=== PATIENT | male | born 1955 | race Caucasian/White ===

== ENCOUNTER 2018-07-22 12:45 | Emergency (ER) | payer OTHER, SELFPAY ==
[2018-07-22 12:50] VITALS: BP 166/55; PULSE 67; RESP 20; TEMP 36.8; O2SAT 99
[2018-07-22 13:05] VITALS: BP 122/53; PULSE 65; RESP 15; O2SAT 99
--- NOTE | 2018-07-22 13:07 | DI.RAD.S_ITS ---
PROCEDURE: XR CHEST 2V INDICATIONS: Cough for last few days TECHNIQUE: 2 views of the chest were acquired. COMPARISON: None. FINDINGS: Surgical changes and devices: Median sternotomy wires are seen.. Lungs and pleura: No pleural effusions or pneumothorax. Mild pulmonary vascular congestion is noted. No definite focal infiltrate. Mediastinum: Mediastinal contours are normal. Heart size is enlarged. Bones and chest wall: No suspicious bony abnormalities. Soft tissues appear unremarkable. IMPRESSION: Mild pulmonary vascular congestion. No definite focal infiltrate. Dictated by: Brian Christy M.D. on 07/22/2018 at 14:07 Approved by: Brian Christy M.D. on 07/22/2018 at 14:08
[2018-07-22 13:37] LABS: Add Manual Diff / Slide Review NO; Basophils Percent Auto 0.7 % (0-2); Eosinophils Percent Auto 1.6 % (2-4); Hematocrit 44.2 % (41-53); Hemoglobin 15.4 g/dL (13.5-17.5); Lymphocytes Percent Auto 29.9 % (25-40); Mean Corpuscular HGB Conc 34.8 % (30-36); Mean Corpuscular Hemoglobin 29.9 PG (26-34); Mean Corpuscular Volume 86.1 fL (80-100); Monocytes Percent Auto 16.7 % (3-14); Neutrophils Absolute Auto 2400 /uL (3000-5900); Neutrophils Percent Auto 51.1 % (50-75); Platelet Count 162 X10^3/uL (150-400); Red Blood Cell Count 5.14 X10^6/uL (4.5-5.9); Red Cell Distribution Width 14.8 % (11.6-14.8); White Blood Cell Count 4.7 X10^3/uL (4.5-11.0)
[2018-07-22 13:42] LABS: Prothrombin Time 11.4 SECONDS (10.1-12.7)
[2018-07-22 13:45] LABS: D Dimer 213 ng/mL (<230)
[2018-07-22 13:49] LABS: Alanine Aminotransferase 34 IU/L (21-72); Albumin Globulin Ratio 1.6 (1.0-2.8); Alkaline Phosphatase 62 U/L (38-126); Aspartate Aminotransferase 25 IU/L (17-59); BUN Creatinine Ratio 16.7 (6-22); Bilirubin Total 0.8 mg/dL (0.2-1.3); Blood Urea Nitrogen 15 mg/dL (9-20); Carbon Dioxide 29 mmol/L (22-32); Chloride 104 mmol/L (98-107); Creatine Kinase 203 U/L (55-170); Estimated Glomerular Filt Rate > 60.0 mL/min (>60); Globulin 2.5 g/dL (1.7-4.1); Glucose 225 mg/dL (80-110); HEMOLYSIS 20 (0-50); Lipase 37 U/L (23-300); Potassium 3.5 mmol/L (3.4-5.1); Sodium 142 mmol/L (137-145); Total Protein 6.5 g/dL (6.3-8.2)
[2018-07-22 14:00] VITALS: BP 129/47; PULSE 59; RESP 12; O2SAT 99
[2018-07-22 14:04] LABS: CKMB % Relative Index 1.1 % (1.5-5.0); Creatine Kinase MB 2.28 ng/mL (<2.37)
[2018-07-22 14:10] LABS: Troponin I < 0.012 ng/mL (0.01-0.034)
--- NOTE | 2018-07-22 14:28 | ED_ITS ---
HPI - General Adult <JJ Almazan - Last Filed: 07/22/18 21:37> General Chief complaint: Upper Respiratory Symptoms Stated complaint: hard time breathing, cough Time Seen by Provider: 07/22/18 12:46 Source: patient Mode of arrival: ambulatory Limitations: no limitations History of Present Illness HPI narrative: 63-year-old male history of coronary artery disease and a nonsmoker here for complaint of having cough over the last 3-4 days. He denies any fevers or chills. He states that the cough is not productive. 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 He states that he had an episode of chest pain day before yesterday to the left side of his chest although he thinks that this is due to muscle pain as it was worse while he was carrying work gear and moving his left arm. He denies any chest pain at this time. He is ambulatory into the emergency room. He denies any shortness of breath. Related Data Previous Rx's Medication Instructions Recorded ofloxacin 1 drp OPHTH TID #5 ml 05/14/17 Allergies Allergy/AdvReac Type Severity Reaction Status Date / Time [id number]-[id number] Reductase Allergy Unknown Unverified 02/22/18 12:28 Inhibitor [[id number] REDUCTASE INHIBITOR] morphine [MORPHINE] AdvReac Mild SENSITIVE Unverified 02/22/18 12:28 Review of Systems <JJ Almazan - Last Filed: 07/22/18 21:37> Constitutional Denies chills, Denies fever(s), Denies lethargy and Denies weakness Eyes Denies change in vision, Denies eye discharge, Denies irritation and Denies loss of vision ENT Ears, Nose, Mouth, and Throat: Denies change in voice, Denies neck pain, Denies sore throat and Denies throat swelling Cardiovascular Denies chest pain, Denies irregular heart rhythm, Denies lightheadedness, Denies palpitations and Denies orthopnea Respiratory Reports cough and Denies wheezing Gastrointestinal Gastrointestinal: Denies abdominal pain, Denies change in bowel habits, Denies diarrhea, Denies nausea and Denies vomiting Genitourinary Denies hematuria, Denies flank pain, Denies urinary incontinence and Denies urinary urgency Musculoskeletal Denies neck pain Integumentary/Breasts Denies pruritus, Denies erythema, Denies rash and Denies wounds Neurologic Denies confusion, Denies loss of vision and Denies weakness Psychiatric Denies anxiety, Denies confusion, Denies depression, Denies homicidal ideation and Denies suicidal ideation Endocrine Denies palpitations Hematologic/Lymphatic Denies easy bruising Allergic/Immunologic Denies urticaria, Denies throat swelling and Denies wheezing Exam <JJ Almazan - Last Filed: 07/22/18 21:37> Initial Vital Signs Initial Vital Signs: Vital Signs Temperature 98.3 F 07/22/18 12:50 Pulse Rate 67 07/22/18 12:50 Respiratory Rate 20 07/22/18 12:50 Blood Pressure 166/55 H 07/22/18 12:50 Pulse Oximetry 99 07/22/18 12:50 Const General: cooperative and well developed Nutritional Appearance: well nourished Orientation: alert, awake, oriented x3 and not confused HENMT Ears: hearing grossly normal bilaterally, external ears normal and TM's normal bilaterally Mouth: oral mucosae normal, oropharynx normal and moist mucous membranes Eyes Conjunctivae: conjunctivae normal Sclera: sclerae normal Pupils: PERRL EOM: EOM intact bilaterally Chest Chest: normal inspection of the chest Resp Effort & Inspection: normal respiratory effort, able to speak in complete sentences, no respiratory distress and no use of accessory muscles Auscultation: clear to auscultation bilaterally, no rales, no rhonchi and no wheezes Cardio Rate: regular rate Rhythm: regular rhythm Heart Sounds: no click, no gallops, no murmurs and no rubs Pulses: normal peripheral pulses GI Inspection: non-distended Palpation: soft, no hepatosplenomegaly, No guarding, No pulsatile mass and No tender Auscultation: normal bowel sounds Skin General: no rashes or lesions noted, No jaundice and No petechiae Neuro General: alert, oriented x3, gait normal and no focal motor deficits Speech: speech normal <Oscar Kelley DO - Last Filed: 07/23/18 06:46> Initial Vital Signs Initial Vital Signs: Vital Signs Temperature 98.3 F 07/22/18 12:50 Pulse Rate 67 07/22/18 12:50 Respiratory Rate 20 07/22/18 12:50 Blood Pressure 166/55 H 07/22/18 12:50 Pulse Oximetry 99 07/22/18 12:50 Course <JJ Almazan - Last Filed: 07/22/18 21:37> Orders Ordered: ED Orders 07/22/18 13:07 XR chest 2V Stat EKG-12 Lead Stat 07/22/18 13:20 B Type Natriuretic Peptide Stat Complete Blood Count AUTO DIFF Stat Comprehensive Metabolic Panel Stat D Dimer Stat Lipase Stat Prothrombin Time INR Stat Troponin & CK Cardiac Panel Stat Vital Signs - 8 hr 07/22/18 14:00 07/22/18 15:00 07/22/18 15:16 Temperature 98.5 F Pulse Rate 59 L 64 55 L Respiratory Rate 12 13 15 Blood Pressure 122/44 L Blood Pressure [Left Arm] 129/47 L 124/44 L Pulse Oximetry 99 99 100 <Oscar Kelley DO - Last Filed: 07/23/18 06:46> Orders Ordered: ED Orders 07/22/18 13:07 XR chest 2V Stat EKG-12 Lead Stat 07/22/18 13:20 B Type Natriuretic Peptide Stat Complete Blood Count AUTO DIFF Stat Comprehensive Metabolic Panel Stat D Dimer Stat Lipase Stat Prothrombin Time INR Stat Troponin & CK Cardiac Panel Stat Vital Signs - 8 hr 07/22/18 14:00 07/22/18 15:00 07/22/18 15:16 Temperature 98.5 F Pulse Rate 59 L 64 55 L Respiratory Rate 12 13 15 Blood Pressure 122/44 L Blood Pressure [Left Arm] 129/47 L 124/44 L Pulse Oximetry 99 99 100 Medical Decision Making <JJ Almazan - Last Filed: 07/22/18 21:37> Lab Data Result diagrams: 07/22/18 13:20 07/22/18 13:20 Lab Results 07/22/18 07/22/18 07/22/18 Range/Units 13:20 13:20 13:20 WBC 4.7 (4.5-11.0) X10^3/uL RBC 5.14 (4.5-5.9) X10^6/uL Hgb 15.4 (13.5-17.5) g/dL Hct 44.2 (41-53) % MCV 86.1 (80-100) fL MCH 29.9 (26-34) PG MCHC 34.8 (30-36) % RDW 14.8 (11.6-14.8) % Plt Count 162 (150-400) X10^3/uL Neut % (Auto) 51.1 (50-75) % Lymph % (Auto) 29.9 (25-40) % [place] % (Auto) 16.7 H (3-14) % Eos % (Auto) 1.6 L (2-4) % Baso % (Auto) 0.7 (0-2) % Neut # (Auto) 2400 L (2857-2077) /uL PT 11.4 (10.1-12.7) SECONDS INR 1.0 (0.9-1.3) D-Dimer 213 (<230) ng/mL Sodium 142 (137-145) mmol/L Potassium 3.5 (3.4-5.1) mmol/L Chloride 104 (98-107) mmol/L Carbon Dioxide 29 (22-32) mmol/L BUN 15 (9-20) mg/dL Creatinine 0.90 (0.66-1.25) mg/dL Estimated GFR > 60.0 (>60) mL/min BUN/Creatinine Ratio 16.7 (6-22) Glucose 225 H (80-110) mg/dL Calcium 9.0 (8.4-10.2) mg/dL Total Bilirubin 0.8 (0.2-1.3) mg/dL AST 25 (17-59) IU/L ALT 34 (21-72) IU/L Alkaline Phosphatase 62 (38-126) U/L Total Creatine Kinase 203 H (55-170) U/L CK-MB (CK-2) 2.28 (<2.37) ng/mL CK-MB (CK-2) Rel Index 1.1 L (1.5-5.0) % Troponin I < 0.012 (0.01-0.034) ng/mL B-Natriuretic Peptide < 100.0 (<100) Total Protein 6.5 (6.3-8.2) g/dL Albumin 4.0 (3.5-5.0) g/dL Globulin 2.5 (1.7-4.1) g/dL Albumin/Globulin Ratio 1.6 (1.0-2.8) Lipase 37 (23-300) U/L Imaging Data Chest x-ray: Radiologist's impression: PROCEDURE: XR CHEST 2V INDICATIONS: Cough for last few days TECHNIQUE: 2 views of the chest were acquired. COMPARISON: None. FINDINGS: Surgical changes and devices: Median sternotomy wires are seen.. Lungs and pleura: No pleural effusions or pneumothorax. Mild pulmonary vascular congestion is noted. No definite focal infiltrate. Mediastinum: Mediastinal contours are normal. Heart size is enlarged. Bones and chest wall: No suspicious bony abnormalities. Soft tissues appear unremarkable. IMPRESSION: Mild pulmonary vascular congestion. No definite focal infiltrate. Dictated by: Brian Christy M.D. on 07/22/2018 at 14:07 Approved by: Brian Christy M.D. on 07/22/2018 at 14:08 ECG Data Interpretation: EKG shows sinus bradycardia with first-degree AV block. No ST elevation or depression. No ectopy. Ventricular rate of 59. Pr interval of 233. QRS duration 97. QT of 405. MDM Narrative Additional Information: EKG shows sinus bradycardia with no ST elevation or depression. Chest x-ray shows mild pulmonary vascular congestion. CBC and Chem panel were obtained were unremarkable. Cardiac enzymes were obtained were negative. BMP was obtained and was negative. D-dimer was obtained was negative. BNP was negative.. Signs and symptoms presents as viral illness. Plenty of fluids and rest. [id number] Tylenol as needed for any discomfort. For any worsening symptoms return to the emergency room. <Oscar Kelley DO - Last Filed: 07/23/18 06:46> Lab Data Lab Results 07/22/18 07/22/18 07/22/18 Range/Units 13:20 13:20 13:20 WBC 4.7 (4.5-11.0) X10^3/uL RBC 5.14 (4.5-5.9) X10^6/uL Hgb 15.4 (13.5-17.5) g/dL Hct 44.2 (41-53) % MCV 86.1 (80-100) fL MCH 29.9 (26-34) PG MCHC 34.8 (30-36) % RDW 14.8 (11.6-14.8) % Plt Count 162 (150-400) X10^3/uL Neut % (Auto) 51.1 (50-75) % Lymph % (Auto) 29.9 (25-40) % [place] % (Auto) 16.7 H (3-14) % Eos % (Auto) 1.6 L (2-4) % Baso % (Auto) 0.7 (0-2) % Neut # (Auto) 2400 L (1314-6563) /uL PT 11.4 (10.1-12.7) SECONDS INR 1.0 (0.9-1.3) D-Dimer 213 (<230) ng/mL Sodium 142 (137-145) mmol/L Potassium 3.5 (3.4-5.1) mmol/L Chloride 104 (98-107) mmol/L Carbon Dioxide 29 (22-32) mmol/L BUN 15 (9-20) mg/dL Creatinine 0.90 (0.66-1.25) mg/dL Estimated GFR > 60.0 (>60) mL/min BUN/Creatinine Ratio 16.7 (6-22) Glucose 225 H (80-110) mg/dL Calcium 9.0 (8.4-10.2) mg/dL Total Bilirubin 0.8 (0.2-1.3) mg/dL AST 25 (17-59) IU/L ALT 34 (21-72) IU/L Alkaline Phosphatase 62 (38-126) U/L Total Creatine Kinase 203 H (55-170) U/L CK-MB (CK-2) 2.28 (<2.37) ng/mL CK-MB (CK-2) Rel Index 1.1 L (1.5-5.0) % Troponin I < 0.012 (0.01-0.034) ng/mL B-Natriuretic Peptide < 100.0 (<100) Total Protein 6.5 (6.3-8.2) g/dL Albumin 4.0 (3.5-5.0) g/dL Globulin 2.5 (1.7-4.1) g/dL Albumin/Globulin Ratio 1.6 (1.0-2.8) Lipase 37 (23-300) U/L Discharge Plan Departure Patient Disposition: Home Clinical Impression: Upper respiratory infection Discharge Date/Time: 07/22/18 15:18 Interventions: ED Discharge Assessment Last Done: 07/22/18 15:16 Instructions: DI for Viral Upper Respiratory Infection -- Adult Activity Restrictions/Additional Instructions: Laboratory results today along with EKG and chest x-ray were unremarkable. Signs and symptoms presents as a viral upper respiratory infection. Plenty of fluids and rest. Tylenol as needed for any discomfort. Follow up with her primary care provider this week for re-evaluation. For any worsening symptoms return to the emergency room. Prescriptions: No Action ofloxacin 0.3 % drops 1 drp OPHTH TID Qty: 5 RF: 0 Referrals: Dakota Pozo MD [Primary Care Provider] - <Oscar Kelley DO - Last Filed: 07/23/18 06:46> Cosign ED Attending Olamide Attestation: I was available for consultation during this patient's emergency department encounter
[2018-07-22 14:38] LABS: B Type Natriuretic Peptide < 100.0 (<100)
[2018-07-22 15:00] VITALS: BP 124/44; PULSE 64; RESP 13; O2SAT 99
[2018-07-22 15:16] VITALS: BP 122/44; PULSE 55; RESP 15; TEMP 36.9; O2SAT 100
== END 2018-07-22 15:18 | disposition home or self-care (01) ==
PROVIDERS: Emergency Provider Nurse Practitioner Family; PCP Family Medicine
DX: J06.9 Acute upper respiratory infection, unspecified (principal)
CPT/HCPCS: 36591; 71046; 80053; 82550; 82553; 83690; 83880; 84484; 85025; 85379; 85610; 93005; 93010; 99283; 99285

== ENCOUNTER 2023-02-23 10:48 | Observation (INO) | payer OTHER, SELFPAY ==
[2023-02-23] VITALS (19 sets, daily range): BP systolic 127–171; BP diastolic 47–72; PULSE 61–68; RESP 12–22; TEMP 36.6–37; O2SAT 92–100; BMI 44.7; BMI 43.0
--- NOTE | 2023-02-23 10:56 | ED_ITS ---
HPI - General Adult General Chief complaint: Neuro Symptoms/Deficit Stated complaint: when getting up from chair gets dizzy & falls 2x Time Seen by Provider: 02/23/23 10:56 History of Present Illness HPI narrative: 67-year-old male with history of diabetes and hyperlipidemia presents with 2 episodes of falling that happened since 2:00 a.m.. He states that yesterday he was in his normal state of health and that at 1 point this morning, he thinks at about 2:00 a.m. he was attempting to stand and he felt a bit unsteady in his left leg gave out on him, causing him to fall. He states that there was a 2nd occurrence when he was trying to tie his shoe and attempting to support himself his left leg gave out on him again. He denies any headache or blurred vision. He is had no trouble with speech. He denies any facial numbness or weakness. He denies upper extremity numbness or weakness. He admits to ongoing weakness of his left leg. Denies any back pain or trauma. He is had no fever and takes no blood thinners. He denies any loss of control of bowel or bladder. Related Data Home Medications Medication Instructions Recorded Confirmed amlodipine 5 mg tablet 5 mg PO DAILY 02/23/23 02/23/23 carvedilol 3.125 mg tablet 3.125 mg PO BIDWM 02/23/23 02/23/23 clopidogrel 75 mg tablet 75 mg PO DAILY 02/23/23 02/23/23 dulaglutide 0.75 mg/0.5 mL 0.75 mg SUBCUT WEEKLY 02/23/23 02/23/23 subcutaneous pen injector (Trulicity) insulin NPH isoph U-100 human 100 70 unit SUBCUT BID 02/23/23 02/23/23 unit/mL subcutaneous suspension (Novolin N NPH U-100 Insulin isophane) insulin aspart U-100 100 unit/mL 35 unit SUBCUT TID 02/23/23 02/23/23 subcutaneous solution (Novolog U-100 Insulin aspart) lisinopril 40 mg tablet 40 mg PO DAILY 02/23/23 02/23/23 methylphenidate HCl 10 mg tablet 10 mg PO QID 02/23/23 02/23/23 nitroglycerin 0.4 mg sublingual 0.4 mg sublingual Q5M PRN Chest 02/23/23 02/23/23 tablet Pain potassium chloride 20 mEq 20 meq PO DAILY 02/23/23 02/23/23 tablet,extended release(part/cryst) semaglutide 0.25 mg or 0.5 mg (2 0.25 mg SUBCUT WEEKLY 02/23/23 02/23/23 mg/1.5 mL) subcutaneous pen injector (Ozempic) torsemide 20 mg tablet 40 mg PO DAILY 02/23/23 02/23/23 Allergies Allergy/AdvReac Type Severity Reaction Status Date / Time [id number]-[id number] Reductase Allergy Unknown Unverified 10/06/19 13:55 Inhibitor [[id number] REDUCTASE INHIBITOR] morphine [MORPHINE] AdvReac Mild SENSITIVE Unverified 10/06/19 13:55 Review of Systems Review of Systems Narrative: GENERAL: Denies chills, fatigue, malaise, fever, sweats. HEENT: Denies sinus pain, ear pain, sore throat, difficulty swallowing, dizziness. RESPIRATORY: Denies dyspnea, cough, wheezing, hemoptysis, sputum. CARDIOVASCULAR: Denies chest pain, palpitations, orthopnea, edema, GASTROINTESTINAL: Denies nausea, vomiting, abdominal pain, diarrhea, constipation, melena. : Denies dysuria, frequency, incontinence, hematuria, urinary retention. MUSCULOSKELETAL: See HPI SKIN: Denies rash, skin lesions, or other NEUROLOGIC: See HPI PSYCHIATRIC: No concerning psychosocial issues. 12 point review of systems is negative except for those stated above Patient History Medical History CAD (coronary artery disease) Diabetes HLD (hyperlipidemia) HTN (hypertension) Surgical History Hx of CABG Family History Mother No pertinent past medical history Father No pertinent past medical history Social History household members: spouse Smoking Status: Former smoker alcohol intake: current Exam Narrative Exam Narrative: GENERAL: [67] year old patient appears stated age. Well-developed patient, in mild distress. HEAD: Atraumatic. Normocephalic. EYES: Pupils equal round and reactive. Extraocular motions intact. No scleral icterus. No injection or drainage. ENT: Nose without bleeding, purulent drainage. Throat without erythema, tonsillar hypertrophy or exudate. Airway patent. NECK: Trachea midline. Non tender CARDIOVASCULAR: Regular rate and rhythm without murmurs, gallops, or rubs. RESPIRATORY: Clear to auscultation. Breath sounds equal bilaterally. No wheezes, rales, or rhonchi. GASTROINTESTINAL: Abdomen soft, non-tender, nondistended. EXTREMITIES: No edema or joint tenderness. BACK: Nontender without deformity or crepitance. No flank tenderness. NEURO: AOx3. SKIN: No rash or erythema of visible areas Initial Vital Signs Initial Vital Signs: Vital Signs Pulse Rate 64 02/23/23 10:58 Pulse Oximetry 100 02/23/23 10:58 Scores NIH Stroke Scale Level of Conciousness: Alert, keenly responsive Ask month/age: Answers both questions correctly. Open/close eyes, close hand: Performs both tasks correctly Best gaze horizontal: Normal Visual summers: No visual loss Facial palsy: Normal symetrical movement Left arm drift: No drift for full 10 sec Right arm drift: No drift for full 10 sec Left leg drift: Drifts down, not to bed Right leg drift: No drift for full 5 sec Limb ataxia: Absent Sensory on face/arms/legs: Normal, no sensory loss Best language: No aphasia, normal Dysarthria: Normal Extinction or inattention: No abnormality Total NIH Stroke scale score: 1 Course Orders Ordered: ED Orders 02/24/23 05:30 Basic Metabolic Panel DAILY Complete Blood Count AUTO DIFF DAILY Hemoglobin A1C% w Est Avg Glu Routine Lipid Panel Routine Magnesium DAILY TSH w/ Reflex to FT4 Routine 02/25/23 05:00 Basic Metabolic Panel DAILY Complete Blood Count AUTO DIFF DAILY Magnesium DAILY 02/26/23 05:00 Basic Metabolic Panel DAILY Complete Blood Count AUTO DIFF DAILY Magnesium DAILY Acetaminophen (Acetaminophen 325 Mg Tablet) 650 mg PO Q6H PRN PRN Reason: Fever/Mild Pain (1-3) Amlodipine Besylate (Amlodipine 5 Mg Tablet) 5 mg PO BEDTIME [facility] Last Admin: 02/23/23 20:35 Dose: 5 mg Documented By: AW Carvedilol (Carvedilol 3.125 Mg Tablet) 3.125 mg PO BIDWM [facility] Last Admin: 02/23/23 17:30 Dose: 3.125 mg Documented By: HCW Clopidogrel Bisulfate (Clopidogrel 75 Mg Tablet) 75 mg PO BEDTIME [facility] Last Admin: 02/23/23 20:35 Dose: 75 mg Documented By: FILIBERTO Enoxaparin Sodium (Enoxaparin 40 Mg/0.4 Ml Syringe) 40 mg SUBCUT BID [facility] Last Admin: 02/23/23 20:36 Dose: 40 mg Documented By: FILIBERTO Insulin Human Lispro (Insulin Lispro 100 Unit/Ml 3ml Vial) 35 unit SUBCUT AC [facility] Last Admin: 02/23/23 17:30 Dose: 25 unit Documented By: HCW Co-signed By: KARAN Insulin Human NPH (Insulin Nph 100 Unit/Ml 10ml Vial) 70 unit SUBCUT BID [facility] Last Admin: 02/23/23 21:15 Dose: 70 unit Documented By: FILIBERTO Co-signed By: ANTONIA Lisinopril (Lisinopril 20 Mg Tablet) 40 mg PO BEDTIME [facility] Last Admin: 02/23/23 20:35 Dose: 40 mg Documented By: FILIBERTO Naloxone HCl (Naloxone 0.4 Mg/Ml Vial) 0.2 mg IV Q2MIN PRN PRN Reason: Opiate Reversal Nitroglycerin (Nitroglycerin 0.4 Mg Sl Tab) 0.4 mg SL Q5M PRN PRN Reason: Chest Pain Ondansetron HCl (Ondansetron 4 Mg/2 Ml Inj) 4 mg IV Q8HR PRN PRN Reason: Nausea And Vomiting Potassium Chloride (Potassium Chloride 20 Meq Tab) 20 meq PO BEDTIME [facility] Last Admin: 02/23/23 20:35 Dose: 20 meq Documented By: FILIBERTO Torsemide (Torsemide 10 Mg Tablet) 40 mg PO DAILY [facility] Discontinued Medications Amlodipine Besylate (Amlodipine 5 Mg Tablet) 5 mg PO DAILY [facility] Clopidogrel Bisulfate (Clopidogrel 75 Mg Tablet) 75 mg PO DAILY [facility] Enoxaparin Sodium (Enoxaparin 40 Mg/0.4 Ml Syringe) 40 mg SUBCUT DAILY [facility] Lisinopril (Lisinopril 20 Mg Tablet) 40 mg PO DAILY [facility] Potassium Chloride (Potassium Chloride 20 Meq Tab) 20 meq PO DAILY [facility] Medical Decision Making Lab Data 02/23/23 11:40 02/23/23 11:40 Labs: Lab Results 02/23/23 02/23/23 02/23/23 Range/Units 11:40 11:40 11:40 WBC 9.2 (4.5-11.0) X10^3/uL RBC 5.29 (4.5-5.9) X10^6/uL Hgb 15.4 (13.5-17.5) g/dL Hct 44.9 (41-53) % MCV 84.9 (80-100) fL MCH 29.1 (26-34) PG MCHC 34.3 (30-36) % RDW 14.2 (11.6-14.8) % Plt Count 210 (150-400) X10^3/uL Neut % (Auto) 63.7 (50-75) % Lymph % (Auto) 26.3 (25-40) % [place] % (Auto) 7.8 (3-14) % Eos % (Auto) 1.3 L (2-4) % Baso % (Auto) 0.9 (0-2) % Neut # (Auto) 5900 (0153-8756) /uL Lymph # (Auto) 2400 (5966-0136) /uL [place] # (Auto) 700 (0-900) /uL Eos # (Auto) 100 (0-450) /uL Baso # (Auto) 100 (0-100) /uL PT 11.0 (10.1-12.7) SECONDS INR 1.0 (0.9-1.3) APTT 33 (26-36) SECONDS Sodium 139 (137-145) mmol/L Potassium 4.0 (3.4-5.1) mmol/L Chloride 103 (98-107) mmol/L Carbon Dioxide 29 (22-32) mmol/L BUN 14 (9-20) mg/dL Creatinine 0.72 (0.66-1.25) mg/dL Estimated GFR > 60 (>60) mL/min BUN/Creatinine Ratio 19.4 (6-22) Glucose 161 H (80-110) mg/dL Calcium 9.4 (8.4-10.2) mg/dL Total Bilirubin 0.6 (0.2-1.3) mg/dL AST 23 (17-59) IU/L ALT 33 (<50) IU/L Alkaline Phosphatase 77 (38-126) U/L Total Creatine Kinase 108 (55-170) U/L CK-MB (CK-2) 1.88 (<2.37) ng/mL CK-MB (CK-2) Rel Index 1.7 (1.5-5.0) % Troponin I < 0.012 (0.01-0.034) ng/mL Total Protein 7.4 (6.3-8.2) g/dL Albumin 4.2 (3.5-5.0) g/dL Globulin 3.2 (1.7-4.1) g/dL Albumin/Globulin Ratio 1.3 (1.0-2.8) Urine RBC (0-5/HPF) Urine WBC (0-5/HPF) Urine Bacteria (None) Ur Culture Indicated? Micro UA Comment U Opiates 300ng/mL cut (Negative) Ur Oxycodone Screen (Negative) Urine Methadone Screen (Negative) Ur Barbiturates Screen (Negative) U Tricyclic Antidepress (Negative) Ur Phencyclidine Scrn (Negative) Ur Amphetamines Screen (Negative) U Methamphetamines Scrn (Negative) Ur MDMA Scrn (Ecstasy) (Negative) U Benzodiazepines Scrn (Negative) Urine Cocaine Screen (Negative) U Marijuana (THC) Screen (Negative) Ethyl Alcohol < 10 ( - 10) mg/dL SARS-CoV-2 (PCR) (Negative) 02/23/23 02/23/23 02/23/23 Range/Units 12:19 13:56 13:56 WBC (4.5-11.0) X10^3/uL RBC (4.5-5.9) X10^6/uL Hgb (13.5-17.5) g/dL Hct (41-53) % MCV (80-100) fL MCH (26-34) PG MCHC (30-36) % RDW (11.6-14.8) % Plt Count (150-400) X10^3/uL Neut % (Auto) (50-75) % Lymph % (Auto) (25-40) % [place] % (Auto) (3-14) % Eos % (Auto) (2-4) % Baso % (Auto) (0-2) % Neut # (Auto) (7965-9567) /uL Lymph # (Auto) (6562-1539) /uL [place] # (Auto) (0-900) /uL Eos # (Auto) (0-450) /uL Baso # (Auto) (0-100) /uL PT (10.1-12.7) SECONDS INR (0.9-1.3) APTT (26-36) SECONDS Sodium (137-145) mmol/L Potassium (3.4-5.1) mmol/L Chloride (98-107) mmol/L Carbon Dioxide (22-32) mmol/L BUN (9-20) mg/dL Creatinine (0.66-1.25) mg/dL Estimated GFR (>60) mL/min BUN/Creatinine Ratio (6-22) Glucose (80-110) mg/dL Calcium (8.4-10.2) mg/dL Total Bilirubin (0.2-1.3) mg/dL AST (17-59) IU/L ALT (<50) IU/L Alkaline Phosphatase (38-126) U/L Total Creatine Kinase (55-170) U/L CK-MB (CK-2) (<2.37) ng/mL CK-MB (CK-2) Rel Index (1.5-5.0) % Troponin I (0.01-0.034) ng/mL Total Protein (6.3-8.2) g/dL Albumin (3.5-5.0) g/dL Globulin (1.7-4.1) g/dL Albumin/Globulin Ratio (1.0-2.8) Urine RBC None seen (0-5/HPF) Urine WBC None seen (0-5/HPF) Urine Bacteria None seen (None) Ur Culture Indicated? Cult not indicated Micro UA Comment Microscopic normal U Opiates 300ng/mL cut Negative (Negative) Ur Oxycodone Screen Negative (Negative) Urine Methadone Screen Negative (Negative) Ur Barbiturates Screen Negative (Negative) U Tricyclic Antidepress Negative (Negative) Ur Phencyclidine Scrn Negative (Negative) Ur Amphetamines Screen Negative (Negative) U Methamphetamines Scrn Negative (Negative) Ur MDMA Scrn (Ecstasy) Negative (Negative) U Benzodiazepines Scrn Negative (Negative) Urine Cocaine Screen Negative (Negative) U Marijuana (THC) Screen Negative (Negative) Ethyl Alcohol ( - 10) mg/dL SARS-CoV-2 (PCR) Negative (Negative) Urine Dip Bedside Urine Glucose 1000 mg/dl Bedside Urine Bilirubin - Negative Bedside Urine Ketone - Negative Urine Specific [place] 1.015 Bedside Urine Occult Blood - Negative Bedside Urine pH 6.0 Bedside Urine Protein - Negative Bedside Urine Urobilinogen - Negative Bedside Urine Nitrite - Negative Bedside Urine Leukocytes - Negative Esterase Point of care testing: Urine Dip Bedside Urine Glucose 1000 mg/dl Bedside Urine Bilirubin - Negative Bedside Urine Ketone - Negative Urine Specific [place] 1.015 Bedside Urine Occult Blood - Negative Bedside Urine pH 6.0 Bedside Urine Protein - Negative Bedside Urine Urobilinogen - Negative Bedside Urine Nitrite - Negative Bedside Urine Leukocytes - Negative Esterase MDM Narrative Medical decision making narrative: 67-year-old male with new onset left leg weakness sufficient to cause falls since 2:00 a.m.. He denies any back pain or other neurologic symptoms other t crist[place] perhaps some feeling of being unsteady along with this. Stroke scale is otherwise reassuring, imaging shows no bleed or large vessel occlusion. Patient requires hospitalization for further workup Discharge Plan Departure Patient Disposition: Admitted as Observation Clinical Impression: Stroke Admit Date/Time: 02/23/23 14:25 Admit Provider: Jae Medrano
--- NOTE | 2023-02-23 11:02 | DI.CT.S_ITS ---
PROCEDURE: CT STROKE INDICATIONS: unsteady, left leg weak TECHNIQUE: Noncontrast 4.5 mm thick angled axial sections acquired from the foramen magnum to the vertex, with coronal reformats. For radiation dose reduction, the following was used: automated exposure control, adjustment of mA and/or kV according to patient size. COMPARISON: None. FINDINGS: CSF spaces: Basal cisterns are patent. No extra-axial fluid collections. The ventricles are symmetric in size and shape. Brain: No intracranial bleeds or masses. There is cerebral volume loss for age, with resultant ventricular and sulcal prominence. There are periventricular and deep white matter chronic small vessel ischemic changes. There is intracranial internal carotid artery atherosclerosis. Skull and face: Calvarium and visualized facial bones appear intact, without suspicious lesions. Sinuses: Visualized sinuses and mastoids are clear. IMPRESSION: No intracranial hemorrhage or other acute intracranial abnormality. This study fulfills neurological imaging criteria for inclusion or exclusion of acute stroke therapies based on available published neurological guidelines. Dictated by: Bill Woodsno M.D. on 02/23/2023 at 12:11 Approved by: Bill Woodson M.D. on 02/23/2023 at 12:17
--- NOTE | 2023-02-23 11:02 | DI.CT.S_ITS ---
PROCEDURE: CT ANGIO HEAD AND NECK INDICATIONS: unsteady, left leg weak TECHNIQUE: After the administration of intravenous contrast, 1 mm thick sections acquired from the aortic arch through the [place]. Post-contrast 4.5 mm thick sections then re-acquired from the foramen magnum to the vertex. 3-dimensional [id number]-xnezpeunue (MIP) and/or volume rendering reformats were acquired of the central intracranial vasculature and neck separately. For radiation dose reduction, the following was used: automated exposure control, adjustment of mA and/or kV according to patient size. COMPARISON: [facility], CT, CT STROKE, 02/23/2023, 11:08. FINDINGS: Image quality: Excellent. BRAIN: CSF spaces: Ventricles are normal in size and shape. Basal cisterns are patent. No extra-axial fluid collections. Brain: No midline shift. No intracranial bleeds or masses. [place]-white matter interface appears intact. Skull and face: Calvarium and facial bones appear intact, without suspicious lesions. Orbits appear normal. Sinuses: Sinuses and mastoids are clear. HEAD CT ANGIOGRAPHY: Anterior circulation: Intracranial internal carotid arteries are normal in size and flow. The flow within the paired anterior cerebral arteries is normal and symmetric. The flow within the middle cerebral arteries is normal and symmetric. The anterior communicating artery is seen. No aneurysms are seen. Posterior circulation: Visualized portions of the vertebral arteries demonstrate normal caliber, and join to form a normal appearing basilar artery. Flow within the posterior cerebral arteries is normal and symmetric. No aneurysms are seen. NECK CT ANGIOGRAPHY: Carotid system: The great vessels demonstrate a conventional anatomy as they arise from the aortic arch. The origins of the common carotid arteries appear patent. The common carotid arteries demonstrate normal caliber and courses. The bifurcation regions are both widely patent. MILD PROXIMAL LEFT INTERNAL CAROTID ARTERY STENOSIS, LESS THAN 50%. NO SIGNIFICANT RIGHT INTERNAL CAROTID ARTERY STENOSIS. Posterior circulation: The origins of the vertebral arteries both appear widely patent. The more superior extracranial portions of both vertebral arteries also demonstrate normal courses and calibers. They join to form a normal appearing basilar artery. Soft tissues: Visualized neck soft tissues demonstrate no suspicious abnormalities. Bones: No suspicious bony lesions. Visualized cervical spine appears normally aligned. IMPRESSION: 1. No evidence acute intracranial process 2. Unremarkable CTA head. No stenosis, aneurysm, occlusion, or focal filling defect. 3. Mild, less than 50% proximal left internal carotid artery stenosis. Comment: Findings were discussed with Brandie Saenz, a nurse working with Dr. Gustafson on 02/23/23 at 12:47 hours. Any quantitative measurements of stenosis were performed using NASCET criteria. Dictated by: Elijah Kee M.D. on 02/23/2023 at 12:38 Approved by: Elijah Kee M.D. on 02/23/2023 at 12:48
[2023-02-23 11:50] LABS: Add Manual Diff / Slide Review NO; Basophils Absolute Auto 100 /uL (0-100); Basophils Percent Auto 0.9 % (0-2); Eosinophils Absolute Auto 100 /uL (0-450); Eosinophils Percent Auto 1.3 % (2-4); Hematocrit 44.9 % (41-53); Hemoglobin 15.4 g/dL (13.5-17.5); Lymphocytes Absolute Auto 2400 /uL (1100-4500); Lymphocytes Percent Auto 26.3 % (25-40); Mean Corpuscular HGB Conc 34.3 % (30-36); Mean Corpuscular Hemoglobin 29.1 PG (26-34); Mean Corpuscular Volume 84.9 fL (80-100); Monocytes Absolute Auto 700 /uL (0-900); Monocytes Percent Auto 7.8 % (3-14); Neutrophils Absolute Auto 5900 /uL (1500-7000); Neutrophils Percent Auto 63.7 % (50-75); Platelet Count 210 X10^3/uL (150-400); Red Blood Cell Count 5.29 X10^6/uL (4.5-5.9); Red Cell Distribution Width 14.2 % (11.6-14.8); White Blood Cell Count 9.2 X10^3/uL (4.5-11.0)
[2023-02-23 11:58] LABS: Alanine Aminotransferase 33 IU/L (<50); Albumin 4.2 g/dL (3.5-5.0); Albumin Globulin Ratio 1.3 (1.0-2.8); Alkaline Phosphatase 77 U/L (38-126); Aspartate Aminotransferase 23 IU/L (17-59); BUN Creatinine Ratio 19.4 (6-22); Bilirubin Total 0.6 mg/dL (0.2-1.3); Blood Urea Nitrogen 14 mg/dL (9-20); Calcium 9.4 mg/dL (8.4-10.2); Carbon Dioxide 29 mmol/L (22-32); Chloride 103 mmol/L (98-107); Creatine Kinase 108 U/L (55-170); Estimated Glomerular Filt Rate > 60 mL/min (>60); Ethanol (ETOH) < 10 mg/dL; Globulin 3.2 g/dL (1.7-4.1); Glucose 161 mg/dL (80-110); HEMOLYSIS < 15 (0-50); Sodium 139 mmol/L (137-145); Total Protein 7.4 g/dL (6.3-8.2)
[2023-02-23 11:59] LABS: PTT Partial Thromboplastin Tim 33 SECONDS (26-36)
[2023-02-23 12:09] LABS: Troponin I < 0.012 ng/mL (0.01-0.034)
[2023-02-23 12:13] LABS: CKMB % Relative Index 1.7 % (1.5-5.0); Creatine Kinase MB 1.88 ng/mL (<2.37)
[2023-02-23 12:46] LABS: COVID19 -Nasal RAPID Negative (Negative)
--- NOTE | 2023-02-23 13:59 | DI.MRI.S_ITS ---
PROCEDURE: MR HEAD/BRAIN WO CON INDICATIONS: r/o CVA TECHNIQUE: Non-contrast axial T1 spin echo, axial T2 fast spin echo, sagittal and axial FLAIR, coronal T2 fast spin echo, axial gradient echo, axial diffusion and ADC through the brain. COMPARISON: [facility], CT, CT ANGIO HEAD AND NECK, 02/23/2023, 11:08. FINDINGS: Image quality: Excellent. CSF spaces: Ventricles appear symmetric in size and shape. Basal cisterns are patent. No extra-axial fluid collections. Brain: No intracranial bleeds or mass effects. There is cerebral volume loss for age. There are mild, age-appropriate periventricular and deep white matter chronic small vessel ischemic changes. Brainstem appears normal. Diffusion-weighted images show no acute ischemic insults. No chronic ischemic insults. Normal intravascular flow voids are present. Skull and face: Calvarial bone marrow is normal in signal. Orbits are normal. Sinuses: Sinuses and mastoids are clear. IMPRESSION: Age-related volume loss and mild, age-appropriate small-vessel ischemic change. No evidence of acute intracranial process. Dictated by: Elijah Kee M.D. on 02/23/2023 at 15:41 Approved by: Elijah Kee M.D. on 02/23/2023 at 15:42
[2023-02-23 14:08] LABS: UR Morphine/Opiate cutoff 300 Negative (Negative); Ur Creatinine Normal (Normal); Ur Specific Gravity Normal (Normal); Urine Amphetamines Negative (Negative); Urine Barbiturates Negative (Negative); Urine Benzodiazepines Negative (Negative); Urine Cocaine Negative (Negative); Urine MDMA Negative (Negative); Urine Methadone Negative (Negative); Urine Methamphetamines Negative (Negative); Urine Oxycodone Negative (Negative); Urine Phencyclidine Negative (Negative); Urine Tetrahydrocannabinol Negative (Negative); Urine Tricyclic Antidepressant Negative (Negative); Urine pH Normal (Normal)
[2023-02-23 14:23] LABS: Bacteria Urine None Seen; Culture Indicated Urine Cult Not Indicated; RBC Urine None Seen (0-5/HPF); Urine Comments Microscopic Normal; WBC Urine None Seen (0-5/HPF)
--- NOTE | 2023-02-23 15:33 | PM.HP.1 ---
History of Present Illness History of Present Illness Date Patient Seen: 02/23/23 Time Patient Seen: 16:00 Chief complaint: when getting up from chair gets dizzy & falls 2x Narrative: This is a 67 year old male with PMH of DM2, HTN, CAD s/p CABG, HLD who presents after an episode of left leg weakness. Yesterday evening, patient was trying to get up from a chair when he noticed he was having difficulty moving his left leg. He notes this is particularly prominent in his left calf with mild tightness feeling. He continued to rest for a while, but when he was attempting to get up from a chair today he had a sustained fall and had a difficult time getting up as well. His encouraged him to come in for evaluation. Discussed with on the phone, she states he was a bit more lethargic than normal, and had difficulty remembering events, but denies obvious facial droop or slurred speech. Patient also checked his blood sugar and it was 499 at the time and he gave himself an extra dose of Novolog. He does have a mild headache on the top part of his head, and has chronic bilateral neuropathy from his diabetes. 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 He denies weakness in his other legs, back pain, abdominal pain, nausea, vomiting, chest pain, shortness of breath. He does endorse some calf discomfort on the right when walking, but not recently. In the emergency room, BP were labile, but the remainder of his vitals were unremarkable. ER provider reported left sided weakness and difficulty with ambulation. CT imaging was unremarkable. He was admitted for further evaluation of L leg weakness, possible TIA. PFSH Medical History CAD (coronary artery disease) Diabetes HLD (hyperlipidemia) HTN (hypertension) Surgical History Hx of CABG Family History Mother No pertinent past medical history Father No pertinent past medical history Social History household members: spouse Smoking Status: Former smoker alcohol intake: current Meds Home Medications and Allergies Home Medications Medication Instructions Recorded Confirmed Type amlodipine 5 mg tablet 5 mg PO DAILY 02/23/23 02/23/23 History carvedilol 3.125 mg tablet 3.125 mg PO BIDWM 02/23/23 02/23/23 History clopidogrel 75 mg tablet 75 mg PO DAILY 02/23/23 02/23/23 History dulaglutide 0.75 mg/0.5 mL 0.75 mg SUBCUT WEEKLY 02/23/23 02/23/23 History subcutaneous pen injector (Trulicity) insulin NPH isoph U-100 human 100 70 unit SUBCUT BID 02/23/23 02/23/23 History unit/mL subcutaneous suspension (Novolin N NPH U-100 Insulin isophane) insulin aspart U-100 100 unit/mL 35 unit SUBCUT TID 02/23/23 02/23/23 History subcutaneous solution (Novolog U-100 Insulin aspart) lisinopril 40 mg tablet 40 mg PO DAILY 02/23/23 02/23/23 History methylphenidate HCl 10 mg tablet 10 mg PO QID 02/23/23 02/23/23 History nitroglycerin 0.4 mg sublingual 0.4 mg sublingual Q5M PRN Chest 02/23/23 02/23/23 History tablet Pain potassium chloride 20 mEq 20 meq PO DAILY 02/23/23 02/23/23 History tablet,extended release(part/cryst) semaglutide 0.25 mg or 0.5 mg (2 0.25 mg SUBCUT WEEKLY 02/23/23 02/23/23 History mg/1.5 mL) subcutaneous pen injector (Ozempic) torsemide 20 mg tablet 40 mg PO DAILY 02/23/23 02/23/23 History Allergies Allergy/AdvReac Type Severity Reaction Status Date / Time Rhtawoa-SKD-WfW Reductase Allergy Unknown Unverified 10/06/19 13:55 Inhibitor [SYBYTRE-ZMF-JGP REDUCTASE INHIBITOR] morphine [MORPHINE] AdvReac Mild SENSITIVE Unverified 10/06/19 13:55 Review of Systems Review of Systems Narrative: All other systems reviewed with the patient and are negative unless otherwise stated. Exam Vital Signs (past 8 hours): - 02/23/23 11:06 02/23/23 10:58 02/23/23 11:00 Temperature 98.3 F Pulse Rate 67 64 Respiratory Rate 18 Blood Pressure 155/65 H 155/65 H Pulse Oximetry 100 100 Oxygen Delivery Method Room Air 02/23/23 11:00 02/23/23 11:42 02/23/23 11:45 Temperature Pulse Rate 64 64 61 Respiratory Rate 17 Blood Pressure Pulse Oximetry 100 100 100 Oxygen Delivery Method 02/23/23 11:45 02/23/23 12:13 02/23/23 12:15 Temperature Pulse Rate 68 Respiratory Rate Blood Pressure 138/64 161/71 H Pulse Oximetry 100 Oxygen Delivery Method 02/23/23 12:15 02/23/23 12:30 02/23/23 12:30 Temperature Pulse Rate 65 64 Respiratory Rate 14 15 Blood Pressure 147/58 H Pulse Oximetry 100 100 Oxygen Delivery Method 02/23/23 13:00 02/23/23 13:01 02/23/23 13:01 Temperature Pulse Rate 63 64 Respiratory Rate 12 12 Blood Pressure 127/60 Pulse Oximetry 96 99 Oxygen Delivery Method 02/23/23 13:30 02/23/23 13:30 02/23/23 13:50 Temperature Pulse Rate 63 Respiratory Rate 16 Blood Pressure 155/67 H 171/72 H Pulse Oximetry 100 Oxygen Delivery Method 02/23/23 13:50 02/23/23 14:00 02/23/23 14:00 Temperature Pulse Rate 66 64 Respiratory Rate 14 20 Blood Pressure 132/63 Pulse Oximetry 100 100 Oxygen Delivery Method 02/23/23 14:30 Temperature Pulse Rate 66 Respiratory Rate 22 Blood Pressure Pulse Oximetry 100 Oxygen Delivery Method Oxygen Delivery Method Room Air Narrative Exam Narrative: General:? Patient is well developed and well nourished, in no distress at this time. HEENT:? Normocephalic, atraumatic, extraocular muscles intact, oral pharynx is clear and mucous membranes are moist. Neck: supple and symmetric, trachea is midline, no cervical adenopathy. Negative for JVD Chest:? Normal AP diameter and contour without kyphoscoliosis, no tachypnea, equal chest rise bilaterally. Lungs:? CTA b/l no wheezing rhonchi or rales. Cardio:?RRR no m/r/g. Abdomen: S NT ND. No CVA tenderness. Musculoskeletal:? Muscle strength and tone are equal within normal limits, no deformity. Extremities: No edema or joint effusions. No cyanosis or clubbing. Skin:? Pale,? Warm to touch,dry and intact without rashes, ulcerations or petechiae.? Neuro:? Alert and orientated x3,? sensation diminished to light touch intact bilateral LE (chronic neuropathy), no gross deficits noted of cranial nerves. Psych:? Patient has a well-kept appearance, appropriate affect, mental status attitude thought context and judgment are appropriate for age. Objective ECG Impression: Sinus rhythm with 1st degree AV block Left axis deviation Anterior infarct , age undetermined Similar to prior tracing Labs 02/23/23 11:40 02/23/23 11:40 Labs: Laboratory Results - last 24 hr 02/23/23 02/23/23 02/23/23 11:40 11:40 11:40 WBC 9.2 RBC 5.29 Hgb 15.4 Hct 44.9 MCV 84.9 MCH 29.1 MCHC 34.3 RDW 14.2 Plt Count 210 Neut % (Auto) 63.7 Lymph % (Auto) 26.3 Valley % (Auto) 7.8 Eos % (Auto) 1.3 L Baso % (Auto) 0.9 Neut # (Auto) 5900 Lymph # (Auto) 2400 Valley # (Auto) 700 Eos # (Auto) 100 Baso # (Auto) 100 PT 11.0 INR 1.0 APTT 33 Sodium 139 Potassium 4.0 Chloride 103 Carbon Dioxide 29 BUN 14 Creatinine 0.72 Estimated GFR > 60 BUN/Creatinine Ratio 19.4 Glucose 161 H Calcium 9.4 Total Bilirubin 0.6 AST 23 ALT 33 Alkaline Phosphatase 77 Total Creatine Kinase 108 CK-MB (CK-2) 1.88 CK-MB (CK-2) Rel Index 1.7 Troponin I < 0.012 Total Protein 7.4 Albumin 4.2 Globulin 3.2 Albumin/Globulin Ratio 1.3 Urine RBC Urine WBC Urine Bacteria Ur Culture Indicated? Micro UA Comment U Opiates 300ng/mL cut Ur Oxycodone Screen Urine Methadone Screen Ur Barbiturates Screen U Tricyclic Antidepress Ur Phencyclidine Scrn Ur Amphetamines Screen U Methamphetamines Scrn Ur MDMA Scrn (Ecstasy) U Benzodiazepines Scrn Urine Cocaine Screen U Marijuana (THC) Screen Ethyl Alcohol < 10 SARS-CoV-2 (PCR) 02/23/23 02/23/23 02/23/23 12:19 13:56 13:56 WBC RBC Hgb Hct MCV MCH MCHC RDW Plt Count Neut % (Auto) Lymph % (Auto) Valley % (Auto) Eos % (Auto) Baso % (Auto) Neut # (Auto) Lymph # (Auto) Valley # (Auto) Eos # (Auto) Baso # (Auto) PT INR APTT Sodium Potassium Chloride Carbon Dioxide BUN Creatinine Estimated GFR BUN/Creatinine Ratio Glucose Calcium Total Bilirubin AST ALT Alkaline Phosphatase Total Creatine Kinase CK-MB (CK-2) CK-MB (CK-2) Rel Index Troponin I Total Protein Albumin Globulin Albumin/Globulin Ratio Urine RBC None seen Urine WBC None seen Urine Bacteria None seen Ur Culture Indicated? Cult not indicated Micro UA Comment Microscopic normal U Opiates 300ng/mL cut Negative Ur Oxycodone Screen Negative Urine Methadone Screen Negative Ur Barbiturates Screen Negative U Tricyclic Antidepress Negative Ur Phencyclidine Scrn Negative Ur Amphetamines Screen Negative U Methamphetamines Scrn Negative Ur MDMA Scrn (Ecstasy) Negative U Benzodiazepines Scrn Negative Urine Cocaine Screen Negative U Marijuana (THC) Screen Negative Ethyl Alcohol SARS-CoV-2 (PCR) Negative Assessment & Plan Assessment & Plan narrative: 1. Lower extremity weakness with mild metabolic encephalopathy, improved - Obtain MRI to rule out CVA, however suspect hyperglycemia though he did have continued weakness in the ER today with normal glucose on lab evaluation. - PT /OT eval ordered - TSH, A1c, lipid panel in the AM - patient already on clopidogrel for his CAD, has a documented statin allergy - consider imaging of spine depending on exam tomorrow, no obvious deficits today. - Given likely hyperglycemia, defer TTE at this time. He reports many prior echocardiograms without mention of PFO given his previous CAD/CABG. 2. HTN - continue home medications 3. CAD s/p CABG - continue home medications. EKG without acute ischemia. No chest pain reported. 4. DM with hyperglycemia (possible HHS now resolved), and chronic neuropathy. - continue home NPH 70 U BID, TID AC Humalog for meals at 35 U. - monitor sugars ACHS, lab glucose controlled. - check A1c. - with glucose of 499 yesterday and encephalopathy that is now improved, highly suspicious that symptoms were due to his hyperglycemia. 5. Obesity - The patient is at much higher risk for medical and surgical complications because of their obesity. This increases the difficulty and complexity of medical and surgical interventions and increases the chances of poor outcomes such as morbidity and mortality. Code: Full, surrogate is patient's spouse DVT: Lovenox Dispo: admit obs, likely discharge home tomorrow depending on PT/OT evaluations and MRI findings I have utilized all available immediate resources to obtain, update, or review the patient's current medications. Additional history obtained from ER provider and patient's spouse. Discussed case with ER provider, bedside staff, patient and spouse. Reviewed relevant imaging, EKGs, and labs. COVID-19 COVID-19 status: Negative Quality MIPS - Admit I confirm the patient?s Advance Care Plan is present, Code status is documented, Surrogate decision maker is in patient?s record [If Yes, STOP here]: Yes
[2023-02-23] MEDS: INSULIN LISPRO 100 UNIT/ML 3ML VIAL 35 UNIT SUBCUT (17:30)
[2023-02-23] MEDS: carvediloL 3.125 MG TABLET PO (17:30)
[2023-02-23] MEDS: METHYLPHENIDATE 5 MG TABLET 10 MG PO (20:34)
[2023-02-23] MEDS: POTASSIUM CHLORIDE 20 MEQ TAB PO (20:35)
[2023-02-23] MEDS: CLOPIDOGREL 75 MG TABLET PO (20:35)
[2023-02-23] MEDS: lisinopriL 20 MG TABLET 40 MG PO (20:35)
[2023-02-23] MEDS: AMLODIPINE 5 MG TABLET PO (20:35)
[2023-02-23] MEDS: ENOXAPARIN 40 MG/0.4 ML SYRINGE SUBCUT (20:36)
[2023-02-23] MEDS: INSULIN NPH 100 UNIT/ML 10ML VIAL 70 UNIT SUBCUT (21:15)
[2023-02-24] VITALS (15 sets, daily range): BP systolic 115–154; BP diastolic 44–88; PULSE 58–96; RESP 16–19; TEMP 36.3–37.2; O2SAT 94–99
--- NOTE | 2023-02-24 02:21 | PC.NURSE ---
Pt was able to move the left leg and perform neuro tests adequately at HS. He awoke at approx 0200 to use the bathroom, but was unable to move the left leg at all. With significant coaching and approx 10 minutes, he was able to wiggle his left foot and toes. No other sx. Provider notified, no new orders at this time. The lack of left leg movement was the only symptom present. All vital signs stable, blood sugar stable and neuro check only abnormal for limb ataxia, sensation remains intact.
--- NOTE | 2023-02-24 02:44 | DI.MRI.S_ITS ---
PROCEDURE: MR LUMBAR SPINE WO/W CON INDICATIONS: leg weakness TECHNIQUE: Noncontrast sagittal T1 spin echo and T2 fast spin echo, sagittal STIR, axial T1 and T2 fast spin echo through the lumbar spine. In cases with scoliosis, additional coronal T2 fast spin echo may be performed. After the administration of contrast, sagittal and axial T1 spin echo with fat saturation through the lumbar spine. COMPARISON: None. FINDINGS: Image quality: Excellent. Alignment and curvature: There is normal bony alignment. Marrow: Marrow is of normal overall signal. No acute vertebral body compression fractures. No suspicious marrow enhancement. There is partial osseous fusion across the T11-12 disc space anteriorly. Spinal cord: Conus medullaris terminates at the L1 level. Visualized spinal cord demonstrates normal signal, without suspicious enhancement. Paraspinous soft tissues: No paravertebral masses or abnormal enhancement. There is grade 2 fatty infiltration of the paraspinous musculature. T12-L1: Mild disc desiccation without significant spinal canal stenosis or neural foraminal narrowing. L1-L2: Mild disc desiccation and circumferential disc bulging without significant spinal canal stenosis or neural foraminal narrowing. L2-L3: Disc desiccation and loss of disc space height with posterior disc-osteophyte complex and mild bilateral facet hypertrophy, which result in mild narrowing of the spinal canal and mild to moderate narrowing of the bilateral neural foramina. L3-L4: Disc desiccation and mild circumferential disc bulging as well as moderate bilateral facet hypertrophy, which result in mild to moderate narrowing of the spinal canal and mild narrowing of the bilateral neural foramina. L4-L5: Disc desiccation and loss of disc space height with posterior disc-osteophyte complex and moderate bilateral facet hypertrophy. Findings result in mild to moderate narrowing of the spinal canal and moderate left and moderate to severe right neural foraminal narrowing. L5-S1: Mild disc desiccation and mild left greater than right facet hypertrophy, which result in [id number] left and mild right neural foraminal narrowing without significant spinal canal stenosis. IMPRESSION: 1. Moderate multilevel degenerative disc disease and facet hypertrophy as described in detail in the body of the report. 2. Neural foraminal narrowing is most notable and moderate to severe at the L4-5 level on the right. Additional multilevel mild and moderate neural foraminal narrowing are noted. 3. No high-grade spinal canal stenosis. Multilevel [id number] spinal canal narrowing. 4. No suspicious enhancing intrathecal or osseous mass. Approved by: Bill Cardenas M.D. on 02/24/2023 at 20:41
--- NOTE | 2023-02-24 02:54 | PC.NURSE ---
Bladder scanned pt at 02:45am showed 262ml. RN aware
[2023-02-24 03:17] LABS: Appearance Urine UA CLEAR; Bilirubin Urine UA NEGATIVE (NEGATIVE); Color Urine UA YELLOW; Glucose Urine UA 2+ g/dL (Negative); Ketones Urine UA NEGATIVE (NEGATIVE); Leukocyte Esterase Urine UA NEGATIVE (NEGATIVE); Nitrite Urine UA NEGATIVE (Negative); Occult Blood Urine UA 3+ (Negative); Protein Urine UA NEGATIVE (Negative); Specific Gravity Urine UA <=1.005 (1.000-1.035); Urobilinogen Urine UA 0.2 E.U./dL (0.2); pH Urine UA 6.5 (4.5-8.0)
--- NOTE | 2023-02-24 03:23 | PC.NURSE ---
Subsequent bladder scan by RN was for >999. Straight cath performed with 2200 output. UA sent to lab.
[2023-02-24 04:02] LABS: Bacteria Urine None Seen; Culture Indicated Urine Cult Not Indicated; RBC Urine 10-30/HPF (0-5/HPF); WBC Urine None Seen (0-5/HPF)
[2023-02-24 06:27] LABS: Add Manual Diff / Slide Review NO; Basophils Absolute Auto 0 /uL (0-100); Basophils Percent Auto 0.5 % (0-2); Eosinophils Absolute Auto 200 /uL (0-450); Hematocrit 43.7 % (41-53); Hemoglobin 15.2 g/dL (13.5-17.5); Lymphocytes Absolute Auto 3200 /uL (1100-4500); Lymphocytes Percent Auto 34.2 % (25-40); Mean Corpuscular HGB Conc 34.7 % (30-36); Mean Corpuscular Hemoglobin 29.4 PG (26-34); Mean Corpuscular Volume 84.9 fL (80-100); Monocytes Absolute Auto 600 /uL (0-900); Monocytes Percent Auto 6.7 % (3-14); Neutrophils Absolute Auto 5300 /uL (1500-7000); Neutrophils Percent Auto 56.6 % (50-75); Platelet Count 187 X10^3/uL (150-400); Red Blood Cell Count 5.15 X10^6/uL (4.5-5.9); Red Cell Distribution Width 14.3 % (11.6-14.8); White Blood Cell Count 9.4 X10^3/uL (4.5-11.0)
[2023-02-24 06:29] LABS: BUN Creatinine Ratio 19.7 (6-22); Blood Urea Nitrogen 13 mg/dL (9-20); Calcium 9.1 mg/dL (8.4-10.2); Carbon Dioxide 26 mmol/L (22-32); Chloride 106 mmol/L (98-107); Cholesterol 198 mg/dL (140-199); Estimated Glomerular Filt Rate > 60 mL/min (>60); Glucose 70 mg/dL (80-110); HDL Cholesterol 32 mg/dL (40-60); HEMOLYSIS 47 (0-50); LDL Cholesterol Calculated 112 mg/dL (<100); Magnesium 2.3 mg/dL (1.6-2.3); Potassium 3.4 mmol/L (3.4-5.1); Sodium 141 mmol/L (137-145); Triglycerides 271 mg/dL (35-150)
[2023-02-24 06:57] LABS: TSH w/ Reflex to FT4 2.89 uIU/mL (0.47-4.68)
--- NOTE | 2023-02-24 08:35 | CM.DANOTE ---
DCP: Case received, EMR reviewed and met with patient. Introduced self and role. Was able to obtain information regarding patient's baseline activity level at home prior to hospitalization. DCP assessment completed with information currently available. Patient is a 67 year old male who admitted yesterday afternoon to the care of the hospitalist team. PCP: Dr. Pozo, in [place]. Payer: confirmed: [employer]. Patient came to the hospital via private vehicle secondary to having dizziness, when getting up. He had 2 episodes of falls according to notes. He noted no speech difficulties, just difficulty standing. Patient has history of diabetes, CAD. Patient here for MRI, but was also noted to have hyperglycemia. Patient will also be working with P.tT. Met with patient in his room. He was sitting up in his chair, able to ambulate. Confirmed that he resides here in [place] with his spouse, Estee. At his baseline, he is independent. 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 P: DCP to continue to follow. Patient will work with therapy. He should be able to go home when deemed medically stable. Nataliia Manning RN/[employer]older Discharge Planning/Care Management CM Discharge Assessment Start: 02/24/23 08:32 Freq: Status: Active Protocol: Document 02/24/23 08:33 (Rec: 02/24/23 08:35 [id number]) Discharge Planning Assessment Assigned Occupational Therapy Assist Nataliia Manning RN/[employer] Molder Advance Directives? No History Provided By Patient,Medical Record Prior Living Arrangements House Household Members spouse Type of transporation used prior to Drives own vehicle admit Independent with ADL's Yes Is patient alert and oriented? Yes Caregiver for Another No Barriers to Discharge No Discharge Plan Home Transportation Arrangement Spouse Referrals Initiated None needed Whiteboard Updated in Patient Room with Yes name and ext. # of Occupational Therapy Assist Review Status In Process Next Review Type Continued Stay Review
[2023-02-24] MEDS: carvediloL 3.125 MG TABLET PO ×2 (09:18→17:13)
[2023-02-24] MEDS: ENOXAPARIN 40 MG/0.4 ML SYRINGE SUBCUT ×2 (09:19→20:28)
[2023-02-24] MEDS: TORSEMIDE 10 MG TABLET 40 MG PO (09:19)
[2023-02-24] MEDS: METHYLPHENIDATE 5 MG TABLET 10 MG PO ×2 (09:19→20:31)
[2023-02-24] MEDS: INSULIN NPH 100 UNIT/ML 10ML VIAL 70 UNIT SUBCUT (09:29)
[2023-02-24] MEDS: POTASSIUM CHLORIDE 20 MEQ TAB 40 MEQ PO (10:23)
--- NOTE | 2023-02-24 11:29 | PC.NURSE ---
pt voided 50cc, PVR was 200cc
[2023-02-24] MEDS: INSULIN LISPRO 100 UNIT/ML 3ML VIAL 35 UNIT SUBCUT ×2 (12:02→17:11)
--- NOTE | 2023-02-24 12:26 | PT.IIE ---
Current Diagnoses Obstructive sleep apnea (adult) (pediatric) (02/23/23) Surgical History (Last Reviewed 02/23/23 @ 16:25 by Jae Medrano DO) Hx of CABG Medical History (Last Reviewed 02/23/23 @ 16:25 by Jae Medrano DO) CAD (coronary artery disease) Diabetes HLD (hyperlipidemia) HTN (hypertension) Physical Therapy Inpatient Evaluation/Re-Eval M1 PT/OT-IP Prior Functional Status Start: 02/24/23 11:04 Freq: NEEDED Status: Active Protocol: Document 02/24/23 11:05 [facility] (Rec: 02/24/23 11:11 [facility] [id number]) Medical Review Prior Functional Status Medical History Reviewed Yes Mobility and Gait pt was ambulating without a assistive device prior to this incident Social History Household Members spouse Living Arrangements House Number of Floors (Floors) One Floor Number of Stairs To Enter/Railing? 4 steps to get into the frontof house, 2 steps to get into the back of the house M2 PT-IP Current Condition Start: 02/24/23 11:04 Freq: NEEDED Status: Active Protocol: Document 02/24/23 12:11 [facility] (Rec: 02/24/23 12:25 [facility] [id number]) Physical Therapy Current Condition Current Condition Evaluation Date 02/24/23 Treatment Diagnosis weakness, falls Onset Date 02/22/23 M3 PT-IP Subjective Start: 02/24/23 11:04 Freq: NEEDED Status: Active Protocol: Document 02/24/23 12:11 [facility] (Rec: 02/24/23 12:25 [facility] [id number]) Subjective Physical Therapy Visit Type Type Initial Evaluation Visit Start Time 10:45 Visit Stop Time 11:15 Total Visit Minutes 30 Physical Therapy Visit Comments Patient Comments pt is sitting up in the bedside chair, he reports he has not been able to void and would like to try when getting up with PT. He states he has been experiencing LBP with twisting to the left. 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 and he wonders if all the sitting is contributing to his symptoms Therapy Pain Assessment Pain When Pain Assessed At Rest Pain Present Pain Present Denied Pain M4 PT-IP Mobility and Gait Start: 02/24/23 11:04 Freq: NEEDED Status: Active Protocol: Document 02/24/23 12:11 [facility] (Rec: 02/24/23 12:25 [facility] [id number]) PT-Transfer Assessment Sit to and From Stand Sit to and from Stand Contact Guard Assistance Equipment Transfer Assistive Device Gait Belt,Front Wheeled Walker Orthotic/Prosthetic Devices or Brace: No Transfers Transfer Destination Toilet Transfer Technique pt ambulated with FWW Transfer Ability Level of Assist Contact Guard Assistance Comments Mobility Comments pt demonstrates CGA for transfers out of bedside chair and for ambulation with fww to the bathroom Gait Assessment Gait Gait Assistance Required: Contact Guard Assist Distance (Feet) 15 Able to Maintain Weight Bearing Status Yes During Gait Assistive Devices Assistive Device Gait Belt,Front Wheeled Walker Orthotic/Prosthetic Devices or Brace: No Gait Deviations General Gait Pattern Decreased Stride Length,Step- to Gait,Wide Based Gait Comments Gait Comments pt reports c/o left sided calf weakness which makes him shakey with walking. Prior to these symptoms he was ambulating without a assistive device. He notes when he rotates his spine to the left he will experience a increase in calf weakness. With gait in room today pt was able to maintain balance with CGA. He ambulated to the bathroom to attempt to void and then back to bed side chair. M5 PT-IP Objective Assessments Start: 02/24/23 11:04 Freq: NEEDED Status: Active Protocol: Document 02/24/23 12:11 [facility] (Rec: 02/24/23 12:25 [facility] [id number]) Gross Range of Motion Upper Extremity ROM Assessment Within Functional Limits Lower Extremity ROM Assessment Within Functional Limits Strength Upper Extremity Strength Assessment Within Functional Limits Lower Extremity Strength Assessment Left Impaired Comments Strength Comments left calf weakness Sensation Assessment Sensation Gross Sensation WNL Muscle Tone Muscle Tone WNL Yes M7 PT-IP Assessment and Plan Start: 02/24/23 11:04 Freq: NEEDED Status: Active Protocol: Document 02/24/23 12:11 [facility] (Rec: 02/24/23 12:25 [facility] [id number]) PT Summary Assessment and Plan Summary Assessment Summary [place] is a 67 year old male with MPH of DM2 with neuropathy, HTN, CAD s/o CABG, HLD whoc presents after an episode of left leg weakness when he got up at 2 am 02/23/23 and walked to his chair. He notes he rotated left and could feel low back pain as well as weakness in his left calf. He sustained a fall at home when attempting to get up from his chair and he was taken to the ER for evaluation . A MRI on his brain has been done and nothing was found and pt is now awaiting a MRI on his back. He is experiencing urinary retention and he was unable to void when PT was with him despite feeling that he needed to void . Pt is presenting as CGA for bed mobility, transfers, and gait and using a fww for stability. Further evaluation with MRI on his back is needed to rule out lumbar pathology. Goals Bed Mobility Goal Independent Transfer Goal Independent Gait Goal Independent Gait Distance 150 Other Goals pt is able to ambulate up and down 4 stairs to be able to enter his home safely Days to Meet Goals 5 Frequency of Treatment Frequency Of Treatment Once a Day Treatment Plan Physical Therapy Treatment Plan Transfer Training,Gait Training,Therapeutic Exercise, Balance Retraining, Neuromuscular Re-ed Other Recommendations and Next Treatment pt will have had his MRI prior Focus to next PT visit, assess how pt does on stairs and progress as tolerated with mobility Recommendations To Nursing Amount of Assist Needed 1 Person Assist Discharge Recommendations PT Discharge Recommendations Home Other Discharge Recommendations pt has a walker at home that he is able to use Transportation Needs at Discharge Private Vehicle
--- NOTE | 2023-02-24 14:18 | OT.IP.EVAL ---
Current Diagnoses Obstructive sleep apnea (adult) (pediatric) (02/23/23) Past Medical History (Last Reviewed 02/23/23 @ 16:25 by Jae Medrano DO) CAD (coronary artery disease) Diabetes HLD (hyperlipidemia) HTN (hypertension) Surgical History (Last Reviewed 02/23/23 @ 16:25 by Jae Medrano DO) Hx of CABG Occupational Therapy Inpatient Evaluation/Re-Eval M1 PT/OT-IP Prior Functional Status Start: 02/24/23 11:04 Freq: NEEDED Status: Active Protocol: Document 02/24/23 14:31 CGR (Rec: 02/24/23 14:57 CGR [id number]) Medical Review Prior Functional Status Medical History Reviewed Yes Communication Pt is an effective verbal communicator. Mobility and Gait pt was ambulating without a assistive device prior to this incident Activities of Daily Living and IADL's Pt was IND in all ADLs prior to admit. 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 Social History Household Members spouse Living Arrangements House Number of Floors (Floors) One Floor Number of Stairs To Enter/Railing? 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 M2 OT-IP Current Condition Start: 02/24/23 14:31 Freq: Status: Active Protocol: Document 02/24/23 14:31 CGR (Rec: 02/24/23 14:57 CGR [id number]) Occupational Therapy Current Condition Current Condition Evaluation Date 02/24/23 Treatment Diagnosis LLE weakness Diagnosis Onset Date 02/23/23 M3 OT- IP Subjective and Pain Start: 02/24/23 14:31 Freq: Status: Active Protocol: Document 02/24/23 14:31 CGR (Rec: 02/24/23 14:57 CGR [id number]) OT- Subjective Occupational Therapy Visit Type Type Initial Evaluation Visit Start Time 13:52 Visit Stop Time 14:18 Total Visit Minutes 26 Notes Pt's is present throughout. OT Pain Assessment Pain When Pain Assessed At Rest Pain Present Pain Present Pain Reported Location chest Intensity 7 Scale Used Numeric (0 - 10) Management Techniques Distraction,Modification of Treatment,Re-positioning M4 OT- IP ADL's Start: 02/24/23 14:31 Freq: Status: Active Protocol: Document 02/24/23 14:31 CGR (Rec: 02/24/23 14:57 CGR [id number]) OT [id number] Comments OT Self-Feeding Comments not meal time OT ADL-Grooming Comments OT Grooming Comments not performed OT ADL-Oral Care Comments Oral Care Comments not performed OT ADL-Dressing General Eval Upper Body Dressing Ability Independent Lower Body Dressing Ability Moderate Assistance Areas Needing Assistance Socks Comments OT Dressing Comments Pt needed assist for LB dressing with socks and had multiple LOB sitting in chair attempting to perform LB dressing. Pt donned large size gown with IND. OT ADL-Toileting Comments OT Toileting Comments not performed OT ADL-Bathing Comments OT Bathing Comments not performed M5 OT- IP IADL's Start: 02/24/23 14:31 Freq: Status: Active Protocol: Document 02/24/23 14:31 CGR (Rec: 02/24/23 14:57 CGR [id number]) OT-Instrumental Activities of Daily Living Deficits IADL Deficits Identified No Deficits Home Safety Awareness Awareness of Need for Assistance at Home Good Awareness Ability to Problem Solve Emergency Able to Problem Solve Situations Medication Management Medication Management No Deficits Identified Money Management Money Management No Deficits Identified Meal Preparation Meal Preparation Caregiver Provides Assist Supervisor Joiners Supervisor Joiners Caregiver Provides Assist Driving Driving Comments 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 M6 OT- IP Functional Cognition Start: 02/24/23 14:31 Freq: Status: Active Protocol: Document 02/24/23 14:31 CGR (Rec: 02/24/23 14:57 CGR [id number]) Cognitive Factors Limiting Selfcare Function Cognitive Ability Level of Alertness Alert Patient Orientation Name,Age,Birthday,Month,Date, Year,Day of Week,Place, Situation Attention Span Ability Capable of Focused Attention, Capable of Sustained Attention Ability to Follow Commands Able to Follow Multi-Step Commands Cognitive Comments Cognitive Assessment Comments Per pt's and this assessment, pt appear flat in his affect. Per pt is typically not as flat. OT- Vision and Hearing OT- Hearing Assessment OT- Hearing Assessment WFL OT- Vision Assessment Visual Acuity Glasses All The Time Visual Attentiveness WFL Occular Pursuits WFL Visual Convergence WFL Vision Assessment Comments Pt states he has floaters in his R eye for the last 4 years and wears bifocals M7 OT- IP Mobility and Balance Start: 02/24/23 14:31 Freq: Status: Active Protocol: Document 02/24/23 14:31 CGR (Rec: 02/24/23 14:57 CGR [id number]) OT-Transfer Assessment Sit to and From Stand Sit to and from Stand Standby Assistance Transfers Transfer Ability Standby Assistance Technique Transfer Destination Chair Transfer Technique Stand Step Pivot Devices Transfer Assistive Devices Gait Belt,Front Wheeled Walker Comments Mobility Comments Pt stood and ambulated in the room stating that his back pain is improved with movement OT- Balance Assessment Sitting Balance and Reactions Static Sitting Balance Ability Good Dynamic Sitting Balance Ability Poor M8 OT- IP Objective Assessments Start: 02/24/23 14:31 Freq: Status: Active Protocol: Document 02/24/23 14:31 CGR (Rec: 02/24/23 14:57 CGR [id number]) OT Gross Range of Motion Upper Extremity Range of Motion Assessment Within Functional Limits OT Strength Upper Extremity Strength Assessment Within Functional Limits Comments Strength Comments grossly 4/5 OT- Coordination Assessment Upper Extremity Finger to Nose Test Within Functional Limits Finger Tapping Test Within Functional Limits OT-Muscle Tone Assessment Muscle Tone WNL Yes OT Sensation Assessment Edema Edema Absent M9 OT- IP Assessment and Plan Start: 02/24/23 14:31 Freq: Status: Active Protocol: Document 02/24/23 14:31 CGR (Rec: 02/24/23 14:57 CGR [id number]) OT Summary Assessment and Plan Potential Rehabilitation Potential Good Analytic Complexity at Evaluation Moderate Summary OT Impairments Pain,Strength,Balance, Functional Mobility,Dressing, Toileting,Bathing,Toilet Transfers,Shower Transfers, Activity Tolerance Progress Towards Goals Progressing Toward Goals Assessment Summary Pt presents as a moderate complexity evaluation s/p admit for LLE weakness. Pt demonstrates flat affect, back pain, and urinary retension. MRI was neg for acute process but pt presents with some deficits that will impact his ability to care for himself safely. Recommend d/c home with family and home health or outpatient therapy services. Goals Grooming Goal Independent Dressing Goal Independent Toileting Goal Independent Bathing Goal Independent Toilet Transfer Goal Independent Shower Transfer Goal Independent Days to Meet Goals 5 Frequency of Treatment Frequency Of Treatment Once a Day Treatment Plan OT Treatment Plan ADL Training,Functional Cognition Training,Functional Mobility,Patient/Family Education,Discharge Planning Other Treatment Recommendations and Next sitting balance, cog Treatment Focus assessment, shower, LB dressing. Discharge Recommendations OT Discharge Recommendations Home with Assistance Transportation Needs at Discharge Private Vehicle
[2023-02-24] MEDS: TAMSULOSIN 0.4 MG CAPSULE PO (15:58)
[2023-02-24] MEDS: LORazepam 2 MG/ML INJ 1 MG IV (18:01)
--- NOTE | 2023-02-24 18:07 | PM.PN.1 ---
Subjective Subjective Interval history: Patient worked with PT today and able to walk down hallway. Started flomax for urinary retention. Awaiting MRI lumbar spine. Exam Vital Signs (past 8 hours): - 02/24/23 11:00 02/24/23 12:00 02/24/23 17:13 Temperature 98.9 F Pulse Rate 72 70 Respiratory Rate 18 Blood Pressure 146/59 H 147/71 H Pulse Oximetry 96 99 Oxygen Delivery Method Room Air Oxygen Flow Rate 0 0 02/24/23 15:00 02/24/23 17:00 02/24/23 16:58 Temperature 98.6 F Pulse Rate 70 71 Respiratory Rate 18 Blood Pressure 147/78 H 115/44 L Pulse Oximetry 99 98 Oxygen Delivery Method Room Air Oxygen Flow Rate 0 0 Oxygen Delivery Method Room Air Oxygen Flow Rate 0 Narrative Exam Narrative: General:? Patient is well developed and well nourished, in no distress at this time. HEENT:? Normocephalic, atraumatic, extraocular muscles intact, oral pharynx is clear and mucous membranes are moist. Neck: supple and symmetric, trachea is midline, no cervical adenopathy. Negative for JVD Chest:? Normal AP diameter and contour without kyphoscoliosis, no tachypnea, equal chest rise bilaterally. Lungs:? CTA b/l no wheezing rhonchi or rales. Cardio:?RRR no m/r/g. Abdomen: S NT ND. No CVA tenderness. Musculoskeletal:? Muscle strength and tone are equal within normal limits, no deformity. Extremities: No edema or joint effusions. No cyanosis or clubbing. Skin:? Pale,? Warm to touch,dry and intact without rashes, ulcerations or petechiae.? Neuro:? Alert and orientated x3,? sensation diminished to light touch intact bilateral LE (chronic neuropathy), no gross deficits noted of cranial nerves. Psych:? Patient has a well-kept appearance, appropriate affect, mental status attitude thought context and judgment are appropriate for age. Objective Labs 02/24/23 05:30 02/24/23 05:30 Labs: Laboratory Results - last 24 hr 02/24/23 02/24/23 02/24/23 03:07 05:30 05:30 WBC 9.4 RBC 5.15 Hgb 15.2 Hct 43.7 MCV 84.9 MCH 29.4 MCHC 34.7 RDW 14.3 Plt Count 187 Neut % (Auto) 56.6 Lymph % (Auto) 34.2 Cavalier % (Auto) 6.7 Eos % (Auto) 2.0 Baso % (Auto) 0.5 Neut # (Auto) 5300 Lymph # (Auto) 3200 Cavalier # (Auto) 600 Eos # (Auto) 200 Baso # (Auto) 0 Sodium 141 Potassium 3.4 Chloride 106 Carbon Dioxide 26 BUN 13 Creatinine 0.66 Estimated GFR > 60 BUN/Creatinine Ratio 19.7 Glucose 70 L Hemoglobin A1c Calcium 9.1 Magnesium 2.3 Triglycerides 271 H Cholesterol 198 LDL Cholesterol, Calc 112 H HDL Cholesterol 32 L TSH Urine Color Yellow Urine Appearance Clear Urine pH 6.5 Ur Specific [place] <=1.005 Urine Protein Negative Urine Glucose (UA) 2+ H Urine Ketones Negative Urine Occult Blood 3+ H Urine Nitrate Negative Urine Bilirubin Negative Urine Urobilinogen 0.2 Ur Leukocyte Esterase Negative Urine RBC 10-30/hpf H D Urine WBC None seen Urine Bacteria None seen Ur Culture Indicated? Cult not indicated Micro UA Comment * 02/24/23 02/24/23 05:30 05:30 WBC RBC Hgb Hct MCV MCH MCHC RDW Plt Count Neut % (Auto) Lymph % (Auto) [place] % (Auto) Eos % (Auto) Baso % (Auto) Neut # (Auto) Lymph # (Auto) [place] # (Auto) Eos # (Auto) Baso # (Auto) Sodium Potassium Chloride Carbon Dioxide BUN Creatinine Estimated GFR BUN/Creatinine Ratio Glucose Hemoglobin A1c Cancelled Calcium Magnesium Triglycerides Cholesterol LDL Cholesterol, Calc HDL Cholesterol TSH 2.89 Urine Color Urine Appearance Urine pH Ur Specific [place] Urine Protein Urine Glucose (UA) Urine Ketones Urine Occult Blood Urine Nitrate Urine Bilirubin Urine Urobilinogen Ur Leukocyte Esterase Urine RBC Urine WBC Urine Bacteria Ur Culture Indicated? Micro UA Comment PFSH Medical History CAD (coronary artery disease) Diabetes HLD (hyperlipidemia) HTN (hypertension) Surgical History Hx of CABG Family History Mother No pertinent past medical history Father No pertinent past medical history Social History household members: spouse Smoking Status: Former smoker alcohol intake: current Assessment & Plan Assessment & Plan narrative: 1. Left lower extremity weakness with mild metabolic encephalopathy, improved - MRI brain normal, suspect weakness diabetic neuropathy related and encephalopathy due to hyperglycemia - PT /OT evals - TSH normal, LDL 112 - patient already on clopidogrel for his CAD, has a documented statin allergy - MR lumbar spine ordered due to urinary retention - Given likely hyperglycemia, defer TTE at this time. He reports many prior echocardiograms without mention of PFO given his previous CAD/CABG. 2. HTN - continue home medications 3. CAD s/p CABG - continue home medications. EKG without acute ischemia. No chest pain reported. 4. DM with hyperglycemia (possible HHS now resolved), and chronic neuropathy. - continue home NPH 70 U BID, TID AC Humalog for meals at 35 U. - monitor sugars ACHS, lab glucose controlled. - A1c pending - with glucose of 499 on admission and encephalopathy that is now improved, highly suspicious that symptoms were due to his hyperglycemia. 5. Obesity - The patient is at much higher risk for medical and surgical complications because of their obesity. This increases the difficulty and complexity of medical and surgical interventions and increases the chances of poor outcomes such as morbidity and mortality. 6. Urinary retention - patient had 2L of urine in bladder, he could not tell he was retaining. He notes difficulty urinating at home at times and gets up a couple of times per night to urinate. - start flomax 0.4mg daily for likely BPH - f/u MR lumbar to rule out spinal pathology Code: Full, surrogate is patient's spouse DVT: Lovenox Dispo: Home on 02/25. COVID-19 COVID-19 status: Negative Quality VTE Deep Vein Thrombosis/Pulmonary Embolism Present on Admission: No
[2023-02-24] MEDS: AMLODIPINE 5 MG TABLET PO (20:27)
[2023-02-24] MEDS: lisinopriL 20 MG TABLET 40 MG PO (20:27)
[2023-02-24] MEDS: CLOPIDOGREL 75 MG TABLET PO (20:28)
[2023-02-24] MEDS: POTASSIUM CHLORIDE 20 MEQ TAB PO (20:28)
[2023-02-24 21:12] LABS: Labcorp Hemoglobin (Hb) A1c 8.8 % (4.8-5.6)
[2023-02-25 01:00] VITALS: BP 142/56; PULSE 66; RESP 16; TEMP 36.4; O2SAT 93
[2023-02-25 03:00] VITALS: O2SAT 96
[2023-02-25 04:55] VITALS: BP 133/46; PULSE 69; RESP 16; TEMP 36.6; O2SAT 97
[2023-02-25 05:39] LABS: Add Manual Diff / Slide Review NO; Basophils Absolute Auto 0 /uL (0-100); Basophils Percent Auto 0.6 % (0-2); Eosinophils Absolute Auto 100 /uL (0-450); Eosinophils Percent Auto 1.6 % (2-4); Hematocrit 44.1 % (41-53); Hemoglobin 15.2 g/dL (13.5-17.5); Lymphocytes Absolute Auto 2200 /uL (1100-4500); Lymphocytes Percent Auto 28.8 % (25-40); Mean Corpuscular HGB Conc 34.4 % (30-36); Mean Corpuscular Hemoglobin 29.4 PG (26-34); Mean Corpuscular Volume 85.6 fL (80-100); Monocytes Absolute Auto 600 /uL (0-900); Monocytes Percent Auto 8.3 % (3-14); Neutrophils Absolute Auto 4700 /uL (1500-7000); Neutrophils Percent Auto 60.7 % (50-75); Platelet Count 202 X10^3/uL (150-400); Red Blood Cell Count 5.16 X10^6/uL (4.5-5.9); Red Cell Distribution Width 14.7 % (11.6-14.8); White Blood Cell Count 7.7 X10^3/uL (4.5-11.0)
[2023-02-25 05:44] LABS: BUN Creatinine Ratio 20.7 (6-22); Blood Urea Nitrogen 17 mg/dL (9-20); Carbon Dioxide 24 mmol/L (22-32); Chloride 105 mmol/L (98-107); Estimated Glomerular Filt Rate > 60 mL/min (>60); Glucose 209 mg/dL (80-110); HEMOLYSIS 15 (0-50); Magnesium 2.1 mg/dL (1.6-2.3); Potassium 3.7 mmol/L (3.4-5.1); Sodium 138 mmol/L (137-145)
[2023-02-25 07:50] VITALS: O2SAT 95
[2023-02-25 08:21] VITALS: BP 143/56; PULSE 76; RESP 16; TEMP 36.7; O2SAT 98
--- NOTE | 2023-02-25 08:40 | PT.IPTN ---
Current Diagnoses Obstructive sleep apnea (adult) (pediatric) (02/23/23) Physical Therapy Treatment Note M2 PT-IP Current Condition Start: 02/24/23 11:04 Freq: NEEDED Status: Active Protocol: Document 02/24/23 12:11 [facility] (Rec: 02/24/23 12:25 AMH [id number]) Physical Therapy Current Condition Current Condition Evaluation Date 02/24/23 Treatment Diagnosis weakness, falls Onset Date 02/22/23 M3 PT-IP Subjective Start: 02/24/23 11:04 Freq: NEEDED Status: Active Protocol: Document 02/25/23 09:08 TS (Rec: 02/25/23 09:40 TS [id number]) Subjective Physical Therapy Visit Type Type Treatment Note Visit Start Time 08:40 Visit Stop Time 09:06 Total Visit Minutes 26 Number of BLADE BENDER FURNACE TENDER Visits 1 Physical Therapy Visit Comments Patient Comments Pt reports he continues to have diffiuclty urinating, has bladder scan later today, he' s motivated to get up and take a walk this morning. M4 PT-IP Mobility and Gait Start: 02/24/23 11:04 Freq: NEEDED Status: Active Protocol: Document 02/25/23 09:08 TS (Rec: 02/25/23 09:40 TS [id number]) PT-Transfer Assessment Sit to and From Stand Sit to and from Stand Standby Assistance Equipment Transfer Assistive Device Gait Belt,Front Wheeled Walker Orthotic/Prosthetic Devices or Brace: No Comments Mobility Comments Pt found resting in chair, agreeable to PT session. Pt is impulsive to stand before therapist is ready even when provided cues to remain seated . Sit to stand x2 no AD SBA, slight posterior lean. Pt ambulated in hallway ~100 SBA with FWW, step thru gait WBOS, no LOB. Pt performed stairs x9 SBA, provided cues for step sequencing, pt followed ~75% of the time, posterior lean x2 , pt corrected with handrail assist. Balance testing of NBOS ~30 secs, some swaying, NBOS with eyes closed ~3secs required Davon for lateral LOB to left, NBOS with HT's, required Davon x1 for LOB to left. PT left back in bedside chair, call light nearby, chair alarm in place, RN in room. Gait Assessment Gait Gait Assistance Required: Standby Assistance Distance (Feet) 200 Able to Maintain Weight Bearing Status Yes During Gait Assistive Devices Assistive Device Gait Belt,Front Wheeled Walker Orthotic/Prosthetic Devices or Brace: No Gait Deviations General Gait Pattern Decreased Stride Length,Wide Based Gait Factors Limiting Gait Function Factors Limiting Gait Function Poor Balance,Poor Safety Awareness Comments Gait Comments Pt ambulated ~200' in hallway SBA with FWW, step thru gait, no buckling or LOB. Stair Climbing Assessment Evaluation Level of Assist On Stairs Standby Assistance Devices Stair Climbing Assistive Devices Left Railing,Right Railing Technique/Endurance Stair Climbing Direction Ascend and Descend Stair Climbing Technique Step to Step Number of Steps Climbed 9 Comments Stair Climbing Comments See mobiltiy comments. PT-Balance Assessment Sitting Balance and Reactions Static Sitting Balance Ability Good Dynamic Sitting Balance Ability Fair Standing Balance and Reactions Static Standing Balance Ability Good Dynamic Standing Balance Ability Fair Comments Other Balance Tests/Deviations/Treatment x3 LOB during standing balance : testing with NBOS, x2 to left and x1 posterior into chair. M5 PT-IP Objective Assessments Start: 02/24/23 11:04 Freq: NEEDED Status: Active Protocol: Document 02/24/23 12:11 [facility] (Rec: 02/24/23 12:25 [facility] [id number]) Gross Range of Motion Upper Extremity ROM Assessment Within Functional Limits Lower Extremity ROM Assessment Within Functional Limits Strength Upper Extremity Strength Assessment Within Functional Limits Lower Extremity Strength Assessment Left Impaired Comments Strength Comments left calf weakness Sensation Assessment Sensation Gross Sensation WNL Muscle Tone Muscle Tone WNL Yes M7 PT-IP Assessment and Plan Start: 02/24/23 11:04 Freq: NEEDED Status: Active Protocol: Document 02/25/23 09:08 TS (Rec: 02/25/23 09:40 TS [id number]) PT Summary Assessment and Plan Summary Assessment Summary Pt progressed his ambulation to ~200' SBA this session and stairs to x9 SBA. He required cues for sequencing of stairs, followed ~75% of the time, x2 posterior leans on top step requiring BUE support on handrails for correction. During balance testing he had x2 LOB to left side, x1 posterior LOB back into chair. Pt's balance improves with use of FWW, educated pt on using FWW at home at this time . PT is recommending pt return home and outpatient therapy to improve balance. Goals Bed Mobility Goal Independent Transfer Goal Independent Gait Goal Independent Gait Distance 150 Other Goals pt is able to ambulate up and down 4 stairs to be able to enter his home safely Days to Meet Goals 5 Frequency of Treatment Frequency Of Treatment Once a Day Treatment Plan Physical Therapy Treatment Plan Transfer Training,Gait Training,Therapeutic Exercise, Balance Retraining, Neuromuscular Re-ed Other Recommendations and Next Treatment continue stair training and Focus balance testing. Recommendations To Nursing Amount of Assist Needed Standby Assistance Discharge Recommendations PT Discharge Recommendations Home Other Discharge Recommendations pt has a walker at home that he is able to use Transportation Needs at Discharge Private Vehicle
[2023-02-25] MEDS: ENOXAPARIN 40 MG/0.4 ML SYRINGE SUBCUT (09:04)
[2023-02-25] MEDS: TORSEMIDE 10 MG TABLET 40 MG PO (09:04)
[2023-02-25] MEDS: TAMSULOSIN 0.4 MG CAPSULE PO (09:04)
[2023-02-25] MEDS: carvediloL 3.125 MG TABLET PO (09:04)
[2023-02-25] MEDS: METHYLPHENIDATE 5 MG TABLET 10 MG PO ×2 (09:05→12:30)
[2023-02-25] MEDS: INSULIN NPH 100 UNIT/ML 10ML VIAL 70 UNIT SUBCUT (09:09)
[2023-02-25] MEDS: INSULIN LISPRO 100 UNIT/ML 3ML VIAL 35 UNIT SUBCUT ×2 (09:10→12:33)
--- NOTE | 2023-02-25 09:45 | OT.IP.TRT ---
Current Diagnoses Obstructive sleep apnea (adult) (pediatric) (02/23/23) Occupational Therapy Treatment Note M2 OT-IP Current Condition Start: 02/24/23 14:31 Freq: Status: Active Protocol: Document 02/24/23 14:31 CGR (Rec: 02/24/23 14:57 CGR [id number]) Occupational Therapy Current Condition Current Condition Evaluation Date 02/24/23 Treatment Diagnosis LLE weakness Diagnosis Onset Date 02/23/23 M3 OT- IP Subjective and Pain Start: 02/24/23 14:31 Freq: Status: Active Protocol: Document 02/25/23 10:21 CGR (Rec: 02/25/23 10:28 CGR [id number]) OT- Subjective Occupational Therapy Visit Type Type Progress Note Visit Start Time 09:12 Visit Stop Time 09:45 Total Visit Minutes 33 Notes Pt agreeable to OT services. Kylie (OT) present for shadowing. M4 OT- IP ADL's Start: 02/24/23 14:31 Freq: Status: Active Protocol: Document 02/25/23 10:21 CGR (Rec: 02/25/23 10:28 CGR [id number]) OT [id number] Comments OT Self-Feeding Comments not meal time OT ADL-Grooming General Evaluation Grooming Ability Independent Areas Needing Assistance Face Washing Comments OT Grooming Comments seated in shower OT ADL-Oral Care Comments Oral Care Comments not performed OT ADL-Dressing General Eval Upper Body Dressing Ability Independent Lower Body Dressing Ability Moderate Assistance,Maximum Assistance Areas Needing Assistance Socks Comments OT Dressing Comments hospital gown donned, pt had difficulty attempted to get socks on feet. Pt with large feet that the socks do not fit properly. OT ADL-Toileting Comments OT Toileting Comments not performed OT ADL-Bathing Bathing Type Bathing Type Shower General Evaluation Bathing Ability Minimal Assistance Areas Needing Assistance Retrieving/Setting Up Items, Wash/Dry Lower Extremities Devices Bathing Equipment Shower Chair with Arms Comments OT Bathing Comments Pt showered mostly seated in chair but stood for peircare. Pt reports sliding on the chair upon sitting back down and needed min assist to adjust and slide back in the chair. M5 OT- IP IADL's Start: 02/24/23 14:31 Freq: Status: Active Protocol: Document 02/24/23 14:31 CGR (Rec: 02/24/23 14:57 CGR [id number]) OT-Instrumental Activities of Daily Living Deficits IADL Deficits Identified No Deficits Home Safety Awareness Awareness of Need for Assistance at Home Good Awareness Ability to Problem Solve Emergency Able to Problem Solve Situations Medication Management Medication Management No Deficits Identified Money Management Money Management No Deficits Identified Meal Preparation Meal Preparation Caregiver Provides Assist Tire Bladder Maker Tire Bladder Maker Caregiver Provides Assist Driving Driving Comments 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 M6 OT- IP Functional Cognition Start: 02/24/23 14:31 Freq: Status: Active Protocol: Document 02/24/23 14:31 CGR (Rec: 02/24/23 14:57 CGR [id number]) Cognitive Factors Limiting Selfcare Function Cognitive Ability Level of Alertness Alert Patient Orientation Name,Age,Birthday,Month,Date, Year,Day of Week,Place, Situation Attention Span Ability Capable of Focused Attention, Capable of Sustained Attention Ability to Follow Commands Able to Follow Multi-Step Commands Cognitive Comments Cognitive Assessment Comments Per pt's and this assessment, pt appear flat in his affect. Per pt is typically not as flat. OT- Vision and Hearing OT- Hearing Assessment OT- Hearing Assessment WFL OT- Vision Assessment Visual Acuity Glasses All The Time Visual Attentiveness WFL Occular Pursuits WFL Visual Convergence WFL Vision Assessment Comments Pt states he has floaters in his R eye for the last 4 years and wears bifocals M7 OT- IP Mobility and Balance Start: 02/24/23 14:31 Freq: Status: Active Protocol: Document 02/25/23 10:21 CGR (Rec: 02/25/23 10:28 CGR [id number]) OT-Transfer Assessment Sit to and From Stand Sit to and from Stand Standby Assistance Transfers Transfer Ability Standby Assistance Technique Transfer Destination Bedside Commode,Chair,Shower Stall Transfer Technique Stand Step Pivot Devices Transfer Assistive Devices Front Wheeled Walker Comments Mobility Comments Pt ambulated from the chair to the shower and returned to chair at end of session. OT- Balance Assessment Sitting Balance and Reactions Static Sitting Balance Ability Good Dynamic Sitting Balance Ability Poor M8 OT- IP Objective Assessments Start: 02/24/23 14:31 Freq: Status: Active Protocol: Document 02/24/23 14:31 CGR (Rec: 02/24/23 14:57 CGR [id number]) OT Gross Range of Motion Upper Extremity Range of Motion Assessment Within Functional Limits OT Strength Upper Extremity Strength Assessment Within Functional Limits Comments Strength Comments grossly 4/5 OT- Coordination Assessment Upper Extremity Finger to Nose Test Within Functional Limits Finger Tapping Test Within Functional Limits OT-Muscle Tone Assessment Muscle Tone WNL Yes OT Sensation Assessment Edema Edema Absent M9 OT- IP Assessment and Plan Start: 02/24/23 14:31 Freq: Status: Active Protocol: Document 02/25/23 10:21 CGR (Rec: 02/25/23 10:28 CGR [id number]) OT Summary Assessment and Plan Potential Rehabilitation Potential Good Analytic Complexity at Evaluation Moderate Summary OT Impairments Pain,Strength,Balance, Functional Mobility,Dressing, Toileting,Bathing,Toilet Transfers,Shower Transfers, Activity Tolerance Progress Towards Goals Progressing Toward Goals Assessment Summary Pt presents as a moderate complexity evaluation s/p admit for LLE weakness. Pt demonstrates flat affect, back pain, and urinary retention. Pt presents grossly with the same deficits on this date with minimally improved sitting balance. MRI was neg for acute process but pt presents with some deficits that will impact his ability to care for himself safely. Recommend d/c home with family and home health or outpatient therapy services. Goals Grooming Goal Independent Dressing Goal Independent Toileting Goal Independent Bathing Goal Independent Toilet Transfer Goal Independent Shower Transfer Goal Independent Days to Meet Goals 5 Frequency of Treatment Frequency Of Treatment Once a Day Treatment Plan OT Treatment Plan ADL Training,Functional Cognition Training,Functional Mobility,Patient/Family Education,Discharge Planning Other Treatment Recommendations and Next sitting balance, cog Treatment Focus assessment, shower, LB dressing. Discharge Recommendations OT Discharge Recommendations Home with Assistance Transportation Needs at Discharge Private Vehicle
--- NOTE | 2023-02-25 10:53 | PM.DS.1 ---
History of Present Illness History of Present Illness Date Patient Seen: 02/23/23 Time Patient Seen: 16:00 Chief complaint: when getting up from chair gets dizzy & falls 2x Narrative: This is a 67 year old male with PMH of DM2, HTN, CAD s/p CABG, HLD who presents after an episode of left leg weakness. Yesterday evening, patient was trying to get up from a chair when he noticed he was having difficulty moving his left leg. He notes this is particularly prominent in his left calf with mild tightness feeling. He continued to rest for a while, but when he was attempting to get up from a chair today he had a sustained fall and had a difficult time getting up as well. His encouraged him to come in for evaluation. Discussed with on the phone, she states he was a bit more lethargic than normal, and had difficulty remembering events, but denies obvious facial droop or slurred speech. Patient also checked his blood sugar and it was 499 at the time and he gave himself an extra dose of Novolog. He does have a mild headache on the top part of his head, and has chronic bilateral neuropathy from his diabetes. 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 He denies weakness in his other legs, back pain, abdominal pain, nausea, vomiting, chest pain, shortness of breath. He does endorse some calf discomfort on the right when walking, but not recently. In the emergency room, BP were labile, but the remainder of his vitals were unremarkable. ER provider reported left sided weakness and difficulty with ambulation. CT imaging was unremarkable. He was admitted for further evaluation of L leg weakness, possible TIA. Discharge Providers Provider Date of admission: 02/23/23 14:25 Discharge Date: 02/25/23 Primary care physician: Dakota Pozo MD Consults: 02/23/23 15:42 Consult to Occupational Therapy Evaluate & Treat Comment: Physician Instructions: Evaluate and treat Consult to Physical Therapy Evaluate & Treat Comment: Physician Instructions: Evaluate and Treat Discharge provider: Michael Estrada, Summary Hospital Course Discharge Diagnosis: 1. Left lower extremity weakness with mild metabolic encephalopathy, improved ?- MRI brain normal, suspect weakness diabetic neuropathy related and encephalopathy due to hyperglycemia ?- PT /OT eval cleared for home but recommended home walker which was ordered for him ?- TSH normal, LDL 112 ?- patient already on clopidogrel for his CAD, has a documented statin allergy ?- MR lumbar showed multilevel degenerative changes and mod-severe L4-L5 right foraminal stenosis, opposite side of patient's left leg symptoms ?- Given likely hyperglycemia, defer TTE at this time. He reports many prior echocardiograms without mention of PFO given his previous CAD/CABG. - recommended f/u with neurology if symptoms not improving for likely diabetic neuropathy 2. HTN ?- continue home medications 3. CAD s/p CABG ?- continue home medications. EKG without acute ischemia. No chest pain reported. 4. DM with hyperglycemia (possible HHS now resolved), and chronic neuropathy. ?- continue home NPH 70 U BID, TID AC Humalog for meals at 35 U. ?- monitor sugars ACHS, lab glucose controlled. ?- A1c 8.8% ?- with glucose of 499 on admission and encephalopathy that is now improved, highly suspicious that symptoms were due to his hyperglycemia. - will speak with PCP about insulin adjustment given elevated A1c 5. Obesity ?- The patient is at much higher risk for medical and surgical complications because of their obesity.? This increases the difficulty and complexity of medical and surgical interventions and increases the chances of poor outcomes such as morbidity and mortality. 6. Urinary retention ?- patient had 2L of urine in bladder, he could not tell he was retaining. He notes difficulty urinating at home at times and gets up a couple of times per night to urinate. ?- start flomax 0.4mg daily for likely BPH ?- no evidence of cauda equina on MR lumbar spine - mata cath offered at discharge to patient but he elected to defer this and f/u with urology as outpatient - script for flomax given at discharge Hospital Course: Admitted for LLE weakness and balance difficulty. Also had urinary retention requiring straight cath with up to 2L of urine output. MRI brain was normal and MR lumbar spine showed no evidence of cauda equina but mod-severe foraminal stenosis at L4-L5 on right which was opposite of his left leg symptoms. Worked with PT and able to walk with walker. A home walker was ordered for him. Thought his symptoms likely due to diabetic neuropathy for which he will f/u with PCP or neurology if symptoms not improving. Already on plavix and statin if he had a TIA. Mata cath offered for urinary retention but patient deferred and wants to f/u with urology. Flomax started on discharge. Time Spent with Patient Time spent: Greater than 30 minutes Exam Vital Signs (past 8 hours): - 02/25/23 04:55 02/25/23 03:00 02/25/23 08:21 Temperature 97.8 F 98.1 F Pulse Rate 69 76 Respiratory Rate 16 16 Blood Pressure 133/46 L 143/56 H Pulse Oximetry 97 96 98 Oxygen Delivery Method Room Air CPAP Oxygen Flow Rate 0 0 Oxygen Delivery Method Room Air,CPAP Oxygen Flow Rate 0 Narrative Exam Narrative: General:? Patient is well developed and well nourished, in no distress at this time. HEENT:? Normocephalic, atraumatic, extraocular muscles intact, oral pharynx is clear and mucous membranes are moist. Neck: supple and symmetric, trachea is midline, no cervical adenopathy. Negative for JVD Chest:? Normal AP diameter and contour without kyphoscoliosis, no tachypnea, equal chest rise bilaterally. Lungs:? CTA b/l no wheezing rhonchi or rales. Cardio:?RRR no m/r/g. Abdomen: S NT ND. No CVA tenderness. Musculoskeletal:? Muscle strength and tone are equal within normal limits, no deformity. Extremities: No edema or joint effusions. No cyanosis or clubbing. Skin:? Pale,? Warm to touch,dry and intact without rashes, ulcerations or petechiae.? Neuro:? Alert and orientated x3,? sensation diminished to light touch intact bilateral LE (chronic neuropathy), no gross deficits noted of cranial nerves. Psych:? Patient has a well-kept appearance, appropriate affect, mental status attitude thought context and judgment are appropriate for age. Objective Labs 02/25/23 05:11 02/25/23 05:11 Labs: Laboratory Results - last 24 hr 02/24/23 02/25/23 02/25/23 05:30 05:11 05:11 WBC 7.7 RBC 5.16 Hgb 15.2 Hct 44.1 MCV 85.6 MCH 29.4 MCHC 34.4 RDW 14.7 Plt Count 202 Neut % (Auto) 60.7 Lymph % (Auto) 28.8 [place] % (Auto) 8.3 Eos % (Auto) 1.6 L Baso % (Auto) 0.6 Neut # (Auto) 4700 Lymph # (Auto) 2200 [place] # (Auto) 600 Eos # (Auto) 100 Baso # (Auto) 0 Sodium 138 Potassium 3.7 Chloride 105 Carbon Dioxide 24 BUN 17 Creatinine 0.82 Estimated GFR > 60 BUN/Creatinine Ratio 20.7 Glucose 209 H D Hgb A1c (Ref Lab) 8.8 H Calcium 9.0 Magnesium 2.1 PFSH Medical History CAD (coronary artery disease) Diabetes HLD (hyperlipidemia) HTN (hypertension) Surgical History Hx of CABG Family History Mother No pertinent past medical history Father No pertinent past medical history Social History household members: spouse Smoking Status: Former smoker alcohol intake: current Discharge Plan Discharge Plan Patient Disposition: Home Provider Discharge Comment: You were admitted due to left sided weakness and balance issues. Your MRI of brain was normal and showed no stroke. Your back MRI showed narrowing but on the right side of the spine. I believe you balance problems are related do your diabetic neuropathy in your legs and feet. You retained urine so I started you on a new med to shrink your prostate and help you urinate called flomax. Please see a urologist about this. Nursing Discharge Comment: Follow up with urology as discussed. If you continue to have problems passing urine notify your doctor or come to the emergency department. Drink a normal amount of fluids, don't over do your intake. Discharge orders & Medications Prescriptions: New tamsulosin [Flomax] 0.4 mg Capsule 0.4 mg PO BEDTIME Qty: 30 0RF Continued torsemide 20 mg tablet 40 mg PO DAILY methylphenidate HCl 10 mg tablet 10 mg PO QID clopidogrel 75 mg tablet 75 mg PO DAILY amlodipine 5 mg tablet 5 mg PO DAILY carvedilol 3.125 mg tablet 3.125 mg PO BIDWM Patient Comments: take 1 tablet by mouth twice a day WITH A MEAL potassium chloride 20 mEq tablet,ER particles/crystals 20 meq PO DAILY insulin aspart U-100 [Novolog U-100 Insulin aspart] 100 unit/mL solution 35 unit SUBCUT TID Patient Comments: inject 35 units subcutaneously three times a day Novolin N NPH U-100 Insulin 100 unit/mL suspension 70 unit SUBCUT BID nitroglycerin 0.4 mg tablet, sublingual 0.4 mg sublingual Q5M PRN (Reason: Chest Pain) lisinopril 40 mg tablet 40 mg PO DAILY Trulicity 0.75 mg/0.5 mL pen injector 0.75 mg SUBCUT WEEKLY Patient Comments: inject 0.5 milliliters ( 0.75 milligrams ) subcutaneously every 7... (REFER TO PRESCRIPTION NOTES). Ozempic 0.25 mg or 0.5 mg(2 mg/1.5 mL) pen injector 0.25 mg SUBCUT WEEKLY Patient Comments: inject 0.25 milligrams (0.1875 MLS) subcutaneously every week Follow up/Referrals: Dakota Pozo MD [Primary Care Provider] - Visit Report/Discharge Packet Instructions: How to Take Care of Your Feet If You Have Diabetes, DI for Transient Ischemic Attack, DI for Diabetic Neuropathy, DI for Urinary Retention in Men Stand Alone Forms: Patient Portal/API, Stroke Signs & Symptoms Discharge Data Primary Care Provider: Dakota Pozo Attending Provider: Jae Medrano Admit Date/Time: 02/23/23 14:25 Discharges patient from system. Discharge Date/Time: 02/25/23 14:50 Quality VTE Deep Vein Thrombosis/Pulmonary Embolism Present on Admission: No
--- NOTE | 2023-02-25 16:09 | PC.NURSE ---
Discharge: Feels ready to d/c to home. Having issues with voiding, retaining urine. Bladder scanned several times. Amt of urine out put varies from 250 to 500mls and then he must be reminded to void. Pt doesn't want a mata catheter at this time. So instructed to use the toilet on a scedule. Keep fluid intake at the same even amts during the day. May need to wake self up at night to void. Cont taking his medication. It takes med flomax 2 to 3 weeks to be optimal. Spouse present at time of teaching. Pt spouse voiced some concerns about him calling numerous times during the night and being confused and hallucinating. This am pt is more oriented than what he was. Pt had unfortunately recieved ritalin at 2100 as well as he had some ativan yestery. This has made him more sleepy today, His ritalin was changed to his usual schdule. Dr. Estrada called about UOP and can still go home if he wants to. Pt opted to go home w/out the mata in. He needs to see a urologist as soon as he can, explained returning if he can't void or has any problems. Pt feels his left leg is weak and that is slowly inprovingl for him. Seen by PT/OT. They gave final instruction for home. See by MD and given final instructions. Reviewed d/c packet, questions answered. here, she had several questions about his sleepiness and mental status. He is oriented now. Sleepiness will be relieved tonight when he can sleep. It should improve, if not call MD. When all questions answered pt d/c too home via auto.
== END 2023-02-25 14:50 | disposition home or self-care (01) ==
LOC: ED 11:55 → AC 14:26
PROVIDERS: Internal Medicine; Admitting Provider Internal Medicine; Emergency Provider Emergency Medicine; PCP Family Medicine; Referring Provider Emergency Medicine; Visit Provider Internal Medicine
DX: G93.41 Metabolic encephalopathy (principal); E11.40 Type 2 diabetes mellitus with diabetic neuropathy, unspecified; E11.649 Type 2 diabetes mellitus with hypoglycemia without coma; R42 Dizziness and giddiness; W18.30XA Fall on same level, unspecified, initial encounter; Y92.009 Unspecified place in unspecified non-institutional (private) residence as the place of occurrence of the external cause; Z79.4 Long term (current) use of insulin; Z79.84 Long term (current) use of oral hypoglycemic drugs; R29.701 NIHSS score 1; Z95.1 Presence of aortocoronary bypass graft; I10 Essential (primary) hypertension; I25.10 Atherosclerotic heart disease of native coronary artery without angina pectoris; E66.9 Obesity, unspecified; R33.9 Retention of urine, unspecified; Z20.822 Contact with and (suspected) exposure to COVID-19
CPT/HCPCS: 36415; 70450; 70496; 70498; 70551; 72158; 80048; 80053; 80061; 80305; 80320; 81001; 81003; 81015; 82550; 82553; 82962; 83036; 83735; 84443; 84484; 85025; 85610; 85730; 87635; 93005; 94660; 96372; 96374; 97116; 97161; 97166; 97530; 97535; 99284; C9803; G0378; A9579; J1650; J1815; J2060; Q9967

== ENCOUNTER 2023-03-02 07:58 | Emergency (ER) | payer OTHER, SELFPAY ==
[2023-02-23 15:43] VITALS: BMI 43.0
[2023-03-02] VITALS (23 sets, daily range): BP systolic 146–220; BP diastolic 51–93; PULSE 70–96; RESP 12–21; TEMP 36.6; O2SAT 92–100; BMI 45.1
--- NOTE | 2023-03-02 08:07 | ED_ITS ---
HPI - Fall General Chief Complaint: Fall Stated Complaint: GLF from bed Time Seen by Provider: 03/02/23 08:05 History of Present Illness HPI Narrative: Patient brought in by ambulance from home. Complains of left leg weakness that caused him to fall. He was trying to get out of bed this morning and his left leg gave out and landed on the floor. He denies denies denies any pain or in jury from this. EMS arrived to help for lifting. During EMS evaluation they noted patient to be confused for the past week with his weakness. Patient states he is not confused. He just confused why he is having the symptoms. He just was discharged 5 days ago from this hospital for the same complaint. He did have MRI of the lumbar spine and MRI brain. Stroke was ruled out. Please see discharge summary below. His weakness was thought to be related to diabetic neuropathy. PTOT was consulted and home walker was ordered for him. He states he was walking at home since discharge. The symptoms are not new. Blood sugar 150 by EMS. Patient is awake alert oriented x4 with clear speech. He denies denies any pain from his fall out of bed this morning. He denies any nausea vomiting diarrhea. No cough cold or congestion. No black or bloody stools. Summary Hospital Course Discharge Diagnosis: 1. Left lower extremity weakness with mild metabolic encephalopathy, improved ?- MRI brain normal, suspect weakness diabetic neuropathy related and ence phalopathy due to hyperglycemia ?- PT /OT eval cleared for home but recommended home walker which was ordered for him ?- TSH normal, LDL 112 ?- patient already on clopidogrel for his CAD, has a documented statin allergy ?- MR lumbar showed multilevel degenerative changes and mod-severe L4-L5 right f oraminal stenosis, opposite side of patient's left leg symptoms ?- Given likely hyperglycemia, defer TTE at this time. He reports many prior echocardiograms without mention of PFO given his previous CAD/CABG. ?- recommended f/u with neurology if symptoms not improving for likely diabetic neuropathy Admitted for LLE weakness and balance difficulty. Also had urinary retention requiring straight cath with up to 2L of urine output. MRI brain was normal and MR lumbar spine showed no evidence of cauda equina but mod-severe foraminal stenosis at L4-L5 on right which was opposite of his left leg symptoms. Worked with PT and able to walk with walker. A home walker was ordered for him. Thought his symptoms likely due to diabetic neuropathy for which he will f/u with PCP or neurology if symptoms not improving. Already on plavix and statin if he had a TIA. Salcido cath offered for urinary retention but patient deferred and wants to f/u with urology. Flomax started on discharge. Related Data Home Medications Medication Instructions Recorded Confirmed amlodipine 5 mg tablet 5 mg PO DAILY 02/23/23 02/23/23 carvedilol 3.125 mg tablet 3.125 mg PO BIDWM 02/23/23 02/23/23 clopidogrel 75 mg tablet 75 mg PO DAILY 02/23/23 02/23/23 dulaglutide 0.75 mg/0.5 mL 0.75 mg SUBCUT WEEKLY 02/23/23 02/23/23 subcutaneous pen injector (Trulicity) insulin NPH isoph U-100 human 100 70 unit SUBCUT BID 02/23/23 02/23/23 unit/mL subcutaneous suspension (Novolin N NPH U-100 Insulin isophane) insulin aspart U-100 100 unit/mL 35 unit SUBCUT TID 02/23/23 02/23/23 subcutaneous solution (Novolog U-100 Insulin aspart) lisinopril 40 mg tablet 40 mg PO DAILY 02/23/23 02/23/23 methylphenidate HCl 10 mg tablet 10 mg PO QID 02/23/23 02/23/23 nitroglycerin 0.4 mg sublingual 0.4 mg sublingual Q5M PRN Chest 02/23/23 02/23/23 tablet Pain potassium chloride 20 mEq 20 meq PO DAILY 02/23/23 02/23/23 tablet,extended release(part/cryst) semaglutide 0.25 mg or 0.5 mg (2 0.25 mg SUBCUT WEEKLY 02/23/23 02/23/23 mg/1.5 mL) subcutaneous pen injector (Ozempic) torsemide 20 mg tablet 40 mg PO DAILY 02/23/23 02/23/23 Previous Rx's Medication Instructions Recorded tamsulosin 0.4 mg capsule (Flomax) 0.4 mg PO BEDTIME #30 caps 02/25/23 Allergies Allergy/AdvReac Type Severity Reaction Status Date / Time Svtnkle-HYG-UdB Reductase Allergy Unknown Unverified 10/06/19 13:55 Inhibitor [KZXVRAM-[id number]-ACX REDUCTASE INHIBITOR] morphine [MORPHINE] AdvReac Mild SENSITIVE Verified 02/24/23 19:16 Review of Systems Review of Systems Narrative: GENERAL: negative chills, fatigue, malaise, fever, sweats. HEENT: negative sinus pain, ear pain, sore throat RESPIRATORY: negative dyspnea, cough CARDIOVASCULAR: negative chest pain, palpitations GASTROINTESTINAL: negative nausea, vomiting, abdominal pain : negative dysuria, frequency, hematuria MUSCULOSKELETAL: negative muscle or bony pain SKIN: negative rash, skin lesions NEUROLOGIC: Positive weakness, negative numbness ROS Unobtainable: All systems reviewed & are unremarkable except as noted in HPI and below Patient History Medical History CAD (coronary artery disease) Diabetes HLD (hyperlipidemia) HTN (hypertension) Surgical History Hx of CABG Family History Mother No pertinent past medical history Father No pertinent past medical history Social History household members: spouse Smoking Status: Former smoker alcohol intake: current Smoking Status: Former smoker tobacco type: cigarettes alcohol intake frequency: 0-2 drinks per day Substance Use Type: does not use Exam Narrative Exam Narrative: GENERAL: in no distress, not toxic not dyspneic HEAD: Normocephalic. Nontender skull scalp face, no skin injury or bruising EYES: Pupils equal round ENT: Mucous membranes moist. NECK: Trachea midline. CARDIOVASCULAR: Regular rate and rhythm without murmurs RESPIRATORY: Clear to auscultation. Breath sounds equal bilaterally. No wheezes, rales, or rhonchi. GASTROINTESTINAL: Abdomen soft, non-tender EXTREMITIES: No gross deformities. Nontender bilateral shoulders elbows wrists pelvis hips knees and ankles. BACK: No flank tenderness. Small left paralumbar ecchymosis., no midline tenderness or step-off of the cervical thoracic or lumbar spine. NEURO: AOx4. Clear speech no facial droop light touch intact bilateral face hands and feet. Strong equal casting chipper. Fast exam is negative. Negative pronator drift. SKIN: Warm and dry PSYCH: Not anxious, is cooperative Initial Vital Signs Initial Vital Signs: Vital Signs Pulse Rate 78 03/02/23 08:01 Blood Pressure 167/77 H 03/02/23 08:01 Pulse Oximetry 100 03/02/23 08:01 Course Orders Ordered: Discontinued Medications Lidocaine HCl (Lidocaine 2% (Glydo) 6 Ml Gel) 6 ml TOP NOW ONE Stop: 03/02/23 11:14 Last Admin: 03/02/23 11:17 Dose: 6 ml Documented By: AIDA Vital Signs Vital signs: Vital Signs - 8 hr 03/02/23 08:05 03/02/23 08:01 03/02/23 08:01 Temperature 98 F Pulse Rate 77 78 Respiratory Rate 18 Blood Pressure 167/77 H 167/77 H Pulse Oximetry 100 100 Oxygen Delivery Method Room Air 03/02/23 08:09 03/02/23 08:09 03/02/23 08:30 Temperature Pulse Rate 76 Respiratory Rate Blood Pressure 149/68 H 150/66 H Pulse Oximetry 100 Oxygen Delivery Method 03/02/23 08:30 03/02/23 09:00 03/02/23 09:00 Temperature Pulse Rate 73 70 Respiratory Rate 12 Blood Pressure 152/70 H Pulse Oximetry 99 99 Oxygen Delivery Method 03/02/23 09:30 03/02/23 09:30 03/02/23 10:00 Temperature Pulse Rate 72 Respiratory Rate 14 Blood Pressure 167/71 H 159/70 H Pulse Oximetry 100 Oxygen Delivery Method 03/02/23 10:00 03/02/23 10:30 03/02/23 10:30 Temperature Pulse Rate 70 72 Respiratory Rate 15 Blood Pressure 154/70 H Pulse Oximetry 92 98 Oxygen Delivery Method 03/02/23 11:15 03/02/23 11:30 03/02/23 11:30 Temperature Pulse Rate 96 H 70 Respiratory Rate 19 Blood Pressure 166/72 H Pulse Oximetry 100 Oxygen Delivery Method 03/02/23 11:35 03/02/23 11:35 03/02/23 11:41 Temperature Pulse Rate 71 72 Respiratory Rate 16 14 Blood Pressure 150/62 H Pulse Oximetry 98 99 Oxygen Delivery Method 03/02/23 11:41 03/02/23 12:00 03/02/23 12:30 Temperature Pulse Rate 80 Respiratory Rate 13 Blood Pressure 146/67 H 164/74 H Pulse Oximetry 99 Oxygen Delivery Method 03/02/23 12:30 03/02/23 13:00 03/02/23 13:30 Temperature Pulse Rate 81 72 75 Respiratory Rate 20 13 12 Blood Pressure Pulse Oximetry 100 97 100 Oxygen Delivery Method 03/02/23 13:48 03/02/23 13:48 03/02/23 14:00 Temperature Pulse Rate 71 Respiratory Rate 12 Blood Pressure 146/65 H 161/70 H Pulse Oximetry 99 Oxygen Delivery Method 03/02/23 14:00 Temperature Pulse Rate 73 Respiratory Rate 20 Blood Pressure Pulse Oximetry 99 Oxygen Delivery Method MDM - Fall Lab Data 03/02/23 08:40 03/02/23 08:40 Labs: Lab Results 03/02/23 03/02/23 03/02/23 Range/Units 08:40 08:40 11:33 WBC 10.5 (4.5-11.0) X10^3/uL RBC 5.36 (4.5-5.9) X10^6/uL Hgb 15.9 (13.5-17.5) g/dL Hct 46.1 (41-53) % MCV 86.0 (80-100) fL MCH 29.6 (26-34) PG MCHC 34.5 (30-36) % RDW 14.7 (11.6-14.8) % Plt Count 219 (150-400) X10^3/uL Neut % (Auto) 69.9 (50-75) % Lymph % (Auto) 21.7 L (25-40) % [place] % (Auto) 6.9 (3-14) % Eos % (Auto) 0.8 L (2-4) % Baso % (Auto) 0.7 (0-2) % Neut # (Auto) 7400 H (3795-2134) /uL Lymph # (Auto) 2300 (6289-3833) /uL [place] # (Auto) 700 (0-900) /uL Eos # (Auto) 100 (0-450) /uL Baso # (Auto) 100 (0-100) /uL Sodium 139 (137-145) mmol/L Potassium 3.6 (3.4-5.1) mmol/L Chloride 103 (98-107) mmol/L Carbon Dioxide 27 (22-32) mmol/L BUN 17 (9-20) mg/dL Creatinine 0.79 (0.66-1.25) mg/dL Estimated GFR > 60 (>60) mL/min BUN/Creatinine Ratio 21.5 (6-22) Glucose 139 H (80-110) mg/dL Calcium 9.6 (8.4-10.2) mg/dL Total Bilirubin 0.9 (0.2-1.3) mg/dL AST 30 (17-59) IU/L ALT 40 (<50) IU/L Alkaline Phosphatase 67 (38-126) U/L Total Protein 7.5 (6.3-8.2) g/dL Albumin 4.4 (3.5-5.0) g/dL Globulin 3.1 (1.7-4.1) g/dL Albumin/Globulin Ratio 1.4 (1.0-2.8) Urine Color Yellow Urine Appearance Clear Urine pH 5.5 (4.5-8.0) Ur Specific [place] 1.020 (1.000-1.035) Urine Protein Negative (Negative) Urine Glucose (UA) Trace H (Negative) g/dL Urine Ketones Negative (NEGATIVE) Urine Occult Blood Negative (Negative) Urine Nitrate Negative (Negative) Urine Bilirubin Negative (NEGATIVE) Urine Urobilinogen 0.2 (0.2) E.U./dL Ur Leukocyte Esterase Negative (NEGATIVE) Urine RBC None seen (0-5/HPF) Urine WBC None seen (0-5/HPF) Urine Bacteria None seen (None) Ur Culture Indicated? Cult not indicated Micro UA Comment Microscopic normal MDM Narrative Medical decision making narrative: After history and exam CBC CMP urinalysis ordered. Physical therapy consult as well as social work consult placed MDM CC: Left leg weakness Complicating co-morbidities: Diabetes Data collected from: Patient EMS Medical records reviewed: Discharge summary February 25, 2023 from this hospital Differential considered: Includes but not limited to chronic weakness electrolyte imbalance diabetic neuropathy Exam documented above, pertinent findings include: No left leg weakness at this time. Lab Test results independently reviewed as above. Pertinent findings: WBC 10.5 hemoglobin 15.9 hematocrit 46 platelets 219 Sodium 139 potassium 3.6 GFR greater than 60 Urinalysis negative ketones negative nitrate negative leuk esterase Independently reviewed EKG as above Imaging studies independently reviewed: None indicated Consultations: I did speak with [facility] social work, 2p.m.. Patient has been arranged for home physical therapy. I did speak with physical therapy as well and recommended home physical therapy Treatments: Social work evaluation as well as physical therapy evaluation Re-evaluations: 3:05 p.m.. Reviewed results with patient treatment plan. They agree. They will have physical therapy at home to help him ambulate. This morning he did not use his walker to try to get out of bed, he recalls that is why he fell today. Discussion: Appropriate for discharge home. Exam and laboratory studies are reassuring. Patient now has appropriate home therapy that was not done on disc harge from the hospital a few days ago. Patient and are happy with treatment plan and desires discharge home. Diagnosis: Chronic left leg weakness Discharge Plan Departure Patient Disposition: Home Clinical Impression: Left leg weakness Instructions: How to Prevent Falls, DI for Muscle Weakness Activity Restrictions/Additional Instructions: Please see family doctor within a week for re-evaluation. Social work has helped to arrange for home physical therapy for you. Please do use your walker at home. Return if worse if any questions or concerns Prescriptions: No Action torsemide 20 mg tablet 40 mg PO DAILY methylphenidate HCl 10 mg tablet 10 mg PO QID clopidogrel 75 mg tablet 75 mg PO DAILY amlodipine 5 mg tablet 5 mg PO DAILY carvedilol 3.125 mg tablet 3.125 mg PO BIDWM Patient Comments: take 1 tablet by mouth twice a day WITH A MEAL potassium chloride 20 mEq tablet,ER particles/crystals 20 meq PO DAILY insulin aspart U-100 [Novolog U-100 Insulin aspart] 100 unit/mL solution 35 unit SUBCUT TID Patient Comments: inject 35 units subcutaneously three times a day Novolin N NPH U-100 Insulin 100 unit/mL suspension 70 unit SUBCUT BID nitroglycerin 0.4 mg tablet, sublingual 0.4 mg sublingual Q5M PRN (Reason: Chest Pain) lisinopril 40 mg tablet 40 mg PO DAILY Trulicity 0.75 mg/0.5 mL pen injector 0.75 mg SUBCUT WEEKLY Patient Comments: inject 0.5 milliliters ( 0.75 milligrams ) subcutaneously every 7... (REFER TO PRESCRIPTION NOTES). Ozempic 0.25 mg or 0.5 mg(2 mg/1.5 mL) pen injector 0.25 mg SUBCUT WEEKLY Patient Comments: inject 0.25 milligrams (0.1875 MLS) subcutaneously every week tamsulosin [Flomax] 0.4 mg Capsule 0.4 mg PO BEDTIME Qty: 30 0RF Referrals: Dakota Pozo MD [Primary Care Provider] - Stand Alone Forms: Patient Portal/API
[2023-03-02 09:05] LABS: Add Manual Diff / Slide Review NO; Basophils Absolute Auto 100 /uL (0-100); Basophils Percent Auto 0.7 % (0-2); Eosinophils Absolute Auto 100 /uL (0-450); Eosinophils Percent Auto 0.8 % (2-4); Hematocrit 46.1 % (41-53); Hemoglobin 15.9 g/dL (13.5-17.5); Lymphocytes Absolute Auto 2300 /uL (1100-4500); Lymphocytes Percent Auto 21.7 % (25-40); Mean Corpuscular HGB Conc 34.5 % (30-36); Mean Corpuscular Hemoglobin 29.6 PG (26-34); Monocytes Absolute Auto 700 /uL (0-900); Monocytes Percent Auto 6.9 % (3-14); Neutrophils Absolute Auto 7400 /uL (1500-7000); Neutrophils Percent Auto 69.9 % (50-75); Platelet Count 219 X10^3/uL (150-400); Red Blood Cell Count 5.36 X10^6/uL (4.5-5.9); Red Cell Distribution Width 14.7 % (11.6-14.8); White Blood Cell Count 10.5 X10^3/uL (4.5-11.0)
[2023-03-02 09:25] LABS: Alanine Aminotransferase 40 IU/L (<50); Albumin 4.4 g/dL (3.5-5.0); Albumin Globulin Ratio 1.4 (1.0-2.8); Alkaline Phosphatase 67 U/L (38-126); Aspartate Aminotransferase 30 IU/L (17-59); BUN Creatinine Ratio 21.5 (6-22); Bilirubin Total 0.9 mg/dL (0.2-1.3); Blood Urea Nitrogen 17 mg/dL (9-20); Calcium 9.6 mg/dL (8.4-10.2); Carbon Dioxide 27 mmol/L (22-32); Chloride 103 mmol/L (98-107); Estimated Glomerular Filt Rate > 60 mL/min (>60); Globulin 3.1 g/dL (1.7-4.1); Glucose 139 mg/dL (80-110); HEMOLYSIS < 15 (0-50); Potassium 3.6 mmol/L (3.4-5.1); Sodium 139 mmol/L (137-145); Total Protein 7.5 g/dL (6.3-8.2)
[2023-03-02] MEDS: LIDOCAINE 2% (GLYDO) 6 ML GEL TOP (11:17)
[2023-03-02 11:40] LABS: Appearance Urine UA CLEAR; Bilirubin Urine UA NEGATIVE (NEGATIVE); Color Urine UA YELLOW; Glucose Urine UA TRACE g/dL (Negative); Ketones Urine UA NEGATIVE (NEGATIVE); Leukocyte Esterase Urine UA NEGATIVE (NEGATIVE); Nitrite Urine UA NEGATIVE (Negative); Occult Blood Urine UA NEGATIVE (Negative); Protein Urine UA NEGATIVE (Negative); Urobilinogen Urine UA 0.2 E.U./dL (0.2); pH Urine UA 5.5 (4.5-8.0)
[2023-03-02 11:50] LABS: Bacteria Urine None Seen; Culture Indicated Urine Cult Not Indicated; RBC Urine None Seen (0-5/HPF); Urine Comments Microscopic Normal; WBC Urine None Seen (0-5/HPF)
--- NOTE | 2023-03-02 12:30 | PT.IIE ---
Surgical History (Last Reviewed 03/02/23 @ 08:12 by Chano Paige MD) Hx of CABG Medical History (Last Reviewed 03/02/23 @ 08:12 by Chano Paige MD) CAD (coronary artery disease) Diabetes HLD (hyperlipidemia) HTN (hypertension) Physical Therapy Inpatient Evaluation/Re-Eval M1 PT/OT-IP Prior Functional Status Start: 03/02/23 08:38 Freq: Status: Active Protocol: Document 03/02/23 12:35 DLM (Rec: 03/02/23 13:09 DLM [id number]) Medical Review Prior Functional Status Medical History Reviewed Yes Diet/Fluid Consistency Regular Communication WFL, glasses Mobility and Gait Independent without device before recent hospitalization. He was discharged home ambulating with fWW. Pt reports over the last 5 days since discharge he was feeling better and not always using the FWW. He also reports the space beside his bed is hard to fit the FWW. He needs to side-step to use the FWW to get in/out of bed. He has been doing well getting up his 2 steps in/out of the house. Activities of Daily Living and IADL's Independent Social History Household Members spouse Living Arrangements House Number of Floors (Floors) One Floor Number of Stairs To Enter/Railing? 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 His ambulates with 4WW and/or 2 canes M2 PT-IP Current Condition Start: 03/02/23 08:38 Freq: Status: Active Protocol: Document 03/02/23 12:35 DLM (Rec: 03/02/23 13:09 DLM [id number]) Physical Therapy Current Condition Current Condition Evaluation Date 03/02/23 Treatment Diagnosis fall with left sided weakness, impaired gait Onset Date 03/02/23 M3 PT-IP Subjective Start: 03/02/23 08:38 Freq: Status: Active Protocol: Document 03/02/23 12:35 DLM (Rec: 03/02/23 13:09 DLM [id number]) Subjective Physical Therapy Visit Type Type Initial Evaluation Visit Start Time 11:50 Visit Stop Time 12:35 Total Visit Minutes 45 Number of OPERATING ROOM SURGICAL TECHNICIAN Visits 0 Physical Therapy Visit Comments Patient Comments Pt and his describe that he was getting better at home after discharge but then started getting worse again. They describe his blood sugars being higher than normal for him at home. Pt does not have a mata catheter at home but reports he can void sitting on his toilet with extra time. Patient Goals He wants to feel better Therapy Pain Assessment Pain When Pain Assessed During Mobility Pain Present Pain Present Denied Pain M4 PT-IP Mobility and Gait Start: 03/02/23 08:38 Freq: Status: Active Protocol: Document 03/02/23 12:35 DLM (Rec: 03/02/23 13:09 DLM [id number]) PT-Bed Mobility Assessment Supine to Sit Supine to Sit Minimal Assistance,Moderate Assistance Sit to Supine Sit to Supine Standby Assistance Scooting Scooting to Edge of Bed Standby Assistance PT-Transfer Assessment Sit to and From Stand Sit to and from Stand Standby Assistance,Use of Upper Extremities Equipment Transfer Assistive Device Gait Belt,Front Wheeled Walker Transfers Transfer Destination Bed Transfer Technique Stand Step Pivot Transfer Ability Level of Assist Standby Assistance,Use of Upper Extremities Comments Mobility Comments He needs extra assistance getting up from stretcher today but it is more challenging to get up from than his bed at home per pt ( stretcher is narrow and tall). He has initial left sided lean in sitting that is mild and resolved with time as he sat up. Gait Assessment Gait Gait Assistance Required: Standby Assistance Distance (Feet) 120 Assistive Devices Assistive Device Gait Belt,Front Wheeled Walker Gait Deviations General Gait Pattern Wide Based Gait Factors Limiting Gait Function Factors Limiting Gait Function Decreased Activity Tolerance, Decreased Strength,Poor Balance Comments Gait Comments He reports his feet always feel funny when he is walking; sometimes like he is on a cloud. He needed verbal reminders to stay close to the FWW during gait. He denies back or LE pain during gait. PT-Balance Assessment Sitting Balance and Reactions Static Sitting Balance Ability Good Dynamic Sitting Balance Ability Fair Standing Balance and Reactions Static Standing Balance Ability Good Dynamic Standing Balance Ability Good Device Used FWW Comments Other Balance Tests/Deviations/Treatment no left lean noted in standing : , initial left lean sitting that resolved with time in sitting and did not re-occur M5 PT-IP Objective Assessments Start: 03/02/23 08:38 Freq: Status: Active Protocol: Document 03/02/23 12:35 DLM (Rec: 03/02/23 13:09 DLM [id number]) Orientation Orientation/Cognition Level of Alertness Alert Orientation Name,Age,Birthday,Month,Date, Year,Day of Week,Place, Situation Language Function Ability No Deficits Noted Safety Awareness Decreased Safety Awareness Memory Description No Deficits Noted Gross Range of Motion Upper Extremity ROM Assessment Within Functional Limits Lower Extremity ROM Assessment Within Functional Limits Strength Upper Extremity Strength Assessment Within Functional Limits Lower Extremity Strength Assessment Left Impaired Hip flex 4/5 Knee ext 4/5, flex 4/5 Ankle DF 4/5, PF 3+/5 Comments Strength Comments right LE 5/5 Coordination Assessment Gross Coordination Gross Coordination WNL Sensation Assessment Sensation Gross Sensation Right LE Impaired,Left LE Impaired Light Touch Impaired Sensation Description Numbness Muscle Tone Muscle Tone WNL Yes M6 PT-IP Treatment Start: 03/02/23 08:38 Freq: Status: Active Protocol: Document 03/02/23 12:35 DLM (Rec: 03/02/23 13:09 DL [id number]) Physical Therapy Treatment Education Education Provided Safety Other Treatments Other Treatment Performed bruise left side of back where pt reports he hit it on toilet when sitting down hard Pt's present today M7 PT-IP Assessment and Plan Start: 03/02/23 08:38 Freq: Status: Active Protocol: Document 03/02/23 12:35 DLM (Rec: 03/02/23 13:09 DL [id number]) PT Summary Assessment and Plan Potential Rehabilitation Potential Good Status of Condition at Evaluation Evolving Summary Impairments Strength,Balance,Sensation,Bed Mobility,Transfers,Gait, Activity Tolerance Assessment Summary [place] is alert and resting on a stretcher in ED. He reports his left leg gave out when he was trying to get out of bed. He was not using the FWW since he has limited space next to the bed. He presents with left LE weakness, decreased balance with left drift sitting, decreased sensation in his feet associated with neuropathy and impaired gait on this exam. He was able to ambulate in the weber with FWW with verbal reminders to stay close to the fWW. He appears safe to discharge home but recommend he use the FWW all of the time. He will need home health physical therapy to assist with his recovery. Home health nursing may also be helpful to manage his medical issues that may be contributing to his fluctuating functional ability. Goals Bed Mobility Goal Independent Transfer Goal Independent,Front Wheeled Walker Gait Goal Independent,Front Wheel Walker Gait Distance 200 feet Days to Meet Goals 2 Frequency of Treatment Frequency Of Treatment Once a Day Treatment Plan Physical Therapy Treatment Plan Bed Mobility Training,Transfer Training,Gait Training, Therapeutic Exercise,Balance Retraining,Discharge Planning, Neuromuscular Re-ed Precautions Other Precautions fall risk Recommendations To Nursing Amount of Assist Needed 1 Person Assist Discharge Recommendations PT Discharge Recommendations Home with Assistance,Home Health Other Discharge Recommendations he lives with his , he should be using FWW at all times Home health for home safety assessment, strengthening, balance training and gait training. Transportation Needs at Discharge Private Vehicle
--- NOTE | 2023-03-02 14:33 | CM.SWNOTE ---
ED FOLDING MACHINE SETTER Note FOLDING MACHINE SETTER receives consult due to concern for patient's recent GLF and need for HH. PT eval is ordered for patient in ED. Patient is 67 y/o male who presents to ED via EMS after GLF, patient's spouse and children were unable to lift patient and called EMS. Patient was admitted last week due to concern for stroke and was evaluated by PT/OT, patient discharged to home with no DCP needs with spouse. Patient's PCP is Dr. Pan Pena with [facility] in [facility], Patient has Medicare Part A and [employer] insurance. Per PT, it is recommended that patient have Home health referral and use FWW molder fitting. FOLDING MACHINE SETTER enters room to meet with patient, present in room is patient's spouse. Patient presents as A/Ox4. Patient has hx of CAD, Diabetes, HLD, HTN and recent hx of stroke. Patient endorses typically works in [place] but has not been able to and has been attempting to outreach worker since recent [facility] discharge. Patient endorses difficulty with functioning at work, and decline since discharge. At baseline patient is able to manage ADLs, and drive, patient has had difficult to do so and had a recent GLF from bed this morning. It is reported that patient has a PCP appt next week. FOLDING MACHINE SETTER discusses HH, patient denies preference, FOLDING MACHINE SETTER states that FOLDING MACHINE SETTER can make referral for HH with soonest agency. FOLDING MACHINE SETTER makes HH referral for PT, OT and RN to [facility] based on agency rotation. FOLDING MACHINE SETTER faxes signed F2F, order, PT notes and clinicals to [facility] for referral. FOLDING MACHINE SETTER calls [facility] and leaves VM regarding referral. FOLDING MACHINE SETTER provides patient and spouse with information about FMLA to see if patient qualifies. Patient to discuss this at next PCP appt next week. Plan: Patient to d/c to home with [facility] referral, patient to f/u with PCP next week. RUDOLPH Dawkins
== END 2023-03-02 15:13 | disposition home or self-care (01) ==
PROVIDERS: Emergency Provider Emergency Medicine; PCP Family Medicine
DX: R53.1 Weakness (principal)
CPT/HCPCS: 36415; 51798; 80053; 81001; 85025; 97162; 99283

== ENCOUNTER 2023-03-21 07:20 | Inpatient (IN) | payer OTHER, MEDICARE, SELFPAY ==
[2023-02-23 15:43] VITALS: BMI 43.0
[2023-03-21] VITALS (20 sets, daily range): BP systolic 106–139; BP diastolic 50–63; PULSE 70–81; RESP 9–19; TEMP 36.2–37.2; O2SAT 96–100; BMI 41.4; BMI 40.8
--- NOTE | 2023-03-21 07:28 | DI.CT.S_ITS ---
PROCEDURE: CT ANGIO HEAD AND NECK INDICATIONS: left side weakness x 48 hours TECHNIQUE: Pre-contrast 4.5 mm thick sections acquired from the foramen magnum to the vertex. After the administration of intravenous contrast, 1 mm thick sections acquired from the aortic arch through the [place]. Post-contrast 4.5 mm thick sections then re-acquired from the foramen magnum to the vertex. 3-dimensional tmrnqpx-fkzpgebtm-unmfjefmow (MIP) and/or volume rendering reformats were acquired of the central intracranial vasculature and neck separately. For radiation dose reduction, the following was used: automated exposure control, adjustment of mA and/or kV according to patient size. COMPARISON: [facility], MR, MR HEAD/BRAIN WO CON, 02/23/2023, 15:08. [facility], CT, CT STROKE, 02/23/2023, 11:08. [facility], CT, CT ANGIO HEAD AND NECK, 02/23/2023, 11:08. FINDINGS: Image quality: Suboptimal opacification of the arterial system particularly within the neck. There is significant venous opacification obscuring evaluation. BRAIN: The ventricular system and cortical sulci demonstrate atrophy, consistent for the patient's stated age. There are areas of hypodensity within the periventricular and subcortical white matter. There is no acute intra-or extra axial fluid collection. No acute hemorrhage, mass lesion or midline shift. Brainstem is unremarkable. Globes are symmetrical. Sinuses are aerated. Osseous structures are intact. HEAD CT ANGIOGRAPHY: Anterior circulation: Intracranial internal carotid arteries are normal in size and flow. The flow within the paired anterior cerebral arteries is normal and symmetric. The flow within the middle cerebral arteries is normal and symmetric. The anterior communicating artery is seen. No aneurysms are seen. Posterior circulation: Slight left vertebral artery dominance. There is calcification in the distal most aspect of the V4 segment of the left vertebral artery demonstrate approximately 55% stenosis. Basilar artery is unremarkable. There is persistence of circulation within the right posterior circulation consistent with congenital variation. Flow within the posterior cerebral arteries is normal and symmetric. No aneurysms are seen. NECK CT ANGIOGRAPHY: Significantly limited secondary to contrast arterial opacification. Carotid system: Bovine arch is present consistent with congenital variation. The origins of the common carotid arteries appear patent. There is marked limited evaluation of the internal carotid arteries. Calcifications are identified are suspected to be mild stenosis, approximately 50% or less. However, they are poorly evaluated. Posterior circulation: Vertebral arteries from the origin through the intracranial segment are poorly opacified and felt to be inadequately evaluated. Soft tissues: 6.5 cm fat containing mass within the posterior subcutaneous fat of the lower neck most suggestive of lipoma. This area was not included in the field of view on prior exams. Bones: No suspicious bony lesions. Visualized cervical spine appears normally aligned. IMPRESSION: 1. Markedly limited exam secondary to arterial contrast opacification. 2. No acute intracranial process. Moderate atrophy and chronic microvascular ischemic changes. 3. Unchanged appearance of approximately 55% stenosis secondary to calcification of the distal left vertebral artery. 4. Inadequate evaluation of the vertebral as well as carotid arteries within the neck secondary to opacification. Any quantitative measurements of stenosis were performed using NASCET criteria. Dictated by: Marielos Baxter M.D. on 03/21/2023 at 8:33 Approved by: Marielos Baxter M.D. on 03/21/2023 at 8:40
--- NOTE | 2023-03-21 07:29 | DI.RAD.S_ITS ---
PROCEDURE: XR CHEST 1V INDICATIONS: chest pain TECHNIQUE: One view of the chest was acquired. COMPARISON: [facility], CR, XR CHEST 2V, 07/22/2018, 13:04. FINDINGS: Surgical changes and devices: Sternal wires. Lungs and pleura: Lungs are clear. No pleural effusions or pneumothorax. Mediastinum: Mediastinal contours appear normal. Heart size is normal. Bones and chest wall: No suspicious bony lesions. Overlying soft tissues appear unremarkable. IMPRESSION: No acute pulmonary process. Dictated by: Marielos Batxer M.D. on 03/21/2023 at 8:48 Approved by: Marielos Baxter M.D. on 03/21/2023 at 8:48
[2023-03-21 07:36] LABS: Add Manual Diff / Slide Review NO; Basophils Absolute Auto 100 /uL (0-100); Basophils Percent Auto 0.6 % (0-2); Eosinophils Absolute Auto 100 /uL (0-450); Eosinophils Percent Auto 1.5 % (2-4); Hematocrit 48.1 % (41-53); Hemoglobin 16.4 g/dL (13.5-17.5); Lymphocytes Absolute Auto 3100 /uL (1100-4500); Lymphocytes Percent Auto 33.1 % (25-40); Mean Corpuscular HGB Conc 34.1 % (30-36); Mean Corpuscular Hemoglobin 29.4 PG (26-34); Mean Corpuscular Volume 86.3 fL (80-100); Monocytes Absolute Auto 800 /uL (0-900); Monocytes Percent Auto 8.4 % (3-14); Neutrophils Absolute Auto 5200 /uL (1500-7000); Neutrophils Percent Auto 56.4 % (50-75); Platelet Count 218 X10^3/uL (150-400); Red Blood Cell Count 5.57 X10^6/uL (4.5-5.9); Red Cell Distribution Width 14.4 % (11.6-14.8); White Blood Cell Count 9.3 X10^3/uL (4.5-11.0)
[2023-03-21 07:42] LABS: Alanine Aminotransferase 31 IU/L (<50); Albumin 4.4 g/dL (3.5-5.0); Albumin Globulin Ratio 1.4 (1.0-2.8); Alkaline Phosphatase 67 U/L (38-126); Aspartate Aminotransferase 27 IU/L (17-59); BUN Creatinine Ratio 18.1 (6-22); Blood Urea Nitrogen 21 mg/dL (9-20); Calcium 9.7 mg/dL (8.4-10.2); Carbon Dioxide 27 mmol/L (22-32); Chloride 99 mmol/L (98-107); Creatine Kinase 77 U/L (55-170); Estimated Glomerular Filt Rate > 60 mL/min (>60); Globulin 3.1 g/dL (1.7-4.1); Glucose 154 mg/dL (80-110); HEMOLYSIS 33 (0-50); Lipase 60 U/L (23-300); Potassium 3.7 mmol/L (3.4-5.1); Sodium 137 mmol/L (137-145); Total Protein 7.5 g/dL (6.3-8.2)
[2023-03-21 07:53] LABS: Troponin I < 0.012 ng/mL (0.01-0.034)
--- NOTE | 2023-03-21 07:53 | ED.WEAKNESS ---
HPI - Weakness General Chief complaint: Weakness Stated complaint: Weakness Time Seen by Provider: 03/21/23 07:27 History of Present Illness HPI Narrative: Patient is a 67-year-old male history of hypertension insulin-dependent diabetes, coronary artery disease hyperlipidemia presents with chronic ongoing left leg weakness. He was admitted here February 23 through the for stroke workup. 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 He says since his discharge he has been walking with a walker he has been doing okay but for the last 2 days really unable to get about bed without any assistance gotten significantly worse. During his hospital admission he had urinary retention thought to be due secondary to BPH no evidence of cauda equina on the MR lumbar spine, he now self catheterize was given option of continuous [place] catheter. He was started on Flomax that time. Today with worsening left-sided weakness he has some decreased sensation both on left leg arm which he says is new ongoing for more than 24 hours. No fevers chills chest pain palpitations shortness of breath abdominal pain nausea vomiting or fever. Related Data Home Medications Medication Instructions Recorded Confirmed amlodipine 5 mg tablet 10 mg PO DAILY 02/23/23 03/21/23 carvedilol 3.125 mg tablet 3.125 mg PO BIDWM 02/23/23 03/21/23 clopidogrel 75 mg tablet 75 mg PO DAILY 02/23/23 03/21/23 insulin NPH isoph U-100 human 100 See Rx Instructions .Route .COMPLEX 02/23/23 03/21/23 unit/mL subcutaneous suspension (Novolin N NPH U-100 Insulin isophane) insulin aspart U-100 100 unit/mL See Rx Instructions .Route .COMPLEX 02/23/23 03/21/23 subcutaneous solution (Novolog U-100 Insulin aspart) lisinopril 40 mg tablet 40 mg PO DAILY 02/23/23 03/21/23 methylphenidate HCl 10 mg tablet 10 mg PO QID 02/23/23 03/21/23 nitroglycerin 0.4 mg sublingual 0.4 mg sublingual Q5M PRN Chest 02/23/23 03/21/23 tablet Pain potassium chloride 20 mEq 20 meq PO DAILY 02/23/23 03/21/23 tablet,extended release(part/cryst) semaglutide 0.25 mg or 0.5 mg (2 0.25 mg SUBCUT WEEKLY 02/23/23 03/21/23 mg/1.5 mL) subcutaneous pen injector (Ozempic) torsemide 20 mg tablet 40 mg PO DAILY 02/23/23 03/21/23 Previous Rx's Medication Instructions Recorded tamsulosin 0.4 mg capsule (Flomax) 0.4 mg PO BEDTIME #30 caps 02/25/23 Allergies Allergy/AdvReac Type Severity Reaction Status Date / Time Udsbeta-XJD-OrO Reductase Allergy Unknown Verified 03/21/23 12:42 Inhibitor [[id number]-[id number]-PZR REDUCTASE INHIBITOR] morphine [MORPHINE] AdvReac Mild SENSITIVE Verified 03/21/23 12:42 Review of Systems Review of Systems ROS Unobtainable: All systems reviewed & are unremarkable except as noted in HPI and below Patient History Medical History CAD (coronary artery disease) Diabetes HLD (hyperlipidemia) HTN (hypertension) Surgical History Hx of CABG Family History Mother No pertinent past medical history Father No pertinent past medical history Social History household members: spouse Smoking Status: Former smoker alcohol intake: current Smoking Status: Former smoker tobacco type: cigarettes alcohol intake frequency: 0-2 drinks per day Substance Use Type: does not use Exam Initial Vital Signs Initial Vital Signs: Vital Signs Pulse Rate 78 03/21/23 07:25 Respiratory Rate 15 03/21/23 07:25 Pulse Oximetry 100 03/21/23 07:25 GENERAL: Alert pleasant 67-year-old male and in no acute distress. HEENT: Head atraumatic,EOMI, pupils reactive, face symmetric, moist mucous membranes CARDIOVASCULAR: Regular rate and rhythm without murmurs, rubs or gallops. RESPIRATORY: Breath sounds equal bilaterally, no wheezes rales or rhonchi. ABDOMEN: Soft, nontender. Normoactive bowel sounds all 4 quadrants. No guarding or rebound. EXTREMITIES: Normal range of motion, no clubbing or edema. Neurovascularly intact NEUROLOGICAL: Alert and oriented x4.Normal gait and speech. Cranial nerves II through XII grossly intact. Left leg does drift decreased sensation both left arm and left leg no facial droop no aphasia or dysarthria SKIN: Warm, dry, no laceration, no petechiae, no rashes or lesions. Scores NIH Stroke Scale Level of Conciousness: Alert, keenly responsive Ask month/age: Answers both questions correctly. Open/close eyes, close hand: Performs both tasks correctly Best gaze horizontal: Normal Visual summers: No visual loss Facial palsy: Normal symetrical movement Left arm drift: No drift for full 10 sec Right arm drift: No drift for full 10 sec Left leg drift: Drifts down, not to bed Right leg drift: No drift for full 5 sec Limb ataxia: Absent Sensory on face/arms/legs: Mild to moderate sensory loss, can tell touch Best language: No aphasia, normal Dysarthria: Normal Extinction or inattention: No abnormality Total NIH Stroke scale score: 2 Course Orders Ordered: Acetaminophen (Acetaminophen 325 Mg Tablet) 650 mg PO Q4H PRN PRN Reason: Fever/Mild Pain (1-3) Amlodipine Besylate (Amlodipine 5 Mg Tablet) 10 mg PO DAILY [facility] Aspirin (Aspirin Ec 81 Mg Tablet) 81 mg PO DAILY [facility] Carvedilol (Carvedilol 3.125 Mg Tablet) 3.125 mg PO BIDWM [facility] Clopidogrel Bisulfate (Clopidogrel 75 Mg Tablet) 75 mg PO DAILY [facility] Stop: 04/10/23 09:01 Dextrose (Dextrose 50 % In Water 25 Gm/50 Ml Syringe) 25 gm IV PRN PRN; Protocol PRN Reason: Hypoglycemia Enoxaparin Sodium (Enoxaparin 40 Mg/0.4 Ml Syringe) 40 mg SUBCUT BID [place] Ceftriaxone Sodium 1,000 mg/ (Sodium Chloride) 100 mls @ 200 mls/hr IV Q24H [facility] Stop: 03/23/23 09:01 Insulin Human Lispro (Insulin Lispro 100 Unit/Ml 3ml Vial) 20 unit SUBCUT AC [facility] Last Admin: 03/21/23 19:19 Dose: 20 unit Documented By: TLS Co-signed By: LDV Insulin Human NPH (Insulin Nph 100 Unit/Ml 10ml Vial) 60 unit SUBCUT BIDAC [facility] Last Admin: 03/21/23 19:20 Dose: 60 unit Documented By: TLS Co-signed By: LDV Lisinopril (Lisinopril 20 Mg Tablet) 40 mg PO DAILY [place] Nitroglycerin (Nitroglycerin 0.4 Mg Sl Tab) 0.4 mg SL Q5M PRN PRN Reason: Chest Pain Semaglutide [Ozempic ] 0.25 Mg (2 Mg/1.5 Ml) Pen 0.25 mg SUBCUT We@0900 [facility] Nystatin (Nystatin Cream 30 Gm) 1 applic TOP TID [place] Ondansetron HCl (Ondansetron 4 Mg/2 Ml Inj) 4 mg IV Q4HR PRN PRN Reason: Nausea And Vomiting Pantoprazole Sodium (Pantoprazole Dr 40 Mg Tablet) 40 mg PO 0700 [place] Potassium Chloride (Potassium Chloride 20 Meq Tab) 20 meq PO DAILY [place] Sennosides (Sennosides 8.6 Mg Tablet) 17.2 mg PO BEDTIME [place] Sodium Chloride (Sodium Chloride 0.9% Flush) 10 ml IV BID [place] Sodium Chloride (Sodium Chloride 0.9% Flush) 10 ml IV BID [place] Tamsulosin HCl (Tamsulosin 0.4 Mg Capsule) 0.4 mg PO BEDTIME [place] Torsemide (Torsemide 10 Mg Tablet) 40 mg PO DAILY [place] Discontinued Medications Aspirin (Aspirin 81 Mg Chew Tab) 324 mg PO NOW ONE Stop: 03/21/23 12:10 Last Admin: 03/21/23 12:49 Dose: 324 mg Documented By: BRYANT Clopidogrel Bisulfate (Clopidogrel 75 Mg Tablet) 75 mg PO NOW ONE Stop: 03/21/23 17:03 Last Admin: 03/21/23 18:40 Dose: 75 mg Documented By: CHIQUIS Ceftriaxone Sodium 1,000 mg/ (Sodium Chloride) 100 mls @ 200 mls/hr IV NOW ONE Stop: 03/21/23 09:53 Last Infusion: 03/21/23 12:42 Dose: 0 mls/hr Documented By: Admin: 03/21/23 11:58 Dose: 200 mls/hr Documented By: BRYANT Insulin Human Isoph/Insulin Regular (Insulin Nph/Reg 70-30 100 Unit/Ml 3ml Vial) 60 unit SUBCUT BIDAC [place] Insulin Human Lispro (Insulin Lispro 100 Unit/Ml 3ml Vial) 20 unit SUBCUT AC [place] Insulin Human NPH (Insulin Nph 100 Unit/Ml 10ml Vial) 60 unit SUBCUT BIDAC [place] Vital Signs Vital signs: Vital Signs - 8 hr 03/21/23 12:00 03/21/23 12:00 03/21/23 12:30 Pulse Rate 76 Respiratory Rate 10 L Blood Pressure 124/56 L 119/57 L Pulse Oximetry 98 03/21/23 12:30 Pulse Rate 79 Respiratory Rate 16 Blood Pressure Pulse Oximetry 99 MDM - Weakness Lab Data 03/21/23 07:23 03/21/23 07:23 Labs: Lab Results 03/21/23 03/21/23 03/21/23 Range/Units 07:23 07:23 07:37 WBC 9.3 (4.5-11.0) X10^3/uL RBC 5.57 (4.5-5.9) X10^6/uL Hgb 16.4 (13.5-17.5) g/dL Hct 48.1 (41-53) % MCV 86.3 (80-100) fL MCH 29.4 (26-34) PG MCHC 34.1 (30-36) % RDW 14.4 (11.6-14.8) % Plt Count 218 (150-400) X10^3/uL Neut % (Auto) 56.4 (50-75) % Lymph % (Auto) 33.1 (25-40) % [place] % (Auto) 8.4 (3-14) % Eos % (Auto) 1.5 L (2-4) % Baso % (Auto) 0.6 (0-2) % Neut # (Auto) 5200 (2007-1077) /uL Lymph # (Auto) 3100 (8139-6415) /uL [place] # (Auto) 800 (0-900) /uL Eos # (Auto) 100 (0-450) /uL Baso # (Auto) 100 (0-100) /uL Sodium 137 (137-145) mmol/L Potassium 3.7 (3.4-5.1) mmol/L Chloride 99 (98-107) mmol/L Carbon Dioxide 27 (22-32) mmol/L BUN 21 H (9-20) mg/dL Creatinine 1.16 (0.66-1.25) mg/dL Estimated GFR > 60 (>60) mL/min BUN/Creatinine Ratio 18.1 (6-22) Glucose 154 H (80-110) mg/dL Calcium 9.7 (8.4-10.2) mg/dL Total Bilirubin 1.0 (0.2-1.3) mg/dL AST 27 (17-59) IU/L ALT 31 (<50) IU/L Alkaline Phosphatase 67 (38-126) U/L Total Creatine Kinase 77 (55-170) U/L CK-MB (CK-2) TNP CK-MB (CK-2) Rel Index TNP Troponin I < 0.012 (0.01-0.034) ng/mL Total Protein 7.5 (6.3-8.2) g/dL Albumin 4.4 (3.5-5.0) g/dL Globulin 3.1 (1.7-4.1) g/dL Albumin/Globulin Ratio 1.4 (1.0-2.8) Lipase 60 (23-300) U/L Urine Color Urine Appearance Urine pH (4.5-8.0) Ur Specific [place] (1.000-1.035) Urine Protein (Negative) Urine Glucose (UA) (Negative) g/dL Urine Ketones (NEGATIVE) Urine Occult Blood (Negative) Urine Nitrate (Negative) Urine Bilirubin (NEGATIVE) Urine Urobilinogen (0.2) E.U./dL Ur Leukocyte Esterase (NEGATIVE) Urine RBC (0-5/HPF) Urine WBC (0-5/HPF) Ur Squamous Epith Cells (0-5/HPF) Urine Bacteria (None) Ur Culture Indicated? SARS-CoV-2 (PCR) Negative (Negative) 03/21/23 Range/Units 08:22 WBC (4.5-11.0) X10^3/uL RBC (4.5-5.9) X10^6/uL Hgb (13.5-17.5) g/dL Hct (41-53) % MCV (80-100) fL MCH (26-34) PG MCHC (30-36) % RDW (11.6-14.8) % Plt Count (150-400) X10^3/uL Neut % (Auto) (50-75) % Lymph % (Auto) (25-40) % [place] % (Auto) (3-14) % Eos % (Auto) (2-4) % Baso % (Auto) (0-2) % Neut # (Auto) (5532-0105) /uL Lymph # (Auto) (6005-6068) /uL [place] # (Auto) (0-900) /uL Eos # (Auto) (0-450) /uL Baso # (Auto) (0-100) /uL Sodium (137-145) mmol/L Potassium (3.4-5.1) mmol/L Chloride (98-107) mmol/L Carbon Dioxide (22-32) mmol/L BUN (9-20) mg/dL Creatinine (0.66-1.25) mg/dL Estimated GFR (>60) mL/min BUN/Creatinine Ratio (6-22) Glucose (80-110) mg/dL Calcium (8.4-10.2) mg/dL Total Bilirubin (0.2-1.3) mg/dL AST (17-59) IU/L ALT (<50) IU/L Alkaline Phosphatase (38-126) U/L Total Creatine Kinase (55-170) U/L CK-MB (CK-2) CK-MB (CK-2) Rel Index Troponin I (0.01-0.034) ng/mL Total Protein (6.3-8.2) g/dL Albumin (3.5-5.0) g/dL Globulin (1.7-4.1) g/dL Albumin/Globulin Ratio (1.0-2.8) Lipase (23-300) U/L Urine Color Yellow Urine Appearance Clear Urine pH 5.5 (4.5-8.0) Ur Specific [place] 1.020 (1.000-1.035) Urine Protein Negative (Negative) Urine Glucose (UA) Negative (Negative) g/dL Urine Ketones Negative (NEGATIVE) Urine Occult Blood 3+ H (Negative) Urine Nitrate Negative (Negative) Urine Bilirubin Negative (NEGATIVE) Urine Urobilinogen 1.0 (0.2) E.U./dL Ur Leukocyte Esterase Negative (NEGATIVE) Urine RBC 5-10/hpf H (0-5/HPF) Urine WBC 1-5/hpf (0-5/HPF) Ur Squamous Epith Cells 1-5 /hpf (0-5/HPF) Urine Bacteria Moderate (10-30) H (None) Ur Culture Indicated? Specimen cultured SARS-CoV-2 (PCR) (Negative) Imaging Data CTA - brain/neck: Radiologist Impression: PROCEDURE:? CT ANGIO HEAD AND NECK ? INDICATIONS:? left side weakness x 48 hours ? TECHNIQUE:? Pre-contrast 4.5 mm thick sections acquired from the foramen magnum to the vertex.? After the administration of intravenous contrast, 1 mm thick sections acquired from the aortic arch through the [place].? Post-contrast 4.5 mm thick sections then re-acquired from the foramen magnum to the vertex.? 3-dimensional ywtqhcb-mfvjukshe-qfydpjyawj (MIP) and/or volume rendering reformats were acquired of the central intracranial vasculature and neck separately. For radiation dose reduction, the following was used:? automated exposure control, adjustment of mA and/or kV according to patient size.? ? COMPARISON:? [facility], MR, MR HEAD/BRAIN WO CON, 02/23/2023, 15:08.? [facility], CT, CT STROKE, 02/23/2023, 11:08.? [facility], CT, CT ANGIO HEAD AND NECK, 02/23/2023, 11:08. ? FINDINGS:? Image quality:? Suboptimal opacification of the arterial system particularly within the neck.? There is significant venous opacification obscuring evaluation. ? BRAIN:? The ventricular system and cortical sulci demonstrate atrophy, consistent for the patient's stated age. There are areas of hypodensity within the periventricular and subcortical white matter.? There is no acute intra-or extra axial fluid collection. No acute hemorrhage, mass lesion or midline shift. Brainstem is unremarkable. Globes are symmetrical. Sinuses are aerated. Osseous structures are intact. ? HEAD CT ANGIOGRAPHY:? Anterior circulation:? Intracranial internal carotid arteries are normal in size and flow.? The flow within the paired anterior cerebral arteries is normal and symmetric.? The flow within the middle cerebral arteries is normal and symmetric.? The anterior communicating artery is seen.? No aneurysms are seen.? ? Posterior circulation:? Slight left vertebral artery dominance.? There is calcification in the distal most aspect of the V4 segment of the left vertebral artery demonstrate approximately 55% stenosis.? Basilar artery is unremarkable.? There is persistence of circulation within the right posterior circulation consistent with congenital variation.? Flow within the posterior cerebral arteries is normal and symmetric.? No aneurysms are seen.? ? NECK CT ANGIOGRAPHY:? Significantly limited secondary to contrast arterial opacification. ? Carotid system:? Bovine arch is present consistent with congenital variation.? The origins of the common carotid arteries appear patent.? There is marked limited evaluation of the internal carotid arteries.? Calcifications are identified are suspected to be mild stenosis, approximately 50% or less.? However, they are poorly evaluated. ? Posterior circulation:? Vertebral arteries from the origin through the intracranial segment are poorly opacified and felt to be inadequately evaluated. ? Soft tissues:? 6.5 cm fat containing mass within the posterior subcutaneous fat of the lower neck most suggestive of lipoma.? This area was not included in the field of view on prior exams. ? Bones:? No suspicious bony lesions.? Visualized cervical spine appears normally aligned.? IMPRESSION:? ? 1. Markedly limited exam secondary to arterial contrast opacification. ? 2. No acute intracranial process.? Moderate atrophy and chronic microvascular ischemic changes. ? 3. Unchanged appearance of approximately 55% stenosis secondary to calcification of the distal left vertebral artery. ? 4. Inadequate evaluation of the vertebral as well as carotid arteries within the neck secondary to opacification. ? Any quantitative measurements of stenosis were performed using NASCET criteria.? ? ? Dictated by: Marielos Baxter M.D. on 03/21/2023 at 8:33 ?? Chest x-ray: Radiologist Impression: PROCEDURE:? XR CHEST 1V ? INDICATIONS:? chest pain ? TECHNIQUE:? One view of the chest was acquired.? ? COMPARISON:? [facility], , XR CHEST 2V, 07/22/2018, 13:04. ? FINDINGS:? ? Surgical changes and devices:? Sternal wires.? ? Lungs and pleura:? Lungs are clear.? No pleural effusions or pneumothorax.? ? Mediastinum:? Mediastinal contours appear normal.? Heart size is normal.? ? Bones and chest wall:? No suspicious bony lesions.? Overlying soft tissues appear unremarkable.? ? IMPRESSION:? No acute pulmonary process. ? ? Dictated by: Marielos Baxter M.D. on 03/21/2023 at 8:48 MR Brain: Radiologist Impression: PROCEDURE:? MR HEAD/BRAIN WO CON ? INDICATIONS:? left sided weakness and numbness ? TECHNIQUE:? Non-contrast axial T1 spin echo, axial T2 fast spin echo, sagittal and axial FLAIR, coronal T2 fast spin echo, axial gradient echo, axial diffusion and ADC through the brain.? ? COMPARISON:? [facility], CT, CT ANGIO HEAD AND NECK, 03/21/2023, 7:41.? [facility], MR, MR HEAD/BRAIN WO CON, 02/23/2023, 15:08. ? FINDINGS:? Image quality:? Excellent.? ? CSF spaces:? Ventricles appear symmetric in size and shape.? Basal cisterns are patent.? No extra-axial fluid collections.? ? Brain:? No intracranial bleeds or mass effects.? There is cerebral volume loss for age.? There are is progressive, mild degree of elevated FLAIR signal intensity within the pericallosal, periventricular, and subcortical white matter, in a distribution which would be consistent with multiple sclerosis in the appropriate clinical setting.? Brainstem appears normal.? Diffusion-weighted imaging demonstrates a region of elevated signal intensity within the right superomedial frontal lobe extending to the right frontal periventricular white matter, spanning roughly 65 mm anteroposterior by 10 mm transverse.? This lesion demonstrates low ADC map and moderate FLAIR signal elevation.? Normal intravascular flow voids are present.? ? Skull and face:? Calvarial bone marrow is normal in signal.? Orbits are normal.? ? Sinuses:? Sinuses and mastoids are clear.? ? IMPRESSION:? 1. Subacute right anterior cerebral artery distribution infarct. 2. Progressive, mild degree of white matter disease with differential considerations including demyelinating disorders such as multiple sclerosis, vasculitides, small vessel ischemic disease, migraines, and diabetes.? Clinical correlation recommended. ? Dictated by: Rosemary Amaral M.D. on 03/21/2023 at 10:55 ? ? ECG Data Interpretation: Sinus rhythm rate 75 SC interval 212 QRS 80 QTC 420 MDM Narrative Medical decision making narrative: Patient is 67-year-old male presenting with ongoing left leg weakness presents today with 2 days of left arm and left leg decreased sensation. Increasing weakness. He previously admitted for stroke workup he had MRI of brain MRI of lumbar spine at that time both were negative. New symptoms today for last [address] angio was negative blood work is reassuring. MRI does show a subacute stroke. This is likely new over the last couple of days. Patient is unable to get around with his walker as he was previously. Will likely need rehab. He is given [address] Davenport updated patient's symptoms test results and accepts patient Discharge Plan Departure Patient Disposition: Admitted As Inpatient Clinical Impression: CVA (cerebral vascular accident) Admit Date/Time: 03/21/23 12:40 Admit Provider: Suzan Mcnally
[2023-03-21 08:03] LABS: COVID19 -Nasal RAPID Negative (Negative)
[2023-03-21 08:51] LABS: Appearance Urine UA CLEAR; Bilirubin Urine UA NEGATIVE (NEGATIVE); Color Urine UA YELLOW; Glucose Urine UA NEGATIVE (Negative); Ketones Urine UA NEGATIVE (NEGATIVE); Leukocyte Esterase Urine UA NEGATIVE (NEGATIVE); Nitrite Urine UA NEGATIVE (Negative); Occult Blood Urine UA 3+ (Negative); Protein Urine UA NEGATIVE (Negative); pH Urine UA 5.5 (4.5-8.0)
[2023-03-21 08:57] LABS: Bacteria Urine Moderate (10-30); Culture Indicated Urine Specimen Cultured; RBC Urine 5-10/HPF (0-5/HPF); Squamous Epithelial Cell Urine 1-5 /HPF (0-5/HPF); WBC Urine 1-5/HPF (0-5/HPF)
--- NOTE | 2023-03-21 10:31 | DI.MRI.S_ITS ---
PROCEDURE: MR HEAD/BRAIN WO CON INDICATIONS: left sided weakness and numbness TECHNIQUE: Non-contrast axial T1 spin echo, axial T2 fast spin echo, sagittal and axial FLAIR, coronal T2 fast spin echo, axial gradient echo, axial diffusion and ADC through the brain. COMPARISON: [facility], CT, CT ANGIO HEAD AND NECK, 03/21/2023, 7:41. [facility], MR, MR HEAD/BRAIN WO CON, 02/23/2023, 15:08. FINDINGS: Image quality: Excellent. CSF spaces: Ventricles appear symmetric in size and shape. Basal cisterns are patent. No extra-axial fluid collections. Brain: No intracranial bleeds or mass effects. There is cerebral volume loss for age. There are is progressive, mild degree of elevated FLAIR signal intensity within the pericallosal, periventricular, and subcortical white matter, in a distribution which would be consistent with multiple sclerosis in the appropriate clinical setting. Brainstem appears normal. Diffusion-weighted imaging demonstrates a region of elevated signal intensity within the right superomedial frontal lobe extending to the right frontal periventricular white matter, spanning roughly 65 mm anteroposterior by 10 mm transverse. This lesion demonstrates low ADC map and moderate FLAIR signal elevation. Normal intravascular flow voids are present. Skull and face: Calvarial bone marrow is normal in signal. Orbits are normal. Sinuses: Sinuses and mastoids are clear. IMPRESSION: 1. Subacute right anterior cerebral artery distribution infarct. 2. Progressive, mild degree of white matter disease with differential considerations including demyelinating disorders such as multiple sclerosis, vasculitides, small vessel ischemic disease, migraines, and diabetes. Clinical correlation recommended. Dictated by: Rosemary Amaral M.D. on 03/21/2023 at 10:55 Approved by: Rosemary Amaral M.D. on 03/21/2023 at 11:00
[2023-03-21] MEDS: cefTRIAXone 1,000 MG in SODIUM CHLORIDE 0.9% 100 ML 200 MG IV (11:58)
[2023-03-21] MEDS: ASPIRIN 81 MG CHEW TAB 324 MG PO (12:49)
--- NOTE | 2023-03-21 13:23 | CM.IDA ---
Addendum entered by Joleen Gonzáles 03/21/23 14:02: TENNIS BALL COVERER HAND receives VM from April at [facility], it is reported that they are not contracted with [facility] and patient would have to pay a daily co-insurance rate of 30-40% for SNF rehab at [facility]. TENNIS BALL COVERER HAND to inform DCP team. Joleen Gonzáles, [facility] Original Note: Initial DCP Assessment Patient is 67 y/o male who presents to ED via EMS due to concern for increased weakness, decreased sensation in left side and recent falls in the last two days. TENNIS BALL COVERER HAND received consult due to concern for patient's recent falls. This TENNIS BALL COVERER HAND met with patient in the ED on 03/02/23 and referred patient for [facility] for PT, OT and RN services, as well as information about FMLA. Patient had recent IH admission from 02/23/23-02/25/23 for stroke work up. Patient had MRI and patient is admitted to acute care due concern for subacute right anterior cerebral artery and progressive , mild degree of white matter disease with differential considerations including demyelinating disorders such as multiple sclerosis, vasculitides, small vessel ischemic disease, migraines, and diabetes. Patient's PCP is Dr. Pan Pena with [facility] in [facility], Patient has Medicare Part A and [employer] insurance. Patient has hx of CAD, Diabetes, HLD, HTN and recent hx of stroke. TENNIS BALL COVERER HAND enters room to meet with patient and spouse. Patient presents as A/Ox4. Patient and spouse reside in [place]. 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 Patient endorses difficulty completing tasks and managing workload. It is reported that patient had recent PCP office visit but did not get FMLA paperwork completed. At this time spouse and patient are contemplating patient's fpc vs. seeking FMLA. Patient uses FWW at home and also has bedside commode and cane. It is reported that patient has been weak and experiencing numbness in the last two days which has impacted patient's mobility and ability to be independent ADLs. It is reported that patient has not quite been at baseline with independence with ADLs since initial hospitalization. Patient and spouse confirm current [facility] services for PT, OT and RN and if patient is cleared to d/c to home they want to continue this service for patient. Patient and spouse endorse preference for SNF rehab if appropriate, pending PT eval. Patient and spouse endorse preference for [facility] SNF. TENNIS BALL COVERER HAND calls April at [facility] to review patient, awaiting response from April if [facility] accepts patient's [employer] insurance. Plan: Patient admitted for further stroke evaluation and treatment, pending PT eval, TENNIS BALL COVERER HAND awaiting response from [facility]. SNF rehab vs. Home with [facility]. RUDOLPH Dawkins Discharge Planning/Care Management CM Discharge Assessment Start: 03/21/23 13:06 Freq: Status: Active Protocol: Document 03/21/23 13:06 LN (Rec: 03/21/23 13:23 LN [id number]) Discharge Planning Assessment Assigned Wire Stripper RUDOLPH Goodrich Advance Directives? No History Provided By Patient,Significant Other, Medical Record Has Patient been admitted in last 30 Yes days? Comment last admission was 02/23/23- due to need for stroke work up Prior Living Arrangements House Household Members spouse Type of transporation used prior to Relies on Others admit Comment Patient hasn't been driven since recent hospital visits. Independent with ADL's Yes: limited in the last 2 days Is patient alert and oriented? Yes Community Services used prior to Physical Therapy,Occupational admission: Therapy,Home Health Nurse Comment Patient has [facility] referral for PT, RN and OT DME Already Rented / Owned FWW / Walker,Cane,Bedside Commode Patient/Family Preference Senior Living Facility Transportation Arrangement Spouse Referrals Initiated None needed SNF/HH Preference [facility] Has Agency SNF been contacted Yes Review Status In Process Please Provide Date Initial DC 03/21/23 Assessment Was Performed
--- NOTE | 2023-03-21 14:37 | PC.NURSE ---
1330 admit pt to AC from ED. VSS. pt A&O. 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 pt states has been unable to ambulate today r/t weakness to LLE. pt reports symptom onset 3 weeks. Tele monitor on. Pt oriented to room and plan of care. able to make needs known. bed alarm on and instructed to call for assist prior to activity.
--- NOTE | 2023-03-21 14:59 | PT.IIE ---
Surgical History (Last Reviewed 03/21/23 @ 08:02 by Era Alegre DO) Hx of CABG Medical History (Last Reviewed 03/21/23 @ 08:02 by Era Alegre DO) CAD (coronary artery disease) Diabetes HLD (hyperlipidemia) HTN (hypertension) Physical Therapy Inpatient Evaluation/Re-Eval M1 PT/OT-IP Prior Functional Status Start: 03/21/23 12:50 Freq: NEEDED Status: Active Protocol: Document 03/21/23 14:59 AW (Rec: 03/21/23 16:02 AW [id number]) Medical Review Prior Functional Status Medical History Reviewed Yes Communication Pt is an effective verbal communicator. Mobility and Gait Prior to three weeks ago, pt was entirely independent. He has been using a FWW since 11/05 when he was admitted with sudden onset LLE weakness . MRI brain was negative at that time. Activities of Daily Living and IADL's Fully independent prior to 11/05. Since that time, pt has been needing assist with dressing and showering. Instead of driving to his job in [place], he has been working mostly from home. He has gone from sleeping in his bed to sleeping in a lift recliner. Social History Household Members spouse Living Arrangements House Number of Floors (Floors) One Floor Number of Stairs To Enter/Railing? 4 + 4 RODRIGO at front of house. 2 RODRIGO with no rails at back entrance. 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 Pt tried a transfer bench for the tub but has not found a good fit since he has a clawfoot tub. 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 He lives with his spouse and their two adult children in [place]. One of the children works outside the home. Spouse is retired. M2 PT-IP Current Condition Start: 03/21/23 12:50 Freq: NEEDED Status: Active Protocol: Document 03/21/23 14:59 AW (Rec: 03/21/23 16:02 AW [id number]) Physical Therapy Current Condition Current Condition Evaluation Date 03/21/23 Treatment Diagnosis CVA; left hemiparesis; impaired mobility and gait Onset Date 03/20/23 M3 PT-IP Subjective Start: 03/21/23 12:50 Freq: NEEDED Status: Active Protocol: Document 03/21/23 14:59 AW (Rec: 03/21/23 16:02 AW [id number]) Subjective Physical Therapy Visit Type Type Initial Evaluation Visit Start Time 14:13 Visit Stop Time 14:59 Total Visit Minutes 46 Notes Pt's spouse was present throughout session. Physical Therapy Visit Comments Patient Comments Pt is willing to participate with PT Patient Goals Regain as much function as possible. Therapy Pain Assessment Pain When Pain Assessed At Rest Pain Present Pain Present Pain Reported Location Lower back Scale Used not quantified Pain Management Techniques Re-positioning M4 PT-IP Mobility and Gait Start: 03/21/23 12:50 Freq: NEEDED Status: Active Protocol: Document 03/21/23 14:59 AW (Rec: 03/21/23 16:02 AW [id number]) PT-Bed Mobility Assessment Supine to Sit Supine to Sit Moderate Assistance,1 Person Assistance,Head of Bed Elevated Scooting Scooting to Edge of Bed Standby Assistance PT-Transfer Assessment Sit to and From Stand Sit to and from Stand Moderate Assistance,Maximum Assistance,1 Person Assistance ,Use of Upper Extremities Equipment Transfer Assistive Device Gait Belt,Front Wheeled Walker Orthotic/Prosthetic Devices or Brace: No Transfers Transfer Destination Chair Transfer Technique Stand Step Pivot Transfer Ability Level of Assist Minimal Assistance Comments Mobility Comments Pt was lying in bed as PT arrived. Resting VS were BP 135/66 HR 85. Pt agreed to mobility assessment and needed mod A to transition to sitting EOB. Assist was needed to move the left leg toward the right side of bed and to right pt's trunk. In sitting, pt was instructed to use hands on the bed for support. With feet on the floor, pt was noted to be listing toward the left slightly but he was able to make corrections toward midline. During any active movement of extremities, pt would lose his balance posteriorly, requiring CGA to min A for balance support. Initial sit to stand required max assist. Pt needed facilitative assist to extend the left knee for upright standing. Return to sitting was poorly controlled. PT educated pt on transfer technique and provided verbal cues as pt completed sit to stand with mod/max A. With FWW , pt took 5 steps forward and 5 steps back. See below for gait assessment. Pt then transferred to the chair with cues and CAPITAN GRANDE assist for hand placement and control of descent. Of note, pt found it difficult to release his alarm signaler from the left walker handle. Chair was repositioned in the room and pt stood from the chair with max verbal cues and mod A. He used FWW to walk 5 feet to the sink. He was able to wash his hands, reaching outside his PERCY while he leaned against the sink. He returned to the chair and sat. He agreed to stay up in the chair with call light handy. VS after activity were BP 105/ 47 HR 89. Pt denied lightheadedness. Gait Assessment Gait Gait Assistance Required: Minimum Assistance Distance (Feet) 10 Assistive Devices Assistive Device Gait Belt,Front Wheeled Walker Orthotic/Prosthetic Devices or Brace: No Gait Deviations General Gait Pattern Decreased Stride Length, Decreased Feet Clearance Factors Limiting Gait Function Factors Limiting Gait Function Decreased Sensation,Decreased Strength,Poor Balance Comments Gait Comments Pt stood and walked with notable left knee hyperextension. Step lengths were short (feet did not pass one another) and UE weightbearing on the walker was significant during RLE swing phase. Pt stated he felt as if he was walking on a cloud. Stair Climbing Assessment Comments Stair Climbing Comments Not assessed. PT-Balance Assessment Sitting Balance and Reactions Static Sitting Balance Ability Fair Dynamic Sitting Balance Ability Fair Standing Balance and Reactions Static Standing Balance Ability Fair Dynamic Standing Balance Ability Fair Device Used FWW Balance Tests Single Limb Standing 3 sec RLE; unable LLE Comments Other Balance Tests/Deviations/Treatment Lists to the left or : posteriorly in unsupported sitting. Functional Assessments Functional Tests 30 Seconds Sit to Stand Test 2 reps with heavy UE support and max assist M5 PT-IP Objective Assessments Start: 03/21/23 12:50 Freq: NEEDED Status: Active Protocol: Document 03/21/23 14:59 AW (Rec: 03/21/23 16:02 AW [id number]) Orientation Orientation/Cognition Level of Alertness Alert Orientation Name,Day of Week,Place, Situation Language Function Ability No Deficits Noted Safety Awareness Understands Safety Issues Memory Description No Deficits Noted Gross Range of Motion Upper Extremity ROM Assessment Within Functional Limits Lower Extremity ROM Assessment Within Functional Limits Strength Upper Extremity Strength Assessment Left Impaired Shoulder 3/5 Elbow 3/5 Hand alarm signaler 3-/5 Lower Extremity Strength Assessment Left Impaired Hip flexion 3-/5 Knee 3+/5 Ankle 3/5 Comments Strength Comments RLE grossly 4/5 to 4+/5 Coordination Assessment Assessment Finger to Nose Test Minimal Impairment Pronation/Supination Test Minimal Impairment Foot Tapping Test Moderate Impairment Coordination Comments All impairments evident on left side Sensation Assessment Sensation Gross Sensation Left UE Impaired,Left LE Impaired Light Touch Impaired Proprioception (Position) Impaired Sensation Description Numbness M6 PT-IP Treatment Start: 03/21/23 12:50 Freq: NEEDED Status: Active Protocol: Document 03/21/23 14:59 AW (Rec: 03/21/23 16:02 AW [id number]) Physical Therapy Treatment Education Education Provided Safety Other Treatments Other Treatment Performed Educated extensively on sit to stand technique and safe transfers with FWW M7 PT-IP Assessment and Plan Start: 03/21/23 12:50 Freq: NEEDED Status: Active Protocol: Document 03/21/23 14:59 AW (Rec: 03/21/23 16:02 AW [id number]) PT Summary Assessment and Plan Potential Rehabilitation Potential Good Status of Condition at Evaluation Evolving Summary Impairments Strength,Balance,Coordination, Sensation,Bed Mobility, Transfers,Gait Assessment Summary Milan is a 67 yo man admitted per stroke protocol secondary to left-sided weakness and sensation disturbance. PMH includes CAD, T2DM with neuropathy, HTN, and HLD. Pt was admitted on 02/23/23 with similar but less severe complaints. MRI of the brain was negative at that time. He returned to ED on 03/02/23 after a fall that occured trying to get out of bed. MRI was not ordered at that encounter and pt was sent home with a FWW after being assessed by PT. MRI today revealed subacute right infarct in the ENRIQUE distribution. PLOF: Pt was entirely independent prior to 02/23/23 admission with no need for ambulatory or ADL assist. Since that time, he has used a FWW off and on and has needed assist with dressing and bathing. PT and OT have assessed the patient since . CLOF: Pt was found resting in bed, alert and agreeable to participate with PT. He presents with marked left UE and LE hemiparesis and mild, intermittent numbness. Pt is requiring mod to max assist for bed mobility and transfers with FWW. He demonstrates severe LLE weakness with concerning hyperextension in standing. He was able to walk short distances with FWW and min assist but presented with difficulty advancing the LLE, hyperextension in stance phase , and mild motor planning deficits. On 30 Second Sit to Stand test, pt completed two reps with heavy UE push off and mod/max assist from PT. This right hand dominant patient presents with weak alarm signaler on the left side but then has difficulty releasing objects from his alarm signaler. In the context of independent PLOF, good home support, and ability to tolerate the dose of therapies, PT recommends inpatient acute rehab. Goals Bed Mobility Goal Standby Assistance Transfer Goal Standby Assistance,Front Wheeled Walker Gait Goal Standby Assistance,Front Wheel Walker Gait Distance 100 Other Goals - up/down 2 steps with LRAD and no rail SBA - 5 reps on 30 Second Sit to Stand as a meaure of improved strength - improve transfers and gait to SBA with LRAD Days to Meet Goals 10 Frequency of Treatment Frequency Of Treatment Twice a Day Treatment Plan Physical Therapy Treatment Plan Bed Mobility Training,Transfer Training,Gait Training, Therapeutic Exercise,Balance Retraining,Discharge Planning, Hot or Cold Pack,Neuromuscular Re-ed,Coordination Retraining Other Recommendations and Next Treatment sitting balance (dynamic); sit Focus to stand from varying bed heights, transfers, short distance gait with attention to L knee hyperextension Precautions Other Precautions falls risk Recommendations To Nursing Amount of Assist Needed 2 Person Assist Discharge Recommendations PT Discharge Recommendations Acute Rehab Transportation Needs at Discharge Wheelchair/Cabulance
--- NOTE | 2023-03-21 15:44 | CM.DPC ---
DCP Acute Inpt Rehab Per imaging, pt with CVA now and just admitted from the ED and awaiting H&P. Per PT initial eval this afternoon, recommending Acute Inpt Rehab. SKYE confirmed pt's primary insurance is [employer] and secondary is Medicare A Only. SKYE met bedside with pt and spouse and explained role and discussed Acute Inpt rehab recommendation and they both confirm they are agreeable to Acute Inpt Rehab and SW discussed [facility] and [facility] location. Preference is to try [facility] Acute first. SKYE provided [facility] Acute brochure to pt and spouse to review and discussed that insurance would have to auth Acute rehab and they acknowledge understanding. SKYE called Nury at [facility] Acute and she confirms she will have another bed and contracted with his insurance and willing to review and SKYE updated on pt name and awaiting PT eval and maybe H&P to fax and OT/ST to eval tomorrow Tues. Plan: SKYE to follow for H&P and PT note to fax to Nury at [facility] and then to fax OT/ST when completed tomorrow. Marlyn Hurd MSW
--- NOTE | 2023-03-21 16:56 | PM.HP.1 ---
History of Present Illness History of Present Illness Date Patient Seen: 03/21/23 Chief complaint: Weakness Narrative: Patient is a 67-year-old male history of hypertension insulin-dependent diabetes, coronary artery disease and hyperlipidemia who presented with chronic ongoing left leg weakness.? He was admitted here February 23 through the for stroke workup.? 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 However no CVA was confirmed on that admission. He stated that since his discharge he has been walking with a walker he has been doing okay but for the last 2 days really unable to get about bed without any assistance and everything has gotten significantly worse.? During his hospital admission he had urinary retention thought to be due secondary to BPH with no evidence of cauda equina on the MR lumbar spine, he now self catheterizes and was given option of continuous Salcido catheter.? He was started on Flomax that time.? Today with worsening left-sided weakness he has some decreased sensation both on left leg arm which he says is new ongoing for more than 24 hours.? No fevers chills chest pain palpitations shortness of breath abdominal pain nausea vomiting or fever. Able to move all extremities volitionally. No diaphoresis. PFSH Medical History CAD (coronary artery disease) Diabetes HLD (hyperlipidemia) HTN (hypertension) Surgical History Hx of CABG Family History Mother No pertinent past medical history Father No pertinent past medical history Social History household members: spouse Smoking Status: Former smoker alcohol intake: current Meds Home Medications and Allergies Home Medications Medication Instructions Recorded Confirmed Type amlodipine 5 mg tablet 10 mg PO DAILY 02/23/23 03/21/23 History carvedilol 3.125 mg tablet 3.125 mg PO BIDWM 02/23/23 03/21/23 History clopidogrel 75 mg tablet 75 mg PO DAILY 02/23/23 03/21/23 History insulin NPH isoph U-100 human 100 See Rx Instructions .Route .COMPLEX 02/23/23 03/21/23 History unit/mL subcutaneous suspension (Novolin N NPH U-100 Insulin isophane) insulin aspart U-100 100 unit/mL See Rx Instructions .Route .COMPLEX 02/23/23 03/21/23 History subcutaneous solution (Novolog U-100 Insulin aspart) lisinopril 40 mg tablet 40 mg PO DAILY 02/23/23 03/21/23 History methylphenidate HCl 10 mg tablet 10 mg PO QID 02/23/23 03/21/23 History nitroglycerin 0.4 mg sublingual 0.4 mg sublingual Q5M PRN Chest 02/23/23 03/21/23 History tablet Pain potassium chloride 20 mEq 20 meq PO DAILY 02/23/23 03/21/23 History tablet,extended release(part/cryst) semaglutide 0.25 mg or 0.5 mg (2 0.25 mg SUBCUT WEEKLY 02/23/23 03/21/23 History mg/1.5 mL) subcutaneous pen injector (Ozempic) torsemide 20 mg tablet 40 mg PO DAILY 02/23/23 03/21/23 History tamsulosin 0.4 mg capsule (Flomax) 0.4 mg PO BEDTIME #30 caps 02/25/23 03/21/23 Rx Allergies Allergy/AdvReac Type Severity Reaction Status Date / Time [id number]-RIX-PvM Reductase Allergy Unknown Verified 03/21/23 12:42 Inhibitor [UOLFVXN-RGP-ETH REDUCTASE INHIBITOR] morphine [MORPHINE] AdvReac Mild SENSITIVE Verified 03/21/23 12:42 Review of Systems Review of Systems Narrative: Fourteen system review was completed and pertinent findings in the history of chief complaint. Exam Vital Signs (past 8 hours): - 03/21/23 09:00 03/21/23 09:00 03/21/23 09:30 Pulse Rate 70 Respiratory Rate 13 Blood Pressure 116/59 L 106/53 L Pulse Oximetry 96 Oxygen Delivery Method 03/21/23 09:30 03/21/23 10:00 03/21/23 10:00 Pulse Rate 70 75 Respiratory Rate 14 19 Blood Pressure 113/62 Pulse Oximetry 96 99 Oxygen Delivery Method Room Air 03/21/23 10:56 03/21/23 10:57 03/21/23 10:57 Pulse Rate 73 74 Respiratory Rate 10 L Blood Pressure 119/57 L Pulse Oximetry 99 100 Oxygen Delivery Method 03/21/23 11:00 03/21/23 11:00 03/21/23 11:30 Pulse Rate 78 75 Respiratory Rate 13 10 L Blood Pressure 121/55 L Pulse Oximetry 100 98 Oxygen Delivery Method 03/21/23 11:57 03/21/23 11:57 03/21/23 12:00 Pulse Rate 74 Respiratory Rate 9 L Blood Pressure 109/56 L 124/56 L Pulse Oximetry 99 Oxygen Delivery Method 03/21/23 12:00 03/21/23 12:30 03/21/23 12:30 Pulse Rate 76 79 Respiratory Rate 10 L 16 Blood Pressure 119/57 L Pulse Oximetry 98 99 Oxygen Delivery Method 03/21/23 13:00 03/21/23 13:00 Pulse Rate 79 Respiratory Rate 14 Blood Pressure 128/58 L Pulse Oximetry 99 Oxygen Delivery Method Oxygen Delivery Method Room Air Narrative Exam Narrative: GENERAL:? Alert pleasant 67-year-old male and in no acute distress. HEENT: Head atraumatic,EOMI, pupils reactive, face symmetric, moist mucous membranes CARDIOVASCULAR: Regular rate and rhythm without murmurs, rubs or gallops. RESPIRATORY: Breath sounds equal bilaterally, no wheezes rales or rhonchi. ABDOMEN: Soft, nontender.? Normoactive bowel sounds all 4 quadrants.? No guarding or rebound. EXTREMITIES: Normal range of motion, no clubbing or edema.? Neurovascularly intact NEUROLOGICAL: Alert and oriented x4.Normal gait and speech. Cranial nerves II through XII grossly intact.? Left leg does drift decreased sensation both left arm and left leg no facial droop no aphasia or dysarthria SKIN: Warm, dry, no laceration, no petechiae, no rashes or lesions. Objective Labs 03/21/23 07:23 03/21/23 07:23 Labs: Laboratory Results - last 24 hr 03/21/23 03/21/23 03/21/23 07:23 07:23 07:37 WBC 9.3 RBC 5.57 Hgb 16.4 Hct 48.1 MCV 86.3 MCH 29.4 MCHC 34.1 RDW 14.4 Plt Count 218 Neut % (Auto) 56.4 Lymph % (Auto) 33.1 [place] % (Auto) 8.4 Eos % (Auto) 1.5 L Baso % (Auto) 0.6 Neut # (Auto) 5200 Lymph # (Auto) 3100 [place] # (Auto) 800 Eos # (Auto) 100 Baso # (Auto) 100 Sodium 137 Potassium 3.7 Chloride 99 Carbon Dioxide 27 BUN 21 H Creatinine 1.16 Estimated GFR > 60 BUN/Creatinine Ratio 18.1 Glucose 154 H Calcium 9.7 Total Bilirubin 1.0 AST 27 ALT 31 Alkaline Phosphatase 67 Total Creatine Kinase 77 CK-MB (CK-2) TNP CK-MB (CK-2) Rel Index TNP Troponin I < 0.012 Total Protein 7.5 Albumin 4.4 Globulin 3.1 Albumin/Globulin Ratio 1.4 Lipase 60 Urine Color Urine Appearance Urine pH Ur Specific [place] Urine Protein Urine Glucose (UA) Urine Ketones Urine Occult Blood Urine Nitrate Urine Bilirubin Urine Urobilinogen Ur Leukocyte Esterase Urine RBC Urine WBC Ur Squamous Epith Cells Urine Bacteria Ur Culture Indicated? SARS-CoV-2 (PCR) Negative 03/21/23 08:22 WBC RBC Hgb Hct MCV MCH MCHC RDW Plt Count Neut % (Auto) Lymph % (Auto) [place] % (Auto) Eos % (Auto) Baso % (Auto) Neut # (Auto) Lymph # (Auto) [place] # (Auto) Eos # (Auto) Baso # (Auto) Sodium Potassium Chloride Carbon Dioxide BUN Creatinine Estimated GFR BUN/Creatinine Ratio Glucose Calcium Total Bilirubin AST ALT Alkaline Phosphatase Total Creatine Kinase CK-MB (CK-2) CK-MB (CK-2) Rel Index Troponin I Total Protein Albumin Globulin Albumin/Globulin Ratio Lipase Urine Color Yellow Urine Appearance Clear Urine pH 5.5 Ur Specific [place] 1.020 Urine Protein Negative Urine Glucose (UA) Negative Urine Ketones Negative Urine Occult Blood 3+ H Urine Nitrate Negative Urine Bilirubin Negative Urine Urobilinogen 1.0 Ur Leukocyte Esterase Negative Urine RBC 5-10/hpf H Urine WBC 1-5/hpf Ur Squamous Epith Cells 1-5 /hpf Urine Bacteria Moderate (10-30) H Ur Culture Indicated? Specimen cultured SARS-CoV-2 (PCR) Assessment & Plan Assessment & Plan narrative: 1. Subacute stroke. Right anterior cerebral artery. Deficits left side. Left upper extremity and lower extremity. Left upper extremity almost resolved to normal and left lower extremity improving. Treat with clopidogrel 75 mg for 21 days and aspirin 81 mg daily for lifetime. Aspirin 325 mg given in the ER. Lipid panel in the morning. Unable to place on statins due to muscle cramping side effects. PT/OT/speech therapy. Echocardiogram. 2. Diabetes. Continue patient's weekly Ozempic dose. NPH and NovoLog insulin. Test for hemoglobin A1c. 3. Hypertension. Maintain patient's regular medication. 4. Hyperlipidemia. Unable to treat with a statin due to severe muscle cramping. Assess lipid level. 5. General obesity. Patient is on a diet and weight loss program with Ozempic to help weight and diabetes. Has lost about 30 lb thus far. 6. Coronary artery disease with history of CABG. 7. ADHD. Continue medication of methylphenidate. Surrogate decision maker: Code status: Full code DVT prophylaxis: Enoxaparin GI prophylaxis: Pantoprazole COVID-19 Result date/Date tested (Pos, Neg/Pending): 03/21/23 Scores NIHSS Level of Conciousness: Alert, keenly responsive Ask month/age: Answers both questions correctly. Open/close eyes, close hand: Performs both tasks correctly Best gaze horizontal: Normal Visual summers: No visual loss Facial palsy: Normal symetrical movement Left arm drift: No drift for full 10 sec Right arm drift: No drift for full 10 sec Left leg drift: Drifts down, not to bed Right leg drift: No drift for full 5 sec Limb ataxia: Absent Sensory on face/arms/legs: Normal, no sensory loss Best language: No aphasia, normal Dysarthria: Normal Extinction or inattention: No abnormality Total NIH Stroke scale score: 1 Quality Stroke Contraindication Not Initiating IV-Tpa: Not indicated VTE Deep Vein Thrombosis/Pulmonary Embolism Present on Admission: No MIPS - Admit I confirm the patient?s Advance Care Plan is present, Code status is documented, Surrogate decision maker is in patient?s record [If Yes, STOP here]: Yes MIPS - Meds 'Current medications' to include all prescriptions, [id number] products, herbals, cannabis/cannabidiol products, and vitamin/mineral/dietary (nutritional) supplements. I have utilized all available resources to obtain, update, or review the patient?s current medications. [If Yes, STOP here]: Yes
--- NOTE | 2023-03-21 17:08 | DI.ECHO.S_ITS ---
[facility]---------+ [facility] +---------+ : : [address] : : : : [id number] : : : : Phone: [phone] Echocardiogram Report + + :Name: KIMBERLEE LOPEZ Study Date: 03/22/2023 Height: 70 in : :[facility] ReadingLocation: Weight: 284 lb : : Gender: Male BSA: 2.4 m2 : :: 1955 Age: 67 yrs BP: 130/56 mmHg: :Reason For Study: CVA : :Ordering Physician: OLIVA, : :SOFIA Performed By: Sunni Garcia : :Referring: SOFIA BAPTISTE MD : + + Interpretation Summary The ejection fraction is estimated to be 55-60%. Diastolic parameters suggest probable normal left ventricular diastolic function and normal filling pressures. The right ventricle is not well visualized. Injection of contrast documented no interatrial shunt. No significant valvular abnormalities. Unable to estimate PASP. Procedure: A two-dimensional transthoracic echocardiogram with color flow and Doppler was performed. The study quality was technically difficult. There is no prior echocardiogram noted for this patient. A saline contrast injection was performed to assess for cardiac shunting. The injection was performed through an intravenous line in the right arm. The patient had occasional PVCs during the exam. The patient was in sinus rhythm with heart rates between 70- 91 bpm during the exam. Left Ventricle: Proximal septal thickening is noted. The ejection fraction is estimated to be 55-60%. Diastolic parameters suggest probable normal left ventricular diastolic function and normal filling pressures. Right Ventricle: The right ventricle is not well visualized. Atria: The left atrial size is normal. Right atrial size is normal. The atrial septum is aneurysmal. There is no Doppler evidence for an interatrial shunt. Injection of contrast documented no interatrial shunt. Mitral Valve: The mitral valve leaflets appear mildly thickened, but open well. There is trace mitral regurgitation. Aortic Valve: The aortic valve is mildly calcified. The aortic valve is trileaflet. There is no aortic valve stenosis. No aortic regurgitation is present. Tricuspid Valve: The tricuspid valve leaflets are thickened and/or calcified, but open well. There is trace tricuspid regurgitation. Pulmonary artery pressures cannot be estimated because of the lack of a measurable TR jet velocity. Pulmonic Valve: The pulmonic valve is not well visualized. Great Vessels: The aortic root is normal size. The ascending aorta is at the upper limits of normal in size. The inferior vena cava was not well visualized. Pericardium/ Pleura There is no pericardial effusion. There is no pleural effusion. MMode/2D Measurements & Calculations LVIDd: 4.9 cm LVOT diam: 2.3 cm LVIDs: 3.2 cm Ao root diam: 3.8 cm FS: 34.5 % asc Aorta Diam: 3.9 cm IVSd: 1.1 cm Ao Arch Diam (Prox Trans): 3.4 cm LVPWd: 1.4 cm LV dozier. diameter/BSA (cm/m^2): 2.0 LV sys. diameter/BSA (cm/m^2): 1.3 LA A2 area: 16.3 cm2 RA long axis: 5.8 cm LA A4 area: 17.2 cm2 RA area: 15.8 cm2 LA length (vol): 6.1 cm RA vol: 36.4 ml LA vol: 38.9 ml RA : 15.0 ml/m2 LA vol index: 16.1 ml/m2 Doppler Measurements & Calculations Ao V2 max: 139.5 cm/sec LVOT Max [place]: 110.6 cm/sec Ao V2 mean: 109.7 cm/sec LV V1 max P.9 mmHg Ao max P.8 mmHg LV V1 VTI: 19.0 cm Ao mean P.1 mmHg IZZY(I,D): 3.2 cm2 Ao V2 VTI: 24.6 cm IZZY(V,D): 3.3 cm2 sev ratio: 0.77 IZZY indexed to BSA (cm^2/m^2): 1.3 MV E max benjamín: 73.6 cm/sec PA V2 max: 108.8 cm/sec MV A max benjamín: 105.4 cm/sec PA V2 mean: 74.6 cm/sec MV E/A: 0.70 PA mean P.6 mmHg Med Peak E' [place]jam[place]: 5.8 cm/sec E/E' med: 12.8 Lat Peak E' [place]jam[place]: 14.2 cm/sec E/E' lat: 5.2 E/e' average: 9.0 MV dec time: 0.31 sec SV(LVOT): 78.5 ml Reading Physician:10:38 AM
[2023-03-21] MEDS: CLOPIDOGREL 75 MG TABLET PO (18:40)
[2023-03-21] MEDS: INSULIN LISPRO 100 UNIT/ML 3ML VIAL 20 UNIT SUBCUT (19:19)
[2023-03-21] MEDS: INSULIN NPH 100 UNIT/ML 10ML VIAL 60 UNIT SUBCUT (19:20)
[2023-03-21] MEDS: SENNOSIDES 8.6 MG TABLET 17.2 MG PO (20:50)
[2023-03-21] MEDS: ENOXAPARIN 40 MG/0.4 ML SYRINGE SUBCUT (20:50)
[2023-03-21] MEDS: TAMSULOSIN 0.4 MG CAPSULE PO (20:50)
[2023-03-22 05:35] LABS: Add Manual Diff / Slide Review NO; Basophils Absolute Auto 0 /uL (0-100); Basophils Percent Auto 0.5 % (0-2); Eosinophils Absolute Auto 100 /uL (0-450); Eosinophils Percent Auto 1.2 % (2-4); Hematocrit 44.8 % (41-53); Hemoglobin 15.6 g/dL (13.5-17.5); Lymphocytes Absolute Auto 2300 /uL (1100-4500); Lymphocytes Percent Auto 22.2 % (25-40); Mean Corpuscular Hemoglobin 29.7 PG (26-34); Mean Corpuscular Volume 85.1 fL (80-100); Monocytes Absolute Auto 900 /uL (0-900); Monocytes Percent Auto 8.4 % (3-14); Neutrophils Absolute Auto 6900 /uL (1500-7000); Neutrophils Percent Auto 67.7 % (50-75); Platelet Count 209 X10^3/uL (150-400); Red Blood Cell Count 5.26 X10^6/uL (4.5-5.9); Red Cell Distribution Width 13.9 % (11.6-14.8); White Blood Cell Count 10.2 X10^3/uL (4.5-11.0)
[2023-03-22 05:39] LABS: BUN Creatinine Ratio 20.4 (6-22); Blood Urea Nitrogen 19 mg/dL (9-20); Calcium 9.6 mg/dL (8.4-10.2); Carbon Dioxide 28 mmol/L (22-32); Chloride 100 mmol/L (98-107); Cholesterol 203 mg/dL (140-199); Estimated Glomerular Filt Rate > 60 mL/min (>60); Glucose 159 mg/dL (80-110); HDL Cholesterol 34 mg/dL (40-60); HEMOLYSIS < 15 (0-50); LDL Cholesterol Calculated 141 mg/dL (<100); Potassium 3.7 mmol/L (3.4-5.1); Sodium 136 mmol/L (137-145); Triglycerides 139 mg/dL (35-150)
[2023-03-22] MEDS: INSULIN NPH 100 UNIT/ML 10ML VIAL 60 UNIT SUBCUT (06:37)
[2023-03-22] MEDS: PANTOPRAZOLE DR 40 MG TABLET PO (06:37)
[2023-03-22 08:54] VITALS: BP 116/48; PULSE 81; RESP 22; TEMP 37.1
[2023-03-22 09:01] VITALS: BP 116/48; PULSE 83
[2023-03-22] MEDS: ASPIRIN EC 81 MG TABLET PO (09:01)
[2023-03-22] MEDS: CLOPIDOGREL 75 MG TABLET PO (09:01)
[2023-03-22] MEDS: carvediloL 3.125 MG TABLET PO (09:01)
[2023-03-22] MEDS: POTASSIUM CHLORIDE 20 MEQ TAB PO (09:01)
[2023-03-22] MEDS: cefTRIAXone 1,000 MG in SODIUM CHLORIDE 0.9% 100 ML 200 MG IV (09:02)
--- NOTE | 2023-03-22 09:08 | P.PN_ITS ---
Subjective Subjective Interval history: Patient doing well overall, awaiting acute rehab placement. His echo was normal. Discussed starting zetia for HLD since he has statin intolerance. Exam Vital Signs (past 8 hours): - 03/22/23 08:54 03/22/23 09:01 Temperature 98.8 F Pulse Rate 81 83 Respiratory Rate 22 Blood Pressure 116/48 L 116/48 L Oxygen Delivery Method Room Air Oxygen Flow Rate 0 Narrative Exam Narrative: GENERAL:? Alert pleasant 67-year-old male and in no acute distress. Flat affect. HEENT: Head atraumatic,EOMI, pupils reactive, face symmetric, moist mucous membranes CARDIOVASCULAR: Regular rate and rhythm without murmurs, rubs or gallops. RESPIRATORY: Breath sounds equal bilaterally, no wheezes rales or rhonchi. ABDOMEN: Soft, nontender.? Normoactive bowel sounds all 4 quadrants.? No guarding or rebound. EXTREMITIES: Normal range of motion, no clubbing or edema.? Neurovascularly intact NEUROLOGICAL: Alert and oriented x4.Normal gait and speech. Cranial nerves II through XII grossly intact.? Left leg does drift decreased sensation both left arm and left leg no facial droop no aphasia or dysarthria. SKIN: Warm, dry, no laceration, no petechiae, no rashes or lesions. Objective Labs 03/22/23 05:07 03/22/23 05:07 Labs: Laboratory Results - last 24 hr 03/22/23 03/22/23 03/22/23 05:07 05:07 05:07 WBC 10.2 RBC 5.26 Hgb 15.6 Hct 44.8 MCV 85.1 MCH 29.7 MCHC 35.0 RDW 13.9 Plt Count 209 Neut % (Auto) 67.7 Lymph % (Auto) 22.2 L [place] % (Auto) 8.4 Eos % (Auto) 1.2 L Baso % (Auto) 0.5 Neut # (Auto) 6900 Lymph # (Auto) 2300 [place] # (Auto) 900 Eos # (Auto) 100 Baso # (Auto) 0 Sodium 136 L Potassium 3.7 Chloride 100 Carbon Dioxide 28 BUN 19 Creatinine 0.93 Estimated GFR > 60 BUN/Creatinine Ratio 20.4 Glucose 159 H Calcium 9.6 Triglycerides 139 Cholesterol 203 H LDL Cholesterol, Calc 141 H HDL Cholesterol 34 L [facility] Medical History CAD (coronary artery disease) Diabetes HLD (hyperlipidemia) HTN (hypertension) Surgical History Hx of CABG Family History Mother No pertinent past medical history Father No pertinent past medical history Social History household members: spouse Smoking Status: Former smoker alcohol intake: current Assessment & Plan Assessment & Plan narrative: 1. Subacute stroke. Right anterior cerebral artery. Deficits left upper ext remity and lower extremity. Left upper extremity almost resolved to normal and left lower extremity improving. Treat with clopidogrel 75 mg for 21 days and aspirin 81 mg daily for lifetime. Aspirin 325 mg given in the ER. Lipid panel with LDL 141 and total chol 203. Unable to place on statins due to muscle cramping side effects. Starting on zetia instead after discussion with patient. Echo shows EF 55-60% with no clot or shunt. PT recommending inpatient acute rehab and patient awaiting placement. 2. Diabetes. Continue patient's weekly Ozempic dose. NPH and sliding scale insulin. Hemoglobin A1c pending. 3. Hypertension. Maintain patient's regular medication. 4. Hyperlipidemia. Unable to treat with a statin due to severe muscle cramping. LDL and total chol elevated to 141 and 203. Start zetia 10mg nightly. 5. General obesity. Patient is on a diet and weight loss program with Ozempic to help weight and diabetes. Has lost about 30 lb thus far. 6. Coronary artery disease with history of CABG. 7. ADHD. Continue medication of methylphenidate. Surrogate decision maker: Code status: Full code DVT prophylaxis: Enoxaparin GI prophylaxis: Pantoprazole Dispo: Awaiting acute inpatient rehab placement. COVID-19 Result date/Date tested (Pos, Neg/Pending): 03/21/23 Quality Stroke Contraindication Not Initiating IV-Tpa: Not indicated VTE Deep Vein Thrombosis/Pulmonary Embolism Present on Admission: No
--- NOTE | 2023-03-22 09:25 | PT.IPTN ---
Current Diagnoses Cerebral infarction, unspecified (03/21/23) Physical Therapy Treatment Note M2 PT-IP Current Condition Start: 03/21/23 12:50 Freq: NEEDED Status: Active Protocol: Document 03/21/23 14:59 AW (Rec: 03/21/23 16:02 AW [id number]) Physical Therapy Current Condition Current Condition Evaluation Date 03/21/23 Treatment Diagnosis CVA; left hemiparesis; impaired mobility and gait Onset Date 03/20/23 M3 PT-IP Subjective Start: 03/21/23 12:50 Freq: NEEDED Status: Active Protocol: Document 03/22/23 09:49 TS (Rec: 03/22/23 10:10 TS [id number]) Subjective Physical Therapy Visit Type Type Treatment Note Visit Start Time 09:25 Visit Stop Time 09:45 Total Visit Minutes 20 Number of VP MEDICAL Visits 1 Physical Therapy Visit Comments Patient Comments Pt reports pain from red sore on buttocks, agreeable to work with PT. Patient Goals Regain as much function as possible. M4 PT-IP Mobility and Gait Start: 03/21/23 12:50 Freq: NEEDED Status: Active Protocol: Document 03/22/23 09:49 TS (Rec: 03/22/23 10:10 TS [id number]) PT-Bed Mobility Assessment Supine to Sit Supine to Sit Minimal Assistance,1 Person Assistance Scooting Scooting to Edge of Bed Minimal Assistance PT-Transfer Assessment Sit to and From Stand Sit to and from Stand Moderate Assistance,1 Person Assistance,Use of Upper Extremities Equipment Transfer Assistive Device Gait Belt,Front Wheeled Walker Orthotic/Prosthetic Devices or Brace: No Comments Mobility Comments Pt found resting in bed, agreeable to PT session. Supine to sit Davon for LLE HOB elevated 40D with BUE support , x 1 posterior LOB due to incoordination of LUE. Scooted EOB with Davon for LLE assistance with BUE support. Sit to stand x1 ModA, pt difficulty initiating sit to stand due to decreased strength/coordination in LLE, required cues for BUE support on bed and weight forward. Ambulated in room with FWW ~ 100' CGA progressing to SBA step thru gait, difficulty navigating turns to avoid ruano in room with FWW, improved with more laps in room. Pt was left in chair with call light nearby, all needs met. Gait Assessment Gait Gait Assistance Required: Standby Assistance,Contact Guard Assist Distance (Feet) 100 Assistive Devices Assistive Device Gait Belt,Front Wheeled Walker Orthotic/Prosthetic Devices or Brace: No Gait Deviations General Gait Pattern Decreased Stride Length, Decreased Feet Clearance Factors Limiting Gait Function Factors Limiting Gait Function Decreased Sensation,Decreased Strength,Poor Balance Comments Gait Comments See mobility comments. Stair Climbing Assessment Comments Stair Climbing Comments Not assessed. PT-Balance Assessment Sitting Balance and Reactions Static Sitting Balance Ability Fair Dynamic Sitting Balance Ability Fair Standing Balance and Reactions Static Standing Balance Ability Fair Dynamic Standing Balance Ability Fair Device Used FWW Comments Other Balance Tests/Deviations/Treatment Lists to the left or : posteriorly in unsupported sitting. 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 voice 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 administrator 3-/5 Lower Extremity Strength Assessment Left Impaired Hip flexion 3-/5 Knee 3+/5 Ankle 3/5 Comments Strength Comments RLE grossly 4/5 to 4+/5 Coordination Assessment Assessment Finger to Nose Test Minimal Impairment Pronation/Supination Test Minimal Impairment Foot Tapping Test Moderate Impairment Coordination Comments All impairments evident on left side Sensation Assessment Sensation Gross Sensation Left UE Impaired,Left LE Impaired Light Touch Impaired Proprioception (Position) Impaired Sensation Description Numbness M6 PT-IP Treatment Start: 03/21/23 12:50 Freq: NEEDED Status: Active Protocol: Document 03/22/23 09:49 TS (Rec: 03/22/23 10:10 [id number]) Physical Therapy Treatment Education Education Provided Safety M7 PT-IP Assessment and Plan Start: 03/21/23 12:50 Freq: NEEDED Status: Active Protocol: Document 03/22/23 09:49 TS (Rec: 03/22/23 10:10 TS [id number]) PT Summary Assessment and Plan Potential Rehabilitation Potential Good Status of Condition at Evaluation Evolving Summary Impairments Strength,Balance,Coordination, Sensation,Bed Mobility, Transfers,Gait Assessment Summary Pt is requiring decreased assist with bed mobility this session to Davon for LLE and HOB elevated. He scooted EOB with Davon for LLE, x1 posterior LOB due to difficulty cooridinating with LUE for support. Pt required Max cueing for sit to stand and difficulty initiating movement due to LLE weakness. He requires some cueing during ambulation for navigating around objects/ruano in room with FWW, improved with more laps in room. PT recommends acute rehab to progress functional mobility and balance. Goals Bed Mobility Goal Standby Assistance Transfer Goal Standby Assistance,Front Wheeled Walker Gait Goal Standby Assistance,Front Wheel Walker Gait Distance 100 Other Goals - up/down 2 steps with LRAD and no rail SBA - 5 reps on 30 Second Sit to Stand as a meaure of improved strength - improve transfers and gait to SBA with LRAD Days to Meet Goals 10 Frequency of Treatment Frequency Of Treatment Twice a Day Treatment Plan Physical Therapy Treatment Plan Bed Mobility Training,Transfer Training,Gait Training, Therapeutic Exercise,Balance Retraining,Discharge Planning, Hot or Cold Pack,Neuromuscular Re-ed,Coordination Retraining Other Recommendations and Next Treatment sitting balance (dynamic); sit Focus to stand from varying bed heights, transfers, short distance gait with attention to L knee hyperextension Precautions Other Precautions falls risk Recommendations To Nursing Amount of Assist Needed 2 Person Assist Discharge Recommendations PT Discharge Recommendations Acute Rehab Transportation Needs at Discharge Wheelchair/Cabulance
[2023-03-22] MEDS: ENOXAPARIN 40 MG/0.4 ML SYRINGE SUBCUT ×2 (10:00→21:10)
[2023-03-22] MEDS: SODIUM CHLORIDE 0.9% FLUSH 10 ML IV ×3 (11:13→21:11)
--- NOTE | 2023-03-22 11:16 | OT.IP.EVAL ---
Current Diagnoses Cerebral infarction, unspecified (03/21/23) Past Medical History (Last Reviewed 03/21/23 @ 08:02 by Era Alegre DO) CAD (coronary artery disease) Diabetes HLD (hyperlipidemia) HTN (hypertension) Surgical History (Last Reviewed 03/21/23 @ 08:02 by Era Alegre DO) Hx of CABG Occupational Therapy Inpatient Evaluation/Re-Eval M1 PT/OT-IP Prior Functional Status Start: 03/22/23 12:22 Freq: NEEDED Status: Active Protocol: Document 03/22/23 10:28 [facility] (Rec: 03/22/23 12:37 [facility] [id number]) Medical Review Prior Functional Status Medical History Reviewed Yes Communication Pt is an effective verbal communicator. Mobility and Gait Prior to three weeks ago, pt was entirely independent. He has been using a FWW since 11/05 when he was admitted with sudden onset LLE weakness . MRI brain was negative at that time. Activities of Daily Living and IADL's Fully independent prior to 11/05. Since that time, pt has been needing assist with dressing and showering. Instead of driving to his job in [place], he has been working mostly from home. He has gone from sleeping in his bed to sleeping in a lift recliner. Social History Household Members spouse Living Arrangements House Number of Floors (Floors) One Floor Number of Stairs To Enter/Railing? 4 + 4 RODRIGO at front of house. 2 RODRIGO with no rails at back entrance. 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 Pt tried a transfer bench for the tub but has not found a good fit since he has a clawfoot tub. 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 He lives with his spouse and their two adult children in [place]. One of the children works outside the home. Spouse is retired. M2 OT-IP Current Condition Start: 03/22/23 12:22 Freq: Status: Active Protocol: Document 03/22/23 10:28 [facility] (Rec: 03/22/23 12:37 [facility] [id number]) Occupational Therapy Current Condition Current Condition Evaluation Date 03/22/23 Treatment Diagnosis Right Anterior berebral artery distribution infarct Diagnosis Onset Date 03/21/23 M3 OT- IP Subjective and Pain Start: 03/22/23 12:22 Freq: Status: Active Protocol: Document 03/22/23 10:28 [facility] (Rec: 03/22/23 12:37 [facility] [id number]) OT- Subjective Occupational Therapy Visit Type Type Initial Evaluation Visit Start Time 10:28 Visit Stop Time 11:16 Total Visit Minutes 48 Occupational Therapy Visit Comments Patient Comments Pt agreed to get up for OT eval. Patient/Caregiver Goals TO get better. OT Pain Assessment Pain When Pain Assessed At Rest Pain Present Pain Present Denied Pain M4 OT- IP ADL's Start: 03/22/23 12:22 Freq: Status: Active Protocol: Document 03/22/23 10:28 [facility] (Rec: 03/22/23 12:37 [facility] [id number]) OT [id number] Comments OT Self-Feeding Comments Pt needing assist for set-up of needs due to decreaed FMS. OT ADL-Grooming Comments OT Grooming Comments Pt needing assist for set-up of needs. OT ADL-Oral Care Comments Oral Care Comments Not performed. OT ADL-Dressing General Eval Lower Body Dressing Ability Maximum Assistance Comments OT Dressing Comments Assist to help get the brief over his feet and up over his hips. OT ADL-Toileting General Evaluation Toileting Ability Maximum Assistance Comments OT Toileting Comments Assist for hygiene and brief management needs. OT ADL-Bathing General Evaluation Bathing Ability Moderate Assistance Comments OT Bathing Comments Pt able to assist to sponge off while seated on the toilet and needing assist for his back and pericare needs. M5 OT- IP IADL's Start: 03/22/23 12:22 Freq: Status: Active Protocol: Document 03/22/23 10:28 [facility] (Rec: 03/22/23 12:37 [facility] [id number]) OT-Instrumental Activities of Daily Living Deficits IADL Deficits Identified Deficits Home Safety Awareness Awareness of Need for Assistance at Home Good Awareness Ability to Problem Solve Emergency Able to Problem Solve Situations Home Safety Comments Slight increased time to problem solve home safety needs. M6 OT- IP Functional Cognition Start: 03/22/23 12:22 Freq: Status: Active Protocol: Document 03/22/23 10:28 [facility] (Rec: 03/22/23 12:37 [facility] [id number]) Cognitive Factors Limiting Selfcare Function Cognitive Ability Level of Alertness Alert Patient Orientation Name,Place,Situation Attention Span Ability Capable of Focused Attention, Capable of Sustained Attention Ability to Follow Commands Able to Follow One Step Commands Executive Function Ability Unable to Remember Details Cognitive Comments Cognitive Assessment Comments Pt able to follow directions well but needing occasional cues for [employer]. Pt scored 184 seconds and at times needing cues to remember the instructions. Pt's score implies severe deficits for visual attention, speed of processing, mental flexibilty, executive functioning, and task switching. Pt initially not remembering that 60 seconds are in a minute. OT- Vision and Hearing OT- Hearing Assessment OT- Hearing Assessment WFL OT- Vision Assessment Visual Acuity Glasses All The Time Visual Attentiveness WFL Occular Pursuits WFL Visual Convergence WFL Visual [place]ral WFL Diplopia Absent M7 OT- IP Mobility and Balance Start: 03/22/23 12:22 Freq: Status: Active Protocol: Document 03/22/23 10:28 [facility] (Rec: 03/22/23 12:37 [facility] [id number]) OT- Bed Mobility Assessment Supine to Sit Supine to Sit Assist Moderate Assistance OT-Transfer Assessment Sit to and From Stand Sit to and from Stand Moderate Assistance Transfers Transfer Ability Minimal Assistance,Moderate Assistance Technique Transfer Destination Bed,Chair,Toilet Transfer Technique Stand Step Pivot Devices Transfer Assistive Devices Gait Belt,Front Wheeled Walker Comments Mobility Comments MODA to stand from lower surfaces and LUIS ENRIQUE with FWW as pt unsteady on his feet , LLE more than right at this time. OT- Balance Assessment Sitting Balance and Reactions Static Sitting Balance Ability Good Dynamic Sitting Balance Ability Fair Standing Balance and Reactions Static Standing Balance Ability Fair Dynamic Standing Balance Ability Fair M8 OT- IP Objective Assessments Start: 03/22/23 12:22 Freq: Status: Active Protocol: Document 03/22/23 10:28 [facility] (Rec: 03/22/23 12:37 [facility] [id number]) OT Strength Upper Extremity Strength Assessment Right Impaired OT- Coordination Assessment Upper Extremity Finger to Nose Test Within Functional Limits Finger Tapping Test Within Functional Limits Comments Coordination Comments RUE 9 hole peg 40seconds, LUE 82 seconds. Pt states in high school had difficulty with fine motoer and gross motor skills. Pt feels since recent CVA, has greater difficulties with his coordination especially for typing needs with his left hand. OT Sensation Assessment Comments Summary Comments Intact for BUE, left side not as sensitive to touch though Edema Edema Absent M9 OT- IP Assessment and Plan Start: 03/22/23 12:22 Freq: Status: Active Protocol: Document 03/22/23 10:28 [facility] (Rec: 03/22/23 12:37 [facility] [id number]) OT Summary Assessment and Plan Potential Rehabilitation Potential Excellent Analytic Complexity at Evaluation Moderate Summary OT Impairments Strength,Balance,Functional Cognition,Functional Mobility, Self-Feeding,Grooming,Dressing ,Toileting,Shower Transfers, Activity Tolerance Progress Towards Goals Progressing Toward Goals Assessment Summary Pt MOD complexity and main barriers are balance, decreased smooth coordinated movement for FMS LUE> RUE, decreased executive functioning, and now needing one person assist for needs. Prior pt was actively working and independent for all needs. Pt has a very supportive family who lives with him and able to assist with his care if needed. Pt is highly motivated, cooperative and pleasant and has good potential for acute rehab. Goals Self-Feeding Goal Independent Grooming Goal Independent Dressing Goal Independent Toileting Goal Independent Bathing Goal Independent Shower Transfer Goal Independent Days to Meet Goals 20 Frequency of Treatment Frequency Of Treatment Once a Day Treatment Plan OT Treatment Plan ADL Training,Functional Cognition Training,Functional Mobility,Patient/Family Education,Discharge Planning Discharge Recommendations OT Discharge Recommendations Acute Rehab Transportation Needs at Discharge Private Vehicle
--- NOTE | 2023-03-22 11:34 | PC.NURSE ---
P+yt responsive, A&O, some verbal responses slow. Follows commands, offers no overt complaint. Discussing plan of care. Pt's left side weaker than right.. Up to chair with OT.
--- NOTE | 2023-03-22 11:58 | ST.IPIE ---
Visit Care Team Role Provider Type Dakota Pozo MD Primary Care Provider Non-Staff Specialty: Family Practice Address: [address] [place] [address] [address], [place], [address] Email: Era Alegre DO Emergency Provider Physician Referring Provider Specialty: Emergency Medicine Address: [address] [place] [address], [id number] Email: [email or web address] Suzan Mcnally MD Admit Provider Physician Attending Provider Specialty: 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 He was admitted here February 23 through the for stroke workup.? 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 Admitted to acute care with worsening left-sided weakness he has some decreased sensation both on left leg arm which he says is new ongoing for more than 24 hours.? Pt imaging (MRI) 1. Subacute right anterior cerebral artery distribution infarct. 2. Progressive, mild degree of white matter disease with differential considerations including demyelinating disorders such as multiple sclerosis, vasculitides, small vessel ischemic disease, migraines, and diabetes. Clinical correlation recommended. Previous Therapy Previous Speech-Language Therapy No Subjective Patient Report Pt was in bed following breakfast. Pt reported no difficulty with eating. Observed pt with water via staw. Swallow WFL Assessment Results Informal OME during conversation indicated ROM and strength to be WFL. Informal Assessment Receptive Language Normal Yes Expressive Language Normal Yes Pragmatic Language Normal Yes Speech Impairment(s) Imprecise articulation Cognition Normal Yes Findings/Results Language Function Within functional limits Cognitive Function Within functional limits Findings Speech speed was observed to be slightly slowed but articulate. Pt reported that his notes a change in his speech when he is tired. During an informal assessment, the pt's speech was observed to be slightly slowed. Pt's DKS was WFL. Pt's cognition was observed to be WFL. Pt was oriented x4 (person, place, time, situation). He described the past 3 weeks and the circumstances that led to his admission to [facility] in detail. Pt is scheduled to be discharged to acute rehab today. Prognosis Prognosis Good Based on Cognitive status,Family support,Duration of symptoms/ severity Plan of Care Speech-Language Treatment No Patient/Caregiver Education Described results of evaluation,Patient expressed understanding of evaluation Discharge Recommendations Inpatient rehab facility
[2023-03-22] MEDS: INSULIN LISPRO 100 UNIT/ML 3ML VIAL 20 UNIT SUBCUT ×2 (12:15→17:45)
--- NOTE | 2023-03-22 13:28 | CM.DPNOTE ---
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 Patient has been clinically accepted at [facility] Following closely for coordination of DCP JW
--- NOTE | 2023-03-22 14:50 | PT.IPTN ---
Current Diagnoses Cerebral infarction, unspecified (03/21/23) Physical Therapy Treatment Note M2 PT-IP Current Condition Start: 03/21/23 12:50 Freq: NEEDED Status: Active Protocol: Document 03/21/23 14:59 AW (Rec: 03/21/23 16:02 AW [id number]) Physical Therapy Current Condition Current Condition Evaluation Date 03/21/23 Treatment Diagnosis CVA; left hemiparesis; impaired mobility and gait Onset Date 03/20/23 M3 PT-IP Subjective Start: 03/21/23 12:50 Freq: NEEDED Status: Active Protocol: Document 03/22/23 15:16 TS (Rec: 03/22/23 15:30 TS [id number]) Subjective Physical Therapy Visit Type Type Treatment Note Visit Start Time 14:50 Visit Stop Time 15:13 Total Visit Minutes 28 Number of UR COORDINATOR Visits 2 Physical Therapy Visit Comments Patient Comments Pt agreeable to PT. Patient Goals Regain as much function as possible. M4 PT-IP Mobility and Gait Start: 03/21/23 12:50 Freq: NEEDED Status: Active Protocol: Document 03/22/23 15:16 TS (Rec: 03/22/23 15:30 TS [id number]) PT-Bed Mobility Assessment Supine to Sit Supine to Sit Standby Assistance,1 Person Assistance Scooting Scooting to Edge of Bed Standby Assistance PT-Transfer Assessment Sit to and From Stand Sit to and from Stand Standby Assistance Equipment Transfer Assistive Device Gait Belt,Front Wheeled Walker Orthotic/Prosthetic Devices or Brace: No Comments Mobility Comments Pt found resting in chair, agreeable to PT session. Supine to sit SBA HOB elevated 40D, provided cues for UE suppport and handrail assist. Sit to stand SBA x1 from elevated bed w/FWW, provided cues for feet flat and weight forward. Ambulated in room/ hallway ~225' SBA, step thru and antalgic gait on LLE, progressively more antalgic with increased distance. He performed stairs x6 SBA with BUE handrail assist, provided cues for sequencing of steps, no buckling or LOB. Stand to sit in chair SBA, provided cues for BUE support on arms of chair and slow eccentric control. PT was left in chair with call light nearby, spouse in room, RN notified. Gait Assessment Gait Gait Assistance Required: Standby Assistance,Contact Guard Assist Distance (Feet) 200 Assistive Devices Assistive Device Gait Belt,Front Wheeled Walker Orthotic/Prosthetic Devices or Brace: No Gait Deviations General Gait Pattern Antalgic,Decreased Stride Length,Decreased Feet Clearance Factors Limiting Gait Function Factors Limiting Gait Function Decreased Sensation,Decreased Strength,Poor Balance Comments Gait Comments See mobility comments. Stair Climbing Assessment Evaluation Level of Assist On Stairs Standby Assistance Devices Stair Climbing Assistive Devices Left Railing,Right Railing Technique/Endurance Stair Climbing Direction Ascend and Descend Stair Climbing Technique Step Over Step Number of Steps Climbed 6 Comments Stair Climbing Comments See mobility comments. PT-Balance Assessment Sitting Balance and Reactions Static Sitting Balance Ability Good Dynamic Sitting Balance Ability Fair Standing Balance and Reactions Static Standing Balance Ability Good Dynamic Standing Balance Ability Fair Device Used FWW M5 PT-IP Objective Assessments Start: 03/21/23 12:50 Freq: NEEDED Status: Active Protocol: Document 03/21/23 14:59 AW (Rec: 03/21/23 16:02 AW [id number]) Orientation Orientation/Cognition Level of Alertness Alert Orientation Name,Day of Week,Place, Situation Language Function Ability No Deficits Noted Safety Awareness Understands Safety Issues Memory Description No Deficits Noted Gross Range of Motion Upper Extremity ROM Assessment Within Functional Limits Lower Extremity ROM Assessment Within Functional Limits Strength Upper Extremity Strength Assessment Left Impaired Shoulder 3/5 Elbow 3/5 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 Lower Extremity Strength Assessment Left Impaired Hip flexion 3-/5 Knee 3+/5 Ankle 3/5 Comments Strength Comments RLE grossly 4/5 to 4+/5 Coordination Assessment Assessment Finger to Nose Test Minimal Impairment Pronation/Supination Test Minimal Impairment Foot Tapping Test Moderate Impairment Coordination Comments All impairments evident on left side Sensation Assessment Sensation Gross Sensation Left UE Impaired,Left LE Impaired Light Touch Impaired Proprioception (Position) Impaired Sensation Description Numbness M6 PT-IP Treatment Start: 03/21/23 12:50 Freq: NEEDED Status: Active Protocol: Document 03/22/23 15:16 TS (Rec: 03/22/23 15:30 TS [id number]) Physical Therapy Treatment Education Education Provided Safety Other Treatments Other Treatment Performed Continue to educate on sit to stand technique and proper stair sequencing. M7 PT-IP Assessment and Plan Start: 03/21/23 12:50 Freq: NEEDED Status: Active Protocol: Document 03/22/23 15:16 TS (Rec: 03/22/23 15:30 TS [id number]) PT Summary Assessment and Plan Potential Rehabilitation Potential Good Status of Condition at Evaluation Evolving Summary Impairments Strength,Balance,Coordination, Sensation,Bed Mobility, Transfers,Gait Assessment Summary Pt continues to progress with mobility this session. He increased his ambulation distance to ~225' in hallway SBA, navigated around objects in hallway well, no buckling or LOB but some fatigue, demonstrates decreased hyperextension of L knee. He progressed to stairs x4 with step over step SBA with BUE support on handrails, requires reminders of step sequencing and leading with proper foot. Pt's sitting improved with no posterior LOB, demonstrated increased use of LUE for support on bed. PT continues to recommend acute rehab to progress gait, balance and activity tolerance. Goals Bed Mobility Goal Standby Assistance Transfer Goal Standby Assistance,Front Wheeled Walker Gait Goal Standby Assistance,Front Wheel Walker Gait Distance 100 Other Goals - up/down 2 steps with LRAD and no rail SBA - 5 reps on 30 Second Sit to Stand as a meaure of improved strength - improve transfers and gait to SBA with LRAD Days to Meet Goals 10 Frequency of Treatment Frequency Of Treatment Twice a Day Treatment Plan Physical Therapy Treatment Plan Bed Mobility Training,Transfer Training,Gait Training, Therapeutic Exercise,Balance Retraining,Discharge Planning, Hot or Cold Pack,Neuromuscular Re-ed,Coordination Retraining Other Recommendations and Next Treatment sitting balance (dynamic); sit Focus to stand from varying bed heights, transfers, short distance gait with attention to L knee hyperextension Precautions Other Precautions falls risk
[2023-03-22 18:02] VITALS: BP 133/39; PULSE 71
[2023-03-22] MEDS: NYSTATIN CREAM 30 GM 1 APPLIC TOP (18:02)
[2023-03-22 20:20] VITALS: BP 137/51; PULSE 74; RESP 18; TEMP 37.3; O2SAT 98
[2023-03-22] MEDS: EZETIMIBE 10 MG TABLET PO (21:10)
[2023-03-22] MEDS: TAMSULOSIN 0.4 MG CAPSULE PO (21:10)
[2023-03-22 23:23] LABS: x Labcorp Estim. Avg Glu (eAG) 186 mg/dL (.); x Labcorp Hemoglobin A1c 8.1 % (4.8-5.6)
[2023-03-23] VITALS (9 sets, daily range): BP systolic 115–139; BP diastolic 44–70; PULSE 70–85; RESP 16–18; TEMP 36.1–37.1; O2SAT 96–100
[2023-03-23] MEDS: INSULIN NPH 100 UNIT/ML 10ML VIAL 40 UNIT SUBCUT ×2 (08:26→17:14)
[2023-03-23] MEDS: CLOPIDOGREL 75 MG TABLET PO (08:27)
[2023-03-23] MEDS: INSULIN LISPRO 100 UNIT/ML 3ML VIAL SUBCUT ×4 (08:27→21:40)
[2023-03-23] MEDS: TORSEMIDE 10 MG TABLET 40 MG PO (08:28)
[2023-03-23] MEDS: ENOXAPARIN 40 MG/0.4 ML SYRINGE SUBCUT ×2 (08:28→21:37)
[2023-03-23] MEDS: carvediloL 3.125 MG TABLET PO ×2 (08:28→17:18)
[2023-03-23] MEDS: POTASSIUM CHLORIDE 20 MEQ TAB PO (08:28)
[2023-03-23] MEDS: PANTOPRAZOLE DR 40 MG TABLET PO (08:28)
[2023-03-23] MEDS: ASPIRIN EC 81 MG TABLET PO (08:29)
[2023-03-23] MEDS: SODIUM CHLORIDE 0.9% FLUSH 10 ML IV ×3 (08:29→21:37)
[2023-03-23] MEDS: AMLODIPINE 5 MG TABLET PO (08:29)
[2023-03-23] MEDS: lisinopriL 20 MG TABLET PO (08:29)
[2023-03-23] MEDS: cefTRIAXone 1,000 MG in SODIUM CHLORIDE 0.9% 100 ML 200 MG IV (08:30)
--- NOTE | 2023-03-23 10:53 | OT.IP.TRT ---
Current Diagnoses Cerebral infarction, unspecified (03/21/23) Occupational Therapy Treatment Note M2 OT-IP Current Condition Start: 03/22/23 12:22 Freq: Status: Active Protocol: Document 03/22/23 10:28 [facility] (Rec: 03/22/23 12:37 [facility] [id number]) Occupational Therapy Current Condition Current Condition Evaluation Date 03/22/23 Treatment Diagnosis Right Anterior berebral artery distribution infarct Diagnosis Onset Date 03/21/23 M3 OT- IP Subjective and Pain Start: 03/22/23 12:22 Freq: Status: Active Protocol: Document 03/23/23 10:28 [facility] (Rec: 03/23/23 11:34 [facility] [id number]) OT- Subjective Occupational Therapy Visit Type Type Treatment Note Visit Start Time 10:28 Visit Stop Time 10:53 Total Visit Minutes 25 Occupational Therapy Visit Comments Patient Comments Pt agreed to work with OT for FMS. Patient/Caregiver Goals TO go to skilled rehab. OT Pain Assessment Pain When Pain Assessed At Rest Pain Present Pain Present Denied Pain M4 OT- IP ADL's Start: 03/22/23 12:22 Freq: Status: Active Protocol: Document 03/22/23 10:28 [facility] (Rec: 03/22/23 12:37 [facility] [id number]) OT [id number] Comments OT Self-Feeding Comments Pt needing assist for set-up of needs due to decreased FMS. OT ADL-Grooming Comments OT Grooming Comments Pt needing assist for set-up of needs. OT ADL-Oral Care Comments Oral Care Comments Not performed. OT ADL-Dressing General Eval Lower Body Dressing Ability Maximum Assistance Comments OT Dressing Comments Assist to help get the brief over his feet and up over his hips. OT ADL-Toileting General Evaluation Toileting Ability Maximum Assistance Comments OT Toileting Comments Assist for hygiene and brief management needs. OT ADL-Bathing General Evaluation Bathing Ability Moderate Assistance Comments OT Bathing Comments Pt able to assist to sponge off while seated on the toilet and needing assist for his back and pericare needs. M5 OT- IP IADL's Start: 03/22/23 12:22 Freq: Status: Active Protocol: Document 03/22/23 10:28 [facility] (Rec: 03/22/23 12:37 [facility] [id number]) OT-Instrumental Activities of Daily Living Deficits IADL Deficits Identified Deficits Home Safety Awareness Awareness of Need for Assistance at Home Good Awareness Ability to Problem Solve Emergency Able to Problem Solve Situations Home Safety Comments Slight increased time to problem solve home safety needs. M6 OT- IP Functional Cognition Start: 03/22/23 12:22 Freq: Status: Active Protocol: Document 03/23/23 10:28 [facility] (Rec: 03/23/23 11:34 [facility] [id number]) Cognitive Factors Limiting Selfcare Function Cognitive Comments Cognitive Assessment Comments Pt able to follow commands for FMS. Pt able to measure items with flexible tape measure accurately with both hands, pt however having to rely on his right hand more then left at this time. M8 OT- IP Objective Assessments Start: 03/22/23 12:22 Freq: Status: Active Protocol: Document 03/23/23 10:28 [facility] (Rec: 03/23/23 11:34 [facility] [id number]) OT- Coordination Assessment Comments Coordination Comments RUE 36 seconds and LUE 46 seconds for 9 hole peg test. Pt much improved but still slow for movements. At times pt has difficulty to coordinate both hands together while trying to wrap a tube with the tissue, pt having difficulty to control the tension of the tissue with left hand. Pt having difficulty to sort cards with left hand more so than right. Pt able to bean picker coins after education of bringing finger to thumb and thumb to finger. OT Sensation Assessment Comments Summary Comments Pt still states his left hand feeling a little numb. M9 OT- IP Assessment and Plan Start: 03/22/23 12:22 Freq: Status: Active Protocol: Document 03/23/23 10:28 [facility] (Rec: 03/23/23 11:34 [facility] [id number]) OT Summary Assessment and Plan Potential Rehabilitation Potential Excellent Analytic Complexity at Evaluation Moderate Summary OT Impairments Strength,Balance,Functional Cognition,Functional Mobility, Self-Feeding,Grooming,Dressing ,Toileting,Shower Transfers, Activity Tolerance Progress Towards Goals Progressing Toward Goals Assessment Summary Pt improving with FMS of 9 hole peg RUE from 40 to 36 seconds and left hand from 82 to 46 seconds. Pt states in the past that he has made macrame planters and ties knots. These activities would be beneficial for pt to do in rehab. Pt still having difficulty with smooth efficient coordinated movement of LUE> RUE, decreased dynamic balance , and has great potential for acute rehab . 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 Goals Self-Feeding Goal Independent Grooming Goal Independent Dressing Goal Independent Toileting Goal Independent Bathing Goal Independent Shower Transfer Goal Independent Days to Meet Goals 19 Frequency of Treatment Frequency Of Treatment Once a Day Treatment Plan OT Treatment Plan ADL Training,Functional Cognition Training,Functional Mobility,Patient/Family Education,Discharge Planning Discharge Recommendations OT Discharge Recommendations Acute Rehab Transportation Needs at Discharge Private Vehicle
--- NOTE | 2023-03-23 11:00 | PT.IPTN ---
Current Diagnoses Cerebral infarction, unspecified (03/21/23) Physical Therapy Treatment Note M2 PT-IP Current Condition Start: 03/21/23 12:50 Freq: NEEDED Status: Active Protocol: Document 03/21/23 14:59 AW (Rec: 03/21/23 16:02 AW [id number]) Physical Therapy Current Condition Current Condition Evaluation Date 03/21/23 Treatment Diagnosis CVA; left hemiparesis; impaired mobility and gait Onset Date 03/20/23 M3 PT-IP Subjective Start: 03/21/23 12:50 Freq: NEEDED Status: Active Protocol: Document 03/23/23 11:26 TS (Rec: 03/23/23 11:51 TS [id number]) Subjective Physical Therapy Visit Type Type Treatment Note Visit Start Time 11:00 Visit Stop Time 11:23 Total Visit Minutes 23 Number of CYBER CRIME INVESTIGATOR Visits 3 Physical Therapy Visit Comments Patient Comments Pt reports feeling more fatigued today, thinks he might have an ear infection. Continues to state my left leg doesn't feel that it is there and pain from sore on buttocks seems to be improving , agreeable to PT. Patient Goals Regain as much function as possible. M4 PT-IP Mobility and Gait Start: 03/21/23 12:50 Freq: NEEDED Status: Active Protocol: Document 03/23/23 11:26 TS (Rec: 03/23/23 11:51 TS [id number]) PT-Transfer Assessment Sit to and From Stand Sit to and from Stand Contact Guard Assistance, Minimal Assistance Equipment Transfer Assistive Device Gait Belt,Front Wheeled Walker Orthotic/Prosthetic Devices or Brace: No Comments Mobility Comments Pt found resting in chair, agreeable to PT. Sit to stand x1 from chair Davon with cues for scooting forward and BUE support, pt trying to use momentum to stand, x3 attempts before coming into standing. Pt ambulated ~100' SBA in hallway, reporting increased fatigue, required ~3 min rest break against wall before back to room, ambulated another ~ 100' SBA to chair. In room pt performed balance testing. NBOS eyes open ~8 secs before needing rail support, WBOS eyes closed ~10 secs reported dizziness/increased swaying with eyes closed. NBOS with head turns, x1 LOB laterally with head turn to left. 360D spin no AD, slow and cautious X1 posterior LOB. Unable to perform tandem stance or single leg stance. Sit to stand test x2 SBA in 30 secs, fatigues quickly. Pt was left in bed with call light nearby and all needs met. Gait Assessment Gait Gait Assistance Required: Standby Assistance Distance (Feet) 200 Assistive Devices Assistive Device Gait Belt,Front Wheeled Walker Orthotic/Prosthetic Devices or Brace: No Gait Deviations General Gait Pattern Antalgic,Decreased Stride Length,Decreased Feet Clearance Factors Limiting Gait Function Factors Limiting Gait Function Decreased Sensation,Decreased Strength,Poor Balance Comments Gait Comments Pt ambulated ~ 200 SBA, required ~3min rest break against wall after 100'. Pt demonstrating emerging step thru gait, reports increased fatigue on left side after ~50 '. PT-Balance Assessment Sitting Balance and Reactions Static Sitting Balance Ability Good Dynamic Sitting Balance Ability Fair Standing Balance and Reactions Static Standing Balance Ability Good Dynamic Standing Balance Ability Fair Device Used FWW Comments Other Balance Tests/Deviations/Treatment See mobility comments for : balance. Functional Assessments Other Functional Tests Performed Sit to stand test:x2 SBA in 30 secs. M5 PT-IP Objective Assessments Start: 03/21/23 12:50 Freq: NEEDED Status: Active Protocol: Document 03/21/23 14:59 AW (Rec: 03/21/23 16:02 AW [id number]) Orientation Orientation/Cognition Level of Alertness Alert Orientation Name,Day of Week,Place, Situation Language Function Ability No Deficits Noted Safety Awareness Understands Safety Issues Memory Description No Deficits Noted Gross Range of Motion Upper Extremity ROM Assessment Within Functional Limits Lower Extremity ROM Assessment Within Functional Limits Strength Upper Extremity Strength Assessment Left Impaired Shoulder 3/5 Elbow 3/5 Hand level vial curvature gauger 3-/5 Lower Extremity Strength Assessment Left Impaired Hip flexion 3-/5 Knee 3+/5 Ankle 3/5 Comments Strength Comments RLE grossly 4/5 to 4+/5 Coordination Assessment Assessment Finger to Nose Test Minimal Impairment Pronation/Supination Test Minimal Impairment Foot Tapping Test Moderate Impairment Coordination Comments All impairments evident on left side Sensation Assessment Sensation Gross Sensation Left UE Impaired,Left LE Impaired Light Touch Impaired Proprioception (Position) Impaired Sensation Description Numbness M6 PT-IP Treatment Start: 03/21/23 12:50 Freq: NEEDED Status: Active Protocol: Document 03/23/23 11:26 TS (Rec: 03/23/23 11:51 TS [id number]) Physical Therapy Treatment Education Education Provided Safety Other Treatments Other Treatment Performed Continue to educate on sit to stand technique and proper stair sequencing. M7 PT-IP Assessment and Plan Start: 03/21/23 12:50 Freq: NEEDED Status: Active Protocol: Document 03/23/23 11:26 TS (Rec: 03/23/23 11:51 TS [id number]) PT Summary Assessment and Plan Potential Rehabilitation Potential Good Status of Condition at Evaluation Evolving Summary Impairments Strength,Balance,Coordination, Sensation,Bed Mobility, Transfers,Gait Assessment Summary Pt performed sit to stand test this session with Max cueing, x2 SBA in 30 secs, quickly fatigues and has poor form after initial 2. He ambulated in hallway ~200' SBA with increased fatigue after ~50', required rest break against wall for ~3 mins. Pt's balance performance is poor, NBOS eyes open ~8 secs before needing rail support, WBOS eyes closed ~10 secs, reported dizziness/increased swaying with eyes closed. NBOS with head turns, x1 LOB laterally with head turn to left. 360D spin no AD, slow and cautious X1 posterior LOB. Unable to perform tandem stance or single leg stance. PT continues to recommend acute rehab to progress strength, coordination and balance. [place] would be a great canidate for acute rehab, he is motivated to improve so he can get back to being independent and return to work . Goals Bed Mobility Goal Standby Assistance Transfer Goal Standby Assistance,Front Wheeled Walker Gait Goal Standby Assistance,Front Wheel Walker Gait Distance 100 Other Goals - up/down 2 steps with LRAD and no rail SBA - 5 reps on 30 Second Sit to Stand as a meaure of improved strength - improve transfers and gait to SBA with LRAD Days to Meet Goals 10 Frequency of Treatment Frequency Of Treatment Twice a Day Treatment Plan Physical Therapy Treatment Plan Bed Mobility Training,Transfer Training,Gait Training, Therapeutic Exercise,Balance Retraining,Discharge Planning, Hot or Cold Pack,Neuromuscular Re-ed,Coordination Retraining Other Recommendations and Next Treatment sitting balance (dynamic); sit Focus to stand from varying bed heights, transfers, short distance gait with attention to L knee hyperextension Precautions Other Precautions falls risk Recommendations To Nursing Amount of Assist Needed 1 Person Assist Discharge Recommendations PT Discharge Recommendations Acute Rehab Transportation Needs at Discharge Wheelchair/Cabulance
[2023-03-23] MEDS: INSULIN LISPRO 100 UNIT/ML 3ML VIAL 11 UNIT SUBCUT (12:25)
[2023-03-23] MEDS: METHYLPHENIDATE 5 MG TABLET 10 MG PO (13:10)
--- NOTE | 2023-03-23 15:41 | PM.PN.1 ---
Subjective Subjective Interval history: Patient has no complaints. Awaiting acute rehab auth. Exam Vital Signs (past 8 hours): - 03/23/23 08:28 03/23/23 08:29 03/23/23 08:38 Temperature 98.6 F Pulse Rate 70 70 72 Respiratory Rate 16 Blood Pressure 139/60 139/60 139/60 Pulse Oximetry 98 Oxygen Flow Rate 0 03/23/23 12:00 Temperature 97.9 F Pulse Rate 85 Respiratory Rate 18 Blood Pressure 117/59 L Pulse Oximetry 98 Oxygen Flow Rate 0 Oxygen Delivery Method Room Air Oxygen Flow Rate 0 Narrative Exam Narrative: GENERAL:? Alert pleasant 67-year-old male and in no acute distress. Flat affect. HEENT: Head atraumatic,EOMI, pupils reactive, face symmetric, moist mucous membranes CARDIOVASCULAR: Regular rate and rhythm without murmurs, rubs or gallops. RESPIRATORY: Breath sounds equal bilaterally, no wheezes rales or rhonchi. ABDOMEN: Soft, nontender.? Normoactive bowel sounds all 4 quadrants.? No guarding or rebound. EXTREMITIES: Normal range of motion, no clubbing or edema.? Neurovascularly intact NEUROLOGICAL: Alert and oriented x4.Normal gait and speech. Cranial nerves II through XII grossly intact.? Left leg does drift decreased sensation both left arm and left leg no facial droop no aphasia or dysarthria. SKIN: Warm, dry, no laceration, no petechiae, no rashes or lesions. Objective Labs 03/22/23 05:07 03/22/23 05:07 Labs: Laboratory Results - last 24 hr 03/22/23 05:07 Hgb A1c (Ref Lab) 8.1 H Estim Average Glucose 186 PFSH Medical History CAD (coronary artery disease) Diabetes HLD (hyperlipidemia) HTN (hypertension) Surgical History Hx of CABG Family History Mother No pertinent past medical history Father No pertinent past medical history Social History household members: spouse Smoking Status: Former smoker alcohol intake: current Assessment & Plan Assessment & Plan narrative: 1. Subacute stroke. Right anterior cerebral artery. Deficits left upper extremity and lower extremity. Left upper extremity almost resolved to normal and left lower extremity improving. Treat with clopidogrel 75 mg for 21 days and aspirin 81 mg daily for lifetime. Aspirin 325 mg given in the ER. Lipid panel with LDL 141 and total chol 203. Unable to place on statins due to muscle cramping side effects. Starting on zetia instead after discussion with patient. Echo shows EF 55-60% with no clot or shunt. PT recommending inpatient acute rehab and patient awaiting placement. 2. Diabetes. Continue patient's weekly Ozempic dose. NPH and sliding scale insulin. Hemoglobin A1c 8.1%. 3. Hypertension. Maintain patient's regular medication. 4. Hyperlipidemia. Unable to treat with a statin due to severe muscle cramping. LDL and total chol elevated to 141 and 203. Started zetia 10mg nightly. 5. General obesity. Patient is on a diet and weight loss program with Ozempic to help weight and diabetes. Has lost about 30 lb thus far. 6. Coronary artery disease with history of CABG. 7. ADHD. Continue medication of methylphenidate. Surrogate decision maker: Code status: Full code DVT prophylaxis: Enoxaparin GI prophylaxis: Pantoprazole Dispo: Awaiting acute inpatient rehab placement. COVID-19 Result date/Date tested (Pos, Neg/Pending): 03/21/23 Quality Stroke Contraindication Not Initiating IV-Tpa: Not indicated VTE Deep Vein Thrombosis/Pulmonary Embolism Present on Admission: No
--- NOTE | 2023-03-23 15:52 | CM.DPNOTE ---
DCP Note [facility] has secured insurance auth, admission requested tomorrow r/t a delayed discharge from their building today Plan: Discharge to [facility] acute inpatient rehab tomorrow via spouse's private auto, aim for 1230 J[address]
--- NOTE | 2023-03-23 17:35 | PT.IPTN ---
Current Diagnoses Cerebral infarction, unspecified (03/21/23) Physical Therapy Treatment Note M2 PT-IP Current Condition Start: 03/21/23 12:50 Freq: NEEDED Status: Active Protocol: Document 03/21/23 14:59 AW (Rec: 03/21/23 16:02 AW [id number]) Physical Therapy Current Condition Current Condition Evaluation Date 03/21/23 Treatment Diagnosis CVA; left hemiparesis; impaired mobility and gait Onset Date 03/20/23 M3 PT-IP Subjective Start: 03/21/23 12:50 Freq: NEEDED Status: Active Protocol: Document 03/23/23 17:16 ES (Rec: 03/23/23 17:35 ES [id number]) Subjective Physical Therapy Visit Type Type Treatment Note Visit Start Time 15:15 Visit Stop Time 15:49 Total Visit Minutes 34 Physical Therapy Visit Comments Patient Comments Patient alert in bed, present. Patient reported he was up in the recliner until about an hour ago. Patient agreeable to work with PT. Reported his L arm and leg still feel weaker and get tired more easily. Patient also reported that he has been getting dizzy when his eyes are closed, thinks it's his inner ear as it has been prone to infections in the past. Patient denied pain. Patient Goals Regain as much function as possible. M4 PT-IP Mobility and Gait Start: 03/21/23 12:50 Freq: NEEDED Status: Active Protocol: Document 03/23/23 17:16 ES (Rec: 03/23/23 17:35 ES [id number]) PT-Bed Mobility Assessment Supine to Sit Supine to Sit Standby Assistance,Head of Bed Elevated,Bedrails Scooting Scooting to Edge of Bed Standby Assistance PT-Transfer Assessment Sit to and From Stand Sit to and from Stand Contact Guard Assistance Equipment Transfer Assistive Device Gait Belt,Front Wheeled Walker Transfers Transfer Destination Chair Transfer Technique Ambulation Transfer Ability Level of Assist Contact Guard Assistance,Use of Upper Extremities Comments Mobility Comments Patient required cues for hand placement and for not leaning into the chair with the backs of his legs to reduce fall risk. Patient also cued to lift one hand from chair/bed at a time as he stands to reduce risk of falls during transitions. Patient up in recliner at end of session. Gait Assessment Gait Gait Assistance Required: Contact Guard Assist Distance (Feet) 220 Assistive Devices Assistive Device Gait Belt,Front Wheeled Walker Gait Deviations General Gait Pattern Decreased Stride Length, Decreased Feet Clearance,Wide Based Gait Factors Limiting Gait Function Factors Limiting Gait Function Decreased Strength,Poor Balance Comments Gait Comments Patient demonstrated decreased stance time on L and decreased heel-toe pattern, able to correct for ~15 ft at a time due to fatigue. Stair Climbing Assessment Evaluation Level of Assist On Stairs Contact Guard Assistance Devices Stair Climbing Assistive Devices Left Railing,Right Railing Technique/Endurance Stair Climbing Direction Ascend and Descend Stair Climbing Technique Step to Step Number of Steps Climbed 5 Stair Climbing Set # Repetitions (reps) 2 Comments Stair Climbing Comments Performed step ups with RLE leading x5, then LLE leading x5 to increase LLE strength. Patient demonstrated more difficulty with LLE leading due to weakness, requiring increased UE support. PT-Balance Assessment Sitting Balance and Reactions Static Sitting Balance Ability Good Dynamic Sitting Balance Ability Fair Standing Balance and Reactions Static Standing Balance Ability Good Dynamic Standing Balance Ability Fair Device Used FWW Balance Tests Single Limb Standing 0 Tandem Standing 0 Comments Other Balance Tests/Deviations/Treatment 4-stage balance test = 10/7/0/ : 0 Functional Assessments Functional Tests 30 Seconds Sit to Stand Test 0 (without use of UE's from standard chair height) M5 PT-IP Objective Assessments Start: 03/21/23 12:50 Freq: NEEDED Status: Active Protocol: Document 03/21/23 14:59 AW (Rec: 03/21/23 16:02 AW [id number]) Orientation Orientation/Cognition Level of Alertness Alert Orientation Name,Day of Week,Place, Situation Language Function Ability No Deficits Noted Safety Awareness Understands Safety Issues Memory Description No Deficits Noted Gross Range of Motion Upper Extremity ROM Assessment Within Functional Limits Lower Extremity ROM Assessment Within Functional Limits Strength Upper Extremity Strength Assessment Left Impaired Shoulder 3/5 Elbow 3/5 Hand quality measurement specialist 3-/5 Lower Extremity Strength Assessment Left Impaired Hip flexion 3-/5 Knee 3+/5 Ankle 3/5 Comments Strength Comments RLE grossly 4/5 to 4+/5 Coordination Assessment Assessment Finger to Nose Test Minimal Impairment Pronation/Supination Test Minimal Impairment Foot Tapping Test Moderate Impairment Coordination Comments All impairments evident on left side Sensation Assessment Sensation Gross Sensation Left UE Impaired,Left LE Impaired Light Touch Impaired Proprioception (Position) Impaired Sensation Description Numbness M6 PT-IP Treatment Start: 03/21/23 12:50 Freq: NEEDED Status: Active Protocol: Document 03/23/23 17:16 ES (Rec: 03/23/23 17:35 ES [id number]) Physical Therapy Treatment Education Education Provided Safety M7 PT-IP Assessment and Plan Start: 03/21/23 12:50 Freq: NEEDED Status: Active Protocol: Document 03/23/23 17:16 ES (Rec: 03/23/23 17:35 ES [id number]) PT Summary Assessment and Plan Potential Rehabilitation Potential Good Status of Condition at Evaluation Stable Summary Impairments Strength,Balance,Coordination, Sensation,Bed Mobility, Transfers,Gait Progress Towards Goals Progressing Toward Goals Assessment Summary Patient is progressing with mobility, demonstrating increasing strength and balance, though still gets fatigued with repetetive activity which causes his movement and gait patterns to decline. He demonstrates poor dynamic balance without UE support and decreased functional strength, contributing to increased risk for falls. He will continue to benefit from skilled therapy to be able to return to his normal daily activity at independent level with decreased risk for falls. He remains motivated to reach to his prior level of function to be able to return home safely . Goals Bed Mobility Goal Independent Transfer Goal Independent,Front Wheeled Walker Gait Goal Independent,Front Wheel Walker Gait Distance 250 Other Goals Patient will be able to ascend /descend 2 stairs without rail with LRAD independently. Patient will be able to perform 5 STS in 30 seconds indicating improved functional strength and decreased risk for falls. Days to Meet Goals 10 Frequency of Treatment Frequency Of Treatment Twice a Day Treatment Plan Physical Therapy Treatment Plan Bed Mobility Training,Transfer Training,Gait Training, Therapeutic Exercise,Balance Retraining,Discharge Planning, Neuromuscular Re-ed, Coordination Retraining Other Recommendations and Next Treatment Progress sitting and standing Focus dynamic balance, improve gait pattern with ambulation, LLE strength and functional strength. Precautions Other Precautions Fall risk Recommendations To Nursing Amount of Assist Needed 1 Person Assist Discharge Recommendations PT Discharge Recommendations Acute Rehab Transportation Needs at Discharge Private Vehicle,Wheelchair/ Cabulance
[2023-03-23] MEDS: TAMSULOSIN 0.4 MG CAPSULE PO (21:37)
[2023-03-23] MEDS: EZETIMIBE 10 MG TABLET PO (21:37)
[2023-03-23] MEDS: NYSTATIN CREAM 30 GM 1 APPLIC TOP (21:47)
[2023-03-24 04:04] VITALS: BP 133/50; PULSE 65; RESP 17; TEMP 36.2; O2SAT 96
[2023-03-24] MEDS: PANTOPRAZOLE DR 40 MG TABLET PO (06:41)
[2023-03-24] MEDS: INSULIN NPH 100 UNIT/ML 10ML VIAL 40 UNIT SUBCUT (08:03)
[2023-03-24] MEDS: INSULIN LISPRO 100 UNIT/ML 3ML VIAL SUBCUT ×2 (08:07→12:10)
--- NOTE | 2023-03-24 08:18 | P.DS_ITS ---
History of Present Illness History of Present Illness Date Patient Seen: 03/21/23 Chief complaint: Weakness Narrative: Patient is a 67-year-old male history of hypertension insulin-dependent diabetes, coronary artery disease and hyperlipidemia who presented with chronic ongoing left leg weakness.? He was admitted here February 23 through the for stroke workup.? 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 However no CVA was confirmed on that admission. He stated that since his discharge he has been walking with a walker he has been doing okay but for the last 2 days really unable to get about bed without any assistance and everything has gotten significantly worse.? During his hospital admission he had urinary retention thought to be due secondary to BPH with no evidence of cauda e quina on the MR lumbar spine, he now self catheterizes and was given option of continuous Salcido catheter.? He was started on Flomax that time.? Today with worsening left-sided weakness he has some decreased sensation both on left leg arm which he says is new ongoing for more than 24 hours.? No fevers chills chest pain palpitations shortness of breath abdominal pain nausea vomiting or fever. Able to move all extremities volitionally. No diaphoresis. Discharge Providers Provider Date of admission: 03/21/23 12:40 Discharge Date: 03/24/23 Primary care physician: Dakota Pozo MD Consults: 03/21/23 09:12 Consult to STORE ASSOCIATE - Electrical Engineering Professor Stat Comment: weakness possible placement Consult to Physical Therapy Evaluate & Treat Comment: left sided weakness Physician Instructions: Evaluate and Treat 03/21/23 15:53 Consult to Occupational Therapy Evaluate & Treat Comment: Physician Instructions: Evaluate and treat Consult to Speech Therapy Evaluate & Treat Comment: Physician Instructions: Evaluate and treat 03/21/23 17:09 Consult to Physical Therapy Evaluate & Treat Comment: post CVA Physician Instructions: Evaluate and Treat 03/21/23 17:10 Consult to Occupational Therapy Evaluate & Treat Comment: post cva Physician Instructions: Evaluate and treat Consult to Speech Therapy Evaluate & Treat Comment: post cva Physician Instructions: Evaluate and treat Discharge provider: Michael Estrada, Summary Hospital Course Discharge Diagnosis: 1. Subacute stroke.? Right anterior cerebral artery.? Deficits left upper extremity and lower extremity.? Left upper extremity almost resolved to normal and left lower extremity improving.? Treat with clopidogrel 75 mg (which patient is already on) and aspirin 81 mg daily for lifetime.? Aspirin 325 mg given in the ER.? Lipid panel with LDL 141 and total chol 203.? Unable to place on statins due to muscle cramping side effects.? Starting on zetia instead after discussion with patient. Echo shows EF 55-60% with no clot or shunt. PT recommending inpatient acute rehab and patient awaiting placement. 2. Diabetes.? Continue patient's weekly Ozempic dose.? NPH and sliding scale insulin.? Hemoglobin A1c 8.1%. 3. Hypertension.? Maintain patient's regular medication. 4. Hyperlipidemia.? Unable to treat with a statin due to severe muscle cramping.? LDL and total chol elevated to 141 and 203. Started zetia 10mg nightly. 5. General obesity.? Patient is on a diet and weight loss program with Ozempic to help weight and diabetes.? Has lost about 30 lb thus far. 6. Coronary artery disease with history of CABG. Continue plavix. 7. ADHD.? Continue medication of methylphenidate. Hospital Course: Admitted for left sided weakness and found to have subacute right frontal stroke. Patient already on plavix for heart stents so aspirin added. Cannot take statins so put on zetia. PT recommended inpatient rehab so patient transferred to [facility] for this. Time Spent with Patient Time spent: Greater than 30 minutes Exam Vital Signs (past 8 hours): - 03/24/23 04:04 Temperature 97.2 F L Pulse Rate 65 Respiratory Rate 17 Blood Pressure 106/48 L Pulse Oximetry 96 Oxygen Flow Rate 0 Oxygen Delivery Method Room Air Oxygen Flow Rate 0 Narrative Exam Narrative: GENERAL:? Alert pleasant 67-year-old male and in no acute distress. Flat affect. HEENT: Head atraumatic,EOMI, pupils reactive, face symmetric, moist mucous membranes CARDIOVASCULAR: Regular rate and rhythm without murmurs, rubs or gallops. RESPIRATORY: Breath sounds equal bilaterally, no wheezes rales or rhonchi. ABDOMEN: Soft, nontender.? Normoactive bowel sounds all 4 quadrants.? No guard ing or rebound. EXTREMITIES: Normal range of motion, no clubbing or edema.? Neurovascularly intact NEUROLOGICAL: Alert and oriented x4.Normal gait and speech. Cranial nerves II through XII grossly intact.? Left leg does drift decreased sensation both left arm and left leg no facial droop no aphasia or dysarthria. SKIN: Warm, dry, no laceration, no petechiae, no rashes or lesions. Objective Labs 03/22/23 05:07 03/22/23 05:07 [facility] Medical History CAD (coronary artery disease) Diabetes HLD (hyperlipidemia) HTN (hypertension) Surgical History Hx of CABG Family History Mother No pertinent past medical history Father No pertinent past medical history Social History household members: spouse Smoking Status: Former smoker alcohol intake: current Discharge Plan Discharge Plan Patient Disposition: Xfer Inpatient Rehab Discharge orders & Medications Discharge Orders: Discharge (Order); Ordered 03/24/23 Ordered By: Michael Estrada Prescriptions: New aspirin 81 mg Tablet,Delayed Release (Dr/Ec) 81 mg PO DAILY Qty: 30 0RF ezetimibe [Zetia] 10 mg Tablet 10 mg PO BEDTIME Qty: 30 0RF Continued torsemide 20 mg tablet 40 mg PO DAILY methylphenidate HCl 10 mg tablet 10 mg PO QID clopidogrel 75 mg tablet 75 mg PO DAILY amlodipine 5 mg tablet 10 mg PO DAILY carvedilol 3.125 mg tablet 3.125 mg PO BIDWM Patient Comments: take 1 tablet by mouth twice a day WITH A MEAL potassium chloride 20 mEq tablet,ER particles/crystals 20 meq PO DAILY insulin aspart U-100 [Novolog U-100 Insulin aspart] 100 unit/mL solution See Rx Instructions .ROUTE .COMPLEX Rx Instructions: takes based on carb intake. hasn't taken x1 week. Novolin N NPH U-100 Insulin 100 unit/mL suspension See Rx Instructions .ROUTE .COMPLEX Rx Instructions: BID based on carb intake nitroglycerin 0.4 mg tablet, sublingual 0.4 mg sublingual Q5M PRN (Reason: Chest Pain) lisinopril 40 mg tablet 40 mg PO DAILY Ozempic 0.25 mg or 0.5 mg(2 mg/1.5 mL) pen injector 0.25 mg SUBCUT WEEKLY Patient Comments: inject 0.25 milligrams (0.1875 MLS) subcutaneously every week. takes wednesdays tamsulosin [Flomax] 0.4 mg Capsule 0.4 mg PO BEDTIME Qty: 30 0RF Follow up/Referrals: Dakota Pozo MD [Primary Care Provider] - Discharge Data Primary Care Provider: Dakota Pozo Quality Stroke Contraindication Not Initiating IV-Tpa: Not indicated VTE Deep Vein Thrombosis/Pulmonary Embolism Present on Admission: No
--- NOTE | 2023-03-24 08:35 | CM.DPNOTE ---
Addendum entered by LISA Au 03/24/23 08:49: ADD: Discussed home med Ozempic w/spouse Estee who agreed to bring it in with her today Original Note: DC Note Insurance auth has been secured and bed available at [facility] [place] Estrada updated and working on meds and DC summary. According to Nury at [facility], they do not need a faxed med list and do not need an updated COVID PCR done. Patient will need to bring his home med- Ozempic as it is not in the [facility] formulary HERMELINDO Macias, has kindly agreed to fax the latest MD prog note to Nury as requested Updated patient and spouse, both agreeable and appreciative. Spouse plans to transport and the aim is to leave here at approx [phone] Nurse to nurse report provided to RAFAEL Mejia. Plan: Discharge to [facility] acute rehab today via private auto JW
--- NOTE | 2023-03-24 09:12 | OT.IP.TRT ---
Current Diagnoses Cerebral infarction, unspecified (03/21/23) Occupational Therapy Treatment Note M2 OT-IP Current Condition Start: 03/22/23 12:22 Freq: Status: Active Protocol: Document 03/22/23 10:28 [facility] (Rec: 03/22/23 12:37 [facility] [id number]) Occupational Therapy Current Condition Current Condition Evaluation Date 03/22/23 Treatment Diagnosis Right Anterior cerebral artery distribution infarct Diagnosis Onset Date 03/21/23 M3 OT- IP Subjective and Pain Start: 03/22/23 12:22 Freq: Status: Active Protocol: Document 03/24/23 09:12 [facility] (Rec: 03/24/23 10:35 [facility] [id number]) OT- Subjective Occupational Therapy Visit Type Type Treatment Note Visit Start Time 09:12 Visit Stop Time 09:32 Total Visit Minutes 20 Occupational Therapy Visit Comments Patient Comments Pt agreed to do SLUMS and Coldiron Making Part B. Patient/Caregiver Goals To go to acute rehab. OT Pain Assessment Pain When Pain Assessed At Rest Pain Present Pain Present Denied Pain M5 OT- IP IADL's Start: 03/22/23 12:22 Freq: Status: Active Protocol: Document 03/22/23 10:28 [facility] (Rec: 03/22/23 12:37 [facility] [id number]) OT-Instrumental Activities of Daily Living Deficits IADL Deficits Identified Deficits Home Safety Awareness Awareness of Need for Assistance at Home Good Awareness Ability to Problem Solve Emergency Able to Problem Solve Situations Home Safety Comments Slight increased time to problem solve home safety needs. M6 OT- IP Functional Cognition Start: 03/22/23 12:22 Freq: Status: Active Protocol: Document 03/24/23 09:12 [facility] (Rec: 03/24/23 10:35 [facility] [id number]) Cognitive Factors Limiting Selfcare Function Cognitive Ability Level of Alertness Alert Patient Orientation Name,Age,Birthday,Month,Date, Year,Day of Week,Place, Situation Attention Span Ability Capable of Focused Attention, Capable of Sustained Attention Executive Function Ability Unable to Remember Details Cognitive Tests SLUMS Pt scored 26/30 which implies mild neurocognitive disorders. Pt able to recall 10 animals in one minute, able to recall 3/5 objects after time passed, and not able to stats 4 digit number backwards. Cognitive Comments Cognitive Assessment Comments Pt scored 183 seconds for Coldiron Making Part B which still implies has severe impairments for visual attention, speed of processing , task switching, mental flexibility, and executive functioning. Pt still gets a little distracted and to be able to recall switching from numbers to letters. Pt does still realize that he is needing increased time to process and think and feel slow overall mentally and physically. M9 OT- IP Assessment and Plan Start: 03/22/23 12:22 Freq: Status: Active Protocol: Document 03/24/23 09:12 [facility] (Rec: 03/24/23 10:35 [facility] [id number]) OT Summary Assessment and Plan Potential Rehabilitation Potential Excellent Analytic Complexity at Evaluation Moderate Summary OT Impairments Strength,Balance,Functional Cognition,Functional Mobility, Self-Feeding,Grooming,Dressing ,Toileting,Shower Transfers, Activity Tolerance Progress Towards Goals Progressing Toward Goals Assessment Summary Pt scored 26/30 on SLUMS and 183 seconds of Coldiron Making Part B which implies severe impairments for cognitive needs especially for speed of processing. Suggested to pt may be best to hold off on going back to work at this time and may be best to get medical leave until pt able to get better. Pt will still greatly benefit from acute rehab. Goals Self-Feeding Goal Independent Grooming Goal Independent Dressing Goal Independent Toileting Goal Independent Bathing Goal Independent Shower Transfer Goal Independent Days to Meet Goals 18 Frequency of Treatment Frequency Of Treatment Once a Day Treatment Plan OT Treatment Plan ADL Training,Functional Cognition Training,Functional Mobility,Patient/Family Education,Discharge Planning Discharge Recommendations OT Discharge Recommendations Acute Rehab Transportation Needs at Discharge Private Vehicle
[2023-03-24] MEDS: POTASSIUM CHLORIDE 20 MEQ TAB PO (10:07)
[2023-03-24] MEDS: CLOPIDOGREL 75 MG TABLET PO (10:09)
[2023-03-24] MEDS: TORSEMIDE 10 MG TABLET 40 MG PO (10:09)
[2023-03-24] MEDS: ASPIRIN EC 81 MG TABLET PO (10:10)
[2023-03-24] MEDS: ENOXAPARIN 40 MG/0.4 ML SYRINGE SUBCUT (10:10)
[2023-03-24] MEDS: METHYLPHENIDATE 5 MG TABLET 10 MG PO (10:17)
--- NOTE | 2023-03-24 10:28 | PT.IPTN ---
Current Diagnoses Cerebral infarction, unspecified (03/21/23) Physical Therapy Treatment Note M2 PT-IP Current Condition Start: 03/21/23 12:50 Freq: NEEDED Status: Active Protocol: Document 03/21/23 14:59 [facility] (Rec: 03/21/23 16:02 AW [id number]) Physical Therapy Current Condition Current Condition Evaluation Date 03/21/23 Treatment Diagnosis CVA; left hemiparesis; impaired mobility and gait Onset Date 03/20/23 M3 PT-IP Subjective Start: 03/21/23 12:50 Freq: NEEDED Status: Active Protocol: Document 03/24/23 10:13 [facility] (Rec: 03/24/23 12:07 [facility] [id number]) Subjective Physical Therapy Visit Type Type Treatment Note Visit Start Time 10:13 Visit Stop Time 10:28 Total Visit Minutes 15 Number of DETAIL MAKER AND FITTER Visits 1 Physical Therapy Visit Comments Patient Goals Regain as much function as possible. M4 PT-IP Mobility and Gait Start: 03/21/23 12:50 Freq: NEEDED Status: Active Protocol: Document 03/24/23 10:13 [facility] (Rec: 03/24/23 12:07 [facility] [id number]) PT-Transfer Assessment Sit to and From Stand Sit to and from Stand Minimal Assistance,Use of Upper Extremities Equipment Transfer Assistive Device Gait Belt,Front Wheeled Walker Transfers Transfer Destination Chair Transfer Technique Ambulation Transfer Ability Level of Assist Minimal Assistance,1 Person Assistance,Use of Upper Extremities Comments Mobility Comments Pt in chair upon arrival, offers that is L foot feels asleep/slow. Able to lift toes . Min A for sit<>Stand w/ FWW. Pt ambulated ~100 ft in room CGA w/ cues for heel toe walking. Is able to complete but relies on hip flexion to clear toes in not reminded. Returned to chair w/ all needs in reach. Gait Assessment Gait Gait Assistance Required: Contact Guard Assist Distance (Feet) 100 Assistive Devices Assistive Device Gait Belt,Front Wheeled Walker Gait Deviations General Gait Pattern Decreased Stride Length, Decreased Feet Clearance,Wide Based Gait Factors Limiting Gait Function Factors Limiting Gait Function Decreased Strength,Poor Balance Comments Gait Comments cues for heel toe walking PT-Balance Assessment Sitting Balance and Reactions Static Sitting Balance Ability Good Dynamic Sitting Balance Ability Fair Standing Balance and Reactions Static Standing Balance Ability Good Dynamic Standing Balance Ability Fair Device Used FWW M5 PT-IP Objective Assessments Start: 03/21/23 12:50 Freq: NEEDED Status: Active Protocol: Document 03/21/23 14:59 [facility] (Rec: 03/21/23 16:02 AW [id number]) Orientation Orientation/Cognition Level of Alertness Alert Orientation Name,Day of Week,Place, Situation Language Function Ability No Deficits Noted Safety Awareness Understands Safety Issues Memory Description No Deficits Noted Gross Range of Motion Upper Extremity ROM Assessment Within Functional Limits Lower Extremity ROM Assessment Within Functional Limits Strength Upper Extremity Strength Assessment Left Impaired Shoulder 3/5 Elbow 3/5 Hand physical anthropologist 3-/5 Lower Extremity Strength Assessment Left Impaired Hip flexion 3-/5 Knee 3+/5 Ankle 3/5 Comments Strength Comments RLE grossly 4/5 to 4+/5 Coordination Assessment Assessment Finger to Nose Test Minimal Impairment Pronation/Supination Test Minimal Impairment Foot Tapping Test Moderate Impairment Coordination Comments All impairments evident on left side Sensation Assessment Sensation Gross Sensation Left UE Impaired,Left LE Impaired Light Touch Impaired Proprioception (Position) Impaired Sensation Description Numbness M6 PT-IP Treatment Start: 03/21/23 12:50 Freq: NEEDED Status: Active Protocol: Document 03/24/23 10:13 [facility] (Rec: 03/24/23 12:07 [facility] [id number]) Physical Therapy Treatment Exercises Exercises Ankle Pumps Education Education Provided Safety Other Treatments Other Treatment Performed Continue to educate on sit to stand technique and proper stair sequencing. M7 PT-IP Assessment and Plan Start: 03/21/23 12:50 Freq: NEEDED Status: Active Protocol: Document 03/24/23 10:13 [facility] (Rec: 03/24/23 12:07 [facility] [id number]) PT Summary Assessment and Plan Potential Rehabilitation Potential Good Summary Impairments Strength,Balance,Coordination, Sensation,Bed Mobility, Transfers,Gait Progress Towards Goals Progressing Toward Goals Assessment Summary Pt required Min A for sit<> Stand, CGA for ambulation w./ cues due to increased use of hip flexors to help lift LLE. Able to correct w/ cues for heel toe walking. Pt eager to go to acute rehab and remains very motivated to regain as much function as possible. Goals Bed Mobility Goal Independent Transfer Goal Independent,Front Wheeled Walker Gait Goal Independent,Front Wheel Walker Gait Distance 250 Other Goals Patient will be able to ascend /descend 2 stairs without rail with LRAD independently. Patient will be able to perform 5 STS in 30 seconds indicating improved functional strength and decreased risk for falls. Days to Meet Goals 10 Frequency of Treatment Frequency Of Treatment Twice a Day Treatment Plan Physical Therapy Treatment Plan Bed Mobility Training,Transfer Training,Gait Training, Therapeutic Exercise,Balance Retraining,Discharge Planning, Neuromuscular Re-ed, Coordination Retraining Other Recommendations and Next Treatment Progress sitting and standing Focus dynamic balance, improve gait pattern with ambulation, LLE strength and functional strength. Precautions Other Precautions Fall risk Recommendations To Nursing Amount of Assist Needed 1 Person Assist Discharge Recommendations PT Discharge Recommendations Acute Rehab Transportation Needs at Discharge Private Vehicle,Wheelchair/ Cabulance
--- NOTE | 2023-03-24 10:48 | PC.NURSE ---
Addendum entered by Jackie Kiser R.N. 03/24/23 16:10: Patients packet of information had to be faxed over to facility, as info packet not sent with family. Patients systolic blood pressure wnl this morning but dyastolic was consistently in the 40s, and at one point down to 38. Talked to about this. Torsemide given. Lisinopril, amlodipine, and carvedilol held. Dr is aware of this. Another med list faxed over to [facility] acute stroke rehab with times of meds given and signed med sheet. Addendum entered by Jackie Kiser R.N. 03/24/23 13:49: Report called on patient, paperwork all faxed to Facility. To facility with his . Patient in car safely with student RN. Original Note: Patient is alert and oriented x4. He has no deficit after his cva a few days ago. Smile is symmetrical, no drift in arms, or legs. Patients vision is wnl and he is ambulating with a one person assist and walker to the bathroom. Denies pain at this time and is resting comfortably. He will be discharged to acute rehab at [facility] in [facility] around 1230.
[2023-03-24 11:22] VITALS: BP 149/72; PULSE 77
--- NOTE | 2023-03-28 09:21 | CM.DPNOTE ---
Call from spouse stating pt discharged to [facility]hab on 03/24/23 a couple days ago and after being admitted at that facility, spouse was told that they cannot fill pt's new med from discharge med list Zetia 10 mg and was asking spouse to get it filled and provide to pt at their facility. Script was printed and not sent to a pharmacy since pt went to Acute Rehab to have meds managed by them. Discharging provider is not currently working today. Spouse is agreeable to filling the script but needs script sent to [facility]. SW contacted Nury at [facility] and left detailed msg requesting their provider sent the script to [facility] since they are unable to fill the med on their end and faxed the med list from pt's discharge for review. SW provided spouse with contact information and spouse will follow up. LISA Ricci
== END 2023-03-24 13:15 | DRG 65 ==
LOC: ED 09:06 → AC 12:41
PROVIDERS: Admitting Provider Neuromusculoskeletal Medicine, Sports Medicine; Emergency Provider Emergency Medicine; PCP Family Medicine; Referring Provider Emergency Medicine; Visit Provider Neuromusculoskeletal Medicine, Sports Medicine
DX: I63.9 Cerebral infarction, unspecified (principal); Z68.41 Body mass index [BMI] 40.0-44.9, adult; E66.9 Obesity, unspecified; E11.9 Type 2 diabetes mellitus without complications; I10 Essential (primary) hypertension; I25.10 Atherosclerotic heart disease of native coronary artery without angina pectoris; F90.9 Attention-deficit hyperactivity disorder, unspecified type; R29.701 NIHSS score 1; E78.5 Hyperlipidemia, unspecified; R29.702 NIHSS score 2; Z87.891 Personal history of nicotine dependence; Z79.85 Long-term (current) use of injectable non-insulin antidiabetic drugs; Z20.822 Contact with and (suspected) exposure to COVID-19; Z95.1 Presence of aortocoronary bypass graft; Z79.4 Long term (current) use of insulin
CPT/HCPCS: 36415; 70496; 70498; 70551; 71045; 80048; 80053; 80061; 81001; 82550; 82962; 83036; 83690; 84484; 85025; 87086; 87635; 92523; 93005; 93306; 96365; 97112; 97116; 97129; 97162; 97166; 97530; 99285; C9803; J0696; J1650; J1815; Q9967

== ENCOUNTER 2023-05-11 14:43 | Emergency (ER) | payer OTHER, SELFPAY ==
[2023-03-21 12:47] VITALS: BMI 40.8
[2023-05-11] VITALS (13 sets, daily range): BP systolic 125–149; BP diastolic 51–70; PULSE 50–86; RESP 13–25; TEMP 37.7; O2SAT 95–98; BMI 37.8
--- NOTE | 2023-05-11 14:52 | ED_ITS ---
HPI - General Adult General Chief complaint: Neuro Symptoms/Deficit Stated complaint: uti/hard to walk Time Seen by Provider: 05/11/23 14:45 Source: patient Mode of arrival: Wheelchair Limitations: no limitations History of Present Illness HPI narrative: Patient is a 68-year-old male. At baseline uses a walker. He also self catheterizes. He is here because he thinks that maybe he has a urinary tract infection. He states that he has pus coming from the tip of his penis. He also states that it is hard for him to walk. He thought that earlier today that his left leg was going to give out on him. He has had a stroke in the past and since that time has had left-sided weakness to his left arm and left leg. He is had symptoms similar to this in the past. He does not feel like there any new symptoms just worsening of the weakness in his left leg. Denies any chest pain or shortness of breath. No headache. Related Data Home Medications Medication Instructions Recorded Confirmed amlodipine 5 mg tablet 10 mg PO DAILY 02/23/23 03/21/23 carvedilol 3.125 mg tablet 3.125 mg PO BIDWM 02/23/23 03/21/23 clopidogrel 75 mg tablet 75 mg PO DAILY 02/23/23 03/21/23 insulin NPH isoph U-100 human 100 See Rx Instructions .Route .COMPLEX 02/23/23 03/21/23 unit/mL subcutaneous suspension (Novolin N NPH U-100 Insulin isophane) insulin aspart U-100 100 unit/mL See Rx Instructions .Route .COMPLEX 02/23/23 03/21/23 subcutaneous solution (Novolog U-100 Insulin aspart) lisinopril 40 mg tablet 40 mg PO DAILY 02/23/23 03/21/23 methylphenidate HCl 10 mg tablet 10 mg PO QID 02/23/23 03/21/23 nitroglycerin 0.4 mg sublingual 0.4 mg sublingual Q5M PRN Chest 02/23/23 03/21/23 tablet Pain potassium chloride 20 mEq 20 meq PO DAILY 02/23/23 03/21/23 tablet,extended release(part/cryst) semaglutide 0.25 mg or 0.5 mg (2 0.25 mg SUBCUT WEEKLY 02/23/23 03/21/23 mg/1.5 mL) subcutaneous pen injector (Ozempic) torsemide 20 mg tablet 40 mg PO DAILY 02/23/23 03/21/23 Previous Rx's Medication Instructions Recorded tamsulosin 0.4 mg capsule (Flomax) 0.4 mg PO BEDTIME #30 caps 02/25/23 aspirin 81 mg tablet,delayed 81 mg PO DAILY #30 tabs 03/24/23 release ezetimibe 10 mg tablet (Zetia) 10 mg PO BEDTIME #30 tabs 03/24/23 sulfamethoxazole 800 1 tab PO BID 3 days #6 tabs 05/11/23 mg-trimethoprim 160 mg tablet (Bactrim DS) Allergies Allergy/AdvReac Type Severity Reaction Status Date / Time [id number]-[id number] Reductase Allergy Unknown Verified 03/21/23 12:42 Inhibitor [[id number] REDUCTASE INHIBITOR] morphine [MORPHINE] AdvReac Mild SENSITIVE Verified 03/21/23 12:42 Review of Systems Constitutional Constitutional: Reports system reviewed and no additional complaints, except as documented Gastrointestinal Gastrointestinal: Reports system reviewed and no additional complaints, except as documented Genitourinary Genitourinary: Reports system reviewed and no additional complaints, except as documented Musculoskeletal Musculoskeletal: Reports system reviewed and no additional complaints, except as documented Integumentary/Breasts Skin/Breast: Reports system reviewed and no additional complaints, except as d ocumented Neurologic Neurologic: Reports system reviewed and no additional complaints, except as documented Hematologic/Lymphatic On Anticoagulants: Yes Patient History Medical History CAD (coronary artery disease) Diabetes HLD (hyperlipidemia) HTN (hypertension) Surgical History Hx of CABG Family History Mother No pertinent past medical history Father No pertinent past medical history Social History household members: spouse Smoking Status: Former smoker alcohol intake: current Smoking Status: Former smoker tobacco type: cigarettes alcohol intake frequency: 0-2 drinks per day Substance Use Type: does not use Exam Initial Vital Signs Initial Vital Signs: Vital Signs Temperature 99.9 F H 05/11/23 14:53 Pulse Rate 50 L 05/11/23 14:53 Respiratory Rate 18 05/11/23 14:53 Blood Pressure 149/70 H 05/11/23 14:53 Pulse Oximetry 98 05/11/23 14:53 Oxygen Delivery Method Room Air 05/11/23 14:53 HENMT Head: normal to inspection and normocephalic Resp Effort & Inspection: normal respiratory effort Auscultation: clear to auscultation bilaterally Cardio Rate: regular rate GI Inspection: normal to inspection and non-distended Palpation: soft and No tender Skin General: no rashes or lesions noted Neuro General: patient alert, patient awake, patient oriented x3 and moves all ex tremities Speech: speech normal Extrem Other: No gross deformities Course Orders Ordered: ED Orders 05/11/23 15:05 EKG-12 Lead Stat 05/11/23 15:40 Complete Blood Count AUTO DIFF Stat Comprehensive Metabolic Panel Stat Lipase Stat Troponin & CK Cardiac Panel Stat 05/11/23 16:36 Urine Microscopic Stat Vital Signs Vital signs: Vital Signs - 8 hr 05/11/23 14:53 05/11/23 14:58 05/11/23 15:00 Temperature 99.9 F H Pulse Rate 50 L 86 Respiratory Rate 18 18 Blood Pressure 149/70 H 125/59 L Pulse Oximetry 98 97 Oxygen Delivery Method Room Air 05/11/23 15:00 05/11/23 15:30 05/11/23 15:45 Temperature Pulse Rate 81 79 76 Respiratory Rate 19 23 17 Blood Pressure Pulse Oximetry 96 95 96 Oxygen Delivery Method Room Air 05/11/23 15:45 05/11/23 16:00 05/11/23 16:00 Temperature Pulse Rate 79 Respiratory Rate 25 H Blood Pressure 125/59 L 129/56 L Pulse Oximetry 97 Oxygen Delivery Method Room Air 05/11/23 16:16 05/11/23 16:16 05/11/23 16:30 Temperature Pulse Rate 78 Respiratory Rate 21 Blood Pressure 143/64 H 140/51 L Pulse Oximetry 98 Oxygen Delivery Method Room Air 05/11/23 16:30 05/11/23 16:45 05/11/23 16:45 Temperature Pulse Rate 75 74 Respiratory Rate 13 24 Blood Pressure 143/67 H Pulse Oximetry 97 96 Oxygen Delivery Method Room Air 05/11/23 17:00 05/11/23 17:00 05/11/23 17:15 Temperature Pulse Rate 76 Respiratory Rate 19 Blood Pressure 143/66 H 132/63 Pulse Oximetry 97 Oxygen Delivery Method Room Air 05/11/23 17:15 05/11/23 17:30 05/11/23 17:30 Temperature Pulse Rate 74 76 Respiratory Rate 20 20 Blood Pressure 143/67 H Pulse Oximetry 98 96 Oxygen Delivery Method Medical Decision Making Lab Data 05/11/23 15:40 05/11/23 15:40 Labs: Lab Results 05/11/23 05/11/23 05/11/23 Range/Units 15:40 15:40 16:36 WBC 20.5 H (4.5-11.0) X10^3/uL RBC 4.48 L (4.5-5.9) X10^6/uL Hgb 13.2 L (13.5-17.5) g/dL Hct 38.2 L (41-53) % MCV 85.2 (80-100) fL MCH 29.5 (26-34) PG MCHC 34.7 (30-36) % RDW 14.0 (11.6-14.8) % Plt Count 189 (150-400) X10^3/uL Neut % (Auto) 84.1 H (50-75) % Lymph % (Auto) 7.2 L (25-40) % Hunt % (Auto) 8.2 (3-14) % Eos % (Auto) 0.1 L (2-4) % Baso % (Auto) 0.4 (0-2) % Neut # (Auto) 45919 H (9767-2314) /uL Lymph # (Auto) 1500 (9683-6595) /uL Hunt # (Auto) 1700 H (0-900) /uL Eos # (Auto) 0 (0-450) /uL Baso # (Auto) 100 (0-100) /uL Sodium 136 L (137-145) mmol/L Potassium 3.1 L (3.4-5.1) mmol/L Chloride 100 (98-107) mmol/L Carbon Dioxide 27 (22-32) mmol/L BUN 7 L (9-20) mg/dL Creatinine 0.75 (0.66-1.25) mg/dL Estimated GFR > 60 (>60) mL/min BUN/Creatinine Ratio 9.3 (6-22) Glucose 178 H (80-110) mg/dL Calcium 8.8 (8.4-10.2) mg/dL Total Bilirubin 1.6 H (0.2-1.3) mg/dL AST 35 (17-59) IU/L ALT 35 (<50) IU/L Alkaline Phosphatase 126 (38-126) U/L Total Creatine Kinase 66 (55-170) U/L CK-MB (CK-2) TNP CK-MB (CK-2) Rel Index TNP Troponin I 0.017 (0.01-0.034) ng/mL Total Protein 6.9 (6.3-8.2) g/dL Albumin 3.8 (3.5-5.0) g/dL Globulin 3.1 (1.7-4.1) g/dL Albumin/Globulin Ratio 1.2 (1.0-2.8) Lipase 13 L (23-300) U/L Urine RBC 0-1/hpf (0-5/HPF) Urine WBC 1-5/hpf (0-5/HPF) Ur Squamous Epith Cells 0-1 /hpf (0-5/HPF) Urine Bacteria Moderate (10-30) H (None) Hyaline Casts 1-5/lpf (None) Ur Culture Indicated? Cult not indicated Urine Dip Bedside Urine Glucose Negative Bedside Urine Bilirubin - Negative Bedside Urine Ketone - Negative Urine Specific [place] 1.015 Bedside Urine Occult Blood +/- Bedside Urine pH 5.5 Bedside Urine Protein - Negative Bedside Urine Urobilinogen - Negative Bedside Urine Nitrite - Negative Bedside Urine Leukocytes - Negative Esterase Point of care testing: Urine Dip Bedside Urine Glucose Negative Bedside Urine Bilirubin - Negative Bedside Urine Ketone - Negative Urine Specific [place] 1.015 Bedside Urine Occult Blood +/- Bedside Urine pH 5.5 Bedside Urine Protein - Negative Bedside Urine Urobilinogen - Negative Bedside Urine Nitrite - Negative Bedside Urine Leukocytes - Negative Esterase ECG Data Attestation: I personally reviewed and interpreted this ECG as follows: Interpretation: Sinus rhythm Ventricular rate is 79 Normal axis First-degree AV block [place] interval 228 Normal QRS Normal QTC No ST T wave changes MDM Narrative Medical decision making narrative: Patient does have left-sided weakness from a stroke that was several weeks ago. His presentation today is very similar to his prior presentation. I have low suspicion that he is sustained a new CVA. He is having quite a few symptoms consistent with a urinary tract infection and he is at risk for this as he self catheterizes. He has been doing this since his stroke. He states he was having purulent material come from the end of his penis. There is no purulent material today. His urinalysis does have bacteria but is otherwise not all that convincing for UTI however given his presentation today we will treat him with antibiotics. He did ambulate with his walker at baseline. Will have him continue all of his medications. He was given return precautions. He expressed understanding and agreement. Discharge Plan Departure Patient Disposition: Home Clinical Impression: Urinary tract infection Instructions: DI for Urinary Tract Infection (UTI) Activity Restrictions/Additional Instructions: A prescription for antibiotics was sent to [facility] per your request. Please take them and the rest of your medications as directed. Return to the emergency department for new or worsening symptoms. Prescriptions: New sulfamethoxazole-trimethoprim [Bactrim DS] 800-160 mg tablet 1 tab PO BID 3 Days Qty: 6 0RF No Action aspirin 81 mg Tablet,Delayed Release (Dr/Ec) 81 mg PO DAILY Qty: 30 0RF ezetimibe [Zetia] 10 mg Tablet 10 mg PO BEDTIME Qty: 30 0RF torsemide 20 mg tablet 40 mg PO DAILY methylphenidate HCl 10 mg tablet 10 mg PO QID clopidogrel 75 mg tablet 75 mg PO DAILY amlodipine 5 mg tablet 10 mg PO DAILY carvedilol 3.125 mg tablet 3.125 mg PO BIDWM Patient Comments: take 1 tablet by mouth twice a day WITH A MEAL potassium chloride 20 mEq tablet,ER particles/crystals 20 meq PO DAILY insulin aspart U-100 [Novolog U-100 Insulin aspart] 100 unit/mL solution See Rx Instructions .ROUTE .COMPLEX Rx Instructions: takes based on carb intake. hasn't taken x1 week. Novolin N NPH U-100 Insulin 100 unit/mL suspension See Rx Instructions .ROUTE .COMPLEX Rx Instructions: BID based on carb intake nitroglycerin 0.4 mg tablet, sublingual 0.4 mg sublingual Q5M PRN (Reason: Chest Pain) lisinopril 40 mg tablet 40 mg PO DAILY Ozempic 0.25 mg or 0.5 mg(2 mg/1.5 mL) pen injector 0.25 mg SUBCUT WEEKLY Patient Comments: inject 0.25 milligrams (0.1875 MLS) subcutaneously every week. takes tuen tamsulosin [Flomax] 0.4 mg Capsule 0.4 mg PO BEDTIME Qty: 30 0RF Referrals: Dakota Pozo MD [Primary Care Provider] - Stand Alone Forms: Patient Portal/API
[2023-05-11 15:53] LABS: Add Manual Diff / Slide Review NO; Basophils Absolute Auto 100 /uL (0-100); Basophils Percent Auto 0.4 % (0-2); Eosinophils Absolute Auto 0 /uL (0-450); Eosinophils Percent Auto 0.1 % (2-4); Hematocrit 38.2 % (41-53); Hemoglobin 13.2 g/dL (13.5-17.5); Lymphocytes Absolute Auto 1500 /uL (1100-4500); Lymphocytes Percent Auto 7.2 % (25-40); Mean Corpuscular HGB Conc 34.7 % (30-36); Mean Corpuscular Hemoglobin 29.5 PG (26-34); Mean Corpuscular Volume 85.2 fL (80-100); Monocytes Absolute Auto 1700 /uL (0-900); Monocytes Percent Auto 8.2 % (3-14); Neutrophils Absolute Auto 17300 /uL (1500-7000); Neutrophils Percent Auto 84.1 % (50-75); Platelet Count 189 X10^3/uL (150-400); Red Blood Cell Count 4.48 X10^6/uL (4.5-5.9); White Blood Cell Count 20.5 X10^3/uL (4.5-11.0)
[2023-05-11 16:01] LABS: Alanine Aminotransferase 35 IU/L (<50); Albumin 3.8 g/dL (3.5-5.0); Albumin Globulin Ratio 1.2 (1.0-2.8); Alkaline Phosphatase 126 U/L (38-126); Aspartate Aminotransferase 35 IU/L (17-59); BUN Creatinine Ratio 9.3 (6-22); Bilirubin Total 1.6 mg/dL (0.2-1.3); Blood Urea Nitrogen 7 mg/dL (9-20); Calcium 8.8 mg/dL (8.4-10.2); Carbon Dioxide 27 mmol/L (22-32); Chloride 100 mmol/L (98-107); Creatine Kinase 66 U/L (55-170); Estimated Glomerular Filt Rate > 60 mL/min (>60); Globulin 3.1 g/dL (1.7-4.1); Glucose 178 mg/dL (80-110); HEMOLYSIS < 15 (0-50); Lipase 13 U/L (23-300); Potassium 3.1 mmol/L (3.4-5.1); Sodium 136 mmol/L (137-145); Total Protein 6.9 g/dL (6.3-8.2)
[2023-05-11 16:13] LABS: Troponin I 0.017 ng/mL (0.01-0.034)
[2023-05-11 17:28] LABS: Bacteria Urine Moderate (10-30); Culture Indicated Urine Cult Not Indicated; Hyaline Casts Urine 1-5/LPF; RBC Urine 0-1/HPF (0-5/HPF); Squamous Epithelial Cell Urine 0-1 /HPF (0-5/HPF); WBC Urine 1-5/HPF (0-5/HPF)
--- NOTE | 2023-05-11 17:53 | PC.NURSE ---
TRACK REPAIR PERSON Note - Patient ambulated with walker. During ambulation, patient stated that he felt weird on his left side still
== END 2023-05-11 18:22 | disposition home or self-care (01) ==
PROVIDERS: Emergency Provider Emergency Medicine; PCP Family Medicine
DX: N39.0 Urinary tract infection, site not specified (principal); R07.9 Chest pain, unspecified; Z79.899 Other long term (current) drug therapy
CPT/HCPCS: 36415; 51701; 80053; 81003; 81015; 82550; 83690; 84484; 85025; 87077; 87086; 87186; 93005; 93010; 99284

== ENCOUNTER → 2023-11-23 15:17 | Outpatient (CLI) | payer OTHER, SELFPAY ==
[2023-03-21 12:47] VITALS: BMI 40.8
[2023-11-23 16:22] LABS: Influenza A - CEPHEID Flu A NEGATIVE (NEGATIVE); Influenza B - CEPHEID Flu B NEGATIVE (NEGATIVE); Respiratory Syncytial Virus Negative (Negative)
[2023-11-23 16:33] LABS: COVID-19 CEPHEID 4-PLEX PCR POSITIVE (Negative)
== END ==
PROVIDERS: PCP Family Medicine; Visit Provider Nurse Practitioner Family
DX: R05.1 Acute cough (principal)
CPT/HCPCS: 0241U

== ENCOUNTER 2024-01-08 11:51 | Inpatient (IN) | payer OTHER, MEDICARE, SELFPAY ==
[2023-03-21 12:47] VITALS: BMI 40.8
[2024-01-08] VITALS (24 sets, daily range): BP systolic 106–190; BP diastolic 56–79; PULSE 74–102; RESP 15–24; TEMP 37.2; O2SAT 95–100; BMI 29.5
--- NOTE | 2024-01-08 12:25 | ED_ITS ---
HPI - General Adult General Chief complaint: Trauma Stated complaint: UTI symptoms Time Seen by Provider: 01/08/24 12:24 Source: patient Mode of arrival: Family Vehicle History of Present Illness HPI narrative: 68-year-old gentleman with prior stroke with residual left-sided weakness, chronic self cathing with recurrent urinary tract infections, diabetes, hypertension, hyperlipidemia, coronary artery disease post CABG and congestive heart failure who presents after falling forward and having increasing balance and walking difficulties. His notes that he has been slightly more confused over the last 24 hours. She is worried that he has a recurrent urinary tract infection had reviewed with with his urologist recently who did not recommend checking nor treating given his history of self cathing. There is no self reported fevers. Apparently he was bending over to tie his shoe and just ?kind of kept going?. He ended up on the floor with no injury but was unable to get up by himself which is also unusual. His is concerned that he has an infection or possibly an extension of his prior stroke. No significant cough, headaches, nausea vomiting diarrhea, no abdominal pain no chest pain or palpitations. Related Data Home Medications Medication Instructions Recorded Confirmed amlodipine 5 mg tablet 5 mg PO DAILY 02/23/23 01/08/24 clopidogrel 75 mg tablet 75 mg PO DAILY 02/23/23 01/08/24 insulin NPH isoph U-100 human 100 See Rx Instructions .Route .COMPLEX 02/23/23 01/08/24 unit/mL subcutaneous suspension (Novolin N NPH U-100 Insulin isophane) insulin aspart U-100 100 unit/mL See Rx Instructions .Route .COMPLEX 02/23/23 01/08/24 subcutaneous solution (Novolog U-100 Insulin aspart) lisinopril 40 mg tablet 40 mg PO DAILY 02/23/23 01/08/24 methylphenidate HCl 10 mg tablet 10 mg PO QID 02/23/23 01/08/24 nitroglycerin 0.4 mg sublingual 0.4 mg sublingual Q5M PRN Chest 02/23/23 01/08/24 tablet Pain potassium chloride 20 mEq 20 meq PO DAILY 02/23/23 01/08/24 tablet,extended release(part/cryst) torsemide 20 mg tablet 40 mg PO DAILY 02/23/23 01/08/24 bupropion HCl 150 mg 24 hr tablet, 300 mg PO QAM 01/08/24 01/08/24 extended release carvedilol 6.25 mg tablet 6.25 mg PO BID 01/08/24 01/08/24 fluticasone propionate 50 1 spray intranasal Q12H 01/08/24 01/08/24 mcg/actuation nasal spray,suspension semaglutide 0.25 mg or 0.5 mg (2 0.5 mg SUBCUT WEEKLY 01/08/24 01/08/24 mg/3 mL) subcutaneous pen injector (Ozempic) Previous Rx's Medication Instructions Recorded aspirin 81 mg tablet,delayed 81 mg PO DAILY #30 tabs 03/24/23 release benzonatate 200 mg capsule 200 mg PO BID PRN cough #28 caps 11/23/23 Allergies Allergy/AdvReac Type Severity Reaction Status Date / Time [id number] Reductase Allergy Unknown Verified 01/08/24 12:16 Inhibitor [RUPAFGK-UIE-VAK REDUCTASE INHIBITOR] morphine [MORPHINE] AdvReac Mild SENSITIVE Verified 01/08/24 12:16 Review of Systems Review of Systems Narrative: Pertinent positive and negative findings as per HPI Patient History Medical History Congestive heart failure CVA (cerebral vascular accident) HLD (hyperlipidemia) HTN (hypertension) CAD (coronary artery disease) Diabetes Surgical History Hx of CABG Family History Mother No pertinent past medical history Father No pertinent past medical history Social History household members: spouse Smoking Status: Former smoker alcohol intake: current Smoking Status: Former smoker tobacco type: cigarettes alcohol intake frequency: 0-2 drinks per day Substance Use Type: does not use Exam Initial Vital Signs Initial Vital Signs: Vital Signs Temperature 98.9 F 01/08/24 12:10 Pulse Rate 85 01/08/24 12:10 Respiratory Rate 17 01/08/24 12:10 Blood Pressure 106/59 L 01/08/24 12:10 Pulse Oximetry 99 01/08/24 12:10 Oxygen Delivery Method Room Air 01/08/24 12:10 General: Chronically ill-appearing but in no acute distress. Able to cooperate with history but is slightly disoriented. HEENT: Moist mucous membranes, normal sclera with reactive pupils, Neck: No JVD, supple Respiratory: Lungs are clear to auscultation, no wheezing no rales no rhonchi. Full and symmetrical air movement Cardiac: Regular rate and rhythm no murmurs no bruits Abdomen: Soft, nontender, good bowel tones, no flank pain Skin: Warm and dry, no rashes Neurologic: Left-sided upper and lower extremity weakness, 4/5, paresthesia entire left side including his face. Patient and his were unclear if this is worse than his baseline deficits. Extremities: No trauma, well perfused, no significant lower extremity edema Psych: Cooperative, slight disorientation, difficulty circling back to prior questions and completing a full train of thought but able to speak in full sentences with fluent speech NIH Stroke Scale/Score RESULT SUMMARY: 4 points NIH Stroke Scale INPUTS: 1A: Level of consciousness ?> 0 = Alert; keenly responsive 1B: Ask month and age ?> 0 = Both questions right 1C: 'Blink eyes' & 'squeeze hands' ?> 0 = Performs both tasks 2: Horizontal extraocular movements ?> 0 = Normal 3: Visual summers ?> 0 = No visual loss 4: Facial palsy ?> 0 = Normal symmetry 5A: Left arm motor drift ?> 1 = Drift, but doesn't hit bed 5B: Right arm motor drift ?> 0 = No drift for 10 seconds 6A: Left leg motor drift ?> 1 = Drift, but doesn't hit bed 6B: Right leg motor drift ?> 0 = No drift for 5 seconds 7: Limb Ataxia ?> 1 = Ataxia in 1 Limb 8: Sensation ?> 1 = Mild-moderate loss: less sharp/more dull 9: Language/aphasia ?> 0 = Normal; no aphasia 10: Dysarthria ?> 0 = Normal 11: Extinction/inattention ?> 0 = No abnormality Course Orders Ordered: Acetaminophen (Acetaminophen 325 Mg Tablet) 650 mg PO Q6H PRN PRN Reason: Fever/Mild Pain (1-3) Al Hydrox/Mg Hydrox/Simethicone (Mag Hydrox/Alum/Simeth 30 Ml Udc) 30 ml PO Q6HR PRN PRN Reason: Dyspepsia Aspirin (Aspirin Ec 81 Mg Tablet) 81 mg PO DAILY [facility] Carvedilol (Carvedilol 3.125 Mg Tablet) 3.125 mg PO BIDWM [facility] Clopidogrel Bisulfate (Clopidogrel 75 Mg Tablet) 75 mg PO DAILY [facility] Heparin Sodium (Porcine) (Heparin 5,000 Unit/Ml Vial) 5,000 unit SUBCUT BID [facility] Last Admin: 01/08/24 20:27 Dose: 5,000 unit Documented By: GERARDO Sodium Chloride (Normal Saline 0.9%) 1,000 mls @ 50 mls/hr IV CONT [facility] Last Admin: 01/08/24 21:38 Dose: 50 mls/hr Documented By: GERARDO Cefepime HCl 2 gm/ Sodium (Chloride) 100 mls @ 200 mls/hr IV Q12H [facility] Last Infusion: 01/09/24 06:40 Dose: Infused Documented By: Admin: 01/09/24 05:59 Dose: 200 mls/hr Documented By: GERARDO Dextrose (D10w) 100 mls @ 1,200 mls/hr IV PRN PRN PRN Reason: Hypoglycemia Vancomycin HCl (Vancomycin) 1,000 mg in 200 mls @ 200 mls/hr IV Q12H [facility] Last Admin: 01/09/24 07:02 Dose: 200 mls/hr Documented By: GERARDO Insulin Glargine (Insulin Glargine 100 Unit/Ml 3ml Pen) 20 unit SUBCUT BEDTIME [facility] Insulin Human Lispro (Insulin Lispro 100 Unit/Ml 3ml Vial) 0 unit SUBCUT ACHS [facility]; Protocol Last Admin: 01/08/24 20:28 Dose: 7 unit Documented By: GERARDO Co-signed By: JOE Naloxone HCl (Naloxone 0.4 Mg/Ml Vial) 0.2 mg IV Q2MIN PRN PRN Reason: Opiate Reversal Ondansetron HCl (Ondansetron 4 Mg/2 Ml Inj) 4 mg IV Q8HR PRN PRN Reason: Nausea And Vomiting Sennosides (Sennosides 8.6 Mg Tablet) 17.2 mg PO BEDTIME [facility] Last Admin: 01/08/24 20:29 Dose: 17.2 mg Documented By: GERARDO Tamsulosin HCl (Tamsulosin 0.4 Mg Capsule) 0.4 mg PO BEDTIME [facility] Last Admin: 01/08/24 20:28 Dose: Not Given Documented By: GERARDO Vancomycin HCl (Vancomycin Trough) 1 request [facility] [address]30 [facility] Stop: 01/10/24 06:31 Vancomycin HCl (Vancomycin Peak) 1 request [facility] 0900 [place] Stop: 01/10/24 09:01 Discontinued Medications Aspirin (Aspirin 81 Mg Chew Tab) 324 mg PO NOW ONE Stop: 01/08/24 17:07 Last Admin: 01/08/24 17:46 Dose: 324 mg Documented By: ELIESER Cefepime HCl 2 gm/ Sodium (Chloride) 100 mls @ 200 mls/hr IV NOW ONE Stop: 01/08/24 17:01 Last Infusion: 01/08/24 18:47 Dose: Infused Documented By: Admin: 01/08/24 17:45 Dose: 200 mls/hr Documented By: ELIESER Vancomycin HCl/Dextrose (Vancomycin) 2,000 mg in 400 mls @ 200 mls/hr IV NOW ONE Stop: 01/08/24 19:14 Last Infusion: 01/08/24 21:41 Dose: Infused Documented By: Admin: 01/08/24 19:09 Dose: 200 mls/hr Documented By: ELIESER Insulin Glargine (Insulin Glargine 100 Unit/Ml 3ml Pen) 20 unit SUBCUT NOW ONE Stop: 01/08/24 18:16 Last Admin: 01/08/24 20:26 Dose: 20 unit Documented By: GERARDO Co-signed By: JOE Vancomycin HCl (Vancomycin Per Pharmacy) 1 request [facility] NOW ONE Stop: 01/08/24 17:02 Last Admin: 01/08/24 18:54 Dose: Not Given Documented By: ELIESER Vital Signs Vital signs: Vital Signs - 8 hr 01/08/24 12:10 01/08/24 12:41 01/08/24 12:42 Temperature 98.9 F Pulse Rate 85 80 Respiratory Rate 17 22 Blood Pressure 106/59 L 120/58 L Pulse Oximetry 99 95 Oxygen Delivery Method Room Air 01/08/24 12:42 01/08/24 13:00 01/08/24 13:30 Temperature Pulse Rate 80 77 76 Respiratory Rate 22 22 23 Blood Pressure Pulse Oximetry 95 96 96 Oxygen Delivery Method Room Air 01/08/24 13:42 01/08/24 13:42 01/08/24 14:00 Temperature Pulse Rate 75 76 Respiratory Rate 22 16 Blood Pressure 137/68 Pulse Oximetry 99 98 Oxygen Delivery Method Room Air Room Air 01/08/24 14:00 01/08/24 14:30 01/08/24 14:30 Temperature Pulse Rate 74 Respiratory Rate 16 Blood Pressure 143/66 H 151/69 H Pulse Oximetry 99 Oxygen Delivery Method Room Air 01/08/24 15:00 01/08/24 15:00 01/08/24 15:30 Temperature Pulse Rate 74 77 Respiratory Rate 20 18 Blood Pressure 150/67 H Pulse Oximetry 98 98 Oxygen Delivery Method Room Air 01/08/24 15:30 01/08/24 16:00 01/08/24 16:01 Temperature Pulse Rate 80 84 Respiratory Rate 15 15 Blood Pressure 175/70 H Pulse Oximetry 99 100 Oxygen Delivery Method Room Air Room Air 01/08/24 16:01 Temperature Pulse Rate Respiratory Rate Blood Pressure 156/67 H Pulse Oximetry Oxygen Delivery Method Medical Decision Making Lab Data 01/09/24 02:50 01/09/24 02:50 Labs: Lab Results 01/08/24 01/08/24 01/08/24 Range/Units 12:30 14:45 16:05 WBC 23.7 H (4.5-11.0) X10^3/uL RBC 4.66 (4.5-5.9) X10^6/uL Hgb 13.5 (13.5-17.5) g/dL Hct 40.2 L (41-53) % MCV 86.4 (80-100) fL MCH 29.0 (26-34) PG MCHC 33.5 (30-36) % RDW 13.9 (11.6-14.8) % Plt Count 204 (150-400) X10^3/uL Neut % (Auto) 87.6 H (50-75) % Lymph % (Auto) 4.5 L (25-40) % [place] % (Auto) 7.6 (3-14) % Eos % (Auto) 0.1 L (2-4) % Baso % (Auto) 0.2 (0-2) % Neut # (Auto) 10250 H (7366-2672) /uL Lymph # (Auto) 1100 (8488-0200) /uL [place] # (Auto) 1800 H (0-900) /uL Eos # (Auto) 0 (0-450) /uL Baso # (Auto) 0 (0-100) /uL Sodium 127 L (137-145) mmol/L Potassium 4.0 (3.4-5.1) mmol/L Chloride 93 L (98-107) mmol/L Carbon Dioxide 23 (22-32) mmol/L BUN 36 H (9-20) mg/dL Creatinine 1.51 H (0.66-1.25) mg/dL Estimated GFR 50 L (>60) mL/min BUN/Creatinine Ratio 23.8 H (6-22) Glucose 473 H (80-110) mg/dL Lactate 2.0 (0.7-2.1) mmol/L Calcium 9.4 (8.4-10.2) mg/dL Magnesium 2.2 (1.6-2.3) mg/dL Total Bilirubin 1.3 (0.2-1.3) mg/dL AST 28 (17-59) IU/L ALT 15 (<50) IU/L Alkaline Phosphatase 91 (38-126) U/L Troponin I 0.044 H (0.01-0.034) ng/mL NT-Pro-B Natriuret Pep 1570 H (<125) pg/mL Total Protein 6.8 (6.3-8.2) g/dL Albumin 3.8 (3.5-5.0) g/dL Globulin 3.0 (1.7-4.1) g/dL Albumin/Globulin Ratio 1.3 (1.0-2.8) Lipase 26 (23-300) U/L Procalcitonin 0.82 H (<0.5) ng/mL Urine Color Yellow Urine Appearance Cloudy Urine pH 5.5 (4.5-8.0) Ur Specific [place] 1.020 (1.000-1.035) Urine Protein Trace H (Negative) Urine Glucose (UA) 3+ H (Negative) g/dL Urine Ketones Trace H (NEGATIVE) Urine Occult Blood 2+ H (Negative) Urine Nitrate Negative (Negative) Urine Bilirubin Negative (NEGATIVE) Urine Urobilinogen 0.2 (0.2) E.U./dL Ur Leukocyte Esterase 1+ H (NEGATIVE) Urine RBC None seen (0-5/HPF) Urine WBC >100/hpf H (0-5/HPF) Ur Squamous Epith Cells None seen (0-5/HPF) Urine Bacteria None seen (None) Ur Culture Indicated? Specimen cultured Vol Urine Centrifuged 10ml (spun) Chlamy pneumoniae PCR Not detected (Not Detect) Adenovirus (PCR) Not detected (Not Detect) B.parapertussis DNA PCR Not detected (Not Detecte) Coronavirus OC43 (PCR) Not detected (Not Detect) Coronavirus HKU1 (PCR) Not detected (Not Detect) Coronavirus 229E (PCR) Not detected (Not Detect) SARS-CoV-2 (PCR) Detected H (Not Detecte) Coronavirus NL63 (PCR) Not detected (Not Detect) Human Metapneumovir PCR Not detected (Not Detect) Influenza Type A (PCR) Not detected (Not Detect) Influenza Type B (PCR) Not detected (Not Detect) M. pneumoniae (PCR) Not detected (Not Detect) Parainfluenza 1 (PCR) Not detected (Not Detect) Parainfluenza 2 (PCR) Not detected (Not Detect) Parainfluenza 3 (PCR) Not detected (Not Detect) Parainfluenza 4 (PCR) Not detected (Not Detect) RSV (PCR) Not detected (Not Detect) Entero/Rhino (PCR) Not detected (Not Detect) Point of Care Testing Glucose POC 363 Point of care testing: Point of Care Testing Glucose POC 363 MDM Narrative Medical decision making narrative: CC: Left-sided weakness question whether this is worse, possible increasing confusion, worsening balance with fall forward today Complicating co-morbidities: Self caths, prior stroke with left-sided weakness, chronic balance issues Data collected from: patient, and daughter Medical records reviewed: Discharge summary from March of 2023 after his stroke is reviewed Differential considered: UTI, recurrent stroke, other infection, viral syndrome Exam documented above, pertinent findings include: Patient is slightly confused, is able to participate, slight left-sided weakness unclear if this is different from his baseline. He is some minor suprapubic tenderness Lab Test results independently reviewed as above. Pertinent findings: CBC shows leukocytosis at 23.7 with 87% neutrophils, no anemia Chemistries show hyponatremia at that corrects when glucose at 473 is taken into account., slight bump in his creatinine from 0.75-1.5, Troponin is elevated at 0.044 BNP is slightly elevated at 1570 Procalcitonin is elevated suggesting infection Respiratory panel is positive for COVID. Of note he was positive in November of 2023 as well Lactic acid is 2.0 Independently reviewed EKG: Sinus rhythm at a rate of 75 with first-degree AV block, PVC appreciated. No acute ischemic changes Imaging studies independently reviewed: Chest x-ray shows no obvious abnormalities CT scan of the head shows prior stroke with no you new gross changes Most recent echocardiogram was March of 2023: Interpretation Summary The ejection fraction is estimated to be 55-60%. Diastolic parameters suggest probable normal left ventricular diastolic function and normal filling pressures. The right ventricle is not well visualized. Injection of contrast documented no interatrial shunt. No significant valvular abnormalities. Unable to estimate PASP. Consultations: Treatments: Aspirin given his slightly bumped troponin. With concerns for both sepsis and congestive heart failure neither fluid nor Lasix are given at this time Antibiotics including cefepime and vanco are started with concerns for sepsis and based on pansensitive E coli from April of 2023 from a urine sample at that time Re-evaluations: Discussion: 68-year-old gentleman with multiple issues likely all contributing to the chief complaint of slight confusion and increased overall weakness: 1. Positive COVID , not hypoxic. He did have symptomatic COVID disease in November, I suspect that this is still positive PCR test without active disease at this time 2. Progressive left-sided weakness likely secondary to prior stroke no obvious extension of his prior stroke 3. Significant leukocytosis with lactic acid at 2, he has not hypoxic he does self catheterization presumptive source is urinary tract infection. Most recent UTI diagnosed was a pansensitive E coli. antibiotics are started. Fluids are held due to concerns for congestive heart failure. He is not hypotensive. 4. Mild congestive heart failure, his notes that he has not taken his torsemide for the last 2 days 5. Bumped troponin we will need to repeat, no ischemic changes on EKG 6. Diabetes with hyperglycemia but no diabetic ketoacidosis. Critical Care Time Critical Care Time Critical Care Time: Yes Total Critical Care Time: 33 Attestation: Critical care time is separate from other billable procedures. There is a high probability of a significant, sudden or life-threatening deterioration that requires my full and direct attention, intervention and personal management. This critical care time includes consultation with family and other consulting doctors, review of records, and interpretation of data from labs, EKGs and imaging as well as managements of confusion, weakness, heart failure, infection/sepsis, stroke Discharge Plan Departure Patient Disposition: Admitted As Inpatient Clinical Impression: Congestive heart failure, Hyperglycemia due to diabetes mellitus, Elevated troponin, Weakness, Acute confusion due to infection Urinary tract infection Qualifiers: Urinary tract infection type: catheter-associated UTI Encounter type: initial encounter Admit Date/Time: 01/08/24 17:07 Admit Provider: Som Link
--- NOTE | 2024-01-08 13:27 | DI.RAD.S_ITS ---
PROCEDURE: XR CHEST 1V INDICATIONS: weakness TECHNIQUE: One view of the chest was acquired. COMPARISON: [facility], CR, XR CHEST 1V, 03/21/2023, 7:38. [facility], CR, XR CHEST 2V, 07/22/2018, 13:04. FINDINGS: Surgical changes and devices: Sternotomy wires, some which are broken.. Mediastinal clips. Lungs and pleura: No dense consolidation or pleural effusion. Low lung volumes. Mediastinum: Cardiomediastinal contours are unchanged. Bones and chest wall: Degenerative changes. IMPRESSION: No acute radiographic abnormality on this single view study with low lung volumes. Dictated by: Will Morocho M.D. on 01/08/2024 at 14:22 Approved by: Will Morocho M.D. on 01/08/2024 at 14:23
--- NOTE | 2024-01-08 13:28 | DI.CT.S_ITS ---
PROCEDURE: CT HEAD/BRAIN WO CON INDICATIONS: increased weakness, ? extension stroke TECHNIQUE: Noncontrast 4.5 mm thick angled axial sections acquired from the foramen magnum to the vertex, with coronal and sagittal reformats. For radiation dose reduction, the following was used: automated exposure control, adjustment of mA and/or kV according to patient size. COMPARISON: [facility], MR, MR HEAD/BRAIN WO CON, 03/21/2023, 10:29. FINDINGS: Image quality: Excellent CSF spaces: Basal cisterns are patent. Lateral ventricles are symmetric. Volume: Vascular calcifications. Periventricular white matter disease is commonly seen with chronic microangiopathy. Volume loss is present. These findings are moderate Brain: Right ENRIQUE distribution encephalomalacia, corresponding to prior diffusion restriction. No new acute hemorrhage. No new gross loss of avila-white differentiation. Craniofacial structures: No significant paranasal sinus opacification. IMPRESSION: Right ENRIQUE distribution encephalomalacia corresponds a prior infarct. No new gross loss of avila-white differentiation or acute intracranial hemorrhage. If there is high concern for parenchymal pathology, consider further evaluation with MRI. Dictated by: Will Morocho M.D. on 01/08/2024 at 14:29 Approved by: Will Morocho M.D. on 01/08/2024 at 14:30
[2024-01-08 13:42] LABS: Add Manual Diff / Slide Review NO; Basophils Absolute Auto 0 /uL (0-100); Basophils Percent Auto 0.2 % (0-2); Eosinophils Absolute Auto 0 /uL (0-450); Eosinophils Percent Auto 0.1 % (2-4); Hematocrit 40.2 % (41-53); Hemoglobin 13.5 g/dL (13.5-17.5); Lymphocytes Absolute Auto 1100 /uL (1100-4500); Lymphocytes Percent Auto 4.5 % (25-40); Mean Corpuscular HGB Conc 33.5 % (30-36); Mean Corpuscular Volume 86.4 fL (80-100); Monocytes Absolute Auto 1800 /uL (0-900); Monocytes Percent Auto 7.6 % (3-14); Neutrophils Absolute Auto 20700 /uL (1500-7000); Neutrophils Percent Auto 87.6 % (50-75); Platelet Count 204 X10^3/uL (150-400); Red Blood Cell Count 4.66 X10^6/uL (4.5-5.9); Red Cell Distribution Width 13.9 % (11.6-14.8); White Blood Cell Count 23.7 X10^3/uL (4.5-11.0)
[2024-01-08 13:50] LABS: Alanine Aminotransferase 15 IU/L (<50); Albumin 3.8 g/dL (3.5-5.0); Albumin Globulin Ratio 1.3 (1.0-2.8); Alkaline Phosphatase 91 U/L (38-126); Aspartate Aminotransferase 28 IU/L (17-59); BUN Creatinine Ratio 23.8 (6-22); Bilirubin Total 1.3 mg/dL (0.2-1.3); Blood Urea Nitrogen 36 mg/dL (9-20); Calcium 9.4 mg/dL (8.4-10.2); Carbon Dioxide 23 mmol/L (22-32); Chloride 93 mmol/L (98-107); Estimated Glomerular Filt Rate 50 mL/min (>60); Glucose 473 mg/dL (80-110); HEMOLYSIS 21 (0-50); Lipase 26 U/L (23-300); Magnesium 2.2 mg/dL (1.6-2.3); Sodium 127 mmol/L (137-145); Total Protein 6.8 g/dL (6.3-8.2)
[2024-01-08 14:01] LABS: NT-proBNP (BNP-Adult 18+) 1570 pg/mL (<125); Troponin I 0.044 ng/mL (0.01-0.034)
[2024-01-08 14:06] LABS: Procalcitonin 0.82 ng/mL (<0.5)
[2024-01-08 15:35] LABS: Adenovirus Not Detected (Not Detect); B. parapertussis Not Detected (Not Detecte); Bordetella pertussis Not Detected (Not Detect); Chlamydophila pneumoniae Not Detected (Not Detect); Coronavirus 229E Not Detected (Not Detect); Coronavirus HKU1 Not Detected (Not Detect); Coronavirus NL 63 Not Detected (Not Detect); Coronavirus OC43 Not Detected (Not Detect); Human Metapneumovirus Not Detected (Not Detect); Human Rhinovirus/Enterovirus Not Detected (Not Detect); Influenza A Not Detected (Not Detect); Influenza B Not Detected (Not Detect); Mycoplasma pneumoniae Not Detected (Not Detect); Parainfluenza Virus 1 Not Detected (Not Detect); Parainfluenza Virus 2 Not Detected (Not Detect); Parainfluenza Virus 3 Not Detected (Not Detect); Parainfluenza Virus 4 Not Detected (Not Detect); Respiratory Syncytial Virus Not Detected (Not Detect)
--- NOTE | 2024-01-08 16:00 | PC.NURSE ---
Pt reports intermittent discomfort in his bladder. Pt self cath's q6hrs at home and reports change in urine clarity with increased weakness. Pt reports usually difficult to self cath. All silicone 16french catheter inserted with some difficulty. Pt reports this is normal. Catheter draining cloudy, yellow urine. Sample collected.
[2024-01-08 16:05] LABS: SARS- CoV-2 Detected (Not Detecte)
[2024-01-08 16:48] LABS: Bilirubin Urine UA NEGATIVE (NEGATIVE); Color Urine UA YELLOW; Glucose Urine UA 3+ g/dL (Negative); Ketones Urine UA TRACE (NEGATIVE); Leukocyte Esterase Urine UA 1+ (NEGATIVE); Nitrite Urine UA NEGATIVE (Negative); Occult Blood Urine UA 2+ (Negative); Protein Urine UA TRACE (Negative); Urobilinogen Urine UA 0.2 E.U./dL (0.2); pH Urine UA 5.5 (4.5-8.0)
[2024-01-08 17:02] LABS: Appearance Urine UA CLOUDY; Urine Volume 10mL (spun)
[2024-01-08 17:04] LABS: Bacteria Urine None Seen; Culture Indicated Urine Specimen Cultured; RBC Urine None Seen (0-5/HPF); Squamous Epithelial Cell Urine None Seen (0-5/HPF); WBC Urine >100/HPF (0-5/HPF)
[2024-01-08] MEDS: CEFEPIME 2 GM in SODIUM CHLORIDE 0.9% 100 ML IV (17:45)
[2024-01-08] MEDS: ASPIRIN 81 MG CHEW TAB 324 MG PO (17:46)
--- NOTE | 2024-01-08 17:57 | P.HP_ITS ---
History of Present Illness History of Present Illness Date Patient Seen: 01/08/24 Time Patient Seen: 17:59 Chief complaint: UTI symptoms Narrative: The patient is a 68-year-old male with an extensive past medical history which includes previous strokes with residual left hemiparesis, chronic self cathing, recurrent urinary tract infection, diabetes mellitus 2, hypertension, hyperlipidemia, CAD with history of CABG, and congestive heart failure which is diastolic. He presents with increased weakness and falling. This has been ongoing for the last 24 hours. He lives at home with his and also notes that the appearance of the urine has changed to more cloudy over the last several days. Everybody in the household had COVID and tested positive a month ago. He test positive today and notes some rhinorrhea but denies sore throat, cough or shortness a breath. He has been hypoglycemic for the last 2 weeks and has glucose in the 400s here but is not ketotic. He does note that his left side is more weak than usual. A CT of the brain was unremarkable. He was noted to have a mild lactic acidosis, and a glucose of 473 as well as mild acute kidney injury. His troponin was mildly elevated but he denies any chest pain or shortness a breath. He also denies any hematuria, or abdominal pain. [facility] Medical History Congestive heart failure CVA (cerebral vascular accident) HLD (hyperlipidemia) HTN (hypertension) CAD (coronary artery disease) Diabetes Surgical History Hx of CABG Family History Mother No pertinent past medical history Father No pertinent past medical history Social History household members: spouse Smoking Status: Former smoker alcohol intake: current Meds Home Medications and Allergies Home Medications Medication Instructions Recorded Confirmed Type amlodipine 5 mg tablet 10 mg PO DAILY 02/23/23 11/23/23 History carvedilol 3.125 mg tablet 3.125 mg PO BIDWM 02/23/23 11/23/23 History clopidogrel 75 mg tablet 75 mg PO DAILY 02/23/23 11/23/23 History insulin NPH isoph U-100 human 100 See Rx Instructions .Route .COMPLEX 02/23/23 11/23/23 History unit/mL subcutaneous suspension (Novolin N NPH U-100 Insulin isophane) insulin aspart U-100 100 unit/mL See Rx Instructions .Route .COMPLEX 02/23/23 11/23/23 History subcutaneous solution (Novolog U-100 Insulin aspart) lisinopril 40 mg tablet 40 mg PO DAILY 02/23/23 11/23/23 History methylphenidate HCl 10 mg tablet 10 mg PO QID 02/23/23 11/23/23 History nitroglycerin 0.4 mg sublingual 0.4 mg sublingual Q5M PRN Chest 02/23/23 11/23/23 History tablet Pain potassium chloride 20 mEq 20 meq PO DAILY 02/23/23 11/23/23 History tablet,extended release(part/cryst) semaglutide 0.25 mg or 0.5 mg (2 0.25 mg SUBCUT WEEKLY 02/23/23 11/23/23 History mg/1.5 mL) subcutaneous pen injector (Ozempic) torsemide 20 mg tablet 40 mg PO DAILY 02/23/23 11/23/23 History tamsulosin 0.4 mg capsule (Flomax) 0.4 mg PO BEDTIME #30 caps 02/25/23 11/23/23 Rx aspirin 81 mg tablet,delayed 81 mg PO DAILY #30 tabs 03/24/23 11/23/23 Rx release ezetimibe 10 mg tablet (Zetia) 10 mg PO BEDTIME #30 tabs 03/24/23 11/23/23 Rx benzonatate 200 mg capsule 200 mg PO BID PRN cough #28 caps 11/23/23 11/23/23 Rx fluticasone propionate 50 1 spray intranasal Q12H #16 grams 11/23/23 11/23/23 Rx mcg/actuation nasal spray,suspension (Flonase Allergy Relief) Allergies Allergy/AdvReac Type Severity Reaction Status Date / Time Flbobne-GKW-ZsL Reductase Allergy Unknown Verified 01/08/24 12:16 Inhibitor [PJTHCTS-QRS-SPH REDUCTASE INHIBITOR] morphine [MORPHINE] AdvReac Mild SENSITIVE Verified 01/08/24 12:16 Review of Systems Review of Systems Narrative: All else reviewed and otherwise unremarkable except as noted in the history and physical. Exam Vital Signs (past 8 hours): - 01/08/24 12:10 01/08/24 12:41 01/08/24 12:42 Temperature 98.9 F Pulse Rate 85 80 Respiratory Rate 17 22 Blood Pressure 106/59 L 120/58 L Pulse Oximetry 99 95 Oxygen Delivery Method Room Air 01/08/24 12:42 01/08/24 13:00 01/08/24 13:30 Temperature Pulse Rate 80 77 76 Respiratory Rate 22 22 23 Blood Pressure Pulse Oximetry 95 96 96 Oxygen Delivery Method Room Air 01/08/24 13:42 01/08/24 13:42 01/08/24 14:00 Temperature Pulse Rate 75 76 Respiratory Rate 22 16 Blood Pressure 137/68 Pulse Oximetry 99 98 Oxygen Delivery Method Room Air Room Air 01/08/24 14:00 01/08/24 14:30 01/08/24 14:30 Temperature Pulse Rate 74 Respiratory Rate 16 Blood Pressure 143/66 H 151/69 H Pulse Oximetry 99 Oxygen Delivery Method Room Air 01/08/24 15:00 01/08/24 15:00 01/08/24 15:30 Temperature Pulse Rate 74 77 Respiratory Rate 20 18 Blood Pressure 150/67 H Pulse Oximetry 98 98 Oxygen Delivery Method Room Air 01/08/24 15:30 01/08/24 16:00 01/08/24 16:01 Temperature Pulse Rate 80 84 Respiratory Rate 15 15 Blood Pressure 175/70 H Pulse Oximetry 99 100 Oxygen Delivery Method Room Air Room Air 01/08/24 16:01 Temperature Pulse Rate Respiratory Rate Blood Pressure 156/67 H Pulse Oximetry Oxygen Delivery Method Oxygen Delivery Method Room Air Narrative Exam Narrative: NAD, alert and oriented, fluent speech, calm. Normocephalic skull, EOMI, anicteric sclera, symmetric pupils. Oropharynx unremarkable, no droop. Neck supple, midline trachea, no adenopathy. Lungs clear, normal rate and effort. Heart regular, no murmur gallop or rub. Abdomen is soft, non distended and non tender. Extremities are free of edema. Skin is free of rash or lesions. Joints are not swollen or deformed. Judgment appears to be normal. He has reasonable strength in both legs and arms. He has no facial droop. Objective Imaging Chest x-ray: Radiologist's impression: No acute radiographic abnormality on this single view study with low lung volumes. CT scan - head: Radiologist's impression: CSF spaces: Basal cisterns are patent. Lateral ventricles are symmetric. Volume: Vascular calcifications. Periventricular white matter disease is commonly seen with chronic microangiopathy. Volume loss is present. These findings are moderate Brain: Right ENRIQUE distribution encephalomalacia, corresponding to prior diffusion restriction. No new acute hemorrhage. No new gross loss of avila-white differentiation. Craniofacial structures: No significant paranasal sinus opacification. IMPRESSION: Right ENRIQUE distribution encephalomalacia corresponds a prior infarct. No new gross loss of avila-white differentiation or acute intracranial hemorrhage. If there is high concern for parenchymal pathology, consider further evaluation with MRI. Labs 01/08/24 12:30 01/08/24 12:30 Labs: Laboratory Results - last 24 hr 01/08/24 01/08/24 01/08/24 12:30 14:45 16:05 WBC 23.7 H RBC 4.66 Hgb 13.5 Hct 40.2 L MCV 86.4 MCH 29.0 MCHC 33.5 RDW 13.9 Plt Count 204 Neut % (Auto) 87.6 H Lymph % (Auto) 4.5 L Beckham % (Auto) 7.6 Eos % (Auto) 0.1 L Baso % (Auto) 0.2 Neut # (Auto) 28749 H Lymph # (Auto) 1100 Beckham # (Auto) 1800 H Eos # (Auto) 0 Baso # (Auto) 0 Sodium 127 L Potassium 4.0 Chloride 93 L Carbon Dioxide 23 BUN 36 H Creatinine 1.51 H Estimated GFR 50 L BUN/Creatinine Ratio 23.8 H Glucose 473 H Lactate 2.0 Calcium 9.4 Magnesium 2.2 Total Bilirubin 1.3 AST 28 ALT 15 Alkaline Phosphatase 91 Troponin I 0.044 H NT-Pro-B Natriuret Pep 1570 H Total Protein 6.8 Albumin 3.8 Globulin 3.0 Albumin/Globulin Ratio 1.3 Lipase 26 Procalcitonin 0.82 H Urine Color Yellow Urine Appearance Cloudy Urine pH 5.5 Ur Specific [place] 1.020 Urine Protein Trace H Urine Glucose (UA) 3+ H Urine Ketones Trace H Urine Occult Blood 2+ H Urine Nitrate Negative Urine Bilirubin Negative Urine Urobilinogen 0.2 Ur Leukocyte Esterase 1+ H Urine RBC None seen Urine WBC >100/hpf H Ur Squamous Epith Cells None seen Urine Bacteria None seen Ur Culture Indicated? Specimen cultured Vol Urine Centrifuged 10ml (spun) Chlamy pneumoniae PCR Not detected Adenovirus (PCR) Not detected B.parapertussis DNA PCR Not detected Coronavirus OC43 (PCR) Not detected Coronavirus HKU1 (PCR) Not detected Coronavirus 229E (PCR) Not detected SARS-CoV-2 (PCR) Detected H Coronavirus NL63 (PCR) Not detected Human Metapneumovir PCR Not detected Influenza Type A (PCR) Not detected Influenza Type B (PCR) Not detected M. pneumoniae (PCR) Not detected Parainfluenza 1 (PCR) Not detected Parainfluenza 2 (PCR) Not detected Parainfluenza 3 (PCR) Not detected Parainfluenza 4 (PCR) Not detected RSV (PCR) Not detected Entero/Rhino (PCR) Not detected Assessment & Plan Assessment & Plan narrative: 1. Weakness, present on admission and active. 2. Probable urinary tract infection, present on admission and active. He does have history of ESBL and will be treated with ertapenem. 3. Lactic acidosis, present on admission and active. We will give him gentle fluid resuscitation and trend his lactic acid. 4. Sepsis with tachypnea (22) lactic acidosis, and leukocytosis (23.7) as well as source of infection being urinary tract. 5. Uncontrolled diabetes type 2 with hyperglycemia, present on admission and active. 6. Elevated troponin consistent demand ischemia, present on admission and active. 7. CAD, present on admission and active. 8. Remote strokes with chronic left hemiparesis, present on admission and slightly worse than usual. 9. Diastolic heart failure, present on admission and stable. 10. COVID positive with a positive test a month ago as well, present on admission and active. He is unclear what component if any of this is playing in his acute illness. Medical decision making: Seems likely he is suffering from urinary tract infection with secondary weakness, and hyperglycemia. Patient is full resuscitation, confirmed time of admission. is proxy decision maker. Patient is admitted inpatient status with anticipated need for 2 midnights of medically necessary hospital services. Time Spent With Patient Time with patient: 30 to 49 minutes with 50% spent counseling/coordinating care Quality MIPS - Admit I confirm the patient?s Advance Care Plan is present, Code status is documented, Surrogate decision maker is in patient?s record [If Yes, STOP here]: Yes MIPS - Meds 'Current medications' to include all prescriptions, [id number] products, herbals, cannabis/cannabidiol products, and vitamin/mineral/dietary (nutritional) supplements. I have utilized all available resources to obtain, update, or review the patient?s current medications. [If Yes, STOP here]: Yes
[2024-01-08 18:37] LABS: Troponin I 0.025 ng/mL (0.01-0.034)
[2024-01-08] MEDS: VANCOMYCIN 2,000 MG/400 ML PIGGYBACK 200 MG IV (19:09)
[2024-01-08 19:35] LABS: Lactate (Lactic Acid) 1.3 mmol/L (0.7-2.1)
[2024-01-08] MEDS: INSULIN GLARGINE 100 UNIT/ML 3ML PEN 20 UNIT SUBCUT (20:26)
[2024-01-08] MEDS: HEPARIN 5,000 UNIT/ML VIAL 5000 UNIT SUBCUT (20:27)
[2024-01-08] MEDS: INSULIN LISPRO 100 UNIT/ML 3ML VIAL SUBCUT (20:28)
[2024-01-08] MEDS: SENNOSIDES 8.6 MG TABLET 17.2 MG PO (20:29)
[2024-01-08] MEDS: SODIUM CHLORIDE 0.9% 1,000 ML 50 ML IV (21:38)
[2024-01-09] VITALS (7 sets, daily range): BP systolic 115–137; BP diastolic 35–57; PULSE 62–87; RESP 16–19; TEMP 36.6–37.1; O2SAT 94–99
--- NOTE | 2024-01-09 00:04 | PC.ADMIT ---
[email or web address] – [place], [email or web address].[id number] Admission Note: The patient,Kimberlee Adkins,68 y/o, was given written information regarding hospital policies, unit procedures and contact persons. Patient's smoking status: Former smoker. Vital Signs - 8 hr 01/08/24 16:30 01/08/24 16:31 01/08/24 16:31 Temperature Pulse Rate 83 81 Respiratory Rate 15 18 Blood Pressure 190/79 H Pulse Oximetry 99 99 Oxygen Delivery Method Room Air Oxygen Flow Rate 01/08/24 17:00 01/08/24 17:01 01/08/24 17:01 Temperature Pulse Rate 84 85 Respiratory Rate 22 23 Blood Pressure 162/73 H Pulse Oximetry 97 98 Oxygen Delivery Method Room Air Oxygen Flow Rate 01/08/24 17:30 01/08/24 17:30 01/08/24 18:00 Temperature Pulse Rate 88 83 Respiratory Rate 24 22 Blood Pressure 157/67 H Pulse Oximetry 98 99 Oxygen Delivery Method Oxygen Flow Rate 01/08/24 18:01 01/08/24 18:01 01/08/24 18:30 Temperature Pulse Rate 91 H Respiratory Rate 22 Blood Pressure 176/72 H 132/66 Pulse Oximetry 99 Oxygen Delivery Method Room Air Oxygen Flow Rate 01/08/24 18:30 01/08/24 19:00 01/08/24 19:00 Temperature Pulse Rate 92 H 93 H Respiratory Rate 24 23 Blood Pressure 120/60 Pulse Oximetry 97 96 Oxygen Delivery Method Oxygen Flow Rate 01/08/24 19:39 01/08/24 19:40 01/08/24 19:40 Temperature Pulse Rate 102 H 94 H Respiratory Rate 24 Blood Pressure 145/65 H Pulse Oximetry 97 Oxygen Delivery Method Oxygen Flow Rate 01/08/24 20:00 01/08/24 20:30 Temperature 98.9 F Pulse Rate 89 Respiratory Rate 17 Blood Pressure 135/56 L Pulse Oximetry 97 Oxygen Delivery Method Room Air Oxygen Flow Rate 0 Patient admitted to room 219 per stretcher from ER at 1999. Is alert and oriented. Breath sounds CTA with RA sat of 97%; denies any cough, runny nose or chest congestion but was positive for covid 1 month ago and still positive today so placed on covid precautions. HRR w/telemetry reading of SR w/1st degree AVB + frequent PVC's. Denied nausea. BT present and abdomen is soft. Indwelling catheter is patent but urine is very cloudy karime in color. Is able to turn himself in bed. Gait not assessed at this time; reports prior to getting ill he had been walking by himself with use of cane. He has had a previous CVA with residual weakness in left UE/LE. He denied pain. Bilateral calf SCD's were applied. Fall risk score is high as patient just had a recent fall at home; bed alarm is activated. Patient had order in ER for now dose of insulin which was given after arrival to acute care; CBG was 385 so was also given dose of novolog insulin. Patient reports he is no longer on Flomax so this was held and will verify with MD in the morning. Oriented to call light and bed controls.
[2024-01-09 03:13] LABS: Add Manual Diff / Slide Review NO; Basophils Absolute Auto 100 /uL (0-100); Basophils Percent Auto 0.4 % (0-2); Eosinophils Absolute Auto 100 /uL (0-450); Eosinophils Percent Auto 0.6 % (2-4); Hematocrit 36.9 % (41-53); Hemoglobin 12.6 g/dL (13.5-17.5); Lymphocytes Absolute Auto 1000 /uL (1100-4500); Lymphocytes Percent Auto 5.2 % (25-40); Mean Corpuscular Hemoglobin 29.1 PG (26-34); Mean Corpuscular Volume 85.3 fL (80-100); Monocytes Absolute Auto 1700 /uL (0-900); Monocytes Percent Auto 8.7 % (3-14); Neutrophils Absolute Auto 16300 /uL (1500-7000); Neutrophils Percent Auto 85.1 % (50-75); Platelet Count 207 X10^3/uL (150-400); Red Blood Cell Count 4.32 X10^6/uL (4.5-5.9); Red Cell Distribution Width 14.3 % (11.6-14.8); White Blood Cell Count 19.2 X10^3/uL (4.5-11.0)
[2024-01-09 03:28] LABS: Blood Urea Nitrogen 33 mg/dL (9-20); Calcium 9.2 mg/dL (8.4-10.2); Carbon Dioxide 25 mmol/L (22-32); Chloride 98 mmol/L (98-107); Estimated Glomerular Filt Rate > 60 mL/min (>60); Glucose 212 mg/dL (80-110); HEMOLYSIS 15 (0-50); Potassium 3.3 mmol/L (3.4-5.1); Sodium 131 mmol/L (137-145)
[2024-01-09 03:40] LABS: Troponin I 0.027 ng/mL (0.01-0.034)
[2024-01-09] MEDS: CEFEPIME 2 GM in SODIUM CHLORIDE 0.9% 100 ML IV ×2 (05:59→17:35)
[2024-01-09] MEDS: VANCOMYCIN 1,000 MG/200 ML PIGGYBACK 200 MG IV ×2 (07:02→18:31)
--- NOTE | 2024-01-09 08:27 | DI.US.S_ITS ---
PROCEDURE: US RENAL COMPLETE INDICATIONS: KRISTAL, UTI r/o hydronephrosis TECHNIQUE: Real-time scanning was performed of the kidneys and bladder, with image documentation. COMPARISON: None. FINDINGS: Kidneys: Kidneys are normal in size. Right kidney measures 13.4 cm long; left kidney measures 12.3 cm long. Right renal cortical thickness is 1.2 cm; left renal cortical thickness is 1.1 cm. Renal cortical echotexture is normal. No hydronephrosis or nephrolithiasis. No suspicious solid mass lesions. Bladder: Decompressed around a Salcido catheter. Miscellaneous: No free pelvic fluid. IMPRESSION: No hydronephrosis. Dictated by: Ankit Rodriguez M.D. on 01/09/2024 at 11:35 Approved by: Ankit Rodriguez M.D. on 01/09/2024 at 11:35
[2024-01-09] MEDS: ASPIRIN EC 81 MG TABLET PO (08:50)
[2024-01-09] MEDS: CLOPIDOGREL 75 MG TABLET PO (08:50)
[2024-01-09] MEDS: HEPARIN 5,000 UNIT/ML VIAL 5000 UNIT SUBCUT ×2 (08:51→21:04)
[2024-01-09] MEDS: carvediloL 3.125 MG TABLET PO ×2 (08:53→17:35)
[2024-01-09] MEDS: INSULIN LISPRO 100 UNIT/ML 3ML VIAL SUBCUT ×4 (08:53→21:05)
[2024-01-09] MEDS: POTASSIUM CHLORIDE 20 MEQ TAB 40 MEQ PO ×2 (09:58→17:34)
--- NOTE | 2024-01-09 10:44 | PT.IIE ---
Current Diagnoses Sepsis, unspecified organism (01/08/24) Surgical History (Last Reviewed 01/08/24 @ 18:01 by Som Link MD) Hx of CABG Medical History (Last Reviewed 01/08/24 @ 18:01 by Som Link MD) CAD (coronary artery disease) Congestive heart failure CVA (cerebral vascular accident) Diabetes HLD (hyperlipidemia) HTN (hypertension) Physical Therapy Inpatient Evaluation/Re-Eval M1 PT/OT-IP Prior Functional Status Start: 01/09/24 10:28 Freq: NEEDED Status: Active Protocol: Document 01/09/24 10:29 [facility] (Rec: 01/09/24 10:44 [facility] [id number]) Medical Review Prior Functional Status Medical History Reviewed Yes Diet/Fluid Consistency Regular Communication WNL Mobility and Gait walks w/SPC or no AD Activities of Daily Living and IADL's indep w/ADLs ; reports he goes ot the pool 1x/week to swim and showers there; washes up in sink between that; self cath's with 's help; for BM brings pt to library or park bathroom with grab bar Social History Household Members spouse Living Arrangements House Number of Floors (Floors) One Floor Number of Stairs To Enter/Railing? 6 RODRIGO W/rail Home Environment Standard Height Toilet,Tub/ Shower Home Equipment Front Wheel Walker,Straight Cane Additional Social History Comment walks w/2 canes-she tends to do most of housework and cooking; pt has been sleeping in M2 PT-IP Current Condition Start: 01/09/24 10:28 Freq: NEEDED Status: Active Protocol: Document 01/09/24 10:29 [facility] (Rec: 01/09/24 10:44 [facility] [id number]) Physical Therapy Current Condition Current Condition Evaluation Date 01/09/24 Treatment Diagnosis UTI, weakness M3 PT-IP Subjective Start: 01/09/24 10:28 Freq: NEEDED Status: Active Protocol: Document 01/09/24 10:29 [facility] (Rec: 01/09/24 10:44 [facility] [id number]) Subjective Physical Therapy Visit Type Type Initial Evaluation Visit Start Time 10:00 Visit Stop Time 10:26 Number of GRAND SCRIBE Visits 0 Physical Therapy Visit Comments Patient Comments pt reports LLE feels weaker than normal M4 PT-IP Mobility and Gait Start: 01/09/24 10:28 Freq: NEEDED Status: Active Protocol: Document 01/09/24 10:29 [facility] (Rec: 01/09/24 10:44 [facility] [id number]) PT-Bed Mobility Assessment Supine to Sit Supine to Sit Minimal Assistance Scooting Scooting to Edge of Bed Standby Assistance PT-Transfer Assessment Sit to and From Stand Sit to and from Stand Minimal Assistance,Use of Upper Extremities Equipment Transfer Assistive Device Gait Belt,Front Wheeled Walker Orthotic/Prosthetic Devices or Brace: No Gait Assessment Gait Gait Assistance Required: Contact Guard Assist,Minimum Assistance Distance (Feet) 40 Assistive Devices Assistive Device Gait Belt,Front Wheeled Walker Gait Deviations General Gait Pattern Decreased Stride Length, Decreased Feet Clearance, Flexed Trunk,Step-to Gait Factors Limiting Gait Function Factors Limiting Gait Function Decreased Activity Tolerance, Decreased Strength,Poor Balance Comments Gait Comments pt requierd cues for inc step lenght and had one small LOB requiring min A by PT PT-Balance Assessment Sitting Balance and Reactions Static Sitting Balance Ability Good Dynamic Sitting Balance Ability Fair Standing Balance and Reactions Static Standing Balance Ability Fair Dynamic Standing Balance Ability Poor Device Used FWW M5 PT-IP Objective Assessments Start: 01/09/24 10:28 Freq: NEEDED Status: Active Protocol: Document 01/09/24 10:29 [facility] (Rec: 01/09/24 10:44 [facility] [id number]) Orientation Orientation/Cognition Level of Alertness Alert Gross Range of Motion Lower Extremity ROM Assessment Left Impaired Strength Lower Extremity Strength Assessment Left Impaired Hip R 4/5; L 3+/5 Knee R 4-/5; L 3/5 Ankle R 4/5; L 3+/5 M6 PT-IP Treatment Start: 01/09/24 10:28 Freq: NEEDED Status: Active Protocol: Document 01/09/24 10:29 [facility] (Rec: 01/09/24 10:44 [facility] [id number]) Physical Therapy Treatment Education Education Provided Safety M7 PT-IP Assessment and Plan Start: 01/09/24 10:28 Freq: NEEDED Status: Active Protocol: Document 01/09/24 10:29 [facility] (Rec: 01/09/24 10:44 [facility] [id number]) PT Summary Assessment and Plan Potential Rehabilitation Potential Good Status of Condition at Evaluation Evolving Summary Impairments Strength,Balance,Bed Mobility, Transfers,Gait,Activity Tolerance Assessment Summary Pt presents w/UTI and recent COVID infection (Nov) along w/ inc weakness. He lives with his who walks w/2 canes but does do a lot of the household work. He has much dec step length noted today and had some LOB noted during session. He has dec activity tolerance and inc LLE weakness . Depending on how much he progresses w/PT in hospital, pt may benefit from SNF rehab for safety until he gets stronger, otherwise, DC home w /HH needed. Goals Bed Mobility Goal Independent Transfer Goal Independent Gait Goal Standby Assistance,Front Wheel Walker Gait Distance 100ft Other Goals up/dwon 6 steps w/Rail SBA Days to Meet Goals 6 Frequency of Treatment Frequency Of Treatment Once a Day Treatment Plan Physical Therapy Treatment Plan Bed Mobility Training,Transfer Training,Gait Training, Therapeutic Exercise,Balance Retraining,Discharge Planning, Neuromuscular Re-ed, Coordination Retraining Other Recommendations and Next Treatment stairs, inc gait distances and Focus improve gait mechanics Recommendations To Nursing Amount of Assist Needed 1 Person Assist Discharge Recommendations PT Discharge Recommendations Home vs SNF Transportation Needs at Discharge Private Vehicle,Wheelchair/ Cabulance
--- NOTE | 2024-01-09 11:37 | OT.IP.EVAL ---
Current Diagnoses Sepsis, unspecified organism (01/08/24) Past Medical History (Last Reviewed 01/08/24 @ 18:01 by Som Link MD) CAD (coronary artery disease) Congestive heart failure CVA (cerebral vascular accident) Diabetes HLD (hyperlipidemia) HTN (hypertension) Surgical History (Last Reviewed 01/08/24 @ 18:01 by Som Link MD) Hx of CABG Occupational Therapy Inpatient Evaluation/Re-Eval M1 PT/OT-IP Prior Functional Status Start: 01/09/24 10:28 Freq: NEEDED Status: Active Protocol: Document 01/09/24 12:23 CGR (Rec: 01/09/24 12:40 CGR [id number]) Medical Review Prior Functional Status Medical History Reviewed Yes Diet/Fluid Consistency Regular Communication WNL Mobility and Gait walks w/SPC or no AD Activities of Daily Living and IADL's indep w/ADLs ; reports he goes ot the pool 1x/week to swim and showers there; washes up in sink between that; self cath's with 's help; for BM brings pt to library or park bathroom with grab bar . assists with dressing when needed. Social History Household Members spouse Living Arrangements House Number of Floors (Floors) One Floor Number of Stairs To Enter/Railing? 6 RODRIGO W/rail Home Environment Standard Height Toilet,Tub/ Shower Home Equipment Front Wheel Walker,Straight Cane,Lift Recliner Additional Social History Comment walks w/2 canes-she tends to do most of housework and cooking; pt has been sleeping in M2 OT-IP Current Condition Start: 01/09/24 12:22 Freq: Status: Active Protocol: Document 01/09/24 12:23 CGR (Rec: 01/09/24 12:40 CGR [id number]) Occupational Therapy Current Condition Current Condition Evaluation Date 01/09/24 Treatment Diagnosis UTI, sepsis Diagnosis Onset Date 01/08/24 M3 OT- IP Subjective and Pain Start: 01/09/24 12:22 Freq: Status: Active Protocol: Document 01/09/24 12:23 CGR (Rec: 01/09/24 12:40 CGR [id number]) OT- Subjective Occupational Therapy Visit Type Type Initial Evaluation Visit Start Time 11:16 Visit Stop Time 11:37 Notes Pt's entered the room a few minutes into the session. OT Pain Assessment Pain When Pain Assessed At Rest Pain Present Pain Present Denied Pain M4 OT- IP ADL's Start: 01/09/24 12:22 Freq: Status: Active Protocol: Document 01/09/24 12:23 CGR (Rec: 01/09/24 12:40 CGR [id number]) OT [id number] Comments OT Self-Feeding Comments not meal time OT ADL-Grooming General Evaluation Grooming Ability Standby Assistance Areas Needing Assistance Retrieving/Set-up of Grooming Items,Face Washing Comments OT Grooming Comments standing at sink OT ADL-Oral Care General Eval Oral Care Ability Standby Assistance Areas of Assistance Brushing Teeth Comments Oral Care Comments standing at sink OT ADL-Dressing Comments OT Dressing Comments not performed OT ADL-Toileting Comments OT Toileting Comments not performed, pt declined need OT ADL-Bathing Comments OT Bathing Comments not performed M5 OT- IP IADL's Start: 01/09/24 12:22 Freq: Status: Active Protocol: Document 01/09/24 12:23 CGR (Rec: 01/09/24 12:40 CGR [id number]) OT-Instrumental Activities of Daily Living Deficits IADL Deficits Identified No Deficits Home Safety Awareness Awareness of Need for Assistance at Home Good Awareness Ability to Problem Solve Emergency Able to Problem Solve Situations Medication Management Medication Management Caregiver Administers Money Management Money Management Caregiver Provides Assistance Meal Preparation Meal Preparation Caregiver Provides Assist Dressmaker Helper Dressmaker Helper Caregiver Provides Assist Driving Driving Comments 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 M6 OT- IP Functional Cognition Start: 01/09/24 12:22 Freq: Status: Active Protocol: Document 01/09/24 12:23 CGR (Rec: 01/09/24 12:40 CGR [id number]) Cognitive Factors Limiting Selfcare Function Cognitive Ability Level of Alertness Alert Patient Orientation Name,Age,Birthday,Situation Attention Span Ability Capable of Focused Attention, Capable of Sustained Attention Ability to Follow Commands Able to Follow One Step Commands with Increased Time, Able to Follow One Step Commands with Repetition Cognitive Comments Cognitive Assessment Comments Pt was unable to state the correct month, day, or year. OT- Vision and Hearing OT- Hearing Assessment OT- Hearing Assessment WFL OT- Vision Assessment Visual Acuity Glasses All The Time Visual Attentiveness WFL Occular Pursuits WFL Vision Assessment Comments pt wears bifocals M7 OT- IP Mobility and Balance Start: 01/09/24 12:22 Freq: Status: Active Protocol: Document 01/09/24 12:23 CGR (Rec: 01/09/24 12:40 CGR [id number]) OT-Transfer Assessment Sit to and From Stand Sit to and from Stand Contact Guard Assistance, Minimal Assistance Transfers Transfer Ability Contact Guard Assistance, Minimal Assistance Technique Transfer Destination Chair Transfer Technique Stand Step Pivot Devices Transfer Assistive Devices Gait Belt,Front Wheeled Walker Comments Mobility Comments Pt was able to stand from the chair and ambulate to the sink with CGA to min a. Pt states fatigue of the LLE from standing and requests to return to chair after simple ADLs at sink. OT- Gait Assessment Gait Gait Assistance Required: Contact Guard Assist,Minimum Assistance Assistive Devices Assistive Device Gait Belt,Front Wheeled Walker OT- Balance Assessment Sitting Balance and Reactions Static Sitting Balance Ability Good Dynamic Sitting Balance Ability Good M8 OT- IP Objective Assessments Start: 01/09/24 12:22 Freq: Status: Active Protocol: Document 01/09/24 12:23 CGR (Rec: 01/09/24 12:40 CGR [id number]) OT Gross Range of Motion Upper Extremity Range of Motion Assessment Within Functional Limits OT Strength Upper Extremity Strength Assessment Within Functional Limits Comments Strength Comments grossly 4-/5 but noted delay of movement to the LUE. OT- Coordination Assessment Upper Extremity Finger to Nose Test Within Functional Limits Finger Tapping Test Within Functional Limits OT-Muscle Tone Assessment Muscle Tone WNL Yes OT Sensation Assessment Edema Edema Absent M9 OT- IP Assessment and Plan Start: 01/09/24 12:22 Freq: Status: Active Protocol: Document 01/09/24 12:23 CGR (Rec: 01/09/24 12:40 CGR [id number]) OT Summary Assessment and Plan Potential Rehabilitation Potential Excellent Analytic Complexity at Evaluation Moderate Summary OT Impairments Strength,Balance,Functional Cognition,Functional Mobility, Grooming,Dressing,Toileting, Bathing,Toilet Transfers, Shower Transfers,Activity Tolerance Progress Towards Goals Progressing Toward Goals Assessment Summary Pt presents as a moderate complexity evaluation s/p admit for UTI/sepsis. Pt appears slightly confused which is not his baseline per . Pt was able to participate in simple ADLs but with poor activity tolerance. Pt will benefit from continued therapy services while hospitalized. Pt is likely to progress quickly once the UTI is better controlled. Recommend pt d/c to home. Goals Grooming Goal Independent Toileting Goal Independent Bathing Goal Minimal Assistance Toilet Transfer Goal Independent Shower Transfer Goal Standby Assistance Days to Meet Goals 10 Frequency of Treatment Frequency Of Treatment Once a Day Treatment Plan OT Treatment Plan ADL Training,Functional Cognition Training,Functional Mobility,Patient/Family Education,Discharge Planning Other Treatment Recommendations and Next shower, activity tolerance Treatment Focus Discharge Recommendations OT Discharge Recommendations Home with Assistance Transportation Needs at Discharge Private Vehicle
--- NOTE | 2024-01-09 13:46 | CM.DANOTE ---
Initial DCP Assessment Visit Note Reviewed EMR and team rounds for status updates. Did not meet with pt in person today due to Covid+ status. DCP will reach out to talk with pt's tomorrow re: preferences for d/c disposition, pending eval/recommendations from PT/OT. Payor: Vera Preferred PCP: Dr. Pozo Pt is a 68 year-old M with a hx of prior stroke, resulting in residual left-sided weakness deficits and need for self-cathing/frequent UTI's presents to the ED after he fell forward, nearly falling yesterday. Spouse states that he has been steadily declining with more confusion, weakness and falling over the last several days. ED eval found him to be Covid+, septic with tachypnea, lactic acidosis and leukocytosis, as well as a UTI. He was started on IV ABO's and admitted for further eval/tx. DCP will continue to follow and assist with evolving recommendations for d/c. did share that everyone in the household has had Covid. Discharge Planning/Care Management CM Discharge Assessment Start: 01/09/24 13:40 Freq: Status: Active Protocol: Document 01/09/24 13:41 DPL (Rec: 01/09/24 13:46 DPL [id number]) Discharge Planning Assessment Assigned Road Roller Operator LISA Amin Advance Directives? No History Provided By Medical Record Has Patient been admitted in last 30 No days? Prior Living Arrangements House Household Members spouse Type of transporation used prior to Relies on Others admit Independent with ADL's Yes: Pt's does help him with self-cathing. Is patient alert and oriented? Yes Caregiver for Another No Patient/Family Preference Group Home Facility Comment SNF vs. Home w/HH, pending improvement and final d/c recommendations. Barriers to Discharge No Discharge Plan Home Transportation Arrangement Spouse Additional Comment Pending evolving care plan. If patient plan is home with home health No : Has signed face to face form been completed? If patient plan is SNF: Has PASSR been No completed? Whiteboard Updated in Patient Room with No name and ext. # of Road Roller Operator Comment RN BUILDING did not enter room due to Covid+ status. Review Status In Process Please Provide Date Initial DC 01/09/24 Assessment Was Performed
--- NOTE | 2024-01-09 15:35 | PM.PN.1 ---
Subjective Subjective Interval history: He is doing much better today. Denies abdominal pain, nausea, vomiting. He does feel quite weak. Exam Vital Signs (past 8 hours): - 01/09/24 08:53 01/09/24 13:00 Temperature 97.9 F Pulse Rate 78 70 Respiratory Rate 18 Blood Pressure 131/55 L 135/48 L Pulse Oximetry 97 Oxygen Flow Rate 0 Oxygen Delivery Method Room Air Oxygen Flow Rate 0 Narrative Exam Narrative: Gen: No acute distress, WDWN Pulm: normal effort, no distress, equal rise b/l CV: RRR Abd: S NT ND Ext: no edema Objective Labs 01/09/24 02:50 01/09/24 02:50 Labs: Laboratory Results - last 24 hr 01/08/24 01/08/24 01/08/24 14:45 16:05 17:55 WBC RBC Hgb Hct MCV MCH MCHC RDW Plt Count Neut % (Auto) Lymph % (Auto) Frio % (Auto) Eos % (Auto) Baso % (Auto) Neut # (Auto) Lymph # (Auto) Frio # (Auto) Eos # (Auto) Baso # (Auto) Sodium Potassium Chloride Carbon Dioxide BUN Creatinine Estimated GFR BUN/Creatinine Ratio Glucose Lactate Calcium Troponin I 0.025 Urine Color Yellow Urine Appearance Cloudy Urine pH 5.5 Ur Specific [place] 1.020 Urine Protein Trace H Urine Glucose (UA) 3+ H Urine Ketones Trace H Urine Occult Blood 2+ H Urine Nitrate Negative Urine Bilirubin Negative Urine Urobilinogen 0.2 Ur Leukocyte Esterase 1+ H Urine RBC None seen Urine WBC >100/hpf H Ur Squamous Epith Cells None seen Urine Bacteria None seen Ur Culture Indicated? Specimen cultured Vol Urine Centrifuged 10ml (spun) Chlamy pneumoniae PCR Not detected Adenovirus (PCR) Not detected B.parapertussis DNA PCR Not detected Coronavirus OC43 (PCR) Not detected Coronavirus HKU1 (PCR) Not detected Coronavirus 229E (PCR) Not detected SARS-CoV-2 (PCR) Detected H Coronavirus NL63 (PCR) Not detected Human Metapneumovir PCR Not detected Influenza Type A (PCR) Not detected Influenza Type B (PCR) Not detected M. pneumoniae (PCR) Not detected Parainfluenza 1 (PCR) Not detected Parainfluenza 2 (PCR) Not detected Parainfluenza 3 (PCR) Not detected Parainfluenza 4 (PCR) Not detected RSV (PCR) Not detected Entero/Rhino (PCR) Not detected 01/08/24 01/09/24 19:19 02:50 WBC 19.2 H RBC 4.32 L Hgb 12.6 L Hct 36.9 L MCV 85.3 MCH 29.1 MCHC 34.0 RDW 14.3 Plt Count 207 Neut % (Auto) 85.1 H Lymph % (Auto) 5.2 L Frio % (Auto) 8.7 Eos % (Auto) 0.6 L Baso % (Auto) 0.4 Neut # (Auto) 26386 H Lymph # (Auto) 1000 L Frio # (Auto) 1700 H Eos # (Auto) 100 Baso # (Auto) 100 Sodium 131 L Potassium 3.3 L Chloride 98 Carbon Dioxide 25 BUN 33 H Creatinine 1.22 Estimated GFR > 60 BUN/Creatinine Ratio 27.0 H Glucose 212 H D Lactate 1.3 Calcium 9.2 Troponin I 0.027 Urine Color Urine Appearance Urine pH Ur Specific [place] Urine Protein Urine Glucose (UA) Urine Ketones Urine Occult Blood Urine Nitrate Urine Bilirubin Urine Urobilinogen Ur Leukocyte Esterase Urine RBC Urine WBC Ur Squamous Epith Cells Urine Bacteria Ur Culture Indicated? Vol Urine Centrifuged Chlamy pneumoniae PCR Adenovirus (PCR) B.parapertussis DNA PCR Coronavirus OC43 (PCR) Coronavirus HKU1 (PCR) Coronavirus 229E (PCR) SARS-CoV-2 (PCR) Coronavirus NL63 (PCR) Human Metapneumovir PCR Influenza Type A (PCR) Influenza Type B (PCR) M. pneumoniae (PCR) Parainfluenza 1 (PCR) Parainfluenza 2 (PCR) Parainfluenza 3 (PCR) Parainfluenza 4 (PCR) RSV (PCR) Entero/Rhino (PCR) [facility] Medical History Congestive heart failure CVA (cerebral vascular accident) HLD (hyperlipidemia) HTN (hypertension) CAD (coronary artery disease) Diabetes Surgical History Hx of CABG Family History Mother No pertinent past medical history Father No pertinent past medical history Social History household members: spouse Smoking Status: Former smoker alcohol intake: current Assessment & Plan Assessment & Plan narrative: Sepsis secondary to acute cystitis with acute metabolic encephalopathy, KRISTAL, hyperbilirubinemia - SOFA score 3 on admission - Continue cefepime and vancomycin empirically for now, cultures with no specific organisms yet. Likely urinary source. Also COVID positive but positive 1 month ago. Can likely stop vanco if cultures remain negative by tomorrow. - cr improved today, ordered ultrasound which was negative for hydronephrosis. 2. Uncontrolled diabetes type 2 with hyperglycemia, present on admission and active. - continue glargine 20 U bedtime, sliding scale. No adjustments needed at this time. 3. Elevated troponin consistent demand ischemia, present on admission and active. - stopped trending, likely elevated due to demand from sepsis. 4. CAD, present on admission and active. - continue maida asa, plavix - can resume home antihypertensives likely tomorrow, will monitor off BP medications today in setting of sepsis. 5. Remote strokes with chronic left hemiparesis, present on admission and slightly worse than usual. - continue home asa,plavix. 6. Chronic Diastolic heart failure, present on admission and stable. - no changes to home medications currently except for holding home antihypertensives for now. 7. COVID positive with a positive test a month ago as well, present on admission and active. He is unclear what component if any of this is playing in his acute illness. 8. Hyponatremia and hypokalemia - replete as needed, will continue IV fluids today. Reassess tomorrow with morning labs. Code: Full, surrogate patient's spouse. DVT: HSQ BID Dispo: Inpatient, PT/OT ordered today to hopefully be able to discharge home in the next 1-2 days vs less likely SNF depending on improvement. Quality VTE Deep Vein Thrombosis/Pulmonary Embolism Present on Admission: No
[2024-01-09] MEDS: SODIUM CHLORIDE 0.9% 1,000 ML 50 ML IV (17:36)
[2024-01-09] MEDS: INSULIN GLARGINE 100 UNIT/ML 3ML PEN 20 UNIT SUBCUT (21:05)
[2024-01-09] MEDS: SENNOSIDES 8.6 MG TABLET 17.2 MG PO (21:07)
--- NOTE | 2024-01-09 23:43 | PC.NURSE ---
Patient is alert and oriented except did not know age (stated he was 58), day of week or month. Breath sounds CTA with RA sat of 95%. HRR. Denied nausea. BT present and reports he is passing flatus. Indwelling catheter in place and urine is much clearer tonight and is karime in color. Is able to move himself in bed. Gets out of bed using walker with 1 assist. Denied pain. Wearing bilateral calf SCD's. Remains on covid precautions but is asymptomatic. Fall risk score is high and bed alarm is activated.
[2024-01-10] VITALS (8 sets, daily range): BP systolic 116–143; BP diastolic 51–55; PULSE 60–69; RESP 16–19; TEMP 36.1–36.9; O2SAT 96–99
[2024-01-10] MEDS: CEFEPIME 2 GM in SODIUM CHLORIDE 0.9% 100 ML IV ×2 (05:32→18:16)
[2024-01-10] MEDS: VANCOMYCIN 1,000 MG/200 ML PIGGYBACK 200 MG IV (06:40)
[2024-01-10] MEDS: VANCOMYCIN TROUGH 1 REQUEST MISC (06:40)
[2024-01-10 07:01] LABS: Add Manual Diff / Slide Review NO; Basophils Absolute Auto 200 /uL (0-100); Basophils Percent Auto 1.2 % (0-2); Eosinophils Absolute Auto 200 /uL (0-450); Eosinophils Percent Auto 1.7 % (2-4); Hematocrit 35.1 % (41-53); Hemoglobin 11.7 g/dL (13.5-17.5); Lymphocytes Absolute Auto 800 /uL (1100-4500); Lymphocytes Percent Auto 6.3 % (25-40); Mean Corpuscular HGB Conc 33.4 % (30-36); Mean Corpuscular Hemoglobin 28.6 PG (26-34); Mean Corpuscular Volume 85.7 fL (80-100); Monocytes Absolute Auto 1200 /uL (0-900); Monocytes Percent Auto 8.8 % (3-14); Neutrophils Absolute Auto 11100 /uL (1500-7000); Platelet Count 206 X10^3/uL (150-400); Red Blood Cell Count 4.09 X10^6/uL (4.5-5.9); White Blood Cell Count 13.6 X10^3/uL (4.5-11.0)
[2024-01-10 07:11] LABS: BUN Creatinine Ratio 30.7 (6-22); Blood Urea Nitrogen 31 mg/dL (9-20); Calcium 8.7 mg/dL (8.4-10.2); Carbon Dioxide 21 mmol/L (22-32); Chloride 105 mmol/L (98-107); Estimated Glomerular Filt Rate > 60 mL/min (>60); Glucose 202 mg/dL (80-110); HEMOLYSIS 25 (0-50); Potassium 3.7 mmol/L (3.4-5.1); Sodium 132 mmol/L (137-145)
[2024-01-10 07:22] LABS: Vancomycin Trough 12.4 ug/mL (10-20)
[2024-01-10] MEDS: INSULIN LISPRO 100 UNIT/ML 3ML VIAL SUBCUT ×4 (08:32→19:45)
[2024-01-10] MEDS: carvediloL 3.125 MG TABLET PO ×2 (08:35→18:13)
[2024-01-10] MEDS: HEPARIN 5,000 UNIT/ML VIAL 5000 UNIT SUBCUT ×2 (08:35→19:42)
[2024-01-10] MEDS: CLOPIDOGREL 75 MG TABLET PO (08:36)
[2024-01-10] MEDS: ASPIRIN EC 81 MG TABLET PO (08:36)
[2024-01-10 09:31] LABS: Vancomycin Peak 22.6 ug/mL (20-40)
--- NOTE | 2024-01-10 11:52 | PT.IPTN ---
Current Diagnoses Sepsis, unspecified organism (01/08/24) Physical Therapy Treatment Note M2 PT-IP Current Condition Start: 01/09/24 10:28 Freq: NEEDED Status: Active Protocol: Document 01/09/24 10:29 [facility] (Rec: 01/09/24 10:44 [facility] [id number]) Physical Therapy Current Condition Current Condition Evaluation Date 01/09/24 Treatment Diagnosis UTI, weakness M3 PT-IP Subjective Start: 01/09/24 10:28 Freq: NEEDED Status: Active Protocol: Document 01/10/24 12:31 TS (Rec: 01/10/24 12:39 TS [id number]) Subjective Physical Therapy Visit Type Type Treatment Note Visit Start Time 11:52 Visit Stop Time 12:15 Number of PRINCIPLE SOFTWARE ENGINEER Visits 1 Physical Therapy Visit Comments Patient Comments Pt found resting in chair, spouse in room, pt agreeable to PT. M4 PT-IP Mobility and Gait Start: 01/09/24 10:28 Freq: NEEDED Status: Active Protocol: Document 01/10/24 12:31 TS (Rec: 01/10/24 12:39 TS [id number]) PT-Transfer Assessment Sit to and From Stand Sit to and from Stand Standby Assistance Equipment Transfer Assistive Device Gait Belt,Front Wheeled Walker Orthotic/Prosthetic Devices or Brace: No Comments Mobility Comments STS from chair SBA with use of FWW, pt demonstrates good STS technique pushing from arms of chair. He ambulated in room ~50'SBA with FWW, pt is slightly unsteady. He performed stairs x6 with single rail CGA, pt has some buckling in both knees when performing stairs but no LOB. Pt was left back in chair, all needs met. Gait Assessment Gait Gait Assistance Required: Standby Assistance Distance (Feet) 50 Assistive Devices Assistive Device Gait Belt,Front Wheeled Walker Orthotic/Prosthetic Devices or Brace: No Gait Deviations General Gait Pattern Decreased Stride Length, Decreased Feet Clearance, Flexed Trunk Factors Limiting Gait Function Factors Limiting Gait Function Decreased Activity Tolerance, Decreased Strength,Poor Balance,Poor Safety Awareness Comments Gait Comments See mobility comments Stair Climbing Assessment Evaluation Level of Assist On Stairs Contact Guard Assistance,1 Person Assistance Devices Stair Climbing Assistive Devices Right Railing Technique/Endurance Stair Climbing Direction Ascend and Descend Stair Climbing Technique Step to Step Number of Steps Climbed 6 Comments Stair Climbing Comments See mobility comments PT-Balance Assessment Sitting Balance and Reactions Static Sitting Balance Ability Good Dynamic Sitting Balance Ability Good Standing Balance and Reactions Static Standing Balance Ability Fair Dynamic Standing Balance Ability Fair Device Used FWW M5 PT-IP Objective Assessments Start: 01/09/24 10:28 Freq: NEEDED Status: Active Protocol: Document 01/09/24 10:29 [facility] (Rec: 01/09/24 10:44 [facility] [id number]) Orientation Orientation/Cognition Level of Alertness Alert Gross Range of Motion Lower Extremity ROM Assessment Left Impaired Strength Lower Extremity Strength Assessment Left Impaired Hip R 4/5; L 3+/5 Knee R 4-/5; L 3/5 Ankle R 4/5; L 3+/5 M6 PT-IP Treatment Start: 01/09/24 10:28 Freq: NEEDED Status: Active Protocol: Document 01/10/24 12:31 TS (Rec: 01/10/24 12:39 TS [id number]) Physical Therapy Treatment Education Education Provided Safety M7 PT-IP Assessment and Plan Start: 01/09/24 10:28 Freq: NEEDED Status: Active Protocol: Document 01/10/24 12:31 TS (Rec: 01/10/24 12:39 TS [id number]) PT Summary Assessment and Plan Potential Rehabilitation Potential Good Summary Impairments Strength,Balance,Bed Mobility, Transfers,Gait,Activity Tolerance Progress Towards Goals Progressing Toward Goals Assessment Summary [place] is progressing well with his mobility. He performed STS SBA with use of FWW and from low surface of chair. He ambulated ~50'SBA with some unsteadiness but LOB . He performed stairs x6 CGA, pt has some buckling with B knees, maintains balance with use of counter support. PT is recommending pt return home with assist and HHPT/ outpatient PT. Goals Bed Mobility Goal Independent Transfer Goal Independent Gait Goal Standby Assistance,Front Wheel Walker Gait Distance 100ft Other Goals up/dwon 6 steps w/Rail SBA Days to Meet Goals 6 Frequency of Treatment Frequency Of Treatment Once a Day Treatment Plan Physical Therapy Treatment Plan Bed Mobility Training,Transfer Training,Gait Training, Therapeutic Exercise,Balance Retraining,Discharge Planning, Neuromuscular Re-ed, Coordination Retraining Other Recommendations and Next Treatment stairs, inc gait distances and Focus improve gait mechanics Recommendations To Nursing Amount of Assist Needed 1 Person Assist Discharge Recommendations PT Discharge Recommendations Home with Assistance,Home Health,Outpatient PT Transportation Needs at Discharge Private Vehicle
--- NOTE | 2024-01-10 11:55 | OT.IP.TRT ---
Current Diagnoses Sepsis, unspecified organism (01/08/24) Occupational Therapy Treatment Note M2 OT-IP Current Condition Start: 01/09/24 12:22 Freq: Status: Active Protocol: Document 01/09/24 12:23 CGR (Rec: 01/09/24 12:40 CGR [id number]) Occupational Therapy Current Condition Current Condition Evaluation Date 01/09/24 Treatment Diagnosis UTI, sepsis Diagnosis Onset Date 01/08/24 M3 OT- IP Subjective and Pain Start: 01/09/24 12:22 Freq: Status: Active Protocol: Document 01/10/24 11:55 [facility] (Rec: 01/10/24 12:00 [facility] [id number]) OT- Subjective Occupational Therapy Visit Type Type Treatment Note Visit Start Time 11:45 Visit Stop Time 11:55 Occupational Therapy Visit Comments Patient Comments Pt and his present in the room. Patient/Caregiver Goals TO go home. OT Pain Assessment Pain When Pain Assessed At Rest Pain Present Pain Present Denied Pain M4 OT- IP ADL's Start: 01/09/24 12:22 Freq: Status: Active Protocol: Document 01/10/24 11:55 [facility] (Rec: 01/10/24 12:00 [facility] [id number]) OT [id number] General Evaluation Self-Feeding Ability Independent OT ADL-Dressing Comments OT Dressing Comments not performed OT ADL-Toileting Comments OT Toileting Comments Pt not having to go. OT ADL-Bathing Comments OT Bathing Comments Per nurse and pt able to shower on his own after set-up . Pt showers at a park bathroom prior and will have assist. M6 OT- IP Functional Cognition Start: 01/09/24 12:22 Freq: Status: Active Protocol: Document 01/10/24 11:55 [facility] (Rec: 01/10/24 12:00 [facility] [id number]) Cognitive Factors Limiting Selfcare Function Cognitive Comments Cognitive Assessment Comments Pt having difficulty to count back from 100 by 7's. Suggested pt hold off from going back to work yet as UTI can also affect his thinking. Pt's agreed. M7 OT- IP Mobility and Balance Start: 01/09/24 12:22 Freq: Status: Active Protocol: Document 01/09/24 12:23 CGR (Rec: 01/09/24 12:40 CGR [id number]) OT-Transfer Assessment Sit to and From Stand Sit to and from Stand Contact Guard Assistance, Minimal Assistance Transfers Transfer Ability Contact Guard Assistance, Minimal Assistance Technique Transfer Destination Chair Transfer Technique Stand Step Pivot Devices Transfer Assistive Devices Gait Belt,Front Wheeled Walker Comments Mobility Comments Pt was able to stand from the chair and ambulate to the sink with CGA to min a. Pt states fatigue of the LLE from standing and requests to return to chair after simple ADLs at sink. OT- Gait Assessment Gait Gait Assistance Required: Contact Guard Assist,Minimum Assistance Assistive Devices Assistive Device Gait Belt,Front Wheeled Walker OT- Balance Assessment Sitting Balance and Reactions Static Sitting Balance Ability Good Dynamic Sitting Balance Ability Good M8 OT- IP Objective Assessments Start: 01/09/24 12:22 Freq: Status: Active Protocol: Document 01/09/24 12:23 CGR (Rec: 01/09/24 12:40 CGR [id number]) OT Gross Range of Motion Upper Extremity Range of Motion Assessment Within Functional Limits OT Strength Upper Extremity Strength Assessment Within Functional Limits Comments Strength Comments grossly 4-/5 but noted delay of movement to the LUE. OT- Coordination Assessment Upper Extremity Finger to Nose Test Within Functional Limits Finger Tapping Test Within Functional Limits OT-Muscle Tone Assessment Muscle Tone WNL Yes OT Sensation Assessment Edema Edema Absent M9 OT- IP Assessment and Plan Start: 01/09/24 12:22 Freq: Status: Active Protocol: Document 01/10/24 11:55 [facility] (Rec: 01/10/24 12:00 [facility] [id number]) OT Summary Assessment and Plan Potential Rehabilitation Potential Excellent Analytic Complexity at Evaluation Moderate Summary Progress Towards Goals Progressing Toward Goals Assessment Summary Pt able to shower today after set-up. Pt's feel pt is doing better as his personality is starting to show more. Pt's aware that his thinking is not all the way back to normal but overall doing much better. Pt to go home with assist when medically stable. Goals Grooming Goal Independent Dressing Goal Independent Toileting Goal Independent Bathing Goal Independent Toilet Transfer Goal Independent Shower Transfer Goal Independent Days to Meet Goals 5 Frequency of Treatment Frequency Of Treatment Once a Day Treatment Plan OT Treatment Plan ADL Training,Functional Cognition Training,Functional Mobility,Patient/Family Education,Discharge Planning Discharge Recommendations OT Discharge Recommendations Home with Assistance Transportation Needs at Discharge Private Vehicle
--- NOTE | 2024-01-10 13:05 | CM.DPC ---
DCP Cont. Reviewed EMR and team rounds for status updates. Plan is to continue IV ABO's for another day, pt continues to improve. No other changes noted. Will continue to monitor for any further d/c needs.
--- NOTE | 2024-01-10 13:46 | P.PN_ITS ---
Subjective Subjective Interval history: He is doing much better today. Denies abdominal pain, nausea, vomiting. He does feel quite weak. Exam Vital Signs (past 8 hours): - 01/10/24 08:00 01/10/24 08:35 01/10/24 12:00 Temperature 97.0 F L 97.5 F L Pulse Rate 64 64 64 Respiratory Rate 16 18 Blood Pressure 135/54 L 135/54 L 116/52 L Pulse Oximetry 97 99 Oxygen Flow Rate 0 0 Oxygen Delivery Method Room Air Oxygen Flow Rate 0 Narrative Exam Narrative: Gen: No acute distress, WDWN Pulm: normal effort, no distress, equal rise b/l CV: RRR Abd: S NT ND Ext: no edema Objective Labs 01/10/24 06:31 01/10/24 06:31 Labs: Laboratory Results - last 24 hr 01/10/24 01/10/24 06:31 08:37 WBC 13.6 H RBC 4.09 L Hgb 11.7 L Hct 35.1 L MCV 85.7 MCH 28.6 MCHC 33.4 RDW 14.0 Plt Count 206 Neut % (Auto) 82.0 H Lymph % (Auto) 6.3 L [place] % (Auto) 8.8 Eos % (Auto) 1.7 L Baso % (Auto) 1.2 Neut # (Auto) 10338 H Lymph # (Auto) 800 L [place] # (Auto) 1200 H Eos # (Auto) 200 Baso # (Auto) 200 H Sodium 132 L Potassium 3.7 Chloride 105 Carbon Dioxide 21 L BUN 31 H Creatinine 1.01 Estimated GFR > 60 BUN/Creatinine Ratio 30.7 H Glucose 202 H Calcium 8.7 Vancomycin Peak 22.6 Vancomycin Trough 12.4 PFSH Medical History Congestive heart failure CVA (cerebral vascular accident) HLD (hyperlipidemia) HTN (hypertension) CAD (coronary artery disease) Diabetes Surgical History Hx of CABG Family History Mother No pertinent past medical history Father No pertinent past medical history Social History household members: spouse Smoking Status: Former smoker alcohol intake: current Assessment & Plan Assessment & Plan narrative: Sepsis secondary to acute cystitis with acute metabolic encephalopathy, KRISTAL, hyperbilirubinemia - SOFA score 3 on admission - Continue cefepime and vancomycin empirically for now, urine culture with GPC. Likely urinary source. Also COVID positive. Narrow once cultures finalize. - cr improved today, ordered ultrasound which was negative for hydronephrosis. 2. Uncontrolled diabetes type 2 with hyperglycemia, present on admission and active. - continue glargine 20 U bedtime, sliding scale. No adjustments needed at this time. 3. Elevated troponin consistent demand ischemia, present on admission and active. - stopped trending, likely elevated due to demand from sepsis. 4. CAD, present on admission and active. - continue maida asa, plavix - can resume home antihypertensives likely tomorrow, will monitor off BP medications today in setting of sepsis. 5. Remote strokes with chronic left hemiparesis, present on admission and slightly worse than usual. - continue home asa,plavix. 6. Chronic Diastolic heart failure, present on admission and stable. - no changes to home medications currently except for holding home antihypertensives for now. 7. COVID positive with a positive test a month ago as well, present on admission and active. He is unclear what component if any of this is playing in his acute illness. 8. Hyponatremia and hypokalemia - replete as needed, will continue IV fluids today. Reassess tomorrow with morning labs. Code: Full, surrogate patient's spouse. DVT: HSQ BID Dispo: Inpatient, PT/OT ordered today to hopefully be able to discharge home in the next 1-2 days vs less likely SNF depending on improvement. Quality VTE Deep Vein Thrombosis/Pulmonary Embolism Present on Admission: No
[2024-01-10] MEDS: VANCOMYCIN 1,250 MG/250 ML PIGGYBACK 250 MG IV (19:34)
[2024-01-10] MEDS: SENNOSIDES 8.6 MG TABLET 17.2 MG PO (19:42)
[2024-01-10] MEDS: INSULIN GLARGINE 100 UNIT/ML 3ML PEN 20 UNIT SUBCUT (19:45)
[2024-01-11 00:07] VITALS: BP 131/50; PULSE 60; RESP 19; TEMP 36.6; O2SAT 97
[2024-01-11 04:52] LABS: Add Manual Diff / Slide Review NO; Basophils Absolute Auto 100 /uL (0-100); Basophils Percent Auto 0.6 % (0-2); Eosinophils Absolute Auto 300 /uL (0-450); Eosinophils Percent Auto 2.6 % (2-4); Hematocrit 35.9 % (41-53); Hemoglobin 12.1 g/dL (13.5-17.5); Lymphocytes Absolute Auto 1300 /uL (1100-4500); Lymphocytes Percent Auto 11.7 % (25-40); Mean Corpuscular HGB Conc 33.6 % (30-36); Mean Corpuscular Hemoglobin 28.6 PG (26-34); Mean Corpuscular Volume 85.1 fL (80-100); Monocytes Absolute Auto 1300 /uL (0-900); Monocytes Percent Auto 11.6 % (3-14); Neutrophils Absolute Auto 8400 /uL (1500-7000); Neutrophils Percent Auto 73.5 % (50-75); Platelet Count 235 X10^3/uL (150-400); Red Blood Cell Count 4.22 X10^6/uL (4.5-5.9); White Blood Cell Count 11.4 X10^3/uL (4.5-11.0)
[2024-01-11 05:01] VITALS: BP 136/53; PULSE 54; RESP 17; TEMP 36.6; O2SAT 97
[2024-01-11 05:19] LABS: Blood Urea Nitrogen 27 mg/dL (9-20); Calcium 8.8 mg/dL (8.4-10.2); Carbon Dioxide 21 mmol/L (22-32); Chloride 108 mmol/L (98-107); Estimated Glomerular Filt Rate > 60 mL/min (>60); Glucose 199 mg/dL (80-110); HEMOLYSIS < 15 (0-50); Potassium 3.5 mmol/L (3.4-5.1); Sodium 134 mmol/L (137-145)
[2024-01-11] MEDS: CEFEPIME 2 GM in SODIUM CHLORIDE 0.9% 100 ML IV (05:19)
[2024-01-11] MEDS: VANCOMYCIN 1,250 MG/250 ML PIGGYBACK 250 MG IV (06:14)
[2024-01-11 08:17] VITALS: BP 132/60; PULSE 58; RESP 20; TEMP 36.3; O2SAT 98
[2024-01-11] MEDS: INSULIN LISPRO 100 UNIT/ML 3ML VIAL SUBCUT ×2 (08:45→11:38)
[2024-01-11 08:50] VITALS: BP 132/60; PULSE 60
[2024-01-11] MEDS: HEPARIN 5,000 UNIT/ML VIAL 5000 UNIT SUBCUT (08:50)
[2024-01-11] MEDS: ASPIRIN EC 81 MG TABLET PO (08:50)
[2024-01-11] MEDS: carvediloL 3.125 MG TABLET PO (08:50)
[2024-01-11] MEDS: buPROPion XL 150 MG TAB 300 MG PO (08:51)
[2024-01-11] MEDS: CLOPIDOGREL 75 MG TABLET PO (08:51)
[2024-01-11] MEDS: POTASSIUM CHLORIDE 20 MEQ TAB 40 MEQ PO (10:12)
--- NOTE | 2024-01-11 10:23 | PT.IPTN ---
Current Diagnoses Sepsis, unspecified organism (01/08/24) Physical Therapy Treatment Note M2 PT-IP Current Condition Start: 01/09/24 10:28 Freq: NEEDED Status: Active Protocol: Document 01/09/24 10:29 LR (Rec: 01/09/24 10:44 [facility] [id number]) Physical Therapy Current Condition Current Condition Evaluation Date 01/09/24 Treatment Diagnosis UTI, weakness M3 PT-IP Subjective Start: 01/09/24 10:28 Freq: NEEDED Status: Active Protocol: Document 01/11/24 10:37 TS (Rec: 01/11/24 10:44 TS [id number]) Subjective Physical Therapy Visit Type Type Treatment Note Visit Start Time 10:23 Visit Stop Time 10:33 Number of CODING QUALITY ANALYST Visits 2 Physical Therapy Visit Comments Patient Comments Pt found resting in chair, would like to get back to bed, pt agreeable to PT. M4 PT-IP Mobility and Gait Start: 01/09/24 10:28 Freq: NEEDED Status: Active Protocol: Document 01/11/24 10:37 TS (Rec: 01/11/24 10:44 TS [id number]) PT-Bed Mobility Assessment Sit to Supine Sit to Supine Independent Scooting Scooting Up and Down in Bed Independent PT-Transfer Assessment Sit to and From Stand Sit to and from Stand Standby Assistance Equipment Transfer Assistive Device Gait Belt,Front Wheeled Walker Orthotic/Prosthetic Devices or Brace: No Comments Mobility Comments STS from chair SBA with BUE support pushing from arms of chair. Pt performed stand step pivot to bed SBA with FWW. Sit to supine into bed Ind with bed flat, pt scooted to HOB Ind with rail assist. Pt was left in bed, all needs met . Gait Assessment Gait Gait Assistance Required: Standby Assistance Distance (Feet) 3 Assistive Devices Assistive Device Gait Belt,Front Wheeled Walker Orthotic/Prosthetic Devices or Brace: No Gait Deviations General Gait Pattern Decreased Stride Length, Decreased Feet Clearance, Flexed Trunk Factors Limiting Gait Function Factors Limiting Gait Function Decreased Activity Tolerance, Decreased Strength,Poor Balance,Poor Safety Awareness Comments Gait Comments See mobility comments PT-Balance Assessment Sitting Balance and Reactions Static Sitting Balance Ability Good Dynamic Sitting Balance Ability Good Standing Balance and Reactions Static Standing Balance Ability Good Dynamic Standing Balance Ability Fair Device Used FWW M5 PT-IP Objective Assessments Start: 01/09/24 10:28 Freq: NEEDED Status: Active Protocol: Document 01/09/24 10:29 [facility] (Rec: 01/09/24 10:44 [facility] [id number]) Orientation Orientation/Cognition Level of Alertness Alert Gross Range of Motion Lower Extremity ROM Assessment Left Impaired Strength Lower Extremity Strength Assessment Left Impaired Hip R 4/5; L 3+/5 Knee R 4-/5; L 3/5 Ankle R 4/5; L 3+/5 M6 PT-IP Treatment Start: 01/09/24 10:28 Freq: NEEDED Status: Active Protocol: Document 01/11/24 10:37 TS (Rec: 01/11/24 10:44 TS [id number]) Physical Therapy Treatment Education Education Provided Safety M7 PT-IP Assessment and Plan Start: 01/09/24 10:28 Freq: NEEDED Status: Active Protocol: Document 01/11/24 10:37 TS (Rec: 01/11/24 10:44 TS [id number]) PT Summary Assessment and Plan Potential Rehabilitation Potential Good Summary Impairments Strength,Balance,Bed Mobility, Transfers,Gait,Activity Tolerance Progress Towards Goals Progressing Toward Goals Assessment Summary [place] continues to do well with his mobility. He is Ind for bed mobility and SBA for STS with FWW. He did not complete stairs today due to wanting to get bakc to bed. PT is recommending home with assist. Goals Bed Mobility Goal Independent Transfer Goal Independent Gait Goal Standby Assistance,Front Wheel Walker Gait Distance 100ft Other Goals up/dwon 6 steps w/Rail SBA Days to Meet Goals 6 Frequency of Treatment Frequency Of Treatment Once a Day Treatment Plan Physical Therapy Treatment Plan Bed Mobility Training,Transfer Training,Gait Training, Therapeutic Exercise,Balance Retraining,Discharge Planning, Neuromuscular Re-ed, Coordination Retraining Other Recommendations and Next Treatment stairs, inc gait distances and Focus improve gait mechanics Recommendations To Nursing Amount of Assist Needed Standby Assistance Discharge Recommendations PT Discharge Recommendations Home with Assistance, Outpatient PT Transportation Needs at Discharge Private Vehicle
--- NOTE | 2024-01-11 10:46 | OT.IPNOTE ---
Pt just finished seeing [employer] SUPERVIS[employer] and requesting to sleep.
[2024-01-11 12:00] VITALS: BP 132/52; PULSE 57; RESP 20; TEMP 36.3; O2SAT 98
--- NOTE | 2024-01-11 13:26 | P.DS_ITS ---
History of Present Illness History of Present Illness Chief complaint: UTI symptoms Narrative: The patient is a 68-year-old male with an extensive past medical history which includes previous strokes with residual left hemiparesis, chronic self cathing, recurrent urinary tract infection, diabetes mellitus 2, hypertension, hyperlipidemia, CAD with history of CABG, and congestive heart failure which is diastolic. He presents with increased weakness and falling. This has been ongoing for the last 24 hours. He lives at home with his and also notes that the appearance of the urine has changed to more cloudy over the last several days. Everybody in the household had COVID and tested positive a month ago. He test positive today and notes some rhinorrhea but denies sore throat, cough or shortness a breath. He has been hypoglycemic for the last 2 weeks and has glucose in the 400s here but is not ketotic. He does note that his left side is more weak than usual. A CT of the brain was unremarkable. He was noted to have a mild lactic acidosis, and a glucose of 473 as well as mild acute kidney injury. His troponin was mildly elevated but he denies any chest pain or shortness a breath. He also denies any hematuria, or abdominal pain. Discharge Providers Provider Date of admission: 01/08/24 17:07 Discharge Date: 01/11/24 Primary care physician: Dakota Pozo MD Consults: 01/08/24 18:12 Consult to Occupational Therapy Evaluate & Treat Comment: Physician Instructions: Evaluate and treat Consult to Physical Therapy Evaluate & Treat Comment: Physician Instructions: Evaluate and Treat Discharge provider: Michael Estrada DO Summary Hospital Course Discharge Diagnosis: 1. Sepsis secondary to acute cystitis with acute metabolic encephalopathy, KRISTAL, hyperbilirubinemia - SOFA score 3 on admission - Continue cefepime and vancomycin empirically for now, urine culture with GPC. Likely urinary source. Also COVID positive. Narrow once cultures finalize. - cr improved, ordered ultrasound which was negative for hydronephrosis. - urine cultures grew enterococcus, discharged on po cipro for 6 days to finish 10 days of trx 2. Uncontrolled diabetes type 2 with hyperglycemia, present on admission and active. - continue glargine 20 U bedtime, sliding scale. No adjustments needed at this time. 3. Elevated troponin consistent demand ischemia, present on admission and active. - stopped trending, likely elevated due to demand from sepsis. 4. CAD, present on admission and active. - continue maida asa, plavix - can resume home antihypertensives likely tomorrow, will monitor off BP medications today in setting of sepsis. 5. Remote strokes with chronic left hemiparesis, present on admission and slightly worse than usual. - continue home asa,plavix. 6. Chronic Diastolic heart failure, present on admission and stable. - no changes to home medications currently except for holding home antihypertensives for now. 7. COVID positive with a positive test a month ago as well, present on admission and active. He is unclear what component if any of this is playing in his acute illness. 8. Hyponatremia and hypokalemia - replete as needed, will continue IV fluids today. Reassess tomorrow with morning labs. Hospital Course: Admitted for pyelo and sepsis. UA with pyuria and likely source as patient straight caths. Placed on cefepime and vanc and improved. UCx grew enterococcus sensitive to quinolones so patient put on cipro x6 days to finish 10 days of abx course. Instructed to avoid strenuous activity due to tendon rupture risk. Discharged home with . Exam Vital Signs (past 8 hours): - 01/11/24 08:17 01/11/24 08:50 01/11/24 12:00 Temperature 97.4 F L 97.4 F L Pulse Rate 58 L 60 57 L Respiratory Rate 20 20 Blood Pressure 132/60 132/60 132/52 L Pulse Oximetry 98 98 Oxygen Flow Rate 0 0 Oxygen Delivery Method Room Air Oxygen Flow Rate 0 Narrative Exam Narrative: Gen: No acute distress, WDWN Pulm: normal effort, no distress, equal rise b/l CV: RRR Abd: S NT ND Ext: no edema Objective Labs 01/11/24 04:30 01/11/24 04:30 Labs: Laboratory Results - last 24 hr 01/11/24 04:30 WBC 11.4 H RBC 4.22 L Hgb 12.1 L Hct 35.9 L MCV 85.1 MCH 28.6 MCHC 33.6 RDW 14.0 Plt Count 235 Neut % (Auto) 73.5 Lymph % (Auto) 11.7 L [place] % (Auto) 11.6 Eos % (Auto) 2.6 Baso % (Auto) 0.6 Neut # (Auto) 8400 H Lymph # (Auto) 1300 [place] # (Auto) 1300 H Eos # (Auto) 300 Baso # (Auto) 100 Sodium 134 L Potassium 3.5 Chloride 108 H Carbon Dioxide 21 L BUN 27 H Creatinine 0.87 Estimated GFR > 60 BUN/Creatinine Ratio 31.0 H Glucose 199 H Calcium 8.8 PFSH Medical History Congestive heart failure CVA (cerebral vascular accident) HLD (hyperlipidemia) HTN (hypertension) CAD (coronary artery disease) Diabetes Surgical History Hx of CABG Family History Mother No pertinent past medical history Father No pertinent past medical history Social History household members: spouse Smoking Status: Former smoker alcohol intake: current Discharge Plan Discharge Plan Patient Disposition: Home Provider Discharge Comment: You were found to have a UTI. Please finish oral antibiotics at home. Discharge orders & Medications Prescriptions: New ciprofloxacin HCl [Cipro] 500 mg tablet 500 mg PO BID 4 Days Qty: 8 0RF Continued benzonatate 200 mg capsule 200 mg PO BID PRN (Reason: cough) Qty: 28 0RF aspirin 81 mg Tablet,Delayed Release (Dr/Ec) 81 mg PO DAILY Qty: 30 0RF carvedilol 6.25 mg tablet 6.25 mg PO BID fluticasone propionate 50 mcg/actuation spray,suspension 1 spray intranasal Q12H bupropion HCl 150 mg tablet extended release 24 hr 300 mg PO QAM Ozempic 0.25 mg or 0.5 mg (2 mg/3 mL) pen injector 0.5 mg SUBCUT WEEKLY Rx Instructions: takes sundays but has been having difficulty with refills torsemide 20 mg tablet 40 mg PO DAILY methylphenidate HCl 10 mg tablet 10 mg PO QID clopidogrel 75 mg tablet 75 mg PO DAILY amlodipine 5 mg tablet 5 mg PO DAILY potassium chloride 20 mEq tablet,ER particles/crystals 20 meq PO DAILY insulin aspart U-100 [Novolog U-100 Insulin aspart] 100 unit/mL solution See Rx Instructions .ROUTE .COMPLEX Rx Instructions: takes based on carb intake. hasn't taken x1 week. Novolin N NPH U-100 Insulin 100 unit/mL suspension See Rx Instructions .ROUTE .COMPLEX Rx Instructions: BID based on carb intake nitroglycerin 0.4 mg tablet, sublingual 0.4 mg sublingual Q5M PRN (Reason: Chest Pain) lisinopril 40 mg tablet 40 mg PO DAILY Follow up/Referrals: Pan Pena DO [Non-Staff] - 01/20/24 12:20 pm (Appt:01/19 check in @ 12:[address] Pena ) Visit Report/Discharge Packet Stand Alone Forms: Patient Portal/API, Stroke Signs & Symptoms Discharge Data Primary Care Provider: Dakota Pozo VTE Deep Vein Thrombosis/Pulmonary Embolism Present on Admission: No
--- NOTE | 2024-01-11 14:18 | CM.DPC ---
DCP Cont. Reviewed EMR and team rounds for status updates. Pt has improved and plan is for him to d/c back home this afternoon. His is at bedside and ready to transport after they sign d/c forms. No further DCP needs indicated at this time.
--- NOTE | 2024-01-11 15:24 | PC.NURSE ---
Pt is A&OX4, VSS, afebrile on RA. He calls appropriately for assistance to BR using FWW. He has a slow and steady gait. He reports LUE soreness/achiness but declines any intervention or medication for pain. He has a good appetite, adequate urine output and has a couple of loose stools this a.m. Salcido draining clear yellow urine. He is cleared for discharge this afternoon on oral antibiotics and a follow up appointment with his Primary Care Provider on 01/20/24. He and verbalize understanding of medications and discharge plan. Salcido is removed (patient straigh cath's per routine at home). He is escorted via w/ch with to private vehicle for discharge home today at 1448 with all of his personal belongings.
== END 2024-01-11 14:48 | disposition home or self-care (01) | DRG 698 ==
LOC: ED 12:24 → AC 17:08
PROVIDERS: Admitting Provider Hospitalist; Emergency Provider Emergency Medicine; PCP Family Medicine; Referring Provider Emergency Medicine; Visit Provider Hospitalist
DX: T83.511A Infection and inflammatory reaction due to indwelling urethral catheter, initial encounter (principal); A41.9 Sepsis, unspecified organism; G93.41 Metabolic encephalopathy; U07.1 COVID-19; R65.20 Severe sepsis without septic shock; I69.354 Hemiplegia and hemiparesis following cerebral infarction affecting left non-dominant side; E87.20 Acidosis, unspecified; I24.89 Other forms of acute ischemic heart disease; N30.00 Acute cystitis without hematuria; N17.9 Acute kidney failure, unspecified; I50.32 Chronic diastolic (congestive) heart failure; E87.1 Hypo-osmolality and hyponatremia; I25.10 Atherosclerotic heart disease of native coronary artery without angina pectoris; E11.65 Type 2 diabetes mellitus with hyperglycemia; E80.6 Other disorders of bilirubin metabolism; E87.6 Hypokalemia; B95.2 Enterococcus as the cause of diseases classified elsewhere; I11.0 Hypertensive heart disease with heart failure; Z79.4 Long term (current) use of insulin; Z79.85 Long-term (current) use of injectable non-insulin antidiabetic drugs; Z95.1 Presence of aortocoronary bypass graft; Z79.02 Long term (current) use of antithrombotics/antiplatelets; Z87.891 Personal history of nicotine dependence
CPT/HCPCS: 36415; 70450; 71045; 76770; 80048; 80053; 80202; 81001; 82962; 83605; 83690; 83735; 83880; 84145; 84484; 85025; 87040; 87077; 87086; 87186; 87633; 93005; 96365; 96367; 97116; 97162; 97166; 97530; 97535; 99285; 99291; J0692; J1644; J1815

== ENCOUNTER → 2024-04-12 11:33 | Outpatient (CLI) | payer OTHER, SELFPAY ==
[2024-01-08 17:22] VITALS: BMI 29.5
== END ==
PROVIDERS: PCP Family Medicine; Visit Provider Nurse Practitioner Family
DX: R30.0 Dysuria (principal)
CPT/HCPCS: 87086

== ENCOUNTER → 2024-06-04 10:08 | Outpatient (CLI) | payer OTHER, SELFPAY ==
[2024-01-08 17:22] VITALS: BMI 29.5
--- NOTE | 2024-06-04 10:09 | DI.RAD.S_ITS ---
PROCEDURE: XR FOOT RT MIN 3V INDICATIONS: Right foot/ankle injury TECHNIQUE: 3 views of the foot were acquired. COMPARISON: [facility], CR, XR ANKLE RT MIN 3V, 06/04/2024, 10:29. FINDINGS: Bones: No fractures or dislocations. No suspicious bony lesions. 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 Soft tissues: No tibiotalar joint effusion. Achilles tendon appears normal. 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 No acute bony abnormality. Dictated by: Elijah Kee M.D. on 06/04/2024 at 11:29 Approved by: Elijah Kee M.D. on 06/04/2024 at 11:30
--- NOTE | 2024-06-04 10:09 | DI.RAD.S_ITS ---
PROCEDURE: XR ANKLE RT MIN 3V INDICATIONS: Right foot/ankle injury TECHNIQUE: 3 views of the ankle were acquired. COMPARISON: None. FINDINGS: Bones: No fractures or dislocations. Ankle mortise is normally aligned. No suspicious bony lesions. Soft tissues: Lateral soft tissue swelling. No tibiotalar joint effusion. Achilles tendon appears normal. IMPRESSION: Lateral ankle sprain. No acute bony abnormality or significant effusion. Dictated by: Elijah Kee M.D. on 06/04/2024 at 11:30 Approved by: Elijah Kee M.D. on 06/04/2024 at 11:33
== END ==
PROVIDERS: PCP Family Medicine; Referring Provider Physician Assistant Surgical; Visit Provider Physician Assistant Surgical
DX: S93.491A Sprain of other ligament of right ankle, initial encounter (principal); S99.921A Unspecified injury of right foot, initial encounter; M19.071 Primary osteoarthritis, right ankle and foot; X58.XXXA Exposure to other specified factors, initial encounter
CPT/HCPCS: 73610; 73630

== ENCOUNTER → 2024-06-28 13:53 | Outpatient (CLI) | payer OTHER, SELFPAY ==
[2024-01-08 17:22] VITALS: BMI 29.5
== END ==
PROVIDERS: PCP Family Medicine; Referring Provider Podiatrist; Visit Provider Surgery
DX: E11.622 Type 2 diabetes mellitus with other skin ulcer (principal); L97.812 Non-pressure chronic ulcer of other part of right lower leg with fat layer exposed; E11.621 Type 2 diabetes mellitus with foot ulcer; L97.512 Non-pressure chronic ulcer of other part of right foot with fat layer exposed; L97.312 Non-pressure chronic ulcer of right ankle with fat layer exposed; L84 Corns and callosities; R60.0 Localized edema; I73.9 Peripheral vascular disease, unspecified; E11.42 Type 2 diabetes mellitus with diabetic polyneuropathy; I50.9 Heart failure, unspecified
CPT/HCPCS: 11042; 87070; 87075; 87077; 87147; 87186; 87205; 99204; 99214

== ENCOUNTER → 2024-06-28 15:51 | Outpatient (CLI) | payer OTHER, SELFPAY ==
[2024-01-08 17:22] VITALS: BMI 29.5
[2024-06-28 16:47] LABS: Add Manual Diff / Slide Review NO; Basophils Absolute Auto 100 /uL (0-100); Basophils Percent Auto 0.9 % (0-2); Eosinophils Absolute Auto 200 /uL (0-450); Eosinophils Percent Auto 2.3 % (2-4); Hematocrit 39.4 % (41-53); Hemoglobin 13.5 g/dL (13.5-17.5); Lymphocytes Absolute Auto 3100 /uL (1100-4500); Lymphocytes Percent Auto 34.4 % (25-40); Mean Corpuscular HGB Conc 34.3 % (30-36); Mean Corpuscular Hemoglobin 29.7 PG (26-34); Mean Corpuscular Volume 86.5 fL (80-100); Monocytes Absolute Auto 500 /uL (0-900); Monocytes Percent Auto 5.5 % (3-14); Neutrophils Absolute Auto 5100 /uL (1500-7000); Neutrophils Percent Auto 56.9 % (50-75); Platelet Count 270 X10^3/uL (150-400); Red Blood Cell Count 4.56 X10^6/uL (4.5-5.9); Red Cell Distribution Width 14.7 % (11.6-14.8)
[2024-06-28 17:14] LABS: Hemoglobin A1C% w Est Avg Glu 7.4 % (4.0-6.0)
[2024-06-28 17:34] LABS: Alanine Aminotransferase 18 IU/L (<50); Albumin 4.4 g/dL (3.5-5.0); Albumin Globulin Ratio 1.9 (1.0-2.8); Alkaline Phosphatase 79 U/L (38-126); Aspartate Aminotransferase 18 IU/L (17-59); BUN Creatinine Ratio 17.8 (6-22); Bilirubin Total 0.6 mg/dL (0.2-1.3); Blood Urea Nitrogen 18 mg/dL (9-20); C-Reactive Protein Quant < 0.5 mg/dL (<1.0); Calcium 9.8 mg/dL (8.4-10.2); Carbon Dioxide 22 mmol/L (22-32); Chloride 104 mmol/L (98-107); Estimated Glomerular Filt Rate > 60 mL/min (>60); Globulin 2.3 g/dL (1.7-4.1); Glucose 198 mg/dL (80-110); HEMOLYSIS < 15 (0-50); Potassium 3.9 mmol/L (3.4-5.1); Sodium 137 mmol/L (137-145); Total Protein 6.7 g/dL (6.3-8.2)
[2024-06-28 18:36] LABS: Erythrocyte Sedimentation Rate 12 MM/HR (0-15)
== END ==
PROVIDERS: PCP Family Medicine; Referring Provider Surgery; Visit Provider Surgery
DX: E11.621 Type 2 diabetes mellitus with foot ulcer (principal)
CPT/HCPCS: 36415; 80053; 83036; 85025; 85651; 86140; 87070; 87075; 87205

== ENCOUNTER → 2024-07-04 13:21 | Outpatient (CLI) | payer OTHER, SELFPAY ==
[2024-01-08 17:22] VITALS: BMI 29.5
== END ==
LOC: WC 13:21
PROVIDERS: PCP Family Medicine; Referring Provider Podiatrist; Visit Provider Surgery
DX: E11.621 Type 2 diabetes mellitus with foot ulcer (principal); E11.42 Type 2 diabetes mellitus with diabetic polyneuropathy; L97.512 Non-pressure chronic ulcer of other part of right foot with fat layer exposed; E11.622 Type 2 diabetes mellitus with other skin ulcer; L97.322 Non-pressure chronic ulcer of left ankle with fat layer exposed; L97.812 Non-pressure chronic ulcer of other part of right lower leg with fat layer exposed; I73.9 Peripheral vascular disease, unspecified; L53.9 Erythematous condition, unspecified; R60.0 Localized edema; Z79.2 Long term (current) use of antibiotics
CPT/HCPCS: 11042; 99213

== ENCOUNTER → 2024-07-11 11:05 | Outpatient (CLI) | payer OTHER, SELFPAY ==
[2024-01-08 17:22] VITALS: BMI 29.5
== END ==
PROVIDERS: PCP Family Medicine; Referring Provider Podiatrist; Visit Provider Surgery
DX: E11.621 Type 2 diabetes mellitus with foot ulcer (principal); E11.42 Type 2 diabetes mellitus with diabetic polyneuropathy; L97.512 Non-pressure chronic ulcer of other part of right foot with fat layer exposed; L97.322 Non-pressure chronic ulcer of left ankle with fat layer exposed; E11.622 Type 2 diabetes mellitus with other skin ulcer; L97.812 Non-pressure chronic ulcer of other part of right lower leg with fat layer exposed; I73.9 Peripheral vascular disease, unspecified; R60.0 Localized edema; L84 Corns and callosities
CPT/HCPCS: 11042

== ENCOUNTER → 2024-07-12 12:14 | Outpatient (CLI) | payer OTHER, SELFPAY ==
[2024-01-08 17:22] VITALS: BMI 29.5
--- NOTE | 2024-07-12 12:15 | DI.US.S_ITS ---
PROCEDURE: US ARTERIAL DUPLEX LE RT INDICATIONS: Abnormal SHERITA, non-healing wounds TECHNIQUE: Color and pulse Doppler interrogation was performed of the right lower extremity arterial system, with image documentation. COMPARISON: None. FINDINGS: Common femoral artery: 146 cm/sec, with biphasic flow. Deep femoral artery: 87 cm/sec, with biphasic flow. Proximal superficial femoral artery: 91 cm/sec, with biphasic flow. Mid superficial femoral artery: 88 cm/sec, with triphasic flow. Distal superficial femoral artery: 51 cm/sec, with monophasic flow. Popliteal artery: 38 cm/sec, with monophasic flow. Posterior tibial artery: 65 cm/sec, with monophasic flow. Anterior tibial artery/dorsalis pedis: Not detected. [place]-scale imaging description: Diffuse mild to moderate scattered plaque throughout the SFA. 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 Dictated by: Som Phelps M.D. on 07/13/2024 at 17:27 Approved by: Som Phelps M.D. on 07/13/2024 at 17:34
--- NOTE | 2024-07-12 12:15 | DI.MRI.S_ITS ---
PROCEDURE: MR FOOT RT WO/W CON INDICATIONS: diabetic foot ulcer on distal right great toe TECHNIQUE: Noncontrast coronal T1 spin echo and STIR, sagittal T1 spin echo with fat saturation and STIR, axial T1 spin echo and T2 fast spin echo with fat saturation. After the administration of contrast, axial/sagittal/coronal T1 spin echo with fat saturation through the right forefoot. COMPARISON: None. FINDINGS: Image quality: Excellent. Bones: There is abnormal marrow signal and contrast enhancement involving the distal aspect of the patient's right 1st distal phalanx consistent with osteomyelitis. 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 Marrow signal in the remaining visualized bones appears within normal limits. There is some moderate increased signal in the subcutaneous tissues as well as the musculature consistent with a cellulitis/myositis type pattern. No loculated fluid collection to suggest focal abscess is identified. IMPRESSION: 1. Findings consistent with osteomyelitis involving the distal aspect of the patient's right 1st distal phalanx. 2. Moderate cellulitis/myositis type pattern involving the forefoot. 3. Moderate to severe degenerative change 1st metatarsophalangeal joint. Dictated by: Oscar Royal M.D. on 07/13/2024 at 8:57 Approved by: Oscar Royal M.D. on 07/13/2024 at 9:03
== END ==
PROVIDERS: PCP Family Medicine; Referring Provider Surgery; Visit Provider Surgery
DX: E11.621 Type 2 diabetes mellitus with foot ulcer (principal); I70.201 Unspecified atherosclerosis of native arteries of extremities, right leg
CPT/HCPCS: 73720; 93926; A9579

== ENCOUNTER → 2024-07-18 13:08 | Outpatient (CLI) | payer OTHER, SELFPAY ==
[2024-01-08 17:22] VITALS: BMI 29.5
== END ==
PROVIDERS: PCP Family Medicine; Referring Provider Podiatrist; Visit Provider Surgery
DX: E11.621 Type 2 diabetes mellitus with foot ulcer (principal); L97.512 Non-pressure chronic ulcer of other part of right foot with fat layer exposed; E11.622 Type 2 diabetes mellitus with other skin ulcer; L97.812 Non-pressure chronic ulcer of other part of right lower leg with fat layer exposed; I73.9 Peripheral vascular disease, unspecified; E11.42 Type 2 diabetes mellitus with diabetic polyneuropathy; M86.171 Other acute osteomyelitis, right ankle and foot; R60.0 Localized edema; L53.9 Erythematous condition, unspecified; L84 Corns and callosities
CPT/HCPCS: 11042; 99214

== ENCOUNTER → 2024-07-25 14:22 | Outpatient (CLI) | payer OTHER, MEDICARE, SELFPAY ==
[2024-01-08 17:22] VITALS: BMI 29.5
== END ==
PROVIDERS: PCP Family Medicine; Referring Provider Podiatrist; Visit Provider Surgery
DX: E11.42 Type 2 diabetes mellitus with diabetic polyneuropathy (principal); E11.621 Type 2 diabetes mellitus with foot ulcer; L97.512 Non-pressure chronic ulcer of other part of right foot with fat layer exposed; L97.322 Non-pressure chronic ulcer of left ankle with fat layer exposed; E11.622 Type 2 diabetes mellitus with other skin ulcer; L97.812 Non-pressure chronic ulcer of other part of right lower leg with fat layer exposed; I73.9 Peripheral vascular disease, unspecified; M86.171 Other acute osteomyelitis, right ankle and foot; R60.0 Localized edema; L84 Corns and callosities; I50.9 Heart failure, unspecified
CPT/HCPCS: 11042; 99213

== ENCOUNTER → 2024-08-01 10:39 | Outpatient (CLI) | payer OTHER, MEDICARE, SELFPAY ==
[2024-01-08 17:22] VITALS: BMI 29.5
== END ==
LOC: WC 10:40
PROVIDERS: PCP Family Medicine; Referring Provider Podiatrist; Visit Provider Surgery
DX: E11.621 Type 2 diabetes mellitus with foot ulcer (principal); E11.42 Type 2 diabetes mellitus with diabetic polyneuropathy; L97.512 Non-pressure chronic ulcer of other part of right foot with fat layer exposed; R60.0 Localized edema; L84 Corns and callosities; I73.9 Peripheral vascular disease, unspecified; M86.171 Other acute osteomyelitis, right ankle and foot
CPT/HCPCS: 11042

== ENCOUNTER → 2024-08-08 11:18 | Outpatient (CLI) | payer OTHER, MEDICARE, SELFPAY ==
[2024-01-08 17:22] VITALS: BMI 29.5
== END ==
PROVIDERS: PCP Family Medicine; Referring Provider Podiatrist; Visit Provider Surgery
DX: E11.621 Type 2 diabetes mellitus with foot ulcer (principal); E11.42 Type 2 diabetes mellitus with diabetic polyneuropathy; L97.512 Non-pressure chronic ulcer of other part of right foot with fat layer exposed; L84 Corns and callosities; R60.0 Localized edema; I73.9 Peripheral vascular disease, unspecified; M86.171 Other acute osteomyelitis, right ankle and foot
CPT/HCPCS: 11042; 99213

== ENCOUNTER → 2024-08-15 11:10 | Outpatient (CLI) | payer MEDICARE, OTHER, SELFPAY ==
[2024-01-08 17:22] VITALS: BMI 29.5
--- NOTE | 2024-08-15 11:13 | DI.RAD.S_ITS ---
PROCEDURE: XR CHEST 2V INDICATIONS: eval for HBO, possible hyperbaric oxygen therapy TECHNIQUE: 2 views of the chest were acquired. COMPARISON: [facility], CR, XR CHEST 1V, 01/08/2024, 13:36. FINDINGS: New mild bilateral diffuse peribronchial thickening predominantly perihilar and lower lobes some of which may be related to expiratory result with mild bibasilar subsegmental atelectasis however mild bronchitis, viral infection, asthma or other process could be considered. Median sternotomy, CABG again noted. Mild calcifications of the aortic arch unchanged. No pneumothorax, no pleural effusion, no lobar consolidation. Cardiopericardial silhouette and pulmonary vasculature within normal limits. Moderate degenerative changes of the thoracic spine and shoulders unchanged. IMPRESSION: New mild bilateral diffuse peribronchial thickening as discussed above, mild bibasilar subsegmental atelectasis, mild bronchitis, viral infection, asthma or other process could be considered. If symptoms persist or worsen, or there is high clinical suspicion of thoracic abnormality, CT could be performed. Dictated by: Chino Frey M.D. on 08/15/2024 at 19:04 Approved by: Chino Frey M.D. on 08/15/2024 at 19:10
== END ==
PROVIDERS: PCP Family Medicine; Referring Provider Surgery; Visit Provider Surgery
DX: M86.171 Other acute osteomyelitis, right ankle and foot (principal); I70.0 Atherosclerosis of aorta; M47.814 Spondylosis without myelopathy or radiculopathy, thoracic region; Z95.1 Presence of aortocoronary bypass graft
CPT/HCPCS: 71046

== ENCOUNTER → 2024-08-15 13:37 | Outpatient (CLI) | payer OTHER, MEDICARE, SELFPAY ==
[2024-01-08 17:22] VITALS: BMI 29.5
== END ==
PROVIDERS: PCP Family Medicine; Referring Provider Podiatrist; Visit Provider Surgery
DX: E11.621 Type 2 diabetes mellitus with foot ulcer (principal); E11.42 Type 2 diabetes mellitus with diabetic polyneuropathy; L97.512 Non-pressure chronic ulcer of other part of right foot with fat layer exposed; L84 Corns and callosities; I73.9 Peripheral vascular disease, unspecified; M86.171 Other acute osteomyelitis, right ankle and foot
CPT/HCPCS: 11042

== ENCOUNTER → 2024-08-16 11:01 | Outpatient (CLI) | payer OTHER, MEDICARE, SELFPAY ==
[2024-01-08 17:22] VITALS: BMI 29.5
== END ==
PROVIDERS: PCP Family Medicine; Referring Provider Podiatrist; Visit Provider Surgery
DX: E11.621 Type 2 diabetes mellitus with foot ulcer (principal); I73.9 Peripheral vascular disease, unspecified; E11.42 Type 2 diabetes mellitus with diabetic polyneuropathy; L97.512 Non-pressure chronic ulcer of other part of right foot with fat layer exposed; M86.171 Other acute osteomyelitis, right ankle and foot
CPT/HCPCS: 99183; G0277

== ENCOUNTER → 2024-08-17 09:02 | Outpatient (CLI) | payer OTHER, MEDICARE, SELFPAY ==
[2024-01-08 17:22] VITALS: BMI 29.5
== END ==
PROVIDERS: PCP Family Medicine; Referring Provider Podiatrist; Visit Provider Physician Assistant
DX: E11.621 Type 2 diabetes mellitus with foot ulcer (principal); I73.9 Peripheral vascular disease, unspecified; E11.42 Type 2 diabetes mellitus with diabetic polyneuropathy; L97.512 Non-pressure chronic ulcer of other part of right foot with fat layer exposed; M86.171 Other acute osteomyelitis, right ankle and foot
CPT/HCPCS: 99183; G0277

== ENCOUNTER → 2024-08-20 12:54 | Outpatient (CLI) | payer MEDICARE, OTHER, SELFPAY ==
[2024-01-08 17:22] VITALS: BMI 29.5
== END ==
LOC: WC 12:56
PROVIDERS: PCP Family Medicine; Referring Provider Podiatrist; Visit Provider Surgery
DX: E11.621 Type 2 diabetes mellitus with foot ulcer (principal); I73.9 Peripheral vascular disease, unspecified; E11.42 Type 2 diabetes mellitus with diabetic polyneuropathy; L97.512 Non-pressure chronic ulcer of other part of right foot with fat layer exposed; M86.171 Other acute osteomyelitis, right ankle and foot
CPT/HCPCS: 99183; G0277

== ENCOUNTER → 2024-08-21 14:39 | Outpatient (CLI) | payer MEDICARE, OTHER, SELFPAY ==
[2024-01-08 17:22] VITALS: BMI 29.5
== END ==
LOC: WC 14:41
PROVIDERS: PCP Family Medicine; Referring Provider Podiatrist; Visit Provider Surgery
DX: E11.621 Type 2 diabetes mellitus with foot ulcer (principal); I73.9 Peripheral vascular disease, unspecified; E11.42 Type 2 diabetes mellitus with diabetic polyneuropathy; L97.512 Non-pressure chronic ulcer of other part of right foot with fat layer exposed; M86.171 Other acute osteomyelitis, right ankle and foot
CPT/HCPCS: 99183; G0277

== ENCOUNTER → 2024-08-22 09:29 | Outpatient (CLI) | payer MEDICARE, OTHER, SELFPAY ==
[2024-01-08 17:22] VITALS: BMI 29.5
== END ==
LOC: WC 09:31
PROVIDERS: PCP Family Medicine; Referring Provider Podiatrist; Visit Provider Surgery
DX: E11.621 Type 2 diabetes mellitus with foot ulcer (principal); E11.42 Type 2 diabetes mellitus with diabetic polyneuropathy; L97.512 Non-pressure chronic ulcer of other part of right foot with fat layer exposed; L84 Corns and callosities; R60.0 Localized edema; I73.9 Peripheral vascular disease, unspecified; M86.171 Other acute osteomyelitis, right ankle and foot; I50.9 Heart failure, unspecified
CPT/HCPCS: 11042; 99183; 99213; G0277

== ENCOUNTER → 2024-08-23 11:37 | Outpatient (CLI) | payer MEDICARE, OTHER, SELFPAY ==
[2024-01-08 17:22] VITALS: BMI 29.5
== END ==
LOC: WC 11:38
PROVIDERS: PCP Family Medicine; Referring Provider Podiatrist; Visit Provider Surgery
DX: E11.621 Type 2 diabetes mellitus with foot ulcer (principal); I73.9 Peripheral vascular disease, unspecified; E11.42 Type 2 diabetes mellitus with diabetic polyneuropathy; L97.512 Non-pressure chronic ulcer of other part of right foot with fat layer exposed; M86.171 Other acute osteomyelitis, right ankle and foot
CPT/HCPCS: 99183; G0277

== ENCOUNTER → 2024-08-24 13:43 | Outpatient (CLI) | payer MEDICARE, OTHER, SELFPAY ==
[2024-01-08 17:22] VITALS: BMI 29.5
== END ==
LOC: WC 13:44
PROVIDERS: PCP Family Medicine; Referring Provider Podiatrist; Visit Provider Physician Assistant
DX: E11.621 Type 2 diabetes mellitus with foot ulcer (principal); I73.9 Peripheral vascular disease, unspecified; E11.42 Type 2 diabetes mellitus with diabetic polyneuropathy; L97.512 Non-pressure chronic ulcer of other part of right foot with fat layer exposed; M86.171 Other acute osteomyelitis, right ankle and foot
CPT/HCPCS: 99183; G0277

== ENCOUNTER → 2024-08-27 08:57 | Outpatient (CLI) | payer MEDICARE, OTHER, SELFPAY ==
[2024-01-08 17:22] VITALS: BMI 29.5
== END ==
LOC: WC 09:06
PROVIDERS: PCP Family Medicine; Referring Provider Podiatrist; Visit Provider Surgery
DX: E11.621 Type 2 diabetes mellitus with foot ulcer (principal); I73.9 Peripheral vascular disease, unspecified; E11.42 Type 2 diabetes mellitus with diabetic polyneuropathy; L97.512 Non-pressure chronic ulcer of other part of right foot with fat layer exposed; M86.171 Other acute osteomyelitis, right ankle and foot
CPT/HCPCS: 99183; G0277

== ENCOUNTER → 2024-08-28 09:19 | Outpatient (CLI) | payer MEDICARE, OTHER, SELFPAY ==
[2024-01-08 17:22] VITALS: BMI 29.5
== END ==
LOC: WC 09:20
PROVIDERS: PCP Family Medicine; Referring Provider Podiatrist; Visit Provider Surgery
DX: E11.621 Type 2 diabetes mellitus with foot ulcer (principal); I73.9 Peripheral vascular disease, unspecified; E11.42 Type 2 diabetes mellitus with diabetic polyneuropathy; L97.512 Non-pressure chronic ulcer of other part of right foot with fat layer exposed; M86.171 Other acute osteomyelitis, right ankle and foot
CPT/HCPCS: 99183; G0277

== ENCOUNTER → 2024-08-29 09:44 | Outpatient (CLI) | payer MEDICARE, OTHER, SELFPAY ==
[2024-01-08 17:22] VITALS: BMI 29.5
== END ==
LOC: WC 09:45
PROVIDERS: PCP Family Medicine; Referring Provider Podiatrist; Visit Provider Surgery
DX: E11.621 Type 2 diabetes mellitus with foot ulcer (principal); L97.512 Non-pressure chronic ulcer of other part of right foot with fat layer exposed; L84 Corns and callosities; I73.9 Peripheral vascular disease, unspecified; E11.42 Type 2 diabetes mellitus with diabetic polyneuropathy; M86.171 Other acute osteomyelitis, right ankle and foot
CPT/HCPCS: 11042; 99183; G0277

== ENCOUNTER → 2024-08-30 08:40 | Outpatient (CLI) | payer MEDICARE, OTHER, SELFPAY ==
[2024-01-08 17:22] VITALS: BMI 29.5
== END ==
LOC: WC 08:40
PROVIDERS: PCP Family Medicine; Referring Provider Podiatrist; Visit Provider Surgery
DX: E11.621 Type 2 diabetes mellitus with foot ulcer (principal); I73.9 Peripheral vascular disease, unspecified; E11.42 Type 2 diabetes mellitus with diabetic polyneuropathy; L97.512 Non-pressure chronic ulcer of other part of right foot with fat layer exposed; M86.171 Other acute osteomyelitis, right ankle and foot
CPT/HCPCS: 99183; G0277

== ENCOUNTER → 2024-08-31 09:08 | Outpatient (CLI) | payer OTHER, MEDICARE, SELFPAY ==
[2024-01-08 17:22] VITALS: BMI 29.5
== END ==
PROVIDERS: PCP Family Medicine; Referring Provider Podiatrist; Visit Provider Physician Assistant
DX: E11.621 Type 2 diabetes mellitus with foot ulcer (principal); I73.9 Peripheral vascular disease, unspecified; E11.42 Type 2 diabetes mellitus with diabetic polyneuropathy; L97.512 Non-pressure chronic ulcer of other part of right foot with fat layer exposed; M86.171 Other acute osteomyelitis, right ankle and foot
CPT/HCPCS: 99183; G0277

== ENCOUNTER → 2024-09-03 08:45 | Outpatient (CLI) | payer OTHER, MEDICARE, SELFPAY ==
[2024-01-08 17:22] VITALS: BMI 29.5
== END ==
PROVIDERS: PCP Family Medicine; Referring Provider Podiatrist; Visit Provider Surgery
DX: E11.621 Type 2 diabetes mellitus with foot ulcer (principal); I73.9 Peripheral vascular disease, unspecified; E11.42 Type 2 diabetes mellitus with diabetic polyneuropathy; L97.512 Non-pressure chronic ulcer of other part of right foot with fat layer exposed; M86.171 Other acute osteomyelitis, right ankle and foot
CPT/HCPCS: 99183; G0277

== ENCOUNTER → 2024-09-04 09:16 | Outpatient (CLI) | payer OTHER, MEDICARE, SELFPAY ==
[2024-01-08 17:22] VITALS: BMI 29.5
== END ==
PROVIDERS: PCP Family Medicine; Referring Provider Podiatrist; Visit Provider Surgery
DX: E11.42 Type 2 diabetes mellitus with diabetic polyneuropathy (principal); E11.621 Type 2 diabetes mellitus with foot ulcer; L97.512 Non-pressure chronic ulcer of other part of right foot with fat layer exposed; L84 Corns and callosities; R60.0 Localized edema; I73.9 Peripheral vascular disease, unspecified; M86.171 Other acute osteomyelitis, right ankle and foot; Z79.2 Long term (current) use of antibiotics
CPT/HCPCS: 15275; 99183; G0277; Q4101

== ENCOUNTER → 2024-09-05 09:07 | Outpatient (CLI) | payer OTHER, MEDICARE, SELFPAY ==
[2024-01-08 17:22] VITALS: BMI 29.5
== END ==
PROVIDERS: PCP Family Medicine; Referring Provider Podiatrist; Visit Provider Surgery
DX: E11.621 Type 2 diabetes mellitus with foot ulcer (principal); I73.9 Peripheral vascular disease, unspecified; E11.42 Type 2 diabetes mellitus with diabetic polyneuropathy; L97.512 Non-pressure chronic ulcer of other part of right foot with fat layer exposed; M86.171 Other acute osteomyelitis, right ankle and foot
CPT/HCPCS: 99183; G0277

== ENCOUNTER → 2024-09-06 11:04 | Outpatient (CLI) | payer OTHER, MEDICARE, SELFPAY ==
[2024-01-08 17:22] VITALS: BMI 29.5
== END ==
PROVIDERS: PCP Family Medicine; Referring Provider Family Medicine; Visit Provider Surgery
DX: E11.621 Type 2 diabetes mellitus with foot ulcer (principal); I73.9 Peripheral vascular disease, unspecified; E11.42 Type 2 diabetes mellitus with diabetic polyneuropathy; L97.512 Non-pressure chronic ulcer of other part of right foot with fat layer exposed; M86.171 Other acute osteomyelitis, right ankle and foot
CPT/HCPCS: 99183; G0277

== ENCOUNTER → 2024-09-07 08:56 | Outpatient (CLI) | payer OTHER, MEDICARE, SELFPAY ==
[2024-01-08 17:22] VITALS: BMI 29.5
== END ==
PROVIDERS: PCP Family Medicine; Referring Provider Podiatrist; Visit Provider Physician Assistant
DX: E11.621 Type 2 diabetes mellitus with foot ulcer (principal); I73.9 Peripheral vascular disease, unspecified; E11.42 Type 2 diabetes mellitus with diabetic polyneuropathy; M86.171 Other acute osteomyelitis, right ankle and foot
CPT/HCPCS: 99183; G0277

== ENCOUNTER → 2024-09-10 08:43 | Outpatient (CLI) | payer OTHER, MEDICARE, SELFPAY ==
[2024-01-08 17:22] VITALS: BMI 29.5
== END ==
LOC: WC 08:51
PROVIDERS: PCP Family Medicine; Referring Provider Podiatrist; Visit Provider Surgery
DX: E11.621 Type 2 diabetes mellitus with foot ulcer (principal); I73.9 Peripheral vascular disease, unspecified; E11.42 Type 2 diabetes mellitus with diabetic polyneuropathy; L97.512 Non-pressure chronic ulcer of other part of right foot with fat layer exposed; M86.171 Other acute osteomyelitis, right ankle and foot
CPT/HCPCS: 99183; G0277

== ENCOUNTER → 2024-09-11 08:55 | Outpatient (CLI) | payer OTHER, MEDICARE, SELFPAY ==
[2024-01-08 17:22] VITALS: BMI 29.5
== END ==
LOC: WC 08:56
PROVIDERS: PCP Family Medicine; Referring Provider Podiatrist; Visit Provider Surgery
DX: E11.621 Type 2 diabetes mellitus with foot ulcer (principal); I73.9 Peripheral vascular disease, unspecified; E11.42 Type 2 diabetes mellitus with diabetic polyneuropathy; L97.512 Non-pressure chronic ulcer of other part of right foot with fat layer exposed; M86.171 Other acute osteomyelitis, right ankle and foot
CPT/HCPCS: 99183; G0277

== ENCOUNTER → 2024-09-12 09:15 | Outpatient (CLI) | payer OTHER, MEDICARE, SELFPAY ==
[2024-01-08 17:22] VITALS: BMI 29.5
== END ==
LOC: WC 09:24
PROVIDERS: PCP Family Medicine; Referring Provider Podiatrist; Visit Provider Surgery
DX: E11.621 Type 2 diabetes mellitus with foot ulcer (principal); I73.9 Peripheral vascular disease, unspecified; E11.42 Type 2 diabetes mellitus with diabetic polyneuropathy; L97.512 Non-pressure chronic ulcer of other part of right foot with fat layer exposed; M86.171 Other acute osteomyelitis, right ankle and foot
CPT/HCPCS: 99183; G0277

== ENCOUNTER → 2024-09-13 10:11 | Outpatient (CLI) | payer OTHER, MEDICARE, SELFPAY ==
[2024-01-08 17:22] VITALS: BMI 29.5
== END ==
LOC: WC 10:12
PROVIDERS: PCP Family Medicine; Referring Provider Podiatrist; Visit Provider Physician Assistant
DX: E11.621 Type 2 diabetes mellitus with foot ulcer (principal); I73.9 Peripheral vascular disease, unspecified; E11.42 Type 2 diabetes mellitus with diabetic polyneuropathy; L97.512 Non-pressure chronic ulcer of other part of right foot with fat layer exposed; M86.171 Other acute osteomyelitis, right ankle and foot
CPT/HCPCS: 99183; G0277

== ENCOUNTER → 2024-09-14 09:20 | Outpatient (CLI) | payer OTHER, MEDICARE, SELFPAY ==
[2024-01-08 17:22] VITALS: BMI 29.5
== END ==
PROVIDERS: PCP Family Medicine; Referring Provider Podiatrist; Visit Provider Physician Assistant
DX: E11.621 Type 2 diabetes mellitus with foot ulcer (principal); I73.9 Peripheral vascular disease, unspecified; E11.42 Type 2 diabetes mellitus with diabetic polyneuropathy; L97.512 Non-pressure chronic ulcer of other part of right foot with fat layer exposed; M86.171 Other acute osteomyelitis, right ankle and foot
CPT/HCPCS: 99183; G0277

== ENCOUNTER → 2024-09-17 08:54 | Outpatient (CLI) | payer OTHER, MEDICARE, SELFPAY ==
[2024-01-08 17:22] VITALS: BMI 29.5
== END ==
LOC: WC 08:55
PROVIDERS: PCP Family Medicine; Referring Provider Podiatrist; Visit Provider Surgery
DX: E11.621 Type 2 diabetes mellitus with foot ulcer (principal); I73.9 Peripheral vascular disease, unspecified; E11.42 Type 2 diabetes mellitus with diabetic polyneuropathy; L97.512 Non-pressure chronic ulcer of other part of right foot with fat layer exposed; M86.171 Other acute osteomyelitis, right ankle and foot
CPT/HCPCS: 99183; G0277

== ENCOUNTER → 2024-09-18 08:46 | Outpatient (CLI) | payer OTHER, MEDICARE, SELFPAY ==
[2024-01-08 17:22] VITALS: BMI 29.5
== END ==
LOC: WC 08:46
PROVIDERS: PCP Family Medicine; Referring Provider Podiatrist; Visit Provider Surgery
DX: M86.171 Other acute osteomyelitis, right ankle and foot (principal); E11.621 Type 2 diabetes mellitus with foot ulcer; L97.512 Non-pressure chronic ulcer of other part of right foot with fat layer exposed; E11.42 Type 2 diabetes mellitus with diabetic polyneuropathy; E11.51 Type 2 diabetes mellitus with diabetic peripheral angiopathy without gangrene; R60.0 Localized edema
CPT/HCPCS: 15275; 99183; 99213; G0277; Q4101

== ENCOUNTER → 2024-09-19 08:57 | Outpatient (CLI) | payer OTHER, MEDICARE, SELFPAY ==
[2024-01-08 17:22] VITALS: BMI 29.5
== END ==
PROVIDERS: PCP Family Medicine; Referring Provider Podiatrist; Visit Provider Surgery
DX: E11.621 Type 2 diabetes mellitus with foot ulcer (principal); I73.9 Peripheral vascular disease, unspecified; E11.42 Type 2 diabetes mellitus with diabetic polyneuropathy; L97.512 Non-pressure chronic ulcer of other part of right foot with fat layer exposed; M86.171 Other acute osteomyelitis, right ankle and foot
CPT/HCPCS: 99183; G0277

== ENCOUNTER → 2024-09-20 08:50 | Outpatient (CLI) | payer OTHER, MEDICARE, SELFPAY ==
[2024-01-08 17:22] VITALS: BMI 29.5
== END ==
PROVIDERS: PCP Family Medicine; Referring Provider Podiatrist; Visit Provider Surgery
DX: E11.621 Type 2 diabetes mellitus with foot ulcer (principal); I73.9 Peripheral vascular disease, unspecified; E11.42 Type 2 diabetes mellitus with diabetic polyneuropathy; L97.512 Non-pressure chronic ulcer of other part of right foot with fat layer exposed; M86.171 Other acute osteomyelitis, right ankle and foot
CPT/HCPCS: 99183; G0277

== ENCOUNTER → 2024-09-21 08:59 | Outpatient (CLI) | payer OTHER, MEDICARE, SELFPAY ==
[2024-01-08 17:22] VITALS: BMI 29.5
== END ==
PROVIDERS: PCP Family Medicine; Referring Provider Podiatrist; Visit Provider Physician Assistant
DX: E11.621 Type 2 diabetes mellitus with foot ulcer (principal); I73.9 Peripheral vascular disease, unspecified; E11.42 Type 2 diabetes mellitus with diabetic polyneuropathy; L97.512 Non-pressure chronic ulcer of other part of right foot with fat layer exposed; M86.171 Other acute osteomyelitis, right ankle and foot
CPT/HCPCS: 99183; G0277

== ENCOUNTER → 2024-09-24 08:54 | Outpatient (CLI) | payer OTHER, MEDICARE, SELFPAY ==
[2024-01-08 17:22] VITALS: BMI 29.5
== END ==
PROVIDERS: PCP Family Medicine; Referring Provider Podiatrist; Visit Provider Surgery
DX: E11.621 Type 2 diabetes mellitus with foot ulcer (principal); I73.9 Peripheral vascular disease, unspecified; E11.42 Type 2 diabetes mellitus with diabetic polyneuropathy; L97.512 Non-pressure chronic ulcer of other part of right foot with fat layer exposed; M86.171 Other acute osteomyelitis, right ankle and foot
CPT/HCPCS: 99183; G0277

== ENCOUNTER → 2024-09-25 09:15 | Outpatient (CLI) | payer OTHER, MEDICARE, SELFPAY ==
[2024-01-08 17:22] VITALS: BMI 29.5
== END ==
LOC: WC 09:16
PROVIDERS: PCP Family Medicine; Referring Provider Podiatrist; Visit Provider Surgery
DX: E11.621 Type 2 diabetes mellitus with foot ulcer (principal); L97.512 Non-pressure chronic ulcer of other part of right foot with fat layer exposed; L84 Corns and callosities; R60.0 Localized edema; I73.9 Peripheral vascular disease, unspecified; M86.171 Other acute osteomyelitis, right ankle and foot
CPT/HCPCS: 15275; 99183; G0277; Q4101

== ENCOUNTER → 2024-09-26 09:07 | Outpatient (CLI) | payer OTHER, MEDICARE, SELFPAY ==
[2024-01-08 17:22] VITALS: BMI 29.5
== END ==
PROVIDERS: PCP Family Medicine; Referring Provider Podiatrist; Visit Provider Surgery
DX: E11.621 Type 2 diabetes mellitus with foot ulcer (principal); I73.9 Peripheral vascular disease, unspecified; E11.42 Type 2 diabetes mellitus with diabetic polyneuropathy; L97.512 Non-pressure chronic ulcer of other part of right foot with fat layer exposed; M86.171 Other acute osteomyelitis, right ankle and foot
CPT/HCPCS: 99183; G0277

== ENCOUNTER → 2024-10-02 10:16 | Outpatient (CLI) | payer OTHER, MEDICARE, SELFPAY ==
[2024-01-08 17:22] VITALS: BMI 29.5
== END ==
PROVIDERS: PCP Family Medicine; Referring Provider Family Medicine; Visit Provider Surgery
DX: E11.621 Type 2 diabetes mellitus with foot ulcer (principal); L97.512 Non-pressure chronic ulcer of other part of right foot with fat layer exposed; L84 Corns and callosities; E11.42 Type 2 diabetes mellitus with diabetic polyneuropathy; R60.0 Localized edema; I73.9 Peripheral vascular disease, unspecified; M86.171 Other acute osteomyelitis, right ankle and foot; Z79.2 Long term (current) use of antibiotics
CPT/HCPCS: 11042

== ENCOUNTER → 2024-10-09 10:25 | Outpatient (CLI) | payer OTHER, MEDICARE, SELFPAY ==
[2024-01-08 17:22] VITALS: BMI 29.5
== END ==
PROVIDERS: PCP Family Medicine; Referring Provider Podiatrist; Visit Provider Surgery
DX: E11.621 Type 2 diabetes mellitus with foot ulcer (principal); E11.42 Type 2 diabetes mellitus with diabetic polyneuropathy; L97.512 Non-pressure chronic ulcer of other part of right foot with fat layer exposed; L84 Corns and callosities; R60.0 Localized edema; M86.171 Other acute osteomyelitis, right ankle and foot; I73.9 Peripheral vascular disease, unspecified
CPT/HCPCS: 11042

== ENCOUNTER → 2024-10-16 11:08 | Outpatient (CLI) | payer OTHER, MEDICARE, SELFPAY ==
[2024-01-08 17:22] VITALS: BMI 29.5
== END ==
PROVIDERS: PCP Family Medicine; Referring Provider Podiatrist; Visit Provider Surgery
DX: E11.621 Type 2 diabetes mellitus with foot ulcer (principal); E11.42 Type 2 diabetes mellitus with diabetic polyneuropathy; L97.512 Non-pressure chronic ulcer of other part of right foot with fat layer exposed; R60.0 Localized edema; L84 Corns and callosities; I73.9 Peripheral vascular disease, unspecified; M86.171 Other acute osteomyelitis, right ankle and foot; I50.9 Heart failure, unspecified
CPT/HCPCS: 11042; 99213

== ENCOUNTER → 2024-10-23 11:08 | Outpatient (CLI) | payer OTHER, MEDICARE, SELFPAY ==
[2024-01-08 17:22] VITALS: BMI 29.5
== END ==
PROVIDERS: PCP Family Medicine; Referring Provider Family Medicine; Visit Provider Surgery
DX: E11.621 Type 2 diabetes mellitus with foot ulcer (principal); E11.42 Type 2 diabetes mellitus with diabetic polyneuropathy; L97.512 Non-pressure chronic ulcer of other part of right foot with fat layer exposed; L84 Corns and callosities; R60.0 Localized edema; I73.9 Peripheral vascular disease, unspecified; M86.171 Other acute osteomyelitis, right ankle and foot
CPT/HCPCS: 11042

== ENCOUNTER → 2024-10-30 10:58 | Outpatient (CLI) | payer OTHER, MEDICARE, SELFPAY ==
[2024-01-08 17:22] VITALS: BMI 29.5
== END ==
LOC: WC 10:59
PROVIDERS: PCP Family Medicine; Referring Provider Podiatrist; Visit Provider Surgery
DX: E11.621 Type 2 diabetes mellitus with foot ulcer (principal); E11.42 Type 2 diabetes mellitus with diabetic polyneuropathy; L97.512 Non-pressure chronic ulcer of other part of right foot with fat layer exposed; R60.0 Localized edema; I73.9 Peripheral vascular disease, unspecified; M86.171 Other acute osteomyelitis, right ankle and foot
CPT/HCPCS: 11042

== ENCOUNTER → 2024-11-08 09:28 | Outpatient (CLI) | payer OTHER, MEDICARE, SELFPAY ==
[2024-01-08 17:22] VITALS: BMI 29.5
== END ==
PROVIDERS: PCP Family Medicine; Referring Provider Podiatrist; Visit Provider Physician Assistant
DX: E11.621 Type 2 diabetes mellitus with foot ulcer (principal); L97.512 Non-pressure chronic ulcer of other part of right foot with fat layer exposed; R60.0 Localized edema
CPT/HCPCS: 99213

== ENCOUNTER → 2024-11-15 14:17 | Outpatient (CLI) | payer OTHER, MEDICARE, SELFPAY ==
[2024-01-08 17:22] VITALS: BMI 29.5
== END ==
LOC: WC 14:20
PROVIDERS: PCP Family Medicine; Referring Provider Family Medicine; Visit Provider Surgery
DX: E11.42 Type 2 diabetes mellitus with diabetic polyneuropathy (principal); E11.621 Type 2 diabetes mellitus with foot ulcer; L97.512 Non-pressure chronic ulcer of other part of right foot with fat layer exposed; R60.0 Localized edema; R23.4 Changes in skin texture; I73.9 Peripheral vascular disease, unspecified; M86.171 Other acute osteomyelitis, right ankle and foot
CPT/HCPCS: 11042

== ENCOUNTER → 2024-11-21 09:26 | Outpatient (CLI) | payer OTHER, MEDICARE, SELFPAY ==
[2024-01-08 17:22] VITALS: BMI 29.5
== END ==
LOC: WC 09:51
PROVIDERS: PCP Family Medicine; Referring Provider Podiatrist; Visit Provider Surgery
DX: E11.42 Type 2 diabetes mellitus with diabetic polyneuropathy (principal); E11.621 Type 2 diabetes mellitus with foot ulcer; L97.512 Non-pressure chronic ulcer of other part of right foot with fat layer exposed; R60.0 Localized edema; R23.4 Changes in skin texture; I73.9 Peripheral vascular disease, unspecified; I50.9 Heart failure, unspecified; M86.171 Other acute osteomyelitis, right ankle and foot
CPT/HCPCS: 11042; 99213

== ENCOUNTER → 2024-11-27 14:34 | Outpatient (CLI) | payer OTHER, MEDICARE, SELFPAY ==
[2024-01-08 17:22] VITALS: BMI 29.5
== END ==
LOC: WC 14:36
PROVIDERS: PCP Family Medicine; Referring Provider Podiatrist; Visit Provider Surgery
DX: E11.42 Type 2 diabetes mellitus with diabetic polyneuropathy (principal); E11.621 Type 2 diabetes mellitus with foot ulcer; L97.512 Non-pressure chronic ulcer of other part of right foot with fat layer exposed; R60.0 Localized edema; R23.4 Changes in skin texture; I73.9 Peripheral vascular disease, unspecified; M86.171 Other acute osteomyelitis, right ankle and foot
CPT/HCPCS: 11042

== ENCOUNTER → 2024-12-04 10:34 | Outpatient (CLI) | payer OTHER, MEDICARE, SELFPAY ==
[2024-01-08 17:22] VITALS: BMI 29.5
== END ==
LOC: WC 11:04
PROVIDERS: PCP Family Medicine; Referring Provider Podiatrist; Visit Provider Surgery
DX: E11.621 Type 2 diabetes mellitus with foot ulcer (principal); L97.512 Non-pressure chronic ulcer of other part of right foot with fat layer exposed; M86.171 Other acute osteomyelitis, right ankle and foot; E11.40 Type 2 diabetes mellitus with diabetic neuropathy, unspecified; R23.4 Changes in skin texture
CPT/HCPCS: 11042

== ENCOUNTER → 2024-12-11 09:48 | Outpatient (CLI) | payer OTHER, MEDICARE, SELFPAY ==
[2024-01-08 17:22] VITALS: BMI 29.5
== END ==
LOC: WC 09:51
PROVIDERS: PCP Family Medicine; Referring Provider Podiatrist; Visit Provider Surgery
DX: E11.621 Type 2 diabetes mellitus with foot ulcer (principal); L97.512 Non-pressure chronic ulcer of other part of right foot with fat layer exposed; M86.171 Other acute osteomyelitis, right ankle and foot; E11.42 Type 2 diabetes mellitus with diabetic polyneuropathy; E11.51 Type 2 diabetes mellitus with diabetic peripheral angiopathy without gangrene; R60.0 Localized edema; R23.4 Changes in skin texture
CPT/HCPCS: 11042

== ENCOUNTER → 2024-12-18 15:11 | Outpatient (CLI) | payer OTHER, MEDICARE, SELFPAY ==
[2024-01-08 17:22] VITALS: BMI 29.5
== END ==
PROVIDERS: PCP Family Medicine; Referring Provider Family Medicine; Visit Provider Surgery
DX: Z86.31 Personal history of diabetic foot ulcer (principal); E11.40 Type 2 diabetes mellitus with diabetic neuropathy, unspecified
CPT/HCPCS: 99213

== ENCOUNTER → 2024-12-25 10:43 | Outpatient (CLI) | payer OTHER, MEDICARE, SELFPAY ==
[2024-01-08 17:22] VITALS: BMI 29.5
== END ==
LOC: WC 10:44
PROVIDERS: PCP Family Medicine; Referring Provider Podiatrist; Visit Provider Surgery
DX: E11.621 Type 2 diabetes mellitus with foot ulcer (principal); L97.512 Non-pressure chronic ulcer of other part of right foot with fat layer exposed; I73.9 Peripheral vascular disease, unspecified; E11.42 Type 2 diabetes mellitus with diabetic polyneuropathy; M86.171 Other acute osteomyelitis, right ankle and foot; R23.4 Changes in skin texture; L84 Corns and callosities; R60.0 Localized edema
CPT/HCPCS: 97597; 99213

== ENCOUNTER → 2025-01-01 13:12 | Outpatient (CLI) | payer OTHER, MEDICARE, SELFPAY ==
[2024-01-08 17:22] VITALS: BMI 29.5
== END ==
LOC: WC 13:14
PROVIDERS: PCP Family Medicine; Referring Provider Podiatrist; Visit Provider Surgery
DX: E11.42 Type 2 diabetes mellitus with diabetic polyneuropathy (principal); E11.621 Type 2 diabetes mellitus with foot ulcer; L97.512 Non-pressure chronic ulcer of other part of right foot with fat layer exposed; R23.4 Changes in skin texture; I73.9 Peripheral vascular disease, unspecified; M86.171 Other acute osteomyelitis, right ankle and foot
CPT/HCPCS: 99213

== ENCOUNTER → 2025-01-08 09:48 | Outpatient (CLI) | payer OTHER, MEDICARE, SELFPAY ==
[2024-01-08 17:22] VITALS: BMI 29.5
== END ==
PROVIDERS: PCP Family Medicine; Referring Provider Podiatrist; Visit Provider Surgery
DX: Z86.31 Personal history of diabetic foot ulcer (principal); E11.42 Type 2 diabetes mellitus with diabetic polyneuropathy
CPT/HCPCS: 99213